=== PATIENT | female | born 1930 | race Caucasian/White ===

== ENCOUNTER 2017-10-20 14:05 | Inpatient (IN) | payer OTHER ==
[2017-10-20] MEDS ORDERED: morphine CARPU-JECT 2 MG/1 ML DISP.SYRIN IVPUSH ONE (14:57)
[2017-10-20] MEDS ORDERED: MORPHINE SULFATE 2 MG/ML VIAL ONE (15:15)
--- NOTE | 2017-10-20 15:21 | PDOC ---
History of Present Illness - General Chief Complaint: Injury Stated Complaint: FALL Time Seen by Provider: 10/20/17 14:17 History Source: Patient Exam Limitations: No Limitations - History of Present Illness Initial Comments: 10/20/17 14:59 87F with no pmh presents to the ED after accidental fall on parking lot as she was closing the door of her car on herself. She fell down on her left side and has been complaining of left hip pain since then. left leg grossly shorter than right. 10/20/17 15:26 Patient vehemently denies hitting her head or losing consciousness. Past History - Past Medical History Allergies/Adverse Reactions: Allergies Allergy/AdvReac Type Severity Reaction Status Date / Time No Known Allergies Allergy Verified 10/20/17 14:26 CVA: No COPD: No Other medical history: unknown - Suicide/Smoking/Psychosocial Hx Smoking History: Never smoked Review of Systems - Review of Systems Able to Perform ROS?: Yes Is the patient limited Yemeni proficient: No Constitutional: No: Symptoms Reported HEENTM: No: Symptoms Reported Respiratory: No: Symptoms reported Cardiac (ROS): No: Symptoms Reported ABD/GI: No: Symptoms Reported : No: Symptoms Reported Musculoskeletal: Yes: See HPI Integumentary: No: Symptoms Reported Neurological: No: Symptoms reported All Other Systems: Reviewed and Negative *Physical Exam - Vital Signs Last Vital Signs Temp Pulse Resp BP Pulse Ox 98.2 F 59 L 18 117/63 97 10/20/17 14:26 10/20/17 14:26 10/20/17 14:26 10/20/17 14:26 10/20/17 14:26 - Physical Exam General Appearance: Yes: Nourished, Appropriately Dressed. No: Apparent Distress HEENT: positive: EOMI, KANDY, Normal ENT Inspection, Other (minor superficial laceration to the left eyebrow, self inflicted per patient as she tried to grab on car door. ) Respiratory/Chest: positive: Lungs Clear, Normal Breath Sounds. negative: Chest Tender, Respiratory Distress Cardiovascular: positive: Regular Rhythm, Regular Rate, S1, S2 Gastrointestinal/Abdominal: positive: Normal Bowel Sounds, Flat, Soft. negative : Tender Musculoskeletal: positive: Other (left hip tender to palpation. Unable to range left hip. Externally rotated LLE. ) Integumentary: positive: Normal Color, Warm ED Treatment Course - LABORATORY CBC & Chemistry Diagram: 10/20/17 15:10 10/20/17 15:10 - RADIOLOGY Radiology Studies Ordered: Category Date Time Status HIP & PELVIS-LEFT [RAD] Stat Radiology 10/20/17 14:28 Ordered HIP & PELVIS-RIGHT [RAD] Stat Radiology 10/20/17 14:28 Ordered Medical Decision Making - Medical Decision Making 10/20/17 15:29 Hip and pelvis xray pending Will order basic pre-admission orders. 10/20/17 17:08 AP and frog lateral projections of the pelvis and both hips reveals a comminuted intertrochanteric fracture of the left femur with moderate displacement of fracture fragments. Pain meds and admission *DC/Admit/Observation/Transfer Diagnosis at time of Disposition: Closed comminuted intertrochanteric fracture of left femur - Discharge Dispostion Decision to Admit order: Yes - Referrals Referrals: Roshan Sanchez MD [Primary Care Provider] - - Patient Instructions - Post Discharge Activity
--- NOTE | 2017-10-20 15:44 | PDOC ---
Attending Attestation - Resident Resident Name: Darrell Grimm - ED Attending Attestation I have performed the following: I have examined & evaluated the patient, The case was reviewed & discussed with the resident, I agree w/resident's findings & plan - HPI HPI: 10/20/17 15:29 High functioning 87-year-old female with no severe past medical history other than recently diagnosed glaucoma presents with mechanical fall and left hip injury. Denies any head injury or loss of consciousness, has no complaints except for her left hip, which she has been unable to range since the fall. No sensory deficit. - Physicial Exam PE: 10/20/17 15:29 General: Patient is alert and in no acute distress. Speech is clear and appropriate. Head: Atraumatic and nontender. Tiny 5 mm abrasion to her left hoahaoism, head is otherwise atraumatic HEENT: Pupils are equal round and reactive to light, extraocular movements are intact. No facial deformity/tenderness, no septal hematoma. The oropharynx is clear. Neck: The trachea is midline, there is no stridor. There is no midline cervical spine tenderness, full range of motion of neck. Chest: Nontender, no ecchymosis or abrasions. Heart: S1-S2, regular rate to auscultation. No murmurs. Lungs: Clear to auscultation bilaterally. Symmetric chest rise. Abdomen: Soft/nontender/nondistended. Bowel sounds are normal. There is no abdominal or flank ecchymosis. Back/Pelvis: There is no midline spine tenderness or step-off. Pelvis is stable and nontender. Extremities: Soft tissue swelling over the left hip, which is tender to palpation. Unable to range left hip, left lower extremity is shortened and externally rotated no abnormalities on the right, full range of motion. 2+ distal pulses throughout. Neuro: Alert and oriented x3. Cranial nerves II through XII are intact. 5 out of 5 motor strength x4 extremities. Idotlf-[id number] is intact. No pronator drift. Gait deferred. Skin: No other abrasions/hematomas/lacerations. Psych: Affect is appropriate. - Medical Decision Making 10/20/17 15:31 87-year-old female status post mechanical fall and left hip injury, neurovascularly intact but concerning for fracture. Pain control Left hip and pelvis x-ray Likely admission 10/20/17 16:[address] Warren of ortho consulted. Will admit to Dr. Laguerre, covering Dr. Sanchez. Heart Score/ECG Review #1 ECG reviewed & interpreted by me at: 15:26 General ECG Interpretation: Sinus Rhythm, Normal Rate (62), Normal Intervals ( qtc 499, LBBB), No acute ischemic changes
[2017-10-20 15:50] LABS: BASO % 0.2 % (0-2.0); EOS % 0.1 % (0-4.5); HEMATOCRIT 22.8 % (32.4-45.2); HEMOGLOBIN 7.2 GM/dL (10.7-15.3); LYMPH % 7.4 % (8-40); MCH 25.8 pg (25.7-33.7); MCHC 31.6 g/dl (32.0-36.0); MEAN CELL VOLUME 81.6 fl (80-96); MEAN PLT VOLUME 8.2 fl (7.5-11.1); NEUT % 88.3 % (42.8-82.8); PLATELET COUNT 232 K/MM3 (134-434); RDW 16.5 % (11.6-15.6); WHITE BLOOD COUNT 8.3 K/mm3 (4.0-10.0)
--- NOTE | 2017-10-20 15:51 | EKG ---
Test Reason : Blood Pressure : / mmHG Vent. Rate : 062 BPM Atrial Rate : 062 BPM P-R Int : 150 ms QRS Dur : 122 ms QT Int : 492 ms P-R-T Axes : 085 -69 103 degrees QTc Int : 499 ms Atrial-paced rhythm WITH PREMATURE SUPRAVENTRICULAR COMPLEXES LEFT AXIS DEVIATION LEFT BUNDLE BRANCH BLOCK ABNORMAL ECG Confirmed by Chiki Kaye MD ([id number]) on 10/20/2017 3:51:15 PM Referred By: Confirmed By:Chiki Kaye MD
[2017-10-20 17:19] LABS: ALBUMIN 2.8 g/dl (3.4-5.0); ANION GAP 7 (8-16); BILIRUBIN,TOTAL 0.3 mg/dL (0.2-1.0); BLOOD UREA NITROGEN 46 mg/dL (7-18); CALCIUM 8.4 mg/dL (8.5-10.1); CHLORIDE 107 mmol/L (98-107); CO2 30 mmol/L (21-32); CREATININE 0.8 mg/dL (0.55-1.02); GLUCOSE,RANDOM 131 mg/dL (74-106); POTASSIUM 4.5 mmol/L (3.5-5.1); SGOT/AST 20 U/L (15-37); SGPT/ALT 19 U/L (12-78); SODIUM 144 mmol/L (136-145); TOT PROT 6.1 g/dl (6.4-8.2)
[2017-10-20 17:22] LABS: ALK PHOS 54 U/L (45-117)
[2017-10-20] MEDS ORDERED: SODIUM CHLORIDE 1,000 ML IV STA (18:48)
[2017-10-20 19:28] LABS: URINE APPEARANCE CLEAR; URINE BILIRUBIN NEGATIVE (<2.0 mg/dL); URINE COLOR YELLOW; URINE GLUCOSE (UA) NEGATIVE (NEGATIVE); URINE KETONE NEGATIVE (NEGATIVE); URINE LEUK ESTERASE NEGATIVE (NEGATIVE); URINE NITRITE POSITIVE (NEGATIVE); URINE PROTEIN NEGATIVE (NEGATIVE); URINE UROBILINOGEN NEGATIVE mg/dL (0.2-1.0)
[2017-10-20 19:32] LABS: EPI CELLS RARE /HPF (FEW); URINE BACTERIA MANY /hpf (NONE SEEN); URINE MUCUS RARE
--- NOTE | 2017-10-20 19:43 | HP ---
Admitting History and Physical - Smoking History Smoking history: Never smoked Home Medications - Allergies Allergies/Adverse Reactions: Allergies Allergy/AdvReac Type Severity Reaction Status Date / Time No Known Allergies Allergy Verified 10/20/17 14:26 - Home Medications Home Medications: Ambulatory Orders Unobtainable 10/20/17 Physical Examination Vital Signs: Vital Signs Temperature 98.1 F 10/20/17 18:32 Pulse Rate 67 10/20/17 18:32 Respiratory Rate 18 10/20/17 18:32 Blood Pressure 125/68 10/20/17 18:32 O2 Sat by Pulse Oximetry (%) 100 10/20/17 18:32 Labs: CBC, BMP 10/20/17 15:10 10/20/17 16:46
--- NOTE | 2017-10-21 09:00 | CON.CARD ---
Cardiology Consult (text) - Consultation Consultation Note: Cardiology Consult Dictated Acute left hip fx s/p fall [employer] PPM, h/o AF not on chronic AC due to previous peptic ulcer and GI bledd Anemia REC: 1. Anesthesia to be aware patient has [employer] PPM 2. No absolute cardiac contraindications to surgery- no , euvolemic, no symptoms of unstable angina. 3. Agree with transfusion to keep Hb >8 4. Follow H/H post op 5. DVT prophylaxis 6. Anemia work up as per primary medical team. Thank you.
--- NOTE | 2017-10-21 09:38 | CONS ---
DATE OF CONSULTATION: 10/21/2017 REQUESTING PHYSICIAN: Dillon Warren MD REASON FOR CONSULTATION: Preoperative cardiac evaluation prior to surgery for left hip fracture. The patient is an 87-year-old female with a past medical history of peptic ulcer disease, GI bleed, treated at [facility] several years ago. Atrial fibrillation, not on Coumadin due to history of severe GI bleeding. Prior pacemaker placement, [employer]. She now presents with an acute left hip fracture after a fall sustained at the [facility]. She denies antecedent chest pain, shortness of breath, palpitations, or loss of consciousness. She is currently comfortable and in no acute distress. PAST MEDICAL HISTORY: As above. HOME MEDICATIONS: Include Alphagan eye drops and baby aspirin, which she does not take regularly. FAMILY HISTORY: Noncontributory. SOCIAL HISTORY: She is a nonsmoker, lives alone. PHYSICAL EXAMINATION: Vital Signs: Temperature 99.6 F, blood pressure 101/54, O2 saturation 100 on room air. Neck: No bruits. Heart: S1, S2 regular, atrially paced. Chest: Clear. Abdomen: Soft, nontender. Extremities: The left leg was foreshortened and externally rotated. Her hip x-ray shows a comminuted intertrochanteric fracture of the left femur. Her chest x-ray shows no acute disease. Labs remarkable for a hemoglobin of 7.2 and hematocrit of 23. Platelets are normal. Chemistry profile was unremarkable except for a mildly elevated BUN of 46. Normal LFTs. Troponin is negative. Urinalysis was unremarkable. IMPRESSION: 1. Acute left hip fracture status post fall. 2. Atrial fibrillation, not on anticoagulation due to previous peptic ulcer disease and gastrointestinal bleed, [employer] pacemaker. 3. Anemia, possible chronic gastrointestinal blood loss. RECOMMENDATIONS: 1. Anesthesia to be aware patient has a [employer] pacemaker and appears atrially paced on her EKG. 2. Currently, there are no absolute cardiac contraindications to surgery. No aortic stenosis. Patient is euvolemic with no symptoms of unstable angina. 3. Agree with transfusion to keep hemoglobin greater than 8. 4. Follow hemoglobin and hematocrit postop. 5. DVT prophylaxis. 6. Anemia workup as per primary medical team. Patient does not appear to have an active GI bleed at this time but should be worked up appropriately postoperatively. Thank you for the consultation. JLI THOMAS M.D. [id number]
[2017-10-21] MEDS ORDERED: oxyCODONE HCL 5 MG TABLET PO PRN (10:00)
[2017-10-21] MEDS ORDERED: MORPHINE SULFATE 2 MG/ML VIAL IVPUSH PRN (10:01)
[2017-10-21] MEDS ORDERED: ACETAMINOPHEN 325 MG TABLET (FP) PO PRN ×2 (10:01→13:50)
--- NOTE | 2017-10-21 10:31 | CONSULT ---
Consult - text type - Consultation Consultation Note: FULL CONSULT DICTATED IMP: RIGHT IT HIP FX PLAN: R GAMMA NAIL TODAY
--- NOTE | 2017-10-21 10:31 | CONS ---
DATE OF CONSULTATION: 10/21/2017 HISTORY OF PRESENT ILLNESS: Patient is an 87-year-old female complaining of pain in the left hip status post fall today. Negative LOC. Negative dizziness before the fall. PAST MEDICAL HISTORY: Significant for a GI bleed and peptic ulcer disease. PHYSICAL EXAMINATION:Extremities: She has a left short lower extremity, external rotation. Marked increased pain with range of motion of the hip. Full range of motion of the ankle and toes. Neurovascularly intact. IMAGING: X-ray showed a left intertrochanteric hip fracture. IMPRESSION: Left intertrochanteric hip fracture. PLAN: Risks, benefits and alternatives discussed with the patient. Patient will be booked for a left gamma nail later today. Her hematocrit was found to be in the low 20s. We will give her 2 units of packed cells. Her global program director will see the patient to clear her prior to the surgery. EMILY LOPEZ M.D. [id number]
[2017-10-21] MEDS ORDERED: MIDAZOLAM HCL 2 MG/2 ML SINGLE DOSE VIAL ONE (11:24)
[2017-10-21] MEDS ORDERED: PROPOFOL 20 ML ONE (11:24)
[2017-10-21] MEDS ORDERED: LIDOCAINE HCL/PF 2% SDV 5ML VIAL ONE (11:24)
[2017-10-21] MEDS ORDERED: ceFAZolin SODIUM 1 GM VIAL IVPB ONE (12:17)
[2017-10-21] MEDS ORDERED: ONDANSETRON 4 MG/2 ML VIAL IVPUSH PRN (12:23)
[2017-10-21] MEDS ORDERED: DESFLURANE GAS 240 ML BOTTLE IH ONE (12:33)
--- NOTE | 2017-10-21 13:24 | OP ---
Operative Note - Note: Operative Date: 10/21/17 Pre-Operative Diagnosis: left hip inter trochanteric fracture Operation: left femur IM Nail/Gamma Nail Implants: [employer] G3 Titanium standard trochanteric nail, 85mm lag screw, 37.5 distal locking screw, prox locking screw Surgeon: Robert Miles Anesthesiologist/MIND READER: Simona Adames Anesthesia: General Estimated Blood Loss (mls): 60 Blood Volume Replaced (mls): 350 Fluid Volume Replaced (mls): 500 Operative Report Dictated: Yes
--- NOTE | 2017-10-21 13:55 | SPEC ---
DATE OF OPERATION: 10/21/2017 PREOPERATIVE DIAGNOSIS: Left femur intertrochanteric hip fracture. POSTOPERATIVE DIAGNOSIS: Left femur intertrochanteric hip fracture. PROCEDURE: Left standard Gamma nail. SURGEON: Art Coleman MD ASSISTANTS: None. COMMERCIAL REPORTER: Simona Simpson CRNA ANESTHESIA: General anesthesia. DRAINS: None. COMPLICATIONS: None. BLOOD LOSS: 60 mL. BLOOD GIVEN: Packed red blood cells 1 unit/350 mL. Second unit being given in the recovery room. FLUID REPLACEMENT: 500 mL. IMPLANT: Left Gamma G3 titanium trochanteric nail standard, 37.5 mm distal locking screw, proximal set screw, and 85-mm lag screw. INDICATIONS: This patient is an 87-year-old female with a preoperative diagnosis of a displaced left intertrochanteric hip fracture. After understanding the potential risks, complications, alternatives, and benefits of surgery versus nonsurgical treatment, the patient elected to undergo this procedure. DESCRIPTION OF PROCEDURE: Patient was brought to the operating room. Peripheral IV placed, IV sedation given. One gram of IV Ancef was given. General anesthesia was induced. The patient had ample Webril placed around the peroneal post in both ankles. The patient was placed onto the fracture table with a slight longitudinal traction and internal rotation. X-rays were taken documenting excellent reduction of the fracture in the AP and lateral planes. Next, an incision was made over the proximal aspect of the greater trochanter. Subcutaneous hemostasis was achieved with a Bovie cautery, dissection done through the lateral fascia to the top of the greater trochanter. A Tong elevator was used to take off the soft tissue from the starting point. Under direct visualization a partially threaded guide-wire was placed through the standard starting position, into the proximal femur, passed the fracture fragment into the medullary canal. It was documented to be in excellent position in AP, lateral and multiple oblique planes. Next, we used the proximal 17 mm cannulated reamer and put in a standard titanium Casey Gamma 3 125 degree, 180 mm trochanteric nail. This was put in cannulated fashion to appropriate depth and using the external guide in a standard fashion, first using external jig, using a threaded guide-wire, replaced the lag screw, guide pin to the lateral aspect of the femur. The prosthesis and up to the femoral neck and head, looked to be in excellent position in a center central position, perhaps slightly posterior and slightly inferior in both AP and lateral planes. We measured it at an 85 mm screw. The cannulated drill was used to drill it to this leg and then we put in an 85 mm titanium lag screw. We achieved excellent compression and overall the position of the hardware in the fracture fragments looked excellent. We locked it in place with a proximal set screw, we altered the external jig to the static position and using the standard technique put in a distal interlocking screw under direct visualization of 37.5 mm in length. This locked the nail distally. We removed the external jig. We repeated x-rays in AP, lateral and multiple oblique planes and overall I was quite happy with the position of the fracture reduction, the length of the screw, the position of the hardware. Final x-rays were taken. The area was copiously irrigated and washed out. The deep fascial layer was closed with 0 Vicryl sutures. The deep dermal layer was closed with 2-0 Vicryl. Final skin approximation was done with ezekiel. The area was then washed and dried, covered with Xeroform gauze, 4 x 4 gauze, ABD and tape. Patient was taken down off the fracture table in stable condition. There were no complications during the case. Total operative time was about 40 minutes. ART COLEMAN M.D. [id number]
--- NOTE | 2017-10-21 15:37 | PN ---
Addendum entered and electronically signed by Nancy Alejandre, RESIDENT 18:53: Anemia - pt already received prbc's at time of examination, will need to monitor for signs of bleeding - discussed with lab, unable to ordered anemia w.u on labs from admission since they are too old. - will recommend outpatient w.u Original Note: Physical Exam: SUBJECTIVE: Patient seen and examined. c/o left pain at surgical site. was concerned about pain when walking tomorrow with physical therapy and toileting while in bed, does not want to be moved due to pain in left hip. alert, oriented, aware of situation. denies sob, abdominal pain. OBJECTIVE: Vital Signs Period Temp Pulse Resp BP Sys/Oseguera Pulse Ox Last 24 Hr 98.1 F-99.6 F 61-77 12-27 101-160/54-80 94-996 GENERAL: The patient is awake, alert, and fully oriented, in no acute distress. EYES: extraocular movements intact, sclera anicteric, conjunctiva clear. No ptosis. ENT: dry mucous membranes. LUNGS: anterior ausculation without wheezes or crackles HEART: Regular rate and rhythm, S1, S2 without murmur, rub or gallop. ABDOMEN: Soft, nontender, nondistended, normoactive bowel sounds EXTREMITIES: 2+ radial and DP pulses, warm, well-perfused, no edema. le in TEDs and scd's. surgical bandage intact on left hip without surrounding erythema NEUROLOGICAL: facial symmetry waldrop in place Laboratory Results - last 24 hr 10/20/17 10/20/17 10/20/17 15:10 15:10 16:46 WBC 8.3 RBC 2.80 L Hgb 7.2 L Hct 22.8 L D MCV 81.6 MCH 25.8 D MCHC 31.6 L RDW 16.5 H Plt Count 232 D MPV 8.2 Absolute Neuts (auto) 7.3 Neutrophils % 88.3 H Lymphocytes % 7.4 L Monocytes % 4.0 Eosinophils % 0.1 Basophils % 0.2 Nucleated RBC % 0 Sodium Cancelled 144 Potassium Cancelled 4.5 Chloride Cancelled 107 Carbon Dioxide Cancelled 30 Anion Gap Cancelled 7 L BUN Cancelled 46 H Creatinine Cancelled 0.8 Creat Clearance w eGFR Cancelled > 60 Random Glucose Cancelled 131 H Calcium Cancelled 8.4 L Total Bilirubin Cancelled 0.3 AST Cancelled 20 ALT Cancelled 19 Alkaline Phosphatase Cancelled 54 Creatine Kinase Cancelled 84 Troponin I Cancelled < 0.02 Total Protein Cancelled 6.1 L Albumin Cancelled 2.8 L Urine Color Urine Appearance Urine pH Ur Specific [place] Urine Protein Urine Glucose (UA) Urine Ketones Urine Blood Urine Nitrite Urine Bilirubin Urine Urobilinogen Ur Leukocyte Esterase Urine WBC (Auto) Urine RBC (Auto) Ur Epithelial Cells Urine Bacteria Urine Mucus Blood Type Antibody Screen Crossmatch 10/20/17 10/20/17 10/20/17 18:50 19:13 19:35 WBC RBC Hgb Hct MCV MCH MCHC RDW Plt Count MPV Absolute Neuts (auto) Neutrophils % Lymphocytes % Monocytes % Eosinophils % Basophils % Nucleated RBC % Sodium Potassium Chloride Carbon Dioxide Anion Gap BUN Creatinine Creat Clearance w eGFR Random Glucose Calcium Total Bilirubin AST ALT Alkaline Phosphatase Creatine Kinase Troponin I Total Protein Albumin Urine Color Yellow Urine Appearance Clear Urine pH 5.0 Ur Specific [place] 1.020 Urine Protein Negative Urine Glucose (UA) Negative Urine Ketones Negative Urine Blood Negative Urine Nitrite Positive Urine Bilirubin Negative Urine Urobilinogen Negative Ur Leukocyte Esterase Negative Urine WBC (Auto) 2 Urine RBC (Auto) 1 Ur Epithelial Cells Rare Urine Bacteria Many Urine Mucus Rare Blood Type Cancelled O POSITIVE Antibody Screen Cancelled Negative Crossmatch See Detail Active Medications Generic Name Dose Route Start Last Admin Trade Name Freq PRN Reason Stop Dose Admin Acetaminophen 650 mg 10/21/17 13:50 Tylenol - PO Q4H PRN PAIN LEVEL 1 - 3 Enoxaparin Sodium 30 mg 10/22/17 10:00 Lovenox - SQ DAILY [facility] Fentanyl 25 mcg 10/21/17 12:23 10/21/17 14:35 Sublimaze Injection - IVPUSH 25 mcg [id number] PRN Administration PAIN-PACU ORDER X 4 DOSES ONLY Lactated Ringer's 1,000 mls @ 75 mls/hr 10/21/17 12:30 Lactated Ringers Solution IV ASDIR [facility] Cefazolin Sodium 1 gm/ 50 mls @ 100 mls/hr 10/21/17 20:00 Dextrose IVPB 10/22/17 04:29 Q8H ALEKSANDAR Morphine Sulfate 1 mg 10/21/17 13:50 Morphine Sulfate IVPUSH Q6H PRN PAIN LEVEL 7 - 10 Ondansetron HCl 4 mg 10/21/17 12:23 Zofran Injection IVPUSH Q6H PRN NAUSEA AND/OR VOMITING Oxycodone HCl 5 mg 10/21/17 13:50 Roxicodone - PO Q6H PRN PAIN LEVEL 4 - 6 ASSESSMENT/PLAN: 87 yr old woman with glaucoma, [employer] PPM with h/o AF(not on AC due to peptic ulcer and gi bleed) admitted for coomunited IT fracture s/p mechanical fall. #Communited fracture repaird with gamma nail by ortho- POD#0 - pain control with tylenol, morphine and oxycodeno on pain sliding pain scale, titrate to control - stool softner while on opaite pain medications - physical therapy in the AM - continue DVT prophylaxis with lovenox 40mg sq daily tomorrow - zofran prn for nausea - ancef periop as per ortho - lr IVF overnight until taking adequate PO - will dc waldrop in the am once pain is better controlled - encourage incentive spirometry - will need SNF once stable for rehab, to discuss when pt is ready for dc planning #diet- pureed Visit type - Emergency Visit Emergency Visit: No - New Patient This patient is new to me today: Yes Date on this admission: 10/21/17 - Critical Care Critical Care patient: No - Discharge Referral Referred to [facility] No
[2017-10-21] MEDS: MORPHINE SULFATE 2 MG/ML VIAL IVPUSH PRN ×2 (16:07→22:06)
--- NOTE | 2017-10-21 18:06 | PN ---
Teaching Attending Note Name of Resident: Nancy Alejandre ATTENDING PHYSICIAN STATEMENT I saw and evaluated the patient. I reviewed the resident's note and discussed the case with the resident. I agree with the resident's findings and plan as documented. SUBJECTIVE: Patient complains of pain in her left hip. OBJECTIVE: Vital Signs Period Temp Pulse Resp BP Sys/Oseguera Pulse Ox Last 24 Hr 97.9 F-99.6 F 61-77 11-27 101-160/54-80 96-996 HEART: S1S2, RRR LUNGS: Clear ABDOMEN: Soft, non-tender, non-distended, normal BS EXTREMITIES: No edema Laboratory Results - last 24 hr 10/20/17 10/20/17 10/20/17 18:50 19:13 19:35 Urine Color Yellow Urine Appearance Clear Urine pH 5.0 Ur Specific [place] 1.020 Urine Protein Negative Urine Glucose (UA) Negative Urine Ketones Negative Urine Blood Negative Urine Nitrite Positive Urine Bilirubin Negative Urine Urobilinogen Negative Ur Leukocyte Esterase Negative Urine WBC (Auto) 2 Urine RBC (Auto) 1 Ur Epithelial Cells Rare Urine Bacteria Many Urine Mucus Rare Blood Type Cancelled O POSITIVE Antibody Screen Cancelled Negative Crossmatch See Detail Current Medications Generic Name Dose Route Start Last Admin Trade Name Freq PRN Reason Stop Dose Admin Acetaminophen 650 mg 10/21/17 13:50 Tylenol - PO Q4H PRN PAIN LEVEL 1 - 3 Enoxaparin Sodium 40 mg 10/22/17 10:00 Lovenox - SQ DAILY ALE[facility] Fentanyl 25 mcg 10/21/17 12:23 10/21/17 14:35 Sublimaze Injection - IVPUSH 25 mcg [id number] PRN Administration PAIN-PACU ORDER X 4 DOSES ONLY Lactated Ringer's 1,000 mls @ 75 mls/hr 10/21/17 12:30 Lactated Ringers Solution IV ASDIR [facility] Cefazolin Sodium 1 gm/ 50 mls @ 100 mls/hr 10/21/17 20:00 Dextrose IVPB 10/22/17 04:29 Q8H ALEKSANDAR Morphine Sulfate 1 mg 10/21/17 13:50 10/21/17 16:07 Morphine Sulfate IVPUSH 1 mg Q6H PRN Administration PAIN LEVEL 7 - 10 Ondansetron HCl 4 mg 10/21/17 12:23 Zofran Injection IVPUSH Q6H PRN NAUSEA AND/OR VOMITING Oxycodone HCl 5 mg 10/21/17 13:50 Roxicodone - PO Q6H PRN PAIN LEVEL 4 - 6 ASSESSMENT AND PLAN: 1. Intertrochanteric left femur fracture - s/p IM nail today - Pain control - Physical therapy 2. Anemia - Acute blood loss vs chronic - Being transfused 2 units PRBCs - Keep Hgb > 8 3. History of atrial fib - Not on anticoagulation secondary to GI bleed 4. History of pacemaker
[2017-10-21] MEDS: LACTATED RINGERS SOLUTION 1,000 ML IV SCH (18:28)
[2017-10-21] MEDS ORDERED: ceFAZolin SODIUM 1 GM VIAL ONE (19:52)
[2017-10-21] MEDS ORDERED: DEXTROSE 5%-WATER - 50 ML IVPB ONE (19:52)
[2017-10-21] MEDS ORDERED: CEFAZOLIN 1 GM/D5W 1 GM/50 ML BAG IVPB SCH (20:00)
[2017-10-21] MEDS: CEFAZOLIN 1 GM in DEXTROSE 5%-WATER - 50 ML IVPB SCH (20:17)
[2017-10-21] MEDS: oxyCODONE HCL 5 MG TABLET PO PRN (20:28)
[2017-10-22] MEDS ORDERED: DEXTROSE 5%-WATER - 50 ML IVPB ONE (03:35)
[2017-10-22] MEDS ORDERED: ceFAZolin SODIUM 1 GM VIAL ONE (03:35)
[2017-10-22] MEDS: CEFAZOLIN 1 GM in DEXTROSE 5%-WATER - 50 ML IVPB SCH (03:42)
[2017-10-22] MEDS: MORPHINE SULFATE 2 MG/ML VIAL IVPUSH PRN ×3 (05:34→21:38)
[2017-10-22] MEDS: LACTATED RINGERS SOLUTION 1,000 ML IV SCH ×2 (06:11→19:30)
[2017-10-22 08:15] LABS: HEMATOCRIT 24.5 % (32.4-45.2); HEMOGLOBIN 8.3 GM/dL (10.7-15.3); MCH 28.8 pg (25.7-33.7); MEAN CELL VOLUME 84.7 fl (80-96); MEAN PLT VOLUME 7.9 fl (7.5-11.1); PLATELET COUNT 172 K/MM3 (134-434); RBC 2.89 M/mm3 (3.60-5.2); RDW 16.2 % (11.6-15.6); WHITE BLOOD COUNT 7.7 K/mm3 (4.0-10.0)
[2017-10-22 08:30] LABS: ANION GAP 7 (8-16); BLOOD UREA NITROGEN 46 mg/dL (7-18); CALCIUM 7.7 mg/dL (8.5-10.1); CHLORIDE 107 mmol/L (98-107); CO2 30 mmol/L (21-32); CREATININE 0.8 mg/dL (0.55-1.02); GLUCOSE,RANDOM 123 mg/dL (74-106); POTASSIUM 3.8 mmol/L (3.5-5.1); SODIUM 144 mmol/L (136-145)
--- NOTE | 2017-10-22 09:07 | PN ---
Progress Note, Physician Chief Complaint: s/p left femur IM Nail/Gamma Nail History of Present Illness: POD #1, alert, no distress - Current Medication List Current Medications: Active Medications Acetaminophen (Tylenol -) 650 mg PO Q4H PRN PRN Reason: PAIN LEVEL 1 - 3 Docusate Sodium (Colace -) 100 mg PO DAILY ON LICENSE OF [facility] Enoxaparin Sodium (Lovenox -) 40 mg SQ DAILY ON LICENSE OF [facility] Fentanyl (Sublimaze Injection -) 25 mcg IVPUSH [id number] PRN PRN Reason: PAIN-PACU ORDER X 4 DOSES ONLY Last Admin: 10/21/17 14:35 Dose: 25 mcg Lactated Ringer's (Lactated Ringers Solution) 1,000 mls @ 75 mls/hr IV ASDIR ALEKSANDAR Last Admin: 10/22/17 06:11 Dose: 75 mls/hr Morphine Sulfate (Morphine Sulfate) 1 mg IVPUSH Q6H PRN PRN Reason: PAIN LEVEL 7 - 10 Last Admin: 10/22/17 05:34 Dose: 1 mg Ondansetron HCl (Zofran Injection) 4 mg IVPUSH Q6H PRN PRN Reason: NAUSEA AND/OR VOMITING Oxycodone HCl (Roxicodone -) 5 mg PO Q6H PRN PRN Reason: PAIN LEVEL 4 - 6 Last Admin: 10/21/17 20:28 Dose: 5 mg - Objective Vital Signs: Vital Signs Temperature 99.4 F 10/22/17 06:00 Pulse Rate 63 10/22/17 06:00 Respiratory Rate 18 10/22/17 06:00 Blood Pressure 118/60 10/22/17 06:00 O2 Sat by Pulse Oximetry (%) 96 10/22/17 08:49 Constitutional: Yes: No Distress Eyes: Yes: EOM Intact Cardiovascular: Yes: Regular Rate and Rhythm (paced) Respiratory: Yes: CTA Bilaterally Gastrointestinal: Yes: Soft Edema: No Neurological: Yes: Alert, Oriented Labs: CBC, BMP 10/22/17 06:15 10/22/17 06:15 Laboratory Tests 10/22/17 10/22/17 06:15 06:15 WBC 7.7 Hgb 8.3 L Plt Count 172 D Sodium 144 Potassium 3.8 BUN 46 H Creatinine 0.8 Assessment/Plan Cardiology Consult Dictated Acute left hip fx s/p fall [facility] PPM, h/o AF not on chronic AC due to previous peptic ulcer and GI bledd Anemia REC: 1. DVT prophylaxis 2. Anemia w/u as per PMD 3. Rx UTI as per PMD 4. HD stable post op
[2017-10-22] MEDS: DOCUSATE SODIUM 100 MG CAPSULE (FP) PO SCH (09:15)
[2017-10-22] MEDS: ENOXAPARIN NA (PORCINE) 40 MG/0.4 ML DISP.SYRIN SQ SCH (09:15)
[2017-10-22] MEDS: oxyCODONE HCL 5 MG TABLET PO PRN (09:16)
--- NOTE | 2017-10-22 09:26 | PN ---
Progress Note (short form) - Note Progress Note: Ortho Pt seen and examined s/p left IM gamma nail pod #1 Selected Entries 10/22/17 09:12 Temperature 98.2 F Pulse Rate 67 Respiratory 16 Rate Blood Pressure 108/66 Laboratory Tests 10/22/17 06:15 WBC 7.7 Hgb 8.3 L Hct 24.5 L Plt Count 172 D dressing with slight saturation, calf soft ,nt nvi a/p PT PWB dvt ppx pain control b/l heel pads d/c planning
[2017-10-22] MEDS ORDERED: ENOXAPARIN NA (PORCINE) 40 MG/0.4 ML DISP.SYRIN SQ SCH ×2 (10:00)
--- NOTE | 2017-10-22 11:23 | CONSULT ---
Consult - text type - Consultation Consultation Note: Podiatry Consultation: Pleasant 87 year old F presented to hospital with L femur IT fracture, s/p gamma nailing with Orthopedics. Podiatry consultation requested for elongated toe nails x 10. ANGEL: Pedal pulses 1/4, TG wnl, CFT brisk to all toes. Nails are elongated, discolored, thickened, overgrown and ingrowing, tender to palpation x 10. No nail bed ulcers, no digital ulcers, no signs of active infection. Imp: 87 year old F with onychomycosis x 10 1. With verbal consent obtained, manual debridement of mycotic nails x 10 using nail nipper. Patient tolerated the procedure well without complications. 2. Appropriate foot hygiene discussed at length. 3. Patient can f/u outpatient in about 3 months. Thank you for the courtesy of this consultation. Artie Phoenix DPM
--- NOTE | 2017-10-22 15:49 | PN ---
Teaching Attending Note Name of Resident: Nancy Alejandre ATTENDING PHYSICIAN STATEMENT I saw and evaluated the patient. I reviewed the resident's note and discussed the case with the resident. I agree with the resident's findings and plan as documented. SUBJECTIVE: Patient complains of left hip pain with movement. OBJECTIVE: Vital Signs Period Temp Pulse Resp BP Sys/Oseguera Pulse Ox Last 24 Hr 97.9 F-99.4 F 61-67 16-20 102-143/45-72 95-96 HEART: S1S2, RRR LUNGS: Clear ABDOMEN: Soft, non-tender, non-distended, normal BS EXTREMITIES: No edema Laboratory Results - last 24 hr 10/22/17 10/22/17 06:15 06:15 WBC 7.7 RBC 2.89 L Hgb 8.3 L Hct 24.5 L MCV 84.7 MCH 28.8 D MCHC 34.0 RDW 16.2 H Plt Count 172 D MPV 7.9 Sodium 144 Potassium 3.8 Chloride 107 Carbon Dioxide 30 Anion Gap 7 L BUN 46 H Creatinine 0.8 Creat Clearance w eGFR > 60 Random Glucose 123 H Calcium 7.7 L Current Medications Generic Name Dose Route Start Last Admin Trade Name Freq PRN Reason Stop Dose Admin Acetaminophen 650 mg 10/21/17 13:50 Tylenol - PO Q4H PRN PAIN LEVEL 1 - 3 Docusate Sodium 100 mg 10/22/17 10:00 10/22/17 09:15 Colace - PO 100 mg DAILY ALEKSANDAR Administration Enoxaparin Sodium 40 mg 10/22/17 10:00 10/22/17 09:15 Lovenox - SQ 40 mg DAILY ALEKSANDAR Administration Fentanyl 25 mcg 10/21/17 12:23 10/21/17 14:35 Sublimaze Injection - IVPUSH 25 mcg [id number] PRN Administration PAIN-PACU ORDER X 4 DOSES ONLY Lactated Ringer's 1,000 mls @ 75 mls/hr 10/21/17 12:30 10/22/17 06:11 Lactated Ringers Solution IV 75 mls/hr ASDIR ALEKSANDAR Administration Morphine Sulfate 1 mg 10/21/17 13:50 10/22/17 11:01 Morphine Sulfate IVPUSH 1 mg Q6H PRN Administration PAIN LEVEL 7 - 10 Ondansetron HCl 4 mg 10/21/17 12:23 Zofran Injection IVPUSH Q6H PRN NAUSEA AND/OR VOMITING Oxycodone HCl 5 mg 10/21/17 13:50 10/22/17 09:16 Roxicodone - PO 5 mg Q6H PRN Administration PAIN LEVEL 4 - 6 ASSESSMENT AND PLAN: 1. Intertrochanteric left femur fracture - s/p IM nail 10/21 - Pain control - Continue physical therapy - Will need subacute rehab - plan for tomorrow if bed available 2. Anemia - Acute blood loss vs chronic - Transfused 2 units PRBCs - Continue to monitor hemoglobin - Keep Hgb > 8 3. History of atrial fib - Not on anticoagulation secondary to GI bleed 4. History of pacemaker
[2017-10-23] MEDS: MORPHINE SULFATE 2 MG/ML VIAL IVPUSH PRN (04:32)
[2017-10-23] MEDS ORDERED: MORPHINE SULFATE 2 MG/ML VIAL IVPUSH PRN (07:18)
[2017-10-23 07:33] LABS: HEMATOCRIT 22.4 % (32.4-45.2); HEMOGLOBIN 7.6 GM/dL (10.7-15.3); MCH 28.9 pg (25.7-33.7); MCHC 33.7 g/dl (32.0-36.0); MEAN CELL VOLUME 85.6 fl (80-96); MEAN PLT VOLUME 8.1 fl (7.5-11.1); PLATELET COUNT 157 K/MM3 (134-434); RBC 2.62 M/mm3 (3.60-5.2); RDW 16.5 % (11.6-15.6); WHITE BLOOD COUNT 8.7 K/mm3 (4.0-10.0)
--- NOTE | 2017-10-23 08:52 | PN ---
Physical Exam: SUBJECTIVE: Patient seen and examined. sleeping comfortably. has not had a bowel in hospital. denied fevers, abdominal pain. has pain with movement of left hip. morphine helps to reduce the pain but does not last long enough OBJECTIVE: Vital Signs Period Temp Pulse Resp BP Sys/Oseguera Pulse Ox Last 24 Hr 98.1 F-98.4 F 65-87 14-18 102-134/45-72 97 GENERAL: The patient is awake, alert, and fully oriented, in no acute distress. EYES: extraocular movements intact, sclera anicteric, conjunctiva clear. No ptosis. ENT: dry mucous membranes(pt keeps mouth open when sleeping, likely not due to dehydration) LUNGS: anterior ausculation without wheezes or crackles HEART: Regular rate and rhythm, S1, S2 without murmur, rub or gallop. ABDOMEN: Soft, nontender, nondistended, normoactive bowel sounds EXTREMITIES: 2+ radial and DP pulses, warm, well-perfused, no edema. le in TEDs and scd's. surgical bandage intact on left hip without surrounding erythema. left upper arm with swelling L arm larger than right. NEUROLOGICAL: facial symmetry, clear speech Laboratory Results - last 24 hr 10/23/17 06:10 WBC 8.7 RBC 2.62 L Hgb 7.6 L Hct 22.4 L MCV 85.6 MCH 28.9 MCHC 33.7 RDW 16.5 H Plt Count 157 MPV 8.1 Active Medications Generic Name Dose Route Start Last Admin Trade Name Freq PRN Reason Stop Dose Admin Acetaminophen 650 mg 10/21/17 13:50 Tylenol - PO Q4H PRN PAIN LEVEL 1 - 3 Docusate Sodium 100 mg 10/22/17 10:00 10/22/17 09:15 Colace - PO 100 mg DAILY ALEKSANDAR Administration Enoxaparin Sodium 40 mg 10/22/17 10:00 10/22/17 09:15 Lovenox - SQ 40 mg DAILY ALEKSANDAR Administration Fentanyl 25 mcg 10/21/17 12:23 10/21/17 14:35 Sublimaze Injection - IVPUSH 25 mcg [id number] PRN Administration PAIN-PACU ORDER X 4 DOSES ONLY Morphine Sulfate 1 mg 10/23/17 07:18 Morphine Sulfate IVPUSH Q4H PRN PAIN LEVEL 7 - 10 Ondansetron HCl 4 mg 10/21/17 12:23 Zofran Injection IVPUSH Q6H PRN NAUSEA AND/OR VOMITING Oxycodone HCl 5 mg 10/21/17 13:50 10/22/17 09:16 Roxicodone - PO 5 mg Q6H PRN Administration PAIN LEVEL 4 - 6 Polyethylene Glycol 17 gm 10/23/17 10:00 Miralax (For Daily Use) - PO DAILY ALEKSANDAR ASSESSMENT/PLAN: 7 yr old woman with glaucoma, [employer] Sci PPM with h/o AF(not on AC due to peptic ulcer and gi bleed) admitted for communited IT fracture s/p mechanical fall. #left arm swelling - duplex ordered to r.o VTE. found to have superficial VTE in left ar. consulted vascular surg for evaluation. will treat as recommended with aspirin(with PPI due to pt's hx of GI bleed) for pain, warm compresses, and elevation. #Communited fracture repaired with gamma nail by ortho- POD#1 - pain control with tylenol, morphine and oxycodeno on pain sliding pain scale, titrate to control - stool softner while on opiate pain medications, added miralax today for added GI regimen - pt accepted to [facility] - zofran prn for nausea - IVF dc'd today, pt encouraged to take adequate po - encourage incentive spirometry #Anemia, normocytic - ordered iron and vitamin b12 panel - repeat at noon was improved - monitor for signs of bleeding - Called her PCP's office to get most recent lab work h/h from July 2017: 11.5/ 36.7. - PCP's office does not have a historical record of colonoscopy, low suspicion for acute GI bleed currently, surgical site intact without signs of hematoma development, will monitor for now #Asymptomatic bacteruria - Urinalysis was positive for nitrate on admission, however pt has no s/s of UTI , will monitor off abx for now. PCP's office did not have a historical UA for comparison. # seen by podiatry for toe nails, provided cutting of nails and pt to f.u in 3 months #Diet pureed, skim milk only #dvt prophylaxis with lovenox 40sq daily #Dispo: pt to be transferred to [facility] tomorrow morning, discussed with case management Visit type - Emergency Visit Emergency Visit: No - New Patient This patient is new to me today: No - Critical Care Critical Care patient: No
[2017-10-23] MEDS: DOCUSATE SODIUM 100 MG CAPSULE (FP) PO SCH (10:05)
[2017-10-23] MEDS: ENOXAPARIN NA (PORCINE) 40 MG/0.4 ML DISP.SYRIN SQ SCH (10:06)
[2017-10-23 12:08] LABS: BASO % 0.1 % (0-2.0); EOS % 0.1 % (0-4.5); HEMATOCRIT 24.7 % (32.4-45.2); HEMOGLOBIN 8.2 GM/dL (10.7-15.3); LYMPH % 9.8 % (8-40); MCH 28.3 pg (25.7-33.7); MCHC 33.1 g/dl (32.0-36.0); MEAN CELL VOLUME 85.6 fl (80-96); MEAN PLT VOLUME 8.1 fl (7.5-11.1); MONO % 11.1 % (3.8-10.2); NEUT % 78.9 % (42.8-82.8); PLATELET COUNT 179 K/MM3 (134-434); RBC 2.89 M/mm3 (3.60-5.2); RDW 16.5 % (11.6-15.6); WHITE BLOOD COUNT 7.8 K/mm3 (4.0-10.0)
[2017-10-23] MEDS: POLYETHYLENE GLYCOL 3350 119 GM BTL PO SCH (13:53)
--- NOTE | 2017-10-23 14:57 | PN ---
Progress Note, Physician Chief Complaint: no acute distress - Current Medication List Current Medications: Active Medications Acetaminophen (Tylenol -) 650 mg PO Q4H PRN PRN Reason: PAIN LEVEL 1 - 3 Docusate Sodium (Colace -) 100 mg PO DAILY REPLACED BY [facility] Last Admin: 10/23/17 10:05 Dose: 100 mg Enoxaparin Sodium (Lovenox -) 40 mg SQ DAILY REPLACED BY [facility] Last Admin: 10/23/17 10:06 Dose: 40 mg Fentanyl (Sublimaze Injection -) 25 mcg IVPUSH [id number] PRN PRN Reason: PAIN-PACU ORDER X 4 DOSES ONLY Last Admin: 10/21/17 14:35 Dose: 25 mcg Morphine Sulfate (Morphine Sulfate) 1 mg IVPUSH Q4H PRN PRN Reason: PAIN LEVEL 7 - 10 Last Admin: 10/23/17 14:04 Dose: 1 mg Ondansetron HCl (Zofran Injection) 4 mg IVPUSH Q6H PRN PRN Reason: NAUSEA AND/OR VOMITING Oxycodone HCl (Roxicodone -) 5 mg PO Q6H PRN PRN Reason: PAIN LEVEL 4 - 6 Last Admin: 10/22/17 09:16 Dose: 5 mg Polyethylene Glycol (Miralax (For Daily Use) -) 17 gm PO DAILY REPLACED BY [facility] Last Admin: 10/23/17 13:53 Dose: 17 grams - Objective Vital Signs: Vital Signs Temperature 98.6 F 10/23/17 09:31 Pulse Rate 90 10/23/17 09:31 Respiratory Rate 18 10/23/17 09:31 Blood Pressure 114/60 10/23/17 09:31 O2 Sat by Pulse Oximetry (%) 97 10/23/17 09:27 Constitutional: Yes: No Distress Cardiovascular: Yes: Regular Rate and Rhythm Respiratory: Yes: CTA Bilaterally Gastrointestinal: Yes: Soft Edema: Yes Edema: LLE: 1+ Neurological: Yes: Alert, Oriented ...Motor Strength: WNL Labs: CBC, BMP 10/23/17 11:44 10/22/17 06:15 Laboratory Tests 10/22/17 10/23/17 06:15 11:44 WBC 7.8 Hgb 8.2 L Plt Count 179 Potassium 3.8 Creatinine 0.8 Assessment/Plan Acute left hip fx s/p fall [place] [facility] PPM, h/o AF not on chronic AC due to previous peptic ulcer and GI bledd Anemia REC: 1. DVT prophylaxis 2. Anemia w/u as per PMD 3. Rx UTI as per PMD 4. HD stable post op 5. Prelim UE US with superficial thrombus. D/W resident. F/u official report. Vascular consult Usual therapy is ASA and warm compresses.
--- NOTE | 2017-10-23 15:18 | PN ---
Teaching Attending Note Name of Resident: Nancy Alejandre ATTENDING PHYSICIAN STATEMENT I saw and evaluated the patient. I reviewed the resident's note and discussed the case with the resident. I agree with the resident's findings and plan as documented. SUBJECTIVE: Patient says left hip pain is less severe. OBJECTIVE: Vital Signs Period Temp Pulse Resp BP Sys/Oseguera Pulse Ox Last 24 Hr 98.1 F-98.6 F 67-90 14-18 112-134/60-72 97-97 HEART: S1S2, RRR LUNGS: Clear ABDOMEN: Soft, non-tender, non-distended, normal BS EXTREMITIES: (+) LUE edema Laboratory Results - last 24 hr 10/23/17 10/23/17 10/23/17 06:10 06:10 06:10 WBC 8.7 RBC 2.62 L Hgb 7.6 L Hct 22.4 L MCV 85.6 MCH 28.9 MCHC 33.7 RDW 16.5 H Plt Count 157 MPV 8.1 Absolute Neuts (auto) Neutrophils % Lymphocytes % Monocytes % Eosinophils % Basophils % Nucleated RBC % Ferritin 42.1 Vitamin B12 Cancelled 329 10/23/17 11:44 WBC 7.8 RBC 2.89 L Hgb 8.2 L Hct 24.7 L MCV 85.6 MCH 28.3 MCHC 33.1 RDW 16.5 H Plt Count 179 MPV 8.1 Absolute Neuts (auto) 6.2 Neutrophils % 78.9 Lymphocytes % 9.8 D Monocytes % 11.1 H D Eosinophils % 0.1 Basophils % 0.1 Nucleated RBC % 0 Ferritin Vitamin B12 Current Medications Generic Name Dose Route Start Last Admin Trade Name Zhenq PRN Reason Stop Dose Admin Acetaminophen 650 mg 10/21/17 13:50 Tylenol - PO Q4H PRN PAIN LEVEL 1 - 3 Docusate Sodium 100 mg 10/22/17 10:00 10/23/17 10:05 Colace - PO 100 mg DAILY ALEKSANDAR Administration Enoxaparin Sodium 40 mg 10/22/17 10:00 10/23/17 10:06 Lovenox - SQ 40 mg DAILY ALEKSANDAR Administration Fentanyl 25 mcg 10/21/17 12:23 10/21/17 14:35 Sublimaze Injection - IVPUSH 25 mcg [id number] PRN Administration PAIN-PACU ORDER X 4 DOSES ONLY Morphine Sulfate 1 mg 10/23/17 07:18 10/23/17 14:04 Morphine Sulfate IVPUSH 1 mg Q4H PRN Administration PAIN LEVEL 7 - 10 Ondansetron HCl 4 mg 10/21/17 12:23 Zofran Injection IVPUSH Q6H PRN NAUSEA AND/OR VOMITING Oxycodone HCl 5 mg 10/21/17 13:50 10/22/17 09:16 Roxicodone - PO 5 mg Q6H PRN Administration PAIN LEVEL 4 - 6 Polyethylene Glycol 17 gm 10/23/17 10:00 10/23/17 13:53 Miralax (For Daily Use) - PO 17 grams DAILY ALEKSANDAR Administration ASSESSMENT AND PLAN: 1. Intertrochanteric left femur fracture - s/p IM nail 10/21 - Pain control - Continue physical therapy - Plan for discharge to [facility] for subacute rehab 2. Anemia - Acute blood loss vs chronic - Ferritin is 42.1. Iron, TIBC, iron sat pending - Transfused 2 units PRBCs - Hemoglobin stable 3. History of atrial fib - Not on anticoagulation secondary to history of PUD and GI bleed 4. History of pacemaker 5. Superficial thrombophlebitis of LUE - Doppler shows thrombus in left superficial basilic vein - Warm compresses - Elevate arm 6. Asymptomatic bacteriuria - Urine culture growing >100,000 E. coli - No indication for antibiotics at this time
--- NOTE | 2017-10-23 16:08 | PN ---
Progress Note (short form) - Note Progress Note: Ortho Pt seen and examined s/p left IM gamma nail pod #2 Selected Entries 10/23/17 15:08 Temperature 99.7 F H Pulse Rate 92 H Respiratory 18 Rate Blood Pressure 124/84 Laboratory Tests 10/23/17 11:44 WBC 7.8 Hgb 8.2 L Hct 24.7 L Plt Count 179 dressing with slight saturation, calf soft ,nt nvi a/p PT PWB dvt ppx pain control b/l heel pads d/c planning
--- NOTE | 2017-10-23 16:23 | PN ---
Progress Note (short form) - Note Progress Note: VASCULAR SURGERY - Georges Roland Asked to eval 87 yo female with LUE superficial thrombophlebitis...specifically , a thrombus is seen in superficial basilic vein. Per notes, patient has h/o afib not on AC secondary to peptic ulcer/GI bleed. Anemia acute vs. chronic. Denies n/v/f/c, PC, SOB or palpitations. VSS. Afebrile H/H TREND 3 10/23/17 10/23/17 06:10 11:44 Hgb 7.6 L 8.2 L Hct 22.4 L 24.7 L LUE: +1 swelling. Palpable radial. Hand is warm. Negative parasthesias. Problem List - Problems (1) Acute thrombosis of left basilic vein Assessment/Plan: Thrombus identified in superficial basilic vein (Lt). Negative DVT in LUE Manage with warm compress, elevation and NSAIDs for pain. No surgical intervention. Above discussed with Dr. Roland and agrees, On behalf of Dr. Roland, thank you for the opportunity to participate in your patient's care. Code(s): I82.612 - ACUTE EMBOLISM AND THOMBOS OF SUPERFIC VEINS OF L UP EXTREM
[2017-10-23 23:44] VITALS: BMI 17.6
[2017-10-24 08:06] LABS: SERUM IRON SATURATION 6 % (15-55); TOTAL IRON BINDING CAPACITY 237 ug/dL (250-450); UIBC 223 ug/dL (118-369)
--- NOTE | 2017-10-24 09:03 | DS ---
Physical Exam: SUBJECTIVE: Patient seen and examined at the bedside. No complaints. Pain is controlled. OBJECTIVE: Patient is s/p left femur IM nail for left hip inter trochanteric fracture for discharge to subacute rehab at [facility] Vital Signs Period Temp Pulse Resp BP Sys/Oseguera Pulse Ox Last 24 Hr 98.0 F-99.7 F 62-92 16-19 103-124/56-84 97-97 PHYSICAL EXAM GENERAL: The patient is awake, alert, and fully oriented, in no acute distress. EYES: conjunctiva clear. No ptosis. ENT: dry mucous membranes LUNGS: anterior auscultation without wheezes, tolerating room air. HEART: Regular rate and rhythm ABDOMEN: Soft, nontender, nondistended, normoactive bowel sounds EXTREMITIES: no edema. TEDs. surgical bandage intact on left hip. left upper arm with swelling elevated on pillows. LABS Laboratory Results - last 24 hr 10/23/17 10/23/17 10/23/17 06:10 06:10 06:10 WBC RBC Hgb Hct MCV MCH MCHC RDW Plt Count MPV Absolute Neuts (auto) Neutrophils % Lymphocytes % Monocytes % Eosinophils % Basophils % Nucleated RBC % Iron 14 L TIBC 237 L Iron Saturation 6 L Ferritin 42.1 Vitamin B12 Cancelled 329 10/23/17 11:44 WBC 7.8 RBC 2.89 L Hgb 8.2 L Hct 24.7 L MCV 85.6 MCH 28.3 MCHC 33.1 RDW 16.5 H Plt Count 179 MPV 8.1 Absolute Neuts (auto) 6.2 Neutrophils % 78.9 Lymphocytes % 9.8 D Monocytes % 11.1 H D Eosinophils % 0.1 Basophils % 0.1 Nucleated RBC % 0 Iron TIBC Iron Saturation Ferritin Vitamin B12 HOSPITAL COURSE: Date of Admission:10/20/17 Date of Discharge: 10/24/17 Patient is an 87 year old female with past medical history of glaucoma, PPM with history of atrial fib. ( not on AC due to history of gi bleed), She presents to the ED on 10/20/2017 s/p mechanical fall with left hip injury. Patient is s/p left femur IM nail for left hip inter trochanteric fracture on for discharge to subacute rehab at [facility] pending. Ortho: Mechanical fall with left hip injury s/p left femur IM nail for left hip inter trochanteric fracture on 10/21/2017. Pain control with oxycodone. On bowel regimen, will add dulcolax PO for constipation. Patient for discharge to [facility] today pending clearance from facility. TEDS, refusing SCDS. Heme Normocytic anemia: Started on iron supplements. s/p 2 units of prbc. hmg/hct stable. No signs of bleeding. No signs of hematoma on surgical site. : UTI/UC with bacteremia shows 100K of ecoli bacteria, remains asymptomatic. Monitor labs, vitals. Card: Atrial fib, history: No a/c secondary to hx of GI bleed and peptic ulcer disease. PPM: cardiology follow up outpatient Vascular: Superficial thrombophlebitis of LUE, as per vascular study: Elevate left arm as tolerated, warm compresses. Discharge to [facility] pending facility acceptance/clearance. full code. Minutes to complete discharge: 60 Discharge Summary Reason For Visit: CLOSED COMINUTED INTERTROCHANTERIC FRACTURE Current Active Problems Acute thrombosis of left basilic vein (Acute) Anemia (Acute) Closed comminuted intertrochanteric fracture of left femur (Acute) Condition: Stable - Instructions Diet, Activity, Other Instructions: You are being transferred to [facility] for rehabilitation to recover from your femur fracture. Please follow their recommended plan for physical therapy. Follow-up with Roshan Navarro after discharge from [facility] for post-hospital evaluation. Please follow-up with Dr. Warren, the orthopedic doctor who did your surgery, in one for post-surgical follow-up. Please follow-up with Dr. Phoenix, the varnisher, in 3 months for your foot care. You were also found to have a clot in one the veins in your left arm. Please keep it elevated, use warm compresses and take aspirin for pain. If you develop fevers, blood in your stool, constipation lasting several days, discharge from the surgical site, chest pain, leg swelling or any new symptoms please return to the hospital. Referrals: Benito Phoenix MD [Staff Physician] - 01/22/18 Dillon Warren MD [Staff Physician] - Roshan Sanchez MD [Primary Care Provider] - Disposition: LONG TERM FACILITY - Home Medications Comprehensive Discharge Medication List: Ambulatory Orders Brimonidine Tartrate [Alphagan 0.15% -] 1 drop OU BID 10/21/17 Docusate Sodium [Colace -] 100 mg PO DAILY capsule 10/24/17 Enoxaparin [Lovenox -] 40 mg SQ DAILY disp.syrin 10/24/17 Ferrous Sulfate [Feosol] 325 mg PO DAILY ud 10/24/17 Polyethylene Glycol 3350 [Miralax 119 gm Btl -] 17 gm PO DAILY bottle 10/24/17 oxyCODONE HCL [Roxicodone -] 5 mg PO Q6H PRN tablet MDD 4 10/24/17 This patient is new to me today: Yes Date on this admission: 10/25/17 Emergency Visit: Yes ED Registration Date: 10/20/17 Care time: The patient presented to the Emergency Department on the above date and was hospitalized for further evaluation of their emergent condition. Critical Care patient: No - Discharge Referral Referred to [facility] Med [facility].C.: No
[2017-10-24] MEDS ORDERED: PT OWN MED DRAWER 7, Y5N ONE (09:42)
[2017-10-24] MEDS: ENOXAPARIN NA (PORCINE) 40 MG/0.4 ML DISP.SYRIN SQ SCH (09:43)
[2017-10-24] MEDS: DOCUSATE SODIUM 100 MG CAPSULE (FP) PO SCH (09:43)
[2017-10-24] MEDS: POLYETHYLENE GLYCOL 3350 119 GM BTL PO SCH (09:44)
[2017-10-24] MEDS ORDERED: FERROUS SO4 325 MG TABLET (FP) PO SCH (10:00)
[2017-10-24] MEDS ORDERED: BISACODYL 5 MG TABLET.DR (FP) PO ONE (16:45)
--- NOTE | 2017-10-24 17:54 | PN ---
Progress Note (short form) - Note Progress Note: Pt seen. POD #3 s/p Left Gamma Nail. Doing well. Less pain. AVSS H/H higher but still low at 8.2/24.7 B/L LE are NVI Equal leg lengths Overall doing very well. Rec : P.T., light PWB LLE DC planning
[2017-10-25] MEDS: POLYETHYLENE GLYCOL 3350 119 GM BTL PO SCH (10:17)
[2017-10-25] MEDS: ENOXAPARIN NA (PORCINE) 40 MG/0.4 ML DISP.SYRIN SQ SCH (10:17)
[2017-10-25] MEDS: DOCUSATE SODIUM 100 MG CAPSULE (FP) PO SCH (10:17)
[2017-10-25 11:18] VITALS: BP 99/55; PULSE 79; TEMP 98.8
[2017-10-25] MEDS ORDERED: DOCUSATE SODIUM 100 MG CAPSULE (FP) PO SCH (14:00)
--- NOTE | 2017-10-25 15:09 | PN ---
Physical Exam: SUBJECTIVE: Patient seen and examined at the bedside. Reports no discomfort or pain. OBJECTIVE: Vital Signs Period Temp Pulse Resp BP Sys/Oseguera Pulse Ox Last 24 Hr 98.8 F-99.2 F 66-79 18-20 92-104/54-55 92-96 GENERAL: The patient is awake, alert, and fully oriented, in no acute distress. EYES: conjunctiva clear. No ptosis. ENT: dry mucous membranes LUNGS: anterior auscultation without wheezes, tolerating room air. HEART: Regular rate and rhythm ABDOMEN: Soft, nontender, nondistended, normoactive bowel sounds EXTREMITIES: no edema. TEDs. surgical bandage intact on left hip. left upper arm with swelling elevated on pillows. ASSESSMENT/PLAN: Patient is an 87 year old female with past medical history of glaucoma, PPM with history of atrial fib. ( not on AC due to history of gi bleed), She presents to the ED on 10/20/2017 s/p mechanical fall with left hip injury. Patient is s/p left femur IM nail for left hip inter trochanteric fracture on for discharge to subacute rehab at [facility] pending. Ortho: Mechanical fall with left hip injury s/p left femur IM nail for left hip inter trochanteric fracture on 10/21/2017. Pain control with oxycodone. On bowel regimen, will add dulcolax PO for constipation. Patient for discharge to [facility] today. TEDS, refusing SCDS. Heme Normocytic anemia: Started on iron supplements. s/p 2 units of prbc. hmg/hct stable. No signs of bleeding. No signs of hematoma on surgical site. : UTI/UC with bacteremia shows 100K of ecoli bacteria, remains asymptomatic. Monitor labs, vitals. Card: Atrial fib, history: No a/c secondary to hx of GI bleed and peptic ulcer disease. PPM: cardiology follow up outpatient Vascular: Superficial thrombophlebitis of LUE, as per vascular study: Elevate left arm as tolerated, warm compresses. Discharge to [facility]. full code. Visit type - Emergency Visit Emergency Visit: Yes ED Registration Date: 10/20/17 Care time: The patient presented to the Emergency Department on the above date and was hospitalized for further evaluation of their emergent condition. - New Patient This patient is new to me today: No - Critical Care Critical Care patient: No - Discharge Referral Referred to [facility] Med [facility] No
== END 2017-10-25 14:19 | DRG 481 ==
LOC: JER 14:05 → JERBED 17:11 → J6S 19:50
PROVIDERS: ADMIT Internal Medicine; ATTEND Nurse Practitioner Family
PROC: 0QS706Z Reposition Left Upper Femur with Intramedullary Internal Fixation Device, Open Approach (ICD-10-PCS; principal; 2017-10-21 10:30)
PROC: 0HBRXZZ Excision of Toe Nail, External Approach (ICD-10-PCS; 2017-10-22)
PROC: 0HBRXZZ Excision of Toe Nail, External Approach (ICD-10-PCS; 2017-10-22)
PROC: 0HBRXZZ Excision of Toe Nail, External Approach (ICD-10-PCS; 2017-10-22)
PROC: 0HBRXZZ Excision of Toe Nail, External Approach (ICD-10-PCS; 2017-10-22)
PROC: 0HBRXZZ Excision of Toe Nail, External Approach (ICD-10-PCS; 2017-10-22)
PROC: 0HBRXZZ Excision of Toe Nail, External Approach (ICD-10-PCS; 2017-10-22)
PROC: 0HBRXZZ Excision of Toe Nail, External Approach (ICD-10-PCS; 2017-10-22)
PROC: 0HBRXZZ Excision of Toe Nail, External Approach (ICD-10-PCS; 2017-10-22)
PROC: 0HBRXZZ Excision of Toe Nail, External Approach (ICD-10-PCS; 2017-10-22)
PROC: 0HBRXZZ Excision of Toe Nail, External Approach (ICD-10-PCS; 2017-10-22)
DX: S72.142A Displaced intertrochanteric fracture of left femur, initial encounter for closed fracture (principal); I82.612 Acute embolism and thrombosis of superficial veins of left upper extremity; N39.0 Urinary tract infection, site not specified; W18.39XA Other fall on same level, initial encounter; Y93.89 Activity, other specified; Y92.481 Parking lot as the place of occurrence of the external cause; Y99.8 Other external cause status; K27.9 Peptic ulcer, site unspecified, unspecified as acute or chronic, without hemorrhage or perforation; I48.91 Unspecified atrial fibrillation; Z95.0 Presence of cardiac pacemaker; D64.9 Anemia, unspecified; H40.9 Unspecified glaucoma; B35.1 Tinea unguium; B96.20 Unspecified Escherichia coli [E. coli] as the cause of diseases classified elsewhere
CPT/HCPCS: 36415; 36430; 71045-TC-FY; 73502-TC-LT-FY; 73523-TC-FY; 76000-TC-FY; 80048; 80053; 81003; 81015; 82550; 82607; 82728; 83540; 83550; 84484; 85025; 85027; 86850; 86900; 86901; 86922; 87086; 87186; 93005; 93010; 93971; 94010; 94760; 97116-GP; 97162-GP; 99284-25; J7030; P9038; P9058

== ENCOUNTER 2018-01-15 12:14 | Inpatient (IN) | payer OTHER ==
--- NOTE | 2018-01-15 12:35 | PDOC ---
History of Present Illness - General Stated Complaint: LEFT HIP PAIN Time Seen by Provider: 01/15/18 12:35 - History of Present Illness Initial Comments: 87 year old female with PMH of glaucoma, atrial fib (not on AC), and GI bleed presenting with left hip pain for the past two days with inability to move it this AM when she woke up. Also, her home health aid noticed some general warmth. Patient states that she can move her hip now and has some soreness and "clicking" since returning from rehab last week for a a left hip fracture repair rehab. Upon rudimentary exam, however, the home health aid admits that there is new erythema on her legs bilaterally as well. She otherwise has not had any SOB cough, nausea, vomiting, diarrhea, chest pain, headaches, or other symptoms. 01/15/18 12:41 Past History - Past Medical History Allergies/Adverse Reactions: Allergies Allergy/AdvReac Type Severity Reaction Status Date / Time No Known Allergies Allergy Verified 10/28/17 17:36 Home Medications: Ambulatory Orders Brimonidine Tartrate [Alphagan 0.15% -] 1 drop OU BID 10/21/17 Enoxaparin [Lovenox -] 40 mg SQ DAILY disp.syrin 10/24/17 Ferrous Sulfate [Feosol] 325 mg PO DAILY ud 10/24/17 Polyethylene Glycol 3350 [Miralax 119 gm Btl -] 17 gm PO DAILY bottle 10/24/17 oxyCODONE HCL [Roxicodone -] 5 mg PO Q6H PRN tablet MDD 4 10/24/17 Amox-Tr/K Cl [Augmentin 875-125mg Tablet -] 1 tab PO BID@0800,1730 tablet 11/13 Brimonidine Tartrate [Alphagan 0.15% -] 1 drop OU BID@0730,1930 drops 11/13/17 Cyanocobalamin [Vitamin B12 -] 1,000 mcg PO DAILY tablet 11/13/17 Mesalamine Enema [Rowasa Enema -] 4 gm DC HS enema 11/13/17 Polyethylene Glycol 3350 [Miralax 119 gm Btl -] 17 gm PO BID PRN bottle Warfarin Na [Coumadin -] 5 mg PO DAILY@1800 tablet 11/13/17 Anemia: Yes Cardiac Disorders: Yes (Pacemaker, Afib) CVA: No COPD: No GI Disorders: Yes (GI Bleed) - Surgical History Cardiac Surgery: Yes (pacemaker) Orthopedic Surgery: Yes (IM nailing of L femur, L hip replacement) - Immunization History Immunization Up to Date: Yes - Suicide/Smoking/Psychosocial Hx Smoking History: Never smoked Hx Alcohol Use: No Drug/Substance Use Hx: No Substance Use Type: None Hx Substance Use Treatment: No Review of Systems - Review of Systems Constitutional: Yes: Chills, Fever. No: Diaphoresis, Loss of Appetite, Malaise HEENTM: No: Eye Pain, Blurred Vision, Tearing Respiratory: No: Cough, Orthopnea, Shortness of Breath Cardiac (ROS): No: Chest Pain, Edema, Irregular Heart Rate, Lightheadedness, Palpitations ABD/GI: No: Diarrhea, Nausea, Vomiting : No: Burning, Dysuria, Discharge Musculoskeletal: Yes: Joint Stiffness. No: Back Pain, Joint Pain, Muscle Weakness Integumentary: Yes: Erythema, Lesions, Rash. No: Bruising Neurological: No: Numbness, Paresthesia, Tremors, Weakness Psychiatric: No: Anxiety, Depression, Stressors, Sleep Pattern Change Hematologic/Lymphatic: Yes: Anemia, Blood Clots, Easy Bleeding, Easy Bruising *Physical Exam - Physical Exam General Appearance: Yes: Nourished, Appropriately Dressed. No: Apparent Distress HEENT: positive: EOMI, KANDY, Normal ENT Inspection, Normal Voice Neck: positive: Trachea midline, Normal Thyroid, Supple. negative: Tender, Rigid Respiratory/Chest: positive: Lungs Clear, Normal Breath Sounds. negative: Chest Tender, Respiratory Distress, Accessory Muscle Use Cardiovascular: positive: Regular Rhythm, Regular Rate Gastrointestinal/Abdominal: positive: Normal Bowel Sounds, Flat, Soft. negative : Tender Lymphatic: negative: Adenopathy, Tenderness Musculoskeletal: negative: Normal Inspection (Slightly weaker left lower exremity than right but able to full range hip passively), Decreased Range of Motion Extremity: positive: Normal Capillary Refill, Normal Range of Motion. negative : Normal Inspection (Bilateral lower extremtiy blanchable erythema nad warmth to upper third of huber. No fluctuance, skin breakage, or drainage.), Tender ED Treatment Course - LABORATORY CBC & Chemistry Diagram: 01/15/18 13:48 01/15/18 15:35 Medical Decision Making - Medical Decision Making 87 year old with fever, bilateral lower extremity redness for the past day. Patient had a temperature of 99.7 orally and was very warm. We gave her Tylenol but were unable to obtain a rectal temperature prior. Per our clinical exam, we believe she was truly febrile and will her for admit her for sepsis secondary to cellulitis given elevated lactate, fever, and slightly elevated WBC. Patient also has elevated INR >4 and note of Coumadin in her meds, we were under the impression that she was not supposed to be on AC because of her GI bleeds. Discussed patient with Dr. Laguerre and will admit under her with 1 Gram of cefazolin. Patient given only 500 ml IV NS for her small lactate elevation because of her CHF history. 01/15/18 17:30 *DC/Admit/Observation/Transfer Diagnosis at time of Disposition: Sepsis affecting skin Cellulitis Qualifiers: Site of cellulitis: extremity Site of cellulitis of extremity: lower extremity Laterality: unspecified laterality Qualified Code(s): L03.119 - Cellulitis of unspecified part of limb - Discharge Dispostion Condition at time of disposition: Stable Decision to Admit order: Yes - Referrals Referrals: Roshan Sanchez MD [Primary Care Provider] - - Patient Instructions - Post Discharge Activity
--- NOTE | 2018-01-15 14:16 | PDOC ---
Attending Attestation - HPI HPI: 01/15/18 16:12 The patient is a 87 year old female with a significant PMH of afib( pacemaker ) , glaucoma, anemia, who presents to the emergency department with left hip pain since earlier today. The patient reports that she was recently discharged from rehab for a hip fracture. She state she lives at home and has a health aide. The patient reports that she woke up this morning unable to move her left hip. She states that it had been making a popping sound. The patient does endorse some increased mobilization after being released from rehab. The patients aide reports some noted leg redness this morning. The patient denies any other symptoms. She denies any fever, chills, nausea, vomiting, diarrhea, constipation, or urinary symptoms. The patient denies any chest pain, shortness of breath, headache, or dizziness. She denies any numbness weakness or tingling sensation. The patient denies any other complaints. PCP: Dr. Sanchez Documentation prepared by Mike Lassiter, acting as medical management specialist for Brian Higginbotham MD. <Mike Lassiter - Last Filed: 01/15/18 16:12> - Resident Resident Name: Steffen Goldberg - ED Attending Attestation I have performed the following: I have examined & evaluated the patient, The case was reviewed & discussed with the resident, I agree w/resident's findings & plan, Exceptions are as noted - Physicial Exam PE: 01/15/18 16:57 GENERAL: The patient is awake, alert, and fully oriented, Nontoxic - in no acute distress. HEAD: Normocephalic, atraumatic. LUNGS: Breath sounds equal, clear to auscultation bilaterally. No wheezes, no rhonchi, no rales. HEART: Regular rate and rhythm, ABDOMEN: Soft, nontender, EXTREMITIES: Normal range of motion of b/l hips, knees, + erythemea/warmth of b/ l LE, mildly indurated and tender to palpation NEUROLOGICAL: No facial assymetry, Normal speech, PSYCH: Normal mood, normal affect. SKIN: Warm, Dry, normal turgor, sacral ulcer stage 2, mil surroundting erythema , no dicscuarge or fluctuance - Medical Decision Making 01/15/18 14:17 87y F hx of afib s/p pm, presents with L hip pain, pt has been ambulatory frequently and is more sore than usually and feels clicking and popping pt also noticed b/l LE warmth, without increased edema, denies cp, sob, n/v, diarrhea, coughing 01/15/18 14:18 ddx - celluitis, dvt, normal movement of hip, low suspicion of hip pahotlogy doubt infected prostetics as pt ranging her hip well 01/15/18 17:05 labs noted for mild leukocytosis with lactic acid of 2.4 pts temp on presentation was 99.7, an was given tylenol - on exam though, she felt very warm and suspect she does have a fever will admit for further management of cellulitis in light of systemic symptmos and pts age A portion of this note was documented by scribe services under my direction. I have reviewed the details of the note, within reason, and agree with the documentation with the following case summary and management plan written by me <Brian Higginbotham - Last Filed: 01/19/18 07:52>
[2018-01-15] MEDS ORDERED: ACETAMINOPHEN 325 MG TABLET (FP) PO ONE (14:20)
[2018-01-15] MEDS ORDERED: ACETAMINOPHEN 325 MG TABLET (FP) ONE (14:26)
[2018-01-15 14:29] LABS: HEMATOCRIT 41.6 % (32.4-45.2); HEMOGLOBIN 12.9 GM/dL (10.7-15.3); MEAN PLT VOLUME 8.4 fl (7.5-11.1); PLATELET COUNT 221 K/MM3 (134-434); RBC 4.78 M/mm3 (3.60-5.2); RDW 19.8 % (11.6-15.6); WHITE BLOOD COUNT 10.7 K/mm3 (4.0-10.0)
[2018-01-15 15:04] LABS: PROTHROMBIN TIME (PATIENT) 52.3 SEC (9.7-13.0)
[2018-01-15 15:13] LABS: INR 4.37 (0.83-1.09)
[2018-01-15 16:13] LABS: ALBUMIN 2.9 g/dl (3.4-5.0); ALK PHOS 72 U/L (45-117); ANION GAP 9 MMOL/L (8-16); BILIRUBIN,TOTAL 0.4 mg/dL (0.2-1); BLOOD UREA NITROGEN 33 mg/dL (7-18); CALCIUM 8.6 mg/dL (8.5-10.1); CHLORIDE 107 mmol/L (98-107); CO2 29 mmol/L (21-32); CREATININE 0.8 mg/dL (0.55-1.3); GLUCOSE,RANDOM 213 mg/dL (74-106); N-TERMINAL BNP 4425.2 pg/ml (5-450); POTASSIUM 3.7 mmol/L (3.5-5.1); SGOT/AST 16 U/L (15-37); SGPT/ALT 19 U/L (13-61); SODIUM 145 mmol/L (136-145); TOT PROT 6.3 g/dl (6.4-8.2)
[2018-01-15 16:15] LABS: ERYTHROCYTE SEDIMENTATION RATE 12 mm/hr (0-30)
[2018-01-15] MEDS ORDERED: SODIUM CHLORIDE 0.9% 500 ML INFUS.BAG IV ONE (16:39)
[2018-01-15] MEDS ORDERED: CEFAZOLIN 1 GM in DEXTROSE 5%-WATER - 50 ML IVPB ONE (17:26)
[2018-01-15] MEDS ORDERED: ceFAZolin SODIUM 1 GM VIAL ONE (18:55)
[2018-01-15] MEDS ORDERED: ACETAMINOPHEN 325 MG TABLET (FP) PO PRN (22:31)
--- NOTE | 2018-01-15 22:32 | HP ---
Admitting History and Physical - Past Medical History Cardiovascular: Yes: AFIB Gastrointestinal: Yes: GI Bleed - Smoking History Smoking history: Never smoked Have you smoked in the past 12 months: No - Alcohol/Substance Use Hx Alcohol Use: No Home Medications - Allergies Allergies/Adverse Reactions: Allergies Allergy/AdvReac Type Severity Reaction Status Date / Time No Known Allergies Allergy Verified 10/28/17 17:36 - Home Medications Home Medications: Ambulatory Orders Brimonidine Tartrate [Alphagan 0.15% -] 1 drop OU BID 10/21/17 Enoxaparin [Lovenox -] 40 mg SQ DAILY disp.syrin 10/24/17 Ferrous Sulfate [Feosol] 325 mg PO DAILY ud 10/24/17 Polyethylene Glycol 3350 [Miralax 119 gm Btl -] 17 gm PO DAILY bottle 10/24/17 oxyCODONE HCL [Roxicodone -] 5 mg PO Q6H PRN tablet MDD 4 10/24/17 Amox-Tr/K Cl [Augmentin 875-125mg Tablet -] 1 tab PO BID@0800,1730 tablet 11/13 Brimonidine Tartrate [Alphagan 0.15% -] 1 drop OU BID@0730,1930 drops 11/13/17 Cyanocobalamin [Vitamin B12 -] 1,000 mcg PO DAILY tablet 11/13/17 Mesalamine Enema [Rowasa Enema -] 4 gm MD HS enema 11/13/17 Polyethylene Glycol 3350 [Miralax 119 gm Btl -] 17 gm PO BID PRN bottle Warfarin Na [Coumadin -] 5 mg PO DAILY@1800 tablet 11/13/17 Physical Examination Vital Signs: Vital Signs Temperature 99.3 F 01/15/18 16:38 Pulse Rate 61 01/15/18 16:38 Respiratory Rate 16 01/15/18 16:38 Blood Pressure 122/63 01/15/18 16:38 O2 Sat by Pulse Oximetry (%) 95 01/15/18 16:38 Labs: CBC, BMP 01/15/18 13:48 01/15/18 15:35
[2018-01-16] MEDS ORDERED: DEXTROSE 5%-WATER - 50 ML IVPB ONE ×3 (02:00→17:21)
[2018-01-16] MEDS ORDERED: CEFAZOLIN 1 GM in DEXTROSE 5%-WATER - 50 ML IVPB SCH (02:00)
[2018-01-16] MEDS ORDERED: ceFAZolin SODIUM 1 GM VIAL ONE ×3 (02:00→17:21)
[2018-01-16] MEDS: CEFAZOLIN 1 GM in DEXTROSE 5%-WATER - 50 ML IVPB SCH ×3 (02:30→17:26)
[2018-01-16 08:10] LABS: INR 3.96 (0.83-1.09); PROTHROMBIN TIME (PATIENT) 47.4 SEC (9.7-13.0)
[2018-01-16 08:30] LABS: BASO % 0.2 % (0-2.0); HEMATOCRIT 34.7 % (32.4-45.2); LYMPH % 4.9 % (8-40); MCH 27.5 pg (25.7-33.7); MCHC 31.7 g/dl (32.0-36.0); MEAN CELL VOLUME 86.8 fl (80-96); MEAN PLT VOLUME 8.5 fl (7.5-11.1); MONO % 8.3 % (3.8-10.2); NEUT % 86.6 % (42.8-82.8); PLATELET COUNT 201 K/MM3 (134-434); RDW 19.1 % (11.6-15.6); WHITE BLOOD COUNT 13.2 K/mm3 (4.0-10.0)
[2018-01-16] MEDS ORDERED: PT OWN MED DRAWER 7, Y5N ONE ×2 (09:38→18:23)
--- NOTE | 2018-01-16 09:53 | CON.CARD ---
Cardiology Consult (text) - Consultation Consultation Note: Consult: Cardiology Reason for Consult: Atrial Fibrillation, elevated BNP HPI: 87 year old female with past medical history including atrial fibrillation status post permanent pacemaker recent generator change not on anticoagulation due to history of multiple GI bleed admitted to [facility] for fever, bilateral lower extremity edema and concern for cellulitis. Cardiology consulted for further management. Patient states she was in rehab after hip procedure and was doing well with exercise regimen. No shortness of breath. No orthopnea or PND. No history of shortness of breath with exertion. Denies any lh, dizziness, chest pain, palpitations, orthopnea, PND or TOM. Past Medical History [place] cancer s/p Upper Lobectomy H/O GI Bleeding Diverticulosis Tachy-alton syndrome s/p pacemaker implantation Past Surgical History: s/p RU lobectomy Family Hx: NC Social: denies tobacco, drugs, alcohol. Physical Exam T: 98.7 HR 70 BP 108/61 Gen: elderly female sitting upright in NAD HEENT: NC/AT. OP Clear, MMM Cardiac: S1/S2 no murmurs appreciated. JVP 7cm Pulm: clear breath sounds bilaterally. No rales. Ext: WWP. mild erythema bilaterally, 1+ edema below knees. Labs: reviewed. Leukocyosis 13.2, Hgb 11 Lactate 2.4 BNP 4000s Abnormal Lab Results 01/15/18 01/15/18 01/15/18 07:25 13:08 13:48 WBC 10.7 H MCHC 31.0 L RDW 19.8 H Absolute Neuts (auto) Neutrophils % Lymphocytes % PT with INR INR Sodium Potassium Chloride Carbon Dioxide Anion Gap BUN Random Glucose Lactic Acid 2.5 H* 2.4 H* Calcium B-Natriuretic Peptide Total Protein Albumin 01/15/18 01/15/18 01/16/18 13:48 15:35 06:30 WBC 13.2 H MCHC 31.7 L RDW 19.1 H Absolute Neuts (auto) 11.4 H Neutrophils % 86.6 H D Lymphocytes % 4.9 L D PT with INR 52.30 H INR 4.37 H* Sodium Potassium Chloride Carbon Dioxide Anion Gap BUN 33 H Random Glucose 213 H Lactic Acid Calcium B-Natriuretic Peptide 4425.2 H Total Protein 6.3 L Albumin 2.9 L 01/16/18 01/16/18 06:30 07:20 WBC MCHC RDW Absolute Neuts (auto) Neutrophils % Lymphocytes % PT with INR 47.40 H INR 3.96 H Sodium 147 H Potassium 3.3 L Chloride 108 H Carbon Dioxide 33 H Anion Gap 6 L BUN 37 H Random Glucose 136 H Lactic Acid Calcium 8.3 L B-Natriuretic Peptide Total Protein 5.9 L Albumin 2.7 L Telemetry: paced rhythm, underlying atrial fibrillation A/P: 87 year old female with past medical history including atrial fibrillation status post permanent pacemaker recent generator change not on anticoagulation due to history of multiple GI bleed admitted to [facility] for left hip pain found to have elevated lactate and leukocytosis with infectious workup pending. Cardiology consulted for further management. Lower extremity doppler negative for DVT. #Atrial fibrillation complicated by tachy-alton syndrome s/p [employer] Pacemaker Implantation Rate: none Rhythm: none AC: not on anticoagulation as an outpatient due to multiple GI bleeds #Elevated BNP --obtain echocardiogram --hold off on lasix therapy at this time given euvolemic and symptomatic #Leukocytosis/Elevated lactate: management per Dr. Shade Abarca MD
[2018-01-16] MEDS: BRIMONIDINE TARTRATE 0.15% OPHTHALMIC 5 ML BOTTLE OU SCH ×2 (10:14→21:50)
[2018-01-16] MEDS: FERROUS SO4 325 MG TABLET (FP) PO SCH (10:15)
[2018-01-16] MEDS: HEPARIN NA (PORCINE) 5,000 UNITS/ML 1ML VIAL SQ SCH ×2 (10:15→21:50)
[2018-01-16 10:18] LABS: ALBUMIN 2.7 g/dl (3.4-5.0); ALK PHOS 67 U/L (45-117); ANION GAP 6 MMOL/L (8-16); BILIRUBIN,TOTAL 0.4 mg/dL (0.2-1); BLOOD UREA NITROGEN 37 mg/dL (7-18); CALCIUM 8.3 mg/dL (8.5-10.1); CHLORIDE 108 mmol/L (98-107); CO2 33 mmol/L (21-32); CREATININE 0.8 mg/dL (0.55-1.3); GLUCOSE,RANDOM 136 mg/dL (74-106); POTASSIUM 3.3 mmol/L (3.5-5.1); SGOT/AST 15 U/L (15-37); SGPT/ALT 17 U/L (13-61); SODIUM 147 mmol/L (136-145); TOT PROT 5.9 g/dl (6.4-8.2)
--- NOTE | 2018-01-16 11:49 | CON.ID ---
Consult Consult Specialty:: infectious diseases Referred by:: Reason for Consultation:: cellulitis of the leg - History of Present Illness Chief Complaint: weakness passing out hip pain and redness of both legs History of Present Illness: 87 year old female with past medical history including atrial fibrillation status post permanent pacemaker history of multiple GI bleed admitted to the hospital for fever, bilateral lower extremity edema cellulitis. Patient states she was in rehab after hip procedure and was doing well with exercise regimen. No shortness of breath. No orthopnea or PND. No history of shortness of breath with exertion. patient mentions that she passed out in the bed currently she feels better patient has been started on cefazolin patient also c/o of left hip pain - History Source History Provided By: Patient Limitations to Obtaining History: Poor Historian - Past Medical History Cardio/Vascular: Yes: AFIB Gastrointestinal: Yes: GI Bleed - Alcohol/Substance Use Hx Alcohol Use: No - Smoking History Smoking history: Never smoked Have you smoked in the past 12 months: No Home Medications - Allergies Allergies/Adverse Reactions: Allergies Allergy/AdvReac Type Severity Reaction Status Date / Time No Known Allergies Allergy Verified 10/28/17 17:36 - Home Medications Home Medications: Ambulatory Orders Brimonidine Tartrate [Alphagan 0.15% -] 1 drop OU BID 10/21/17 Enoxaparin [Lovenox -] 40 mg SQ DAILY disp.syrin 10/24/17 Ferrous Sulfate [Feosol] 325 mg PO DAILY ud 10/24/17 Polyethylene Glycol 3350 [Miralax 119 gm Btl -] 17 gm PO DAILY bottle 10/24/17 oxyCODONE HCL [Roxicodone -] 5 mg PO Q6H PRN tablet MDD 4 10/24/17 Amox-Tr/K Cl [Augmentin 875-125mg Tablet -] 1 tab PO BID@0800,1730 tablet 11/13 Brimonidine Tartrate [Alphagan 0.15% -] 1 drop OU BID@0730,1930 drops 11/13/17 Cyanocobalamin [Vitamin B12 -] 1,000 mcg PO DAILY tablet 11/13/17 Mesalamine Enema [Rowasa Enema -] 4 gm [place] HS enema 11/13/17 Polyethylene Glycol 3350 [Miralax 119 gm Btl -] 17 gm PO BID PRN bottle Warfarin Na [Coumadin -] 5 mg PO DAILY@1800 tablet 11/13/17 Review of Systems - Review of Systems Constitutional: reports: Fever Eyes: reports: No Symptoms HENT: reports: No Symptoms Neck: reports: No Symptoms Cardiovascular: reports: No Symptoms Respiratory: reports: No Symptoms Gastrointestinal: reports: No Symptoms Genitourinary: reports: No Symptoms Musculoskeletal: reports: Muscle Pain Integumentary: reports: Erythema Neurological: reports: Other (passed out) Endocrine: reports: No Symptoms Hematology/Lymphatic: reports: No Symptoms Psychiatric: reports: No Symptoms Physical Exam Vital Signs: Vital Signs Temperature 98.7 F 01/16/18 05:21 Pulse Rate 70 01/16/18 05:21 Respiratory Rate 18 01/16/18 05:21 Blood Pressure 108/61 01/16/18 05:21 O2 Sat by Pulse Oximetry (%) 95 01/15/18 21:00 Constitutional: Yes: No Distress, Calm Eyes: Yes: Conjunctiva Clear HENT: Yes: Atraumatic, Normocephalic Cardiovascular: Yes: Pulse Irregular Respiratory: Yes: Regular, CTA Bilaterally Gastrointestinal: Yes: Normal Bowel Sounds, Soft Musculoskeletal: Yes: Muscle Pain (left hip pain), Other Extremities: Yes: Erythema (b/l lower ext) Integumentary: Yes: Erythema (b/l lower ext) Neurological: Yes: Alert, Oriented Psychiatric: Yes: Alert, Oriented Labs: CBC, BMP 01/16/18 06:30 01/16/18 06:30 Imaging - Results Chest X-ray: Report Reviewed, Image Reviewed Assessment/Plan patient with left hip pain and admitted with fever syncope and cellulitis of b/ l legs patient started on cefazolin cellulitis of the legs left hip pain afib weakness fever onchomycosis plan continue cefazolin will add nystatin cream rest ct current mgmt elevation of the legs
[2018-01-16] MEDS: NYSTATIN 100,000 UNIT/GM TOPICAL CREAM 15 GM TUBE TP SCH ×2 (13:24→21:50)
--- NOTE | 2018-01-16 13:46 | PN ---
Progress Note, Physician History of Present Illness: Pt complains of hip pain - Current Medication List Current Medications: Active Medications Acetaminophen (Tylenol -) 650 mg PO Q4H PRN PRN Reason: FEVER Brimonidine Tartrate (Alphagan 0.15% -) 1 drop OU BID [facility] Last Admin: 01/16/18 10:14 Dose: 1 drop Ferrous Sulfate (Feosol -) 325 mg PO DAILY [facility] Last Admin: 01/16/18 10:15 Dose: 325 mg Heparin Sodium (Porcine) (Heparin -) 5,000 unit SQ BID [facility] Last Admin: 01/16/18 10:15 Dose: 5,000 unit Cefazolin Sodium 1 gm/ (Dextrose) 50 mls @ 100 mls/hr IVPB Q8H-IV [facility] Last Admin: 01/16/18 10:13 Dose: 100 mls/hr Mesalamine (Rowasa Enema -) 4 gm NR HS [facility] Nystatin (Mycostatin Cream -) 1 applic TP BID [facility] Last Admin: 01/16/18 13:24 Dose: 1 applic Polyethylene Glycol (Miralax (For Daily Use) -) 17 gm PO BID PRN PRN Reason: constipation, rectal ulcer - Objective Vital Signs: Vital Signs Temperature 98.7 F 01/16/18 05:21 Pulse Rate 70 01/16/18 05:21 Respiratory Rate 18 01/16/18 05:21 Blood Pressure 108/61 01/16/18 05:21 O2 Sat by Pulse Oximetry (%) 95 01/15/18 21:00 Neck: Yes: WNL, Supple Cardiovascular: Yes: WNL, Regular Rate and Rhythm Respiratory: Yes: WNL, Regular, CTA Bilaterally Gastrointestinal: Yes: WNL, Normal Bowel Sounds, Soft Extremities: Yes: Other (erythema B/L lower extremities) Labs: CBC, BMP 01/16/18 06:30 01/16/18 06:30 INR, PTT INR 3.96 (0.83-1.09) H 01/16/18 07:20 Problem List - Problems (1) Cellulitis Assessment/Plan: Cont IV Cefazolin Cultures remain negative Code(s): L03.90 - CELLULITIS, UNSPECIFIED Qualifiers: Site of cellulitis: extremity Site of cellulitis of extremity: lower extremity Laterality: unspecified laterality Qualified Code(s): L03.119 - Cellulitis of unspecified part of limb (2) DVT of upper extremity (deep vein thrombosis) Assessment/Plan: Coumadin on hold due to supratherapeutic INR Code(s): I82.629 - ACUTE EMBOLISM AND THROMBOSIS OF DEEP VN UNSP UP EXTREM Qualifiers: Affected thrombotic vein of extremity: brachial Chronicity: chronic Laterality: left Qualified Code(s): I82.722 - 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
[2018-01-16] MEDS: MESALAMINE 4 GM/60 ML ENEMA NR SCH (21:50)
[2018-01-17] MEDS ORDERED: ceFAZolin SODIUM 1 GM VIAL ONE ×3 (01:06→17:11)
[2018-01-17] MEDS ORDERED: DEXTROSE 5%-WATER - 50 ML IVPB ONE ×3 (01:06→17:12)
[2018-01-17] MEDS: CEFAZOLIN 1 GM in DEXTROSE 5%-WATER - 50 ML IVPB SCH ×3 (02:18→17:38)
[2018-01-17] MEDS: NYSTATIN 100,000 UNIT/GM TOPICAL CREAM 15 GM TUBE TP SCH ×2 (10:04→22:22)
[2018-01-17] MEDS: HEPARIN NA (PORCINE) 5,000 UNITS/ML 1ML VIAL SQ SCH ×2 (10:04→22:22)
[2018-01-17] MEDS: FERROUS SO4 325 MG TABLET (FP) PO SCH (10:04)
[2018-01-17] MEDS: BRIMONIDINE TARTRATE 0.15% OPHTHALMIC 5 ML BOTTLE OU SCH ×2 (10:04→22:22)
[2018-01-17 10:09] VITALS: BMI 19.3
--- NOTE | 2018-01-17 10:45 | PN ---
Progress Note (short form) - Note Progress Note: Subjective: --No acute overnight events --Seen by ID with recommendation to continue abx for cellulitis Objective: Vital Signs - 24 hr 01/16/18 01/16/18 01/16/18 14:03 18:39 20:52 Temperature 97.6 F 97.9 F 97.2 F L Pulse Rate 66 75 67 Respiratory 18 18 18 Rate Blood Pressure 119/52 L 119/78 104/55 L O2 Sat by Pulse Oximetry (%) 01/16/18 21:00 Temperature Pulse Rate Respiratory Rate Blood Pressure O2 Sat by Pulse 93 L Oximetry (%) Gen: well appearing elderly female sitting upright in NAD HEENT: NC/AT. OP Clear, MMM Cardiac: S1/S2, 2/6 systolic murmur loudest at LSB Pulm: clear breath sounds bilaterally. No rales. Ext: WWP. No edema Labs: reviewed, 10 AM labs pending A/P: 87 year old female with past medical history including atrial fibrillation status post permanent pacemaker recent generator change not on anticoagulation due to history of multiple GI bleed admitted to [facility] for left hip pain found to have cellulitis bilaterally on antibiotics with ID following, cardiology consulted given elevated BNP 4000s. #Atrial fibrillation complicated by tachy-alton syndrome s/p [employer] Pacemaker Implantation Rate: none Rhythm: none AC: not on anticoagulation as an outpatient due to multiple GI bleeds --continue to monitor #Elevated BNP --follow-up echocardiogram --will continue hold off on lasix therapy at this time given euvolemic and asymptomatic #Leukocytosis/Elevated lactate: lactate now normal, management per Dr. Shade Abarca MD
--- NOTE | 2018-01-17 13:22 | PN ---
Progress Note, Physician History of Present Illness: patient stable no new issues improving - Current Medication List Current Medications: Active Medications Acetaminophen (Tylenol -) 650 mg PO Q4H PRN PRN Reason: FEVER Brimonidine Tartrate (Alphagan 0.15% -) 1 drop OU BID [facility] Last Admin: 01/17/18 10:04 Dose: 1 drop Ferrous Sulfate (Feosol -) 325 mg PO DAILY [facility] Last Admin: 01/17/18 10:04 Dose: 325 mg Heparin Sodium (Porcine) (Heparin -) 5,000 unit SQ BID [facility] Last Admin: 01/17/18 10:04 Dose: 5,000 unit Cefazolin Sodium 1 gm/ (Dextrose) 50 mls @ 100 mls/hr IVPB Q8H-IV [facility] Last Admin: 01/17/18 10:03 Dose: 100 mls/hr Mesalamine (Rowasa Enema -) 4 gm NR HS [facility] Last Admin: 01/16/18 21:50 Dose: 4 gm Nystatin (Mycostatin Cream -) 1 applic TP BID [facility] Last Admin: 01/17/18 10:04 Dose: 1 applic Polyethylene Glycol (Miralax (For Daily Use) -) 17 gm PO BID PRN PRN Reason: constipation, rectal ulcer - Objective Vital Signs: Vital Signs Temperature 97.2 F L 01/16/18 20:52 Pulse Rate 67 01/16/18 20:52 Respiratory Rate 18 01/16/18 20:52 Blood Pressure 104/55 L 01/16/18 20:52 O2 Sat by Pulse Oximetry (%) 93 L 01/16/18 21:00 Constitutional: Yes: No Distress, Calm Cardiovascular: Yes: Regular Rate and Rhythm Respiratory: Yes: Regular, CTA Bilaterally Gastrointestinal: Yes: Normal Bowel Sounds, Soft Musculoskeletal: Yes: Other Extremities: Yes: Erythema (improving) Neurological: Yes: Alert, Oriented Psychiatric: Yes: Alert, Oriented Labs: CBC, BMP 01/16/18 06:30 01/16/18 06:30 INR, PTT INR 3.96 (0.83-1.09) H 01/16/18 07:20 Assessment/Plan patient with left hip pain and admitted with fever syncope and cellulitis of b/ l legs patient started on cefazolin cellulitis of the legs left hip pain afib weakness fever onchomycosis plan continue current mgmt elevation of the legs rest as per the team
[2018-01-17] MEDS: POLYETHYLENE GLYCOL 3350 119 GM BTL PO PRN (17:43)
--- NOTE | 2018-01-17 20:40 | PN ---
Progress Note, Physician Chief Complaint: No new complaints - Current Medication List Current Medications: Active Medications Acetaminophen (Tylenol -) 650 mg PO Q4H PRN PRN Reason: FEVER Brimonidine Tartrate (Alphagan 0.15% -) 1 drop OU BID [facility] Last Admin: 01/17/18 10:04 Dose: 1 drop Ferrous Sulfate (Feosol -) 325 mg PO DAILY [facility] Last Admin: 01/17/18 10:04 Dose: Not Given Heparin Sodium (Porcine) (Heparin -) 5,000 unit SQ BID [facility] Last Admin: 01/17/18 10:04 Dose: 5,000 unit Cefazolin Sodium 1 gm/ (Dextrose) 50 mls @ 100 mls/hr IVPB Q8H-IV [facility] Last Admin: 01/17/18 17:38 Dose: 100 mls/hr Mesalamine (Rowasa Enema -) 4 gm NR HS [facility] Last Admin: 01/16/18 21:50 Dose: 4 gm Nystatin (Mycostatin Cream -) 1 applic TP BID [facility] Last Admin: 01/17/18 10:04 Dose: 1 applic Polyethylene Glycol (Miralax (For Daily Use) -) 17 gm PO BID PRN PRN Reason: constipation, rectal ulcer Last Admin: 01/17/18 17:43 Dose: 17 grams - Objective Vital Signs: Vital Signs Temperature 98.6 F 01/17/18 18:36 Pulse Rate 63 01/17/18 18:36 Respiratory Rate 18 01/17/18 18:36 Blood Pressure 136/72 01/17/18 18:36 O2 Sat by Pulse Oximetry (%) 93 L 01/17/18 09:00 Neck: Yes: WNL, Supple Cardiovascular: Yes: WNL, Regular Rate and Rhythm Respiratory: Yes: WNL, Regular, CTA Bilaterally Gastrointestinal: Yes: WNL, Normal Bowel Sounds, Soft Extremities: Yes: Other ((+) erythema B/L lopwer extremities) Edema: Yes Edema: LLE: Trace, RLE: Trace Labs: CBC, BMP 01/16/18 06:30 01/16/18 06:30 INR, PTT INR 3.96 (0.83-1.09) H 01/16/18 07:20 Problem List - Problems (1) Cellulitis Assessment/Plan: Cont IV antibxs Follow blood cultures Code(s): L03.90 - CELLULITIS, UNSPECIFIED Qualifiers: Site of cellulitis: extremity Site of cellulitis of extremity: lower extremity Laterality: unspecified laterality Qualified Code(s): L03.119 - Cellulitis of unspecified part of limb (2) Anemia Assessment/Plan: Monitor H/H Pt w/ h/o rectal ulcer DC row[place]a Code(s): D64.9 - ANEMIA, UNSPECIFIED (3) DVT (deep venous thrombosis) Assessment/Plan: H/O Brachial vein thrombosis Follow PT/INR COumadin on hold due to supratherapeutic INR Code(s): I82.409 - ACUTE EMBOLISM AND THOMBOS UNSP DEEP VN UNSP LOWER EXTREMITY (4) Normochromic normocytic anemia Code(s): D64.9 - ANEMIA, UNSPECIFIED (5) Closed comminuted intertrochanteric fracture of left femur Code(s): S72.142A - DISPLACED INTERTROCHANTERIC FRACTURE OF LEFT FEMUR, INIT
[2018-01-17] MEDS: MESALAMINE 4 GM/60 ML ENEMA NR SCH (22:22)
[2018-01-18] MEDS ORDERED: ceFAZolin SODIUM 1 GM VIAL ONE ×3 (01:02→17:08)
[2018-01-18] MEDS ORDERED: DEXTROSE 5%-WATER - 50 ML IVPB ONE ×3 (01:02→17:09)
[2018-01-18] MEDS: CEFAZOLIN 1 GM in DEXTROSE 5%-WATER - 50 ML IVPB SCH ×3 (01:40→17:22)
[2018-01-18 07:17] LABS: BASO % 0.3 % (0-2.0); EOS % 2.3 % (0-4.5); HEMATOCRIT 39.1 % (32.4-45.2); HEMOGLOBIN 12.1 GM/dL (10.7-15.3); LYMPH % 15.3 % (8-40); MCH 26.9 pg (25.7-33.7); MCHC 30.9 g/dl (32.0-36.0); MEAN CELL VOLUME 87.1 fl (80-96); MEAN PLT VOLUME 8.1 fl (7.5-11.1); NEUT % 74.1 % (42.8-82.8); PLATELET COUNT 198 K/MM3 (134-434); RBC 4.49 M/mm3 (3.60-5.2); RDW 18.8 % (11.6-15.6); WHITE BLOOD COUNT 5.6 K/mm3 (4.0-10.0)
[2018-01-18 07:44] LABS: INR 1.29 (0.83-1.09); PROTHROMBIN TIME (PATIENT) 15.3 SEC (9.7-13.0)
[2018-01-18 07:45] LABS: ALBUMIN 2.4 g/dl (3.4-5.0); ALK PHOS 65 U/L (45-117); ANION GAP 4 MMOL/L (8-16); BILIRUBIN,TOTAL 0.4 mg/dL (0.2-1); BLOOD UREA NITROGEN 33 mg/dL (7-18); CALCIUM 8.5 mg/dL (8.5-10.1); CHLORIDE 102 mmol/L (98-107); CO2 35 mmol/L (21-32); CREATININE 0.8 mg/dL (0.55-1.3); GLUCOSE,RANDOM 93 mg/dL (74-106); POTASSIUM 3.8 mmol/L (3.5-5.1); SGOT/AST 16 U/L (15-37); SGPT/ALT 7 U/L (13-61); SODIUM 141 mmol/L (136-145)
--- NOTE | 2018-01-18 08:45 | PN ---
Progress Note, Physician Chief Complaint: no acute distress No CP or SOB - Current Medication List Current Medications: Active Medications Acetaminophen (Tylenol -) 650 mg PO Q4H PRN PRN Reason: FEVER Brimonidine Tartrate (Alphagan 0.15% -) 1 drop OU BID [facility] Last Admin: 01/17/18 22:22 Dose: 1 drop Heparin Sodium (Porcine) (Heparin -) 5,000 unit SQ BID [facility] Last Admin: 01/17/18 22:22 Dose: 5,000 unit Cefazolin Sodium 1 gm/ (Dextrose) 50 mls @ 100 mls/hr IVPB Q8H-IV [facility] Last Admin: 01/18/18 01:40 Dose: 100 mls/hr Nystatin (Mycostatin Cream -) 1 applic TP BID [facility] Last Admin: 01/17/18 22:22 Dose: 1 applic Polyethylene Glycol (Miralax (For Daily Use) -) 17 gm PO BID PRN PRN Reason: constipation, rectal ulcer Last Admin: 01/17/18 17:43 Dose: 17 grams - Objective Vital Signs: Vital Signs Temperature 97.6 F 01/18/18 03:01 Pulse Rate 62 01/18/18 03:01 Respiratory Rate 18 01/18/18 03:01 Blood Pressure 140/73 01/18/18 03:01 O2 Sat by Pulse Oximetry (%) 94 L 01/17/18 21:00 Constitutional: Yes: Calm Cardiovascular: Yes: Regular Rate and Rhythm Respiratory: Yes: CTA Bilaterally Gastrointestinal: Yes: Soft Edema: Yes Edema: LLE: 1+ (erythema), RLE: 1+ (erythema) Neurological: Yes: Alert Labs: CBC, BMP 01/18/18 06:40 01/18/18 06:40 INR, PTT INR 1.29 (0.83-1.09) H 01/18/18 06:40 Assessment/Plan A/P: 87 year old female with past medical history including atrial fibrillation status post permanent pacemaker recent generator change not on anticoagulation due to history of multiple GI bleed admitted to [facility] for left hip pain found to have cellulitis bilaterally on antibiotics with ID following, cardiology consulted given elevated BNP 4000s. 1. 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 Elevated BNP --follow-up echocardiogram --will continue hold off on lasix therapy at this time given euvolemic and asymptomatic 3. Leukocytosis/Elevated lactate: lactate now normal, management per PMD
[2018-01-18] MEDS: NYSTATIN 100,000 UNIT/GM TOPICAL CREAM 15 GM TUBE TP SCH ×2 (10:45→21:23)
[2018-01-18] MEDS: BRIMONIDINE TARTRATE 0.15% OPHTHALMIC 5 ML BOTTLE OU SCH ×2 (10:45→21:24)
[2018-01-18] MEDS: HEPARIN NA (PORCINE) 5,000 UNITS/ML 1ML VIAL SQ SCH ×2 (10:46→21:23)
--- NOTE | 2018-01-18 11:48 | PN ---
Progress Note, Physician - Current Medication List Current Medications: Active Medications Acetaminophen (Tylenol -) 650 mg PO Q4H PRN PRN Reason: FEVER Brimonidine Tartrate (Alphagan 0.15% -) 1 drop OU BID [facility] Last Admin: 01/18/18 10:45 Dose: 1 drop Heparin Sodium (Porcine) (Heparin -) 5,000 unit SQ BID [facility] Last Admin: 01/18/18 10:46 Dose: 5,000 unit Cefazolin Sodium 1 gm/ (Dextrose) 50 mls @ 100 mls/hr IVPB Q8H-IV [facility] Last Admin: 01/18/18 10:44 Dose: 100 mls/hr Nystatin (Mycostatin Cream -) 1 applic TP BID [facility] Last Admin: 01/18/18 10:45 Dose: 1 applic Polyethylene Glycol (Miralax (For Daily Use) -) 17 gm PO BID PRN PRN Reason: constipation, rectal ulcer Last Admin: 01/17/18 17:43 Dose: 17 grams - Objective Vital Signs: Vital Signs Temperature 97.6 F 01/18/18 03:01 Pulse Rate 62 01/18/18 03:01 Respiratory Rate 18 01/18/18 03:01 Blood Pressure 140/73 01/18/18 03:01 O2 Sat by Pulse Oximetry (%) 94 L 01/17/18 21:00 Labs: CBC, BMP 01/18/18 06:40 01/18/18 06:40 INR, PTT INR 1.29 (0.83-1.09) H 01/18/18 06:40
--- NOTE | 2018-01-18 23:05 | PN ---
Progress Note, Physician Chief Complaint: No new complaints History of Present Illness: No new complaints - Current Medication List Current Medications: Active Medications Acetaminophen (Tylenol -) 650 mg PO Q4H PRN PRN Reason: FEVER Brimonidine Tartrate (Alphagan 0.15% -) 1 drop OU BID [facility] Last Admin: 01/18/18 21:24 Dose: 1 drop Heparin Sodium (Porcine) (Heparin -) 5,000 unit SQ BID [facility] Last Admin: 01/18/18 21:23 Dose: Not Given Cefazolin Sodium 1 gm/ (Dextrose) 50 mls @ 100 mls/hr IVPB Q8H-IV [facility] Last Admin: 01/18/18 17:22 Dose: 100 mls/hr Nystatin (Mycostatin Cream -) 1 applic TP BID [facility] Last Admin: 01/18/18 21:23 Dose: 1 applic Polyethylene Glycol (Miralax (For Daily Use) -) 17 gm PO BID PRN PRN Reason: constipation, rectal ulcer Last Admin: 01/17/18 17:43 Dose: 17 grams - Objective Vital Signs: Vital Signs Temperature 98.0 F 01/18/18 18:00 Pulse Rate 61 01/18/18 18:00 Respiratory Rate 20 01/18/18 18:00 Blood Pressure 145/79 01/18/18 18:00 O2 Sat by Pulse Oximetry (%) 94 L 01/18/18 09:00 Neck: Yes: WNL, Supple Cardiovascular: Yes: WNL, Regular Rate and Rhythm Respiratory: Yes: WNL, Regular, CTA Bilaterally Gastrointestinal: Yes: WNL, Normal Bowel Sounds, Soft Labs: CBC, BMP 01/18/18 06:40 01/18/18 06:40 INR, PTT INR 1.29 (0.83-1.09) H 01/18/18 06:40 Problem List - Problems (1) Cellulitis Assessment/Plan: Cont IV Cefazolin Cultures remain negative Code(s): L03.90 - CELLULITIS, UNSPECIFIED Qualifiers: Site of cellulitis: extremity Site of cellulitis of extremity: lower extremity Laterality: unspecified laterality Qualified Code(s): L03.119 - Cellulitis of unspecified part of limb (2) Anemia Assessment/Plan: Monitor H/H Pt w/ h/o rectal ulcer Code(s): D64.9 - ANEMIA, UNSPECIFIED (3) DVT (deep venous thrombosis) Assessment/Plan: H/O Brachial vein thrombosis Follow PT/INR Restart coumadin Code(s): I82.409 - ACUTE EMBOLISM AND THOMBOS UNSP DEEP VN UNSP LOWER EXTREMITY (4) Normochromic normocytic anemia Code(s): D64.9 - ANEMIA, UNSPECIFIED (5) Closed comminuted intertrochanteric fracture of left femur Code(s): S72.142A - DISPLACED INTERTROCHANTERIC FRACTURE OF LEFT FEMUR, INIT
[2018-01-19] MEDS ORDERED: DEXTROSE 5%-WATER - 50 ML IVPB ONE ×4 (02:46→23:56)
[2018-01-19] MEDS ORDERED: ceFAZolin SODIUM 1 GM VIAL ONE ×4 (02:46→23:56)
[2018-01-19] MEDS: CEFAZOLIN 1 GM in DEXTROSE 5%-WATER - 50 ML IVPB SCH ×3 (02:52→17:10)
[2018-01-19 07:22] LABS: BASO % 0.3 % (0-2.0); EOS % 2.6 % (0-4.5); HEMATOCRIT 38.8 % (32.4-45.2); HEMOGLOBIN 12.1 GM/dL (10.7-15.3); LYMPH % 14.9 % (8-40); MCH 26.9 pg (25.7-33.7); MCHC 31.2 g/dl (32.0-36.0); MEAN CELL VOLUME 86.4 fl (80-96); MONO % 9.6 % (3.8-10.2); NEUT % 72.6 % (42.8-82.8); PLATELET COUNT 214 K/MM3 (134-434); RDW 18.8 % (11.6-15.6); WHITE BLOOD COUNT 4.6 K/mm3 (4.0-10.0)
--- NOTE | 2018-01-19 09:08 | PN ---
Progress Note, Physician Chief Complaint: no acute distress - Current Medication List Current Medications: Active Medications Acetaminophen (Tylenol -) 650 mg PO Q4H PRN PRN Reason: FEVER Brimonidine Tartrate (Alphagan 0.15% -) 1 drop OU BID [facility] Last Admin: 01/18/18 21:24 Dose: 1 drop Cefazolin Sodium 1 gm/ (Dextrose) 50 mls @ 100 mls/hr IVPB Q8H-IV [facility] Last Admin: 01/19/18 02:52 Dose: 100 mls/hr Nystatin (Mycostatin Cream -) 1 applic TP BID [facility] Last Admin: 01/18/18 21:23 Dose: 1 applic Polyethylene Glycol (Miralax (For Daily Use) -) 17 gm PO BID PRN PRN Reason: constipation, rectal ulcer Last Admin: 01/17/18 17:43 Dose: 17 grams Warfarin Sodium (Coumadin -) 5 mg PO DAILY@1800 [facility] - Objective Vital Signs: Vital Signs Temperature 98.1 F 01/19/18 06:00 Pulse Rate 62 01/19/18 06:00 Respiratory Rate 20 01/19/18 06:00 Blood Pressure 142/70 01/19/18 06:00 O2 Sat by Pulse Oximetry (%) 95 01/18/18 21:00 Constitutional: Yes: No Distress, Calm Eyes: Yes: Conjunctiva Clear Cardiovascular: Yes: Regular Rate and Rhythm Respiratory: Yes: CTA Bilaterally Gastrointestinal: Yes: Soft Edema: No Neurological: Yes: Alert, Oriented ...Motor Strength: WNL Labs: CBC, BMP 01/19/18 06:20 INR, PTT INR 1.29 (0.83-1.09) H 01/18/18 06:40 Microbiology 01/15/18 13:48 Blood - Peripheral Venous Blood Culture - Preliminary NO GROWTH OBTAINED AFTER 72 HOURS, INCUBATION TO CONTINUE FOR 2 DAYS. 01/15/18 13:48 Blood - Peripheral Venous Blood Culture - Preliminary NO GROWTH OBTAINED AFTER 72 HOURS, INCUBATION TO CONTINUE FOR 2 DAYS. Laboratory Tests 01/18/18 01/18/18 01/18/18 06:40 06:40 06:40 WBC 5.6 Hgb 12.1 Hct Plt Count 198 INR 1.29 H Sodium 141 Potassium 3.8 BUN 33 H Creatinine 0.8 Creat Clearance w eGFR > 60 Calcium 8.5 Total Bilirubin 0.4 AST 16 ALT 7 L Alkaline Phosphatase 65 Total Protein 6.0 L Albumin 2.4 L 01/19/18 01/19/18 06:20 06:20 WBC 4.6 Hgb 12.1 Hct 38.8 Plt Count 214 INR Sodium Pending Potassium Pending BUN Pending Creatinine Pending Creat Clearance w eGFR Pending Calcium Pending Total Bilirubin Pending AST Pending ALT Pending Alkaline Phosphatase Pending Total Protein Pending Albumin Pending Assessment/Plan A/P: 87 year old female with past medical history including atrial fibrillation status post permanent pacemaker recent generator change not on anticoagulation due to history of multiple GI bleed admitted to [facility] for left hip pain found to have cellulitis bilaterally on antibiotics with ID following, cardiology consulted given elevated BNP 4000s. 1. 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 Elevated BNP --follow-up echocardiogram --will continue hold off on lasix therapy at this time given euvolemic and asymptomatic 3. Leukocytosis/Elevated lactate: lactate now normal, management per PMD 4. 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 need for full AC as patient has had hx of severe GI bleeding due to peptic ulcer dz requiring transfusions
[2018-01-19] MEDS ORDERED: PT OWN MED DRAWER 7, Y5N ONE ×2 (09:44→21:10)
[2018-01-19] MEDS: NYSTATIN 100,000 UNIT/GM TOPICAL CREAM 15 GM TUBE TP SCH ×2 (10:27→22:25)
[2018-01-19] MEDS: BRIMONIDINE TARTRATE 0.15% OPHTHALMIC 5 ML BOTTLE OU SCH ×2 (10:27→22:25)
--- NOTE | 2018-01-19 14:06 | PN ---
Progress Note, Physician History of Present Illness: patient starting to look better leg looks better patient feeling better - Current Medication List Current Medications: Active Medications Acetaminophen (Tylenol -) 650 mg PO Q4H PRN PRN Reason: FEVER Brimonidine Tartrate (Alphagan 0.15% -) 1 drop OU BID [facility] Last Admin: 01/19/18 10:27 Dose: 1 drop Cefazolin Sodium 1 gm/ (Dextrose) 50 mls @ 100 mls/hr IVPB Q8H-IV [facility] Last Admin: 01/19/18 10:27 Dose: 100 mls/hr Nystatin (Mycostatin Cream -) 1 applic TP BID [facility] Last Admin: 01/19/18 10:27 Dose: 1 applic Polyethylene Glycol (Miralax (For Daily Use) -) 17 gm PO BID PRN PRN Reason: constipation, rectal ulcer Last Admin: 01/17/18 17:43 Dose: 17 grams - Objective Vital Signs: Vital Signs Temperature 97.1 F L 01/19/18 10:00 Pulse Rate 58 L 01/19/18 10:00 Respiratory Rate 18 01/19/18 10:00 Blood Pressure 112/58 L 01/19/18 10:00 O2 Sat by Pulse Oximetry (%) 95 01/18/18 21:00 Constitutional: Yes: No Distress, Calm Cardiovascular: Yes: Regular Rate and Rhythm Respiratory: Yes: Regular, CTA Bilaterally Gastrointestinal: Yes: Normal Bowel Sounds, Soft Musculoskeletal: Yes: Other Extremities: Yes: Erythema (improving) Neurological: Yes: Alert, Oriented Psychiatric: Yes: Alert, Oriented Labs: CBC, BMP 01/19/18 06:20 INR, PTT INR 1.29 (0.83-1.09) H 01/18/18 06:40 Assessment/Plan cellulitis of the legs left hip pain afib weakness fever onchomycosis plan continue current mgmt elevation of the legs rest as per the team will see how the legs look tomorrow patient wants to see some one for hip pain
[2018-01-19 14:10] LABS: ALBUMIN 2.4 g/dl (3.4-5.0); ALK PHOS 65 U/L (45-117); ANION GAP 8 MMOL/L (8-16); BILIRUBIN,TOTAL 0.3 mg/dL (0.2-1); BLOOD UREA NITROGEN 31 mg/dL (7-18); CALCIUM 8.5 mg/dL (8.5-10.1); CHLORIDE 102 mmol/L (98-107); CO2 32 mmol/L (21-32); CREATININE 0.8 mg/dL (0.55-1.3); GLUCOSE,RANDOM 105 mg/dL (74-106); POTASSIUM 4.1 mmol/L (3.5-5.1); SGOT/AST 14 U/L (15-37); SGPT/ALT 9 U/L (13-61); SODIUM 142 mmol/L (136-145); TOT PROT 5.9 g/dl (6.4-8.2)
[2018-01-19] MEDS ORDERED: WARFARIN NA 5 MG TABLET (UD) PO SCH (18:00)
--- NOTE | 2018-01-19 19:02 | PN ---
Progress Note, Physician - Current Medication List Current Medications: Active Medications Acetaminophen (Tylenol -) 650 mg PO Q4H PRN PRN Reason: FEVER Brimonidine Tartrate (Alphagan 0.15% -) 1 drop OU BID [facility] Last Admin: 01/19/18 10:27 Dose: 1 drop Cefazolin Sodium 1 gm/ (Dextrose) 50 mls @ 100 mls/hr IVPB Q8H-IV [facility] Last Admin: 01/19/18 17:10 Dose: 100 mls/hr Nystatin (Mycostatin Cream -) 1 applic TP BID [facility] Last Admin: 01/19/18 10:27 Dose: 1 applic Polyethylene Glycol (Miralax (For Daily Use) -) 17 gm PO BID PRN PRN Reason: constipation, rectal ulcer Last Admin: 01/17/18 17:43 Dose: 17 grams - Objective Vital Signs: Vital Signs Temperature 98.4 F 01/19/18 18:00 Pulse Rate 60 01/19/18 18:00 Respiratory Rate 20 01/19/18 18:00 Blood Pressure 121/60 01/19/18 18:00 O2 Sat by Pulse Oximetry (%) 95 01/19/18 09:00 Labs: CBC, BMP 01/19/18 06:20 01/19/18 06:20 INR, PTT INR 1.29 (0.83-1.09) H 01/18/18 06:40 Problem List - Problems (1) Cellulitis Code(s): L03.90 - CELLULITIS, UNSPECIFIED Qualifiers: Site of cellulitis: extremity Site of cellulitis of extremity: lower extremity Laterality: unspecified laterality Qualified Code(s): L03.119 - Cellulitis of unspecified part of limb (2) Anemia Code(s): D64.9 - ANEMIA, UNSPECIFIED (3) DVT (deep venous thrombosis) Code(s): I82.409 - ACUTE EMBOLISM AND THOMBOS UNSP DEEP VN UNSP LOWER EXTREMITY (4) Normochromic normocytic anemia Code(s): D64.9 - ANEMIA, UNSPECIFIED (5) Closed comminuted intertrochanteric fracture of left femur Code(s): S72.142A - DISPLACED INTERTROCHANTERIC FRACTURE OF LEFT FEMUR, INIT
[2018-01-20] MEDS: CEFAZOLIN 1 GM in DEXTROSE 5%-WATER - 50 ML IVPB SCH ×3 (02:24→17:12)
[2018-01-20 08:13] LABS: INR 1.13 (0.83-1.09); PROTHROMBIN TIME (PATIENT) 13.3 SEC (9.7-13.0)
[2018-01-20] MEDS ORDERED: DEXTROSE 5%-WATER - 50 ML IVPB ONE ×2 (09:50→17:08)
[2018-01-20] MEDS ORDERED: PT OWN MED DRAWER 7, Y5N ONE ×2 (09:50→21:01)
[2018-01-20] MEDS ORDERED: ceFAZolin SODIUM 1 GM VIAL ONE ×2 (09:50→17:08)
[2018-01-20] MEDS: NYSTATIN 100,000 UNIT/GM TOPICAL CREAM 15 GM TUBE TP SCH ×2 (10:06→21:11)
[2018-01-20] MEDS: BRIMONIDINE TARTRATE 0.15% OPHTHALMIC 5 ML BOTTLE OU SCH ×2 (10:07→21:11)
--- NOTE | 2018-01-20 12:10 | CONSULT ---
Consult - History of Present Illness History of Present Illness: 87 year old woman admitted with GI bleed and INR 4. In September she was found to have clot in the left basilic vein and on repeat ultrasound 2 weeks later there was clot in the left brachial vein. No central vein DVT was documented. She has had no arm swelling. She has been on Coumadin for atrial fibrillation. - Past Medical History Cardio/Vascular: Yes: AFIB Gastrointestinal: Yes: GI Bleed - Alcohol/Substance Use Hx Alcohol Use: No - Smoking History Smoking history: Never smoked Have you smoked in the past 12 months: No Home Medications - Allergies Allergies/Adverse Reactions: Allergies Allergy/AdvReac Type Severity Reaction Status Date / Time No Known Allergies Allergy Verified 10/28/17 17:36 - Home Medications Home Medications: Ambulatory Orders Brimonidine Tartrate [Alphagan 0.15% -] 1 drop OU BID 10/21/17 Enoxaparin [Lovenox -] 40 mg SQ DAILY disp.syrin 10/24/17 Ferrous Sulfate [Feosol] 325 mg PO DAILY ud 10/24/17 Polyethylene Glycol 3350 [Miralax 119 gm Btl -] 17 gm PO DAILY bottle 10/24/17 oxyCODONE HCL [Roxicodone -] 5 mg PO Q6H PRN tablet MDD 4 10/24/17 Amox-Tr/K Cl [Augmentin 875-125mg Tablet -] 1 tab PO BID@0800,1730 tablet 11/13 Brimonidine Tartrate [Alphagan 0.15% -] 1 drop OU BID@0730,1930 drops 11/13/17 Cyanocobalamin [Vitamin B12 -] 1,000 mcg PO DAILY tablet 11/13/17 Mesalamine Enema [Rowasa Enema -] 4 gm [place] HS enema 11/13/17 Polyethylene Glycol 3350 [Miralax 119 gm Btl -] 17 gm PO BID PRN bottle Warfarin Na [Coumadin -] 5 mg PO DAILY@1800 tablet 11/13/17 Physical Exam Vital Signs: Vital Signs Temperature 97.6 F 01/20/18 10:00 Pulse Rate 65 01/20/18 10:00 Respiratory Rate 20 01/20/18 10:00 Blood Pressure 140/82 01/20/18 10:00 O2 Sat by Pulse Oximetry (%) 95 01/19/18 21:00 Constitutional: Yes: No Distress Extremities: Yes: Other (No edema in arms. Left forearm ecchymosis from IV infiltration. No palpable cords.) Edema: Yes Edema: LLE: 2+, RLE: 2+ Labs: CBC, BMP 01/19/18 06:20 01/19/18 06:20 Problem List - Problems (1) DVT of upper extremity (deep vein thrombosis) Assessment/Plan: DVT of left brachial vein over 2.5 months ago. There is no evidence for venous hypertension in the arm and low likelihood of ongoing thrombosis. I do not recommend anticoagulation for this problem un less there is new DVT identified. 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
--- NOTE | 2018-01-20 13:36 | PN ---
Progress Note, Physician History of Present Illness: stable no new issues cellulittis nearly resolved - Current Medication List Current Medications: Active Medications Acetaminophen (Tylenol -) 650 mg PO Q4H PRN PRN Reason: FEVER Brimonidine Tartrate (Alphagan 0.15% -) 1 drop OU BID [facility] Last Admin: 01/20/18 10:07 Dose: 1 drop Cefazolin Sodium 1 gm/ (Dextrose) 50 mls @ 100 mls/hr IVPB Q8H-IV [facility] Last Admin: 01/20/18 10:06 Dose: 100 mls/hr Nystatin (Mycostatin Cream -) 1 applic TP BID [facility] Last Admin: 01/20/18 10:06 Dose: 1 applic Polyethylene Glycol (Miralax (For Daily Use) -) 17 gm PO BID PRN PRN Reason: constipation, rectal ulcer Last Admin: 01/17/18 17:43 Dose: 17 grams - Objective Vital Signs: Vital Signs Temperature 97.6 F 01/20/18 10:00 Pulse Rate 65 01/20/18 10:00 Respiratory Rate 20 01/20/18 10:00 Blood Pressure 140/82 01/20/18 10:00 O2 Sat by Pulse Oximetry (%) 95 01/19/18 21:00 Constitutional: Yes: No Distress, Calm Cardiovascular: Yes: Regular Rate and Rhythm Respiratory: Yes: Regular, CTA Bilaterally Gastrointestinal: Yes: Normal Bowel Sounds, Soft Musculoskeletal: Yes: WNL Extremities: Yes: Other Neurological: Yes: Alert, Oriented Psychiatric: Yes: Alert, Oriented Labs: CBC, BMP 01/19/18 06:20 01/19/18 06:20 INR, PTT INR 1.13 (0.83-1.09) H 01/20/18 07:30 Assessment/Plan cellulitis of the legs left hip pain afib weakness fever onchomycosis plan continue current mgmt elevation of the legs rest as per the team can change to oral abx from tomorrow patient wants to see ortho
--- NOTE | 2018-01-20 21:53 | PN ---
Progress Note, Physician History of Present Illness: Pt complains of hip pain - Current Medication List Current Medications: Active Medications Acetaminophen (Tylenol -) 650 mg PO Q4H PRN PRN Reason: FEVER Brimonidine Tartrate (Alphagan 0.15% -) 1 drop OU BID [facility] Last Admin: 01/20/18 21:11 Dose: 1 drop Cefazolin Sodium 1 gm/ (Dextrose) 50 mls @ 100 mls/hr IVPB Q8H-IV [facility] Last Admin: 01/20/18 17:12 Dose: 100 mls/hr Nystatin (Mycostatin Cream -) 1 applic TP BID [facility] Last Admin: 01/20/18 21:11 Dose: 1 applic Polyethylene Glycol (Miralax (For Daily Use) -) 17 gm PO BID PRN PRN Reason: constipation, rectal ulcer Last Admin: 01/17/18 17:43 Dose: 17 grams - Objective Vital Signs: Vital Signs Temperature 97.9 F 01/20/18 21:00 Pulse Rate 61 01/20/18 21:00 Respiratory Rate 18 01/20/18 21:00 Blood Pressure 124/62 01/20/18 21:00 O2 Sat by Pulse Oximetry (%) 95 01/20/18 09:00 Neck: Yes: WNL, Supple Cardiovascular: Yes: WNL, Regular Rate and Rhythm Respiratory: Yes: WNL, Regular, CTA Bilaterally Gastrointestinal: Yes: WNL, Normal Bowel Sounds, Soft Extremities: Yes: Other ((+) chronic venous stasis B/L lower extremities) Wound/Incision: Yes: Other (Sacral Ulcer) Labs: CBC, BMP 01/19/18 06:20 01/19/18 06:20 INR, PTT INR 1.13 (0.83-1.09) H 01/20/18 07:30 Problem List - Problems (1) Cellulitis Assessment/Plan: Cont IV Cefazolin Cultures remain negative Probable change to po antibxs in am Probable dc planning in am Code(s): L03.90 - CELLULITIS, UNSPECIFIED Qualifiers: Site of cellulitis: extremity Site of cellulitis of extremity: lower extremity Laterality: unspecified laterality Qualified Code(s): L03.119 - Cellulitis of unspecified part of limb (2) DVT (deep venous thrombosis) Assessment/Plan: H/O Lt Brachial vein thrombosis Vascular consult noted No need for any further AC therapy Code(s): I82.409 - ACUTE EMBOLISM AND THOMBOS UNSP DEEP VN UNSP LOWER EXTREMITY (3) Closed comminuted intertrochanteric fracture of left femur Assessment/Plan: Will get ortho consult due to recurrent hip pain Code(s): S72.142A - DISPLACED INTERTROCHANTERIC FRACTURE OF LEFT FEMUR, INIT (4) Anemia Assessment/Plan: Monitor H/H Code(s): D64.9 - ANEMIA, UNSPECIFIED
[2018-01-21] MEDS ORDERED: DEXTROSE 5%-WATER - 50 ML IVPB ONE ×2 (00:10→08:46)
[2018-01-21] MEDS ORDERED: ceFAZolin SODIUM 1 GM VIAL ONE ×2 (00:10→08:45)
[2018-01-21] MEDS: CEFAZOLIN 1 GM in DEXTROSE 5%-WATER - 50 ML IVPB SCH ×2 (01:39→09:03)
[2018-01-21] MEDS ORDERED: PT OWN MED DRAWER 7, Y5N ONE (08:45)
[2018-01-21] MEDS: BRIMONIDINE TARTRATE 0.15% OPHTHALMIC 5 ML BOTTLE OU SCH ×2 (09:04→21:31)
--- NOTE | 2018-01-21 09:46 | PN ---
Progress Note (short form) - Note Progress Note: Pt seen and examined. She is an 84 year old female with no recent history of trauma. She is 3 months s/p fall, L hip IT fx and Gamma nail fixation. She c/o mild pain, and her left lateral thigh feeling "loose" when she walks. PE LLE looks good, no signs of acute trauma, no swelling, no erythema, no bruising. LLE is NVI Good ROM at the left hip in all planes with minimal pain, good ROM at the left knee, ankle, foot with no pain. Not tender over the left hip, including the left hip bursa. Xrays Look good, no acute pathology, the previous left hip IT fx is healed in a very good position. Imp C/o left hip "looseness" and discomfort. Nothing concerning. Rec The patient would like to go to [facility], I support that. She can be DC'd from an orthopedic pov once there is a bed. In the meantime she should do P.T. every day while here. The pt is requesting P.T. 2x/day if possible.
[2018-01-21] MEDS: NYSTATIN 100,000 UNIT/GM TOPICAL CREAM 15 GM TUBE TP SCH ×2 (10:00→21:31)
--- NOTE | 2018-01-21 11:02 | PN ---
Physical Exam: SUBJECTIVE: Patient seen and examined at the bedside. Sitting in chair, feels well, denies pain. OBJECTIVE: Vital Signs Period Temp Pulse Resp BP Sys/Oseguera Pulse Ox Last 24 Hr 97.6 F-98.3 F 60-70 18-22 102-124/50-65 94 GENERAL: The patient is awake, alert, and fully oriented, in no acute distress. HEAD: Normal with no signs of trauma. EYES: PERRL, extraocular movements intact, sclera anicteric, conjunctiva clear. No ptosis. ENT: Ears normal, nares patent, oropharynx clear without exudates, moist mucous membranes. NECK: Trachea midline, full range of motion, supple. LUNGS: Breath sounds equal, clear to auscultation bilaterally HEART: Regular rate and rhythm ABDOMEN: Soft, nontender, nondistended, normoactive bowel sounds, no guarding, EXTREMITIES: bilateral extremities mild redness, bilateral lower ext. non pitting edema. fungal nails. NEUROLOGICAL: Normal speech, gait not observed. PSYCH: Normal mood, normal affect. Active Medications Generic Name Dose Route Start Last Admin Trade Name Freq PRN Reason Stop Dose Admin Acetaminophen 650 mg 01/15/18 22:31 Tylenol - PO Q4H PRN FEVER Brimonidine Tartrate 1 drop 01/16/18 10:00 01/21/18 09:04 Alphagan 0.15% - OU 1 drop BID ALEKSANDAR Administration Cefazolin Sodium 1 gm/ 50 mls @ 100 mls/hr 01/16/18 02:00 01/21/18 09:03 Dextrose IVPB 100 mls/hr Q8H-IV ALEKSANDAR Administration Nystatin 1 applic 01/16/18 12:00 01/20/18 21:11 Mycostatin Cream - TP 1 applic BID ALEKSANDAR Administration Polyethylene Glycol 17 gm 01/15/18 22:28 01/17/18 17:43 Miralax (For Daily Use) - PO 17 grams BID PRN Administration constipation, rectal ulcer ASSESSMENT/PLAN: Patient is an 87 year old female with a significant past medical history of afib ( pacemaker ), glaucoma and anemia. She presents to the ED with left hip pain and discomfort. She was recently d/c from rehab for left hip fx. On admission she was noted to have noted bilateral leg redness and is admitted for cellulits. Imaging: left hip xray: s/p left hip pinning, no acute process seen Card: Atiral fibrillation (pacemaker): No acute issue. cardiology following. Not anticoag 2/2 GI bleed history. Vascular/ID: RLE Cellulitis: lower ext edema improved, mild redness, no pain. IV Cefazolin to be transitioned to PO as per ID note. DVT of left brachial vein. seen on previous imaging. Seen by vascular, no a/c needed at this time Ortho: Left hip aponte: left xray report reviewed. patient ambulated with PT 180 feet. Will likely need a RW on d/c. Neuro: glaucoma: continue home drops heme: anemia: stable. Leukocytosis: stable, lactate wnl. no signs of infection. fen tolerating PO monitor electrolytes low salt diet prophy Visit type - Emergency Visit Emergency Visit: Yes ED Registration Date: 01/15/18 Care time: The patient presented to the Emergency Department on the above date and was hospitalized for further evaluation of their emergent condition. - New Patient This patient is new to me today: Yes Date on this admission: 01/21/18 - Critical Care Critical Care patient: No - Discharge Referral Referred to [facility] Med P.C.: No
--- NOTE | 2018-01-21 16:11 | PN ---
Progress Note, Physician - Current Medication List Current Medications: Active Medications Acetaminophen (Tylenol -) 650 mg PO Q4H PRN PRN Reason: FEVER Amoxicillin/Clavulanate Potassium (Augmentin - 500mg Tablet) 1 tab PO BID@0800, 1730 [facility] Brimonidine Tartrate (Alphagan 0.15% -) 1 drop OU BID [facility] Last Admin: 01/21/18 09:04 Dose: 1 drop Nystatin (Mycostatin Cream -) 1 applic TP BID [facility] Last Admin: 01/20/18 21:11 Dose: 1 applic Polyethylene Glycol (Miralax (For Daily Use) -) 17 gm PO BID PRN PRN Reason: constipation, rectal ulcer Last Admin: 01/17/18 17:43 Dose: 17 grams - Objective Vital Signs: Vital Signs Temperature 97.6 F 01/21/18 14:02 Pulse Rate 60 01/21/18 14:02 Respiratory Rate 22 H 01/21/18 14:02 Blood Pressure 112/57 L 01/21/18 14:02 O2 Sat by Pulse Oximetry (%) 94 L 01/20/18 21:00 Labs: CBC, BMP 01/19/18 06:20 01/19/18 06:20 INR, PTT INR 1.13 (0.83-1.09) H 01/20/18 07:30
[2018-01-21] MEDS: AMOX TR/POT CLAV 500MG/125MG TABLETS (FP) PO SCH (17:40)
[2018-01-22] MEDS ORDERED: PT OWN MED DRAWER 7, Y5N ONE ×2 (08:32→21:07)
[2018-01-22] MEDS: POLYETHYLENE GLYCOL 3350 119 GM BTL PO PRN (09:07)
[2018-01-22] MEDS: AMOX TR/POT CLAV 500MG/125MG TABLETS (FP) PO SCH ×2 (09:07→17:16)
[2018-01-22] MEDS: BRIMONIDINE TARTRATE 0.15% OPHTHALMIC 5 ML BOTTLE OU SCH ×2 (09:07→21:53)
[2018-01-22 09:37] LABS: BASO % 0.8 % (0-2.0); EOS % 2.6 % (0-4.5); HEMATOCRIT 38.3 % (32.4-45.2); HEMOGLOBIN 12.3 GM/dL (10.7-15.3); MCH 27.7 pg (25.7-33.7); MCHC 32.1 g/dl (32.0-36.0); MEAN CELL VOLUME 86.4 fl (80-96); MEAN PLT VOLUME 7.4 fl (7.5-11.1); MONO % 9.5 % (3.8-10.2); NEUT % 69.1 % (42.8-82.8); PLATELET COUNT 279 K/MM3 (134-434); RBC 4.43 M/mm3 (3.60-5.2); RDW 18.2 % (11.6-15.6); WHITE BLOOD COUNT 4.5 K/mm3 (4.0-10.0)
--- NOTE | 2018-01-22 09:58 | PN ---
Physical Exam: SUBJECTIVE: Patient seen and examined at the bedside. Still having left hip pain, otherwise feels well. refused lidoderm patch. reports constipation x 6 days but refusing miralax yesterday. agreed to take it today. OBJECTIVE: abd mildly distended, soft. no nausea or vomiting. ambulated with RW x 180 feet, has RW at home. Vital Signs Period Temp Pulse Resp BP Sys/Oseguera Pulse Ox Last 24 Hr 97.6 F-98.4 F 60-61 18-22 112-130/57-71 94 GENERAL: The patient is awake, alert, and fully oriented, in no acute distress. HEAD: Normal with no signs of trauma. EYES: PERRL, extraocular movements intact, sclera anicteric, conjunctiva clear. No ptosis. ENT: Ears normal, nares patent, oropharynx clear without exudates, moist mucous membranes. NECK: Trachea midline, full range of motion, supple. LUNGS: Breath sounds equal, clear to auscultation bilaterally HEART: Regular rate and rhythm ABDOMEN: Soft, nontender, mildly distended, normoactive bowel sounds, no guarding, EXTREMITIES: bilateral extremities mild redness, bilateral lower ext. non pitting edema. fungal nails. NEUROLOGICAL: Normal speech, gait not observed. PSYCH: Normal mood, normal affect. Laboratory Results - last 24 hr 01/22/18 09:20 WBC 4.5 RBC 4.43 Hgb 12.3 Hct 38.3 MCV 86.4 MCH 27.7 MCHC 32.1 RDW 18.2 H Plt Count 279 D MPV 7.4 L Absolute Neuts (auto) 3.1 Neutrophils % 69.1 Lymphocytes % 18.0 D Monocytes % 9.5 Eosinophils % 2.6 Basophils % 0.8 Nucleated RBC % 0 Active Medications Generic Name Dose Route Start Last Admin Trade Name Freq PRN Reason Stop Dose Admin Acetaminophen 650 mg 01/15/18 22:31 Tylenol - PO Q4H PRN FEVER Amoxicillin/Clavulanate Potassium 1 tab 01/21/18 17:30 01/22/18 09:07 Augmentin - 500mg Tablet PO 1 tab BID@0800,1730 ALEKSANDAR Administration Brimonidine Tartrate 1 drop 01/16/18 10:00 01/22/18 09:07 Alphagan 0.15% - OU 1 drop BID ALEKSANDAR Administration Nystatin 1 applic 01/16/18 12:00 01/21/18 21:31 Mycostatin Cream - TP Not Given BID ALEKSANDAR Polyethylene Glycol 17 gm 01/15/18 22:28 01/22/18 09:07 Miralax (For Daily Use) - PO 17 grams BID PRN Administration constipation, rectal ulcer ASSESSMENT/PLAN: Patient is an 87 year old female with a significant past medical history of afib ( pacemaker ), glaucoma and anemia. She presents to the ED with left hip pain and discomfort. She was recently d/c from rehab for left hip fx. On admission she was noted to have noted bilateral leg redness and is admitted for cellulits. Imaging: left hip xray: s/p left hip pinning, no acute process seen Card: Atiral fibrillation (pacemaker): No acute issue. cardiology following. Not anticoag 2/2 GI bleed history. Vascular/ID: RLE Cellulitis: lower ext edema improved, mild redness, no pain. Treated with IV Cefazolin, now on Augmentin 500mg bid. DVT of left brachial vein. seen on previous imaging. Seen by vascular, no a/c needed at this time Ortho: Left hip aponte: left xray report reviewed. patient ambulated with PT 180 feet. Will likely need a RW on d/c. Neuro: glaucoma: continue home drops heme: anemia: stable. Leukocytosis: stable, lactate wnl. no signs of infection. fen tolerating PO monitor electrolytes low salt diet prophy discharge home. patient states no one a home today to let her in. will discuss with SW. Visit type - Emergency Visit Emergency Visit: Yes ED Registration Date: 01/15/18 Care time: The patient presented to the Emergency Department on the above date and was hospitalized for further evaluation of their emergent condition. - New Patient This patient is new to me today: No - Critical Care Critical Care patient: No - Discharge Referral Referred to [facility] Med P.C.: No
[2018-01-22 10:04] LABS: ALBUMIN 2.6 g/dl (3.4-5.0); ALK PHOS 76 U/L (45-117); ANION GAP 8 MMOL/L (8-16); BILIRUBIN,TOTAL 0.3 mg/dL (0.2-1); BLOOD UREA NITROGEN 34 mg/dL (7-18); CALCIUM 8.3 mg/dL (8.5-10.1); CHLORIDE 102 mmol/L (98-107); CO2 33 mmol/L (21-32); CREATININE 0.8 mg/dL (0.55-1.3); GLUCOSE,RANDOM 142 mg/dL (74-106); SGOT/AST 16 U/L (15-37); SGPT/ALT 9 U/L (13-61); SODIUM 142 mmol/L (136-145); TOT PROT 6.2 g/dl (6.4-8.2)
--- NOTE | 2018-01-22 10:11 | PN ---
Progress Note (short form) - Note Progress Note: Ortho Pt seen and examined- 3 months s/p left IM gamma nail Selected Entries 01/22/18 09:00 Temperature 98.0 F Pulse Rate 62 Respiratory 20 Rate Blood Pressure 129/65 Laboratory Tests 01/22/18 09:20 WBC 4.5 Hgb 12.3 Hct 38.3 Plt Count 279 D incisions well healed, minimal ttp, good rom nvi a/p PT wbat pain control dvt ppx d/c planning to [facility]
[2018-01-22] MEDS: NYSTATIN 100,000 UNIT/GM TOPICAL CREAM 15 GM TUBE TP SCH ×3 (11:24→22:00)
--- NOTE | 2018-01-22 12:11 | PN ---
Progress Note, Physician History of Present Illness: stable siting in chair legs looking good - Current Medication List Current Medications: Active Medications Acetaminophen (Tylenol -) 650 mg PO Q4H PRN PRN Reason: FEVER Amoxicillin/Clavulanate Potassium (Augmentin - 500mg Tablet) 1 tab PO BID@0800, 1730 [facility] Last Admin: 01/22/18 09:07 Dose: 1 tab Brimonidine Tartrate (Alphagan 0.15% -) 1 drop OU BID [facility] Last Admin: 01/22/18 09:07 Dose: 1 drop Nystatin (Mycostatin Cream -) 1 applic TP BID [facility] Last Admin: 01/22/18 11:24 Dose: Not Given Polyethylene Glycol (Miralax (For Daily Use) -) 17 gm PO BID PRN PRN Reason: constipation, rectal ulcer Last Admin: 01/22/18 09:07 Dose: 17 grams - Objective Vital Signs: Vital Signs Temperature 98.0 F 01/22/18 09:00 Pulse Rate 62 01/22/18 09:00 Respiratory Rate 20 01/22/18 09:00 Blood Pressure 129/65 01/22/18 09:00 O2 Sat by Pulse Oximetry (%) 94 L 01/21/18 21:00 Constitutional: Yes: No Distress, Calm Cardiovascular: Yes: Regular Rate and Rhythm Respiratory: Yes: Regular, CTA Bilaterally Gastrointestinal: Yes: Normal Bowel Sounds, Soft Musculoskeletal: Yes: WNL Extremities: Yes: WNL Integumentary: Yes: Erythema (resolving) Neurological: Yes: Alert, Oriented Psychiatric: Yes: Alert, Oriented Labs: CBC, BMP 01/22/18 09:20 01/22/18 09:20 INR, PTT INR 1.13 (0.83-1.09) H 01/20/18 07:30 Assessment/Plan cellulitis of the legs left hip pain afib weakness fever onchomycosis plan continue current mgmt elevation of the legs rest as per the team continue oral abx
[2018-01-23] MEDS: AMOX TR/POT CLAV 500MG/125MG TABLETS (FP) PO SCH ×2 (08:45→17:30)
[2018-01-23] MEDS ORDERED: PT OWN MED DRAWER 7, Y5N ONE ×3 (10:40→21:53)
[2018-01-23] MEDS: NYSTATIN 100,000 UNIT/GM TOPICAL CREAM 15 GM TUBE TP SCH ×2 (10:49→21:27)
[2018-01-23] MEDS: BRIMONIDINE TARTRATE 0.15% OPHTHALMIC 5 ML BOTTLE OU SCH ×2 (10:49→21:24)
--- NOTE | 2018-01-23 15:01 | PN ---
Progress Note, Physician History of Present Illness: Pt is alert, doing well. Remains afebrile. Denies tenderness in LEs. - Current Medication List Current Medications: Active Medications Acetaminophen (Tylenol -) 650 mg PO Q4H PRN PRN Reason: FEVER Amoxicillin/Clavulanate Potassium (Augmentin - 500mg Tablet) 1 tab PO BID@0800, 1730 [facility] Last Admin: 01/23/18 08:45 Dose: 1 tab Brimonidine Tartrate (Alphagan 0.15% -) 1 drop OU BID [facility] Last Admin: 01/23/18 10:49 Dose: 1 drop Nystatin (Mycostatin Cream -) 1 applic TP BID [facility] Last Admin: 01/23/18 10:49 Dose: Not Given Polyethylene Glycol (Miralax (For Daily Use) -) 17 gm PO BID PRN PRN Reason: constipation, rectal ulcer Last Admin: 01/22/18 09:07 Dose: 17 grams - Objective Vital Signs: Vital Signs Temperature 98.4 F 01/23/18 14:34 Pulse Rate 60 01/23/18 14:34 Respiratory Rate 16 01/23/18 14:34 Blood Pressure 114/56 L 01/23/18 14:34 O2 Sat by Pulse Oximetry (%) 95 01/23/18 09:00 Constitutional: Yes: No Distress, Calm Cardiovascular: Yes: Regular Rate and Rhythm Respiratory: Yes: Regular Gastrointestinal: Yes: Normal Bowel Sounds, Soft Genitourinary: Yes: WNL Extremities: Yes: Erythema (b/l LE with decreased erythema, no warmth/tenderness ) Neurological: Yes: Alert Labs: CBC, BMP 01/22/18 09:20 01/22/18 09:20 INR, PTT INR 1.13 (0.83-1.09) H 01/20/18 07:30 Assessment/Plan B/L LE cellulitis - improving -- cont. po antibiotics x 2 more days -- elevate legs pt appears to be doing well
[2018-01-23 21:01] VITALS: PULSE 60
--- NOTE | 2018-01-24 00:21 | PN ---
Progress Note, Physician Chief Complaint: Pt seen and examined on 01/23/18 however note is being entered now - Current Medication List Current Medications: Active Medications Acetaminophen (Tylenol -) 650 mg PO Q4H PRN PRN Reason: FEVER Amoxicillin/Clavulanate Potassium (Augmentin - 500mg Tablet) 1 tab PO BID@0800, 1730 [facility] Last Admin: 01/23/18 17:30 Dose: 1 tab Brimonidine Tartrate (Alphagan 0.15% -) 1 drop OU BID [facility] Last Admin: 01/23/18 21:24 Dose: 1 drop Nystatin (Mycostatin Cream -) 1 applic TP BID [facility] Last Admin: 01/23/18 21:27 Dose: Not Given Polyethylene Glycol (Miralax (For Daily Use) -) 17 gm PO BID PRN PRN Reason: constipation, rectal ulcer Last Admin: 01/22/18 09:07 Dose: 17 grams - Objective Vital Signs: Vital Signs Temperature 97.4 F L 01/23/18 20:59 Pulse Rate 60 01/23/18 20:59 Respiratory Rate 18 01/23/18 21:00 Blood Pressure 114/63 01/23/18 20:59 O2 Sat by Pulse Oximetry (%) 95 01/23/18 21:00 Labs: CBC, BMP 01/22/18 09:20 01/22/18 09:20 INR, PTT INR 1.13 (0.83-1.09) H 01/20/18 07:30 Problem List - Problems (1) Cellulitis Code(s): L03.90 - CELLULITIS, UNSPECIFIED Qualifiers: Site of cellulitis: extremity Site of cellulitis of extremity: lower extremity Laterality: unspecified laterality Qualified Code(s): L03.119 - Cellulitis of unspecified part of limb (2) DVT of upper extremity (deep vein thrombosis) Code(s): I82.629 - ACUTE EMBOLISM AND THROMBOSIS OF DEEP VN UNSP UP EXTREM Qualifiers: Affected thrombotic vein of extremity: brachial Chronicity: chronic Laterality: left Qualified Code(s): I82.722 - 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
[2018-01-24] MEDS ORDERED: PT OWN MED DRAWER 7, Y5N ONE ×2 (07:46→09:16)
[2018-01-24 08:19] VITALS: BP 150/78; TEMP 97.7
[2018-01-24] MEDS: AMOX TR/POT CLAV 500MG/125MG TABLETS (FP) PO SCH (08:21)
[2018-01-24] MEDS: BRIMONIDINE TARTRATE 0.15% OPHTHALMIC 5 ML BOTTLE OU SCH (09:18)
[2018-01-24] MEDS: NYSTATIN 100,000 UNIT/GM TOPICAL CREAM 15 GM TUBE TP SCH (09:19)
== END 2018-01-24 14:29 | disposition home health service (06) | DRG 602 ==
LOC: JER 12:14 → JERBED 17:16 → J5S 19:46
PROVIDERS: ADMIT Internal Medicine; ATTEND Internal Medicine
DX: L03.115 Cellulitis of right lower limb (principal); L89.153 Pressure ulcer of sacral region, stage 3; L03.116 Cellulitis of left lower limb; I48.91 Unspecified atrial fibrillation; I49.5 Sick sinus syndrome; R53.1 Weakness; H40.9 Unspecified glaucoma; R55 Syncope and collapse; D72.829 Elevated white blood cell count, unspecified; R50.9 Fever, unspecified
CPT/HCPCS: 36415; 73523-TC-FY; 80053; 83605; 83735; 83880; 85025; 85027; 85610; 85651; 87040; 93970-TC; 97116-GP; 97161-GP; 99283-25; J1644

== ENCOUNTER 2018-05-15 17:15 | Emergency (ER) | payer OTHER ==
[2018-05-15] MEDS ORDERED: TETRACAINE 0.5% OPHTH SOLN 2 ML BOTTLE ONE (17:59)
[2018-05-15] MEDS ORDERED: FLUORESCEIN NA 1 EA STRIP ONE (18:00)
--- NOTE | 2018-05-15 18:23 | PDOC ---
History of Present Illness - General Chief Complaint: Eye Problem Stated Complaint: left eye fb Time Seen by Provider: 05/15/18 17:29 History Source: Patient Exam Limitations: No Limitations - History of Present Illness Initial Comments: 05/15/18 18:32 87 yo female PMH of bilateral glaucoma presents to the ED for sudden onset left eye pain that began 1 out ago. Pt states she was relaxing at home when the pain started in the left lateral eye and moved to the medial eye. Denies using contact lenses, denies FB in the eye or itching the eye, denies changes in vision, denies FUENTES Past History - Past Medical History Allergies/Adverse Reactions: Allergies Allergy/AdvReac Type Severity Reaction Status Date / Time No Known Allergies Allergy Verified 05/15/18 17:21 Home Medications: Ambulatory Orders Brimonidine Tartrate [Alphagan 0.15% -] 1 drop OU BID 10/21/17 Brimonidine Tartrate [Alphagan 0.15% -] 1 drop OU BID@0730,1930 drops 11/13/17 Polymyxin B Sulfate/Tmp [Polytrim Opthalmic Solution -] 1 drop OP Q3H #1 drops 05/15/18 Anemia: Yes Cardiac Disorders: Yes (Pacemaker, Afib) CVA: No COPD: No GI Disorders: Yes (GI Bleed) - Surgical History Cardiac Surgery: Yes (pacemaker) Orthopedic Surgery: Yes (IM nailing of L femur, L hip replacement) - Immunization History Immunization Up to Date: Yes - Suicide/Smoking/Psychosocial Hx Smoking History: Never smoked Have you smoked in the past 12 months: No Hx Alcohol Use: No Drug/Substance Use Hx: No Substance Use Type: None Hx Substance Use Treatment: No Review of Systems - Review of Systems Constitutional: No: Chills, Fever HEENTM: Yes: Eye Pain (left). No: Blurred Vision, Double Vision Respiratory: No: Shortness of Breath Cardiac (ROS): No: Chest Pain ABD/GI: No: Constipated, Diarrhea, Nausea, Vomiting : No: Burning, Dysuria Integumentary: No: Erythema Neurological: No: Headache, Numbness, Paresthesia *Physical Exam - Physical Exam General Appearance: Yes: Nourished, Appropriately Dressed. No: Apparent Distress HEENT: positive: EOMI, KANDY, Normal ENT Inspection, Other (Tetracaine and dye applied, no abrasion or laceration seen.) *DC/Admit/Observation/Transfer Diagnosis at time of Disposition: Eye abrasion Qualifiers: Encounter type: initial encounter Laterality: left Qualified Code(s): S05.8X2A - Other injuries of left eye and orbit, initial encounter - Discharge Dispostion Disposition: HOME Condition at time of disposition: Improved - Prescriptions Prescriptions: Polymyxin B Sulfate/Tmp [Polytrim Opthalmic Solution -] 1 drop OP Q3H #1 drops - Referrals Referrals: Darrick Bass [Non Staff, Medical] - - Patient Instructions Printed Discharge Instructions: DI for Corneal Foreign Body-Eye Additional Instructions: Please see you Family Doctor within the next 48 hours. See your Neuroscientist within the next 48 hours. Take the medication sent to your pharmacy as prescribed. Return to the ER for new or concerning symptoms including but not limited to: loss of vision, bleeding from the eye, excessive pain. Thank you - Post Discharge Activity
--- NOTE | 2018-05-15 18:31 | PDOC ---
Attending Attestation - Resident Resident Name: Everett Coker - ED Attending Attestation I have performed the following: I have examined & evaluated the patient, The case was reviewed & discussed with the resident, I agree w/resident's findings & plan, Exceptions are as noted - HPI HPI: 05/15/18 18:32 87yo F hx AF, pacemaker, glaucoma, anemia presents to the ED with 3 hours of FB sensation. Does not think anything got into her eye. Was at home when symptoms began. States her eye is red as well. Feels like FB at the lower aspect of the eye. Denies blurry vision or DC. Denies other sxs of fevers, chills, headache, cp, sob, abd pain, n/v/d. - Physicial Exam PE: 05/15/18 18:26 GENERAL: Awake, alert, and fully oriented, in no acute distress. Very pleasant HEAD: No signs of trauma EYES: b/l cataracts. VFF b/l. FROM b/l. L conjunctiva injected. 20/30 vision b/ l. Negative fluoroscein testing with pruitt lamp. No slit lamp available. ENT: slight hearing impairment, nares patent, oropharynx clear without exudates. Moist mucosa LUNGS: Breath sounds equal, clear to auscultation bilaterally. No wheezes, and no crackles HEART: Regular rate and rhythm, normal S1 and S2, no murmurs, rubs or gallops ABDOMEN: Soft, nontender, normoactive bowel sounds. No guarding, no rebound. No masses EXTREMITIES: Normal range of motion, no edema. No cords, erythema, or tenderness NEUROLOGICAL: Normal speech, cranial nerves intact, equal strength and sensation b/l SKIN: Warm, Dry, normal turgor, no rashes or lesions noted. - Medical Decision Making 05/15/18 18:30 87yo F presents to the ED with FB sensation to L eye for 3 hours. Symptoms resolved with tetracaine which indicates corneal abrasion. Fluorescein testing negative but only pruitt lamp on hand to evaluation. Plan to treat as corneal abrasion. Pt follows closely with Dr. Miles for her glaucoma, states she will f/u on Thursday. Pt well appearing otherwise, requests DC home I discussed the physical exam findings, ancillary test results and final diagnoses with the patient. I answered all of the patient's questions. The patient was satisfied with the care received and felt comfortable with the discharge plan and treatment plan. The patient will call their primary care physician within 24 hours to arrange follow-up and will return to the Emergency Department with any new, persistent or worsening symptoms.
[2018-05-15 18:36] VITALS: BP 168/92; PULSE 66; TEMP 97.8; BMI 20.7
== END 2018-05-15 18:42 | disposition home or self-care (01) ==
LOC: FER 17:15
DX: S05.8X2A Other injuries of left eye and orbit, initial encounter (principal); Z95.0 Presence of cardiac pacemaker; I48.91 Unspecified atrial fibrillation; K92.9 Disease of digestive system, unspecified; Z96.642 Presence of left artificial hip joint; X58.XXXA Exposure to other specified factors, initial encounter; Y93.89 Activity, other specified; Y92.9 Unspecified place or not applicable
CPT/HCPCS: 99281-25

== ENCOUNTER 2019-04-07 16:48 | Inpatient (IN) | payer OTHER ==
--- NOTE | 2019-04-07 17:10 | PDOC ---
History of Present Illness - General Chief Complaint: Shortness of Breath Stated Complaint: DIFF. BREATHING Time Seen by Provider: 04/07/19 17:09 - History of Present Illness Initial Comments: 04/07/19 17:09 88 yo F PMH afib, pacemaker, glaucoma, anemia, presenting with SOB. Reports that she has had a cough for several weeks with worsening SOB. Also reports multiple episodes of syncope over the past week without any preceding lightheadedness or dizziness, but denies head trauma. Here today with her friend (also video game engineer and power of reimbursement spec) who convinced her to come in. Denies CP, abd pain, FUENTES, N/V, fevers/chills, diaphoresis. Endorses generalized fatigue and worsening dyspnea on exertion. Past History - Past Medical History Allergies/Adverse Reactions: Allergies Allergy/AdvReac Type Severity Reaction Status Date / Time No Known Allergies Allergy Verified 04/07/19 17:09 Home Medications: Ambulatory Orders NK [No Known Home Medication] 04/07/19 Anemia: Yes Cardiac Disorders: Yes (Pacemaker, Afib) CVA: No COPD: No GI Disorders: Yes (GI Bleed) - Surgical History Cardiac Surgery: Yes (pacemaker) Orthopedic Surgery: Yes (IM nailing of L femur, L hip replacement) - Immunization History Immunization Up to Date: Yes - Psycho Social/Smoking Cessation Hx Smoking History: Unknown if ever smoked Have you smoked in the past 12 months: No Hx Alcohol Use: No Drug/Substance Use Hx: No Substance Use Type: None Hx Substance Use Treatment: No Review of Systems - Review of Systems Comments:: 04/07/19 18:52 GENERAL/CONSTITUTIONAL: No fever or chills. No weakness. Endorses generalized fatigue. HEAD, EYES, EARS, NOSE AND THROAT: No change in vision. No ear pain or discharge. No sore throat. CARDIOVASCULAR: No chest pain. Significant shortness of breath with worsening dyspnea on exertion. RESPIRATORY: Significant cough. No wheezing, or hemoptysis. GASTROINTESTINAL: No nausea, vomiting, diarrhea or constipation. GENITOURINARY: No dysuria, frequency, or change in urination. MUSCULOSKELETAL: No joint or muscle swelling or pain. No neck or back pain. SKIN: No rash NEUROLOGIC: No headache, vertigo, loss of consciousness, or change in strength/ sensation. ENDOCRINE: No increased thirst. No abnormal weight change. HEMATOLOGIC/LYMPHATIC: No anemia, easy bleeding, or history of blood clots. ALLERGIC/IMMUNOLOGIC: No hives or skin allergy *Physical Exam - Vital Signs Last Vital Signs Temp Pulse Resp BP Pulse Ox 98 F 75 16 161/99 98 04/07/19 16:48 04/07/19 16:48 04/07/19 16:48 04/07/19 16:48 04/07/19 16:48 - Physical Exam 04/07/19 19:28 Gen: well-developed, thin, NAD Neuro: AAOX4, CN II-XII intact, FTN intact, EOMI, PERRLA, 5/5 strength, SILT HEENT: atraumatic, normocephalic, dry mucous membranes Neck: trachea midline, supple CV: regular rate, regular rhythm, no murmurs, rubs, or gallops Pulm: diffuse expiratory rhonchi Abd: soft, non-distended, non-tender MSK: full ROM, intact pulses Extr: 2+ pitting edema, no deformities Skin: warm, dry ED Treatment Course - LABORATORY CBC & Chemistry Diagram: 04/07/19 18:15 04/07/19 18:15 Medical Decision Making - Medical Decision Making 04/07/19 17:45 Concern for PNA v CHF exacerbation vs ACS. - CBC, CMP - EKG, trop - BNP - CXR - reassess 04/07/19 18:15 EKG sinus at 75 bpm, appears to be atrial-paced, intraventricular block, large QRS in V3-V4. Unchanged from prior EKG in 2018. 04/07/19 19:24 BNP >4000. 04/07/19 19:43 CXR with worsened congestive changes. Will admit for CHF exacerbation. Call sent out to Dr. Laguerre. 04/07/19 20:38 No response yet from Dr. Laguerre, second call sent out. 04/07/19 21:22 Third call out to Dr. Laguerre without response. Will admit to hospitalist. Discharge - Discharge Information Problems reviewed: Yes Clinical Impression/Diagnosis: CHF (congestive heart failure) - Follow up/Referral Referrals: Roshan Sanchez MD [Primary Care Provider] - - Patient Discharge Instructions - Post Discharge Activity
--- NOTE | 2019-04-07 17:42 | PDOC ---
Attending Attestation - Resident Resident Name: Riky Velásquez - ED Attending Attestation I have performed the following: I have examined & evaluated the patient, The case was reviewed & discussed with the resident, I agree w/resident's findings & plan, Exceptions are as noted - HPI HPI: 04/07/19 17:43 88-year-old female history of AF, pacemaker, glaucoma, anemia presents with a complaint of persistent cough for the last several weeks as well as intermittent episodes of syncope. Patient states that she has been having a nonproductive cough without associated fever, chills, chest pain, nausea, vomiting for the last several weeks. The patient's guardian also mentions the patient has several episodes of syncope, however the patient only states that she recalls one episode where she was sitting on a sofa and then slid off the couch. The patient denies any head ache, neck pain, chest pain, abdominal pain , dysuria, diarrhea. PMD: Dr. Sanchez Cards: Dr. Medeiros - Physicial Exam PE: 04/07/19 18:59 GENERAL: The patient is awake, alert, cachectic, Nontoxic - in no acute distress. HEAD: Normocephalic, atraumatic. EYES: extraocular movements intact, sclera anicteric, conjunctiva clear. ENT: Normal voice, Moist mucous membranes. NECK: Normal range of motion, supple LUNGS: Bilateral rhonchi, slight expiratory wheeze, no acute respiratory distress HEART: Regular rate and rhythm, normal S1 and S2 without murmur, rub or gallop. ABDOMEN: Soft, nontender, No guarding, no rebound. No CVA tenderness EXTREMITIES: Normal range of motion, bilateral able to edema NEUROLOGICAL: No facial assymetry, Normal speech, moving all 4 extremities spontneously and symmetrically PSYCH: Normal mood, normal affect. SKIN: Warm, Dry, normal turgor, - Medical Decision Making ddx includes chf, pna will obtain blood wrk, cxr will erassess, nticiptae admission 04/07/19 19:43 bnp elevated cxr with congestive chnges suspect chf exacerbatin will admit for furher management
[2019-04-07 18:42] LABS: BASO % 0.3 % (0-2.0); HEMATOCRIT 45.2 % (32.4-45.2); HEMOGLOBIN 14.3 GM/dL (10.7-15.3); LYMPH % 4.9 % (8-40); MCH 28.1 pg (25.7-33.7); MCHC 31.6 g/dl (32.0-36.0); MEAN CELL VOLUME 88.9 fl (80-96); MEAN PLT VOLUME 8.8 fl (7.5-11.1); MONO % 14.3 % (3.8-10.2); NEUT % 80.5 % (42.8-82.8); PLATELET COUNT 223 K/MM3 (134-434); RBC 5.08 M/mm3 (3.60-5.2); RDW 15.4 % (11.6-15.6); WHITE BLOOD COUNT 8.6 K/mm3 (4.0-10.0)
[2019-04-07 18:59] LABS: EPI CELLS 2.1 /HPF (0-5/HPF); HYALINE CASTS 26 /lpf (0-8); URINE APPEARANCE CLEAR; URINE BACTERIA 1.2 /hpf (NEGATIVE); URINE BILIRUBIN NEGATIVE (NEGATIVE); URINE COLOR YELLOW; URINE GLUCOSE (UA) NEGATIVE (NEGATIVE); URINE KETONE NEGATIVE (NEGATIVE); URINE LEUK ESTERASE NEGATIVE (NEGATIVE); URINE NITRITE NEGATIVE (NEGATIVE); URINE PROTEIN 2+ (NEGATIVE); URINE UROBILINOGEN 0.2 mg/dL (0.2-1.0); URINE WBC 2 /hpf (0-5)
[2019-04-07 19:22] LABS: N-TERMINAL BNP 4284.6 pg/ml (5-450)
[2019-04-07 19:40] LABS: ALBUMIN 2.7 g/dl (3.4-5.0); BILIRUBIN,TOTAL 0.6 mg/dL (0.2-1); BLOOD UREA NITROGEN 34.1 mg/dL (7-18); CALCIUM 8.7 mg/dL (8.5-10.1); CREATININE 0.8 mg/dL (0.55-1.3); POTASSIUM 4.1 mmol/L (3.5-5.1); TOT PROT 6.9 g/dl (6.4-8.2)
[2019-04-07] MEDS ORDERED: FUROSEMIDE 40 MG/4 ML INJECTABLE VIAL IVPUSH ONE (19:51)
[2019-04-07] MEDS ORDERED: FUROSEMIDE 40 MG/4 ML INJECTABLE VIAL ONE (19:55)
--- NOTE | 2019-04-08 01:06 | HP ---
Admitting History and Physical - Admission History of Present Illness: Pt is a 88 y/o female w/ PMH significant for AF, pacemaker, glaucoma, and anemia who presents with a complaint of persistent cough for the last several weeks as well as intermittent episodes of syncope. Patient states that she has been having a nonproductive cough without associated fever, chills, chest pain, nausea, vomiting for the last several weeks. The patient's guardian also mentions the patient has several episodes of syncope, however the patient only states that she recalls one episode where she was sitting on a sofa and then slid off the couch. - Past Medical History Cardiovascular: Yes: AFIB Gastrointestinal: Yes: GI Bleed - Past Surgical History Additional Past Surgical History: Submandibular mass - Smoking History Smoking history: Unknown if ever smoked Have you smoked in the past 12 months: No - Alcohol/Substance Use Hx Alcohol Use: No Home Medications - Allergies Allergies/Adverse Reactions: Allergies Allergy/AdvReac Type Severity Reaction Status Date / Time No Known Allergies Allergy Verified 04/07/19 17:09 - Home Medications Home Medications: Ambulatory Orders NK [No Known Home Medication] 04/07/19 Family Medical History Family History: Unremarkable Review of Systems - Review of Systems Constitutional: reports: Other (Syncope) Cardiovascular: reports: Other (Afib) Respiratory: reports: No Symptoms Gastrointestinal: reports: No Symptoms Genitourinary: reports: No Symptoms Physical Examination Vital Signs: Vital Signs Temperature 98.4 F 04/07/19 17:31 Pulse Rate 65 04/07/19 23:57 Respiratory Rate 18 04/07/19 23:57 Blood Pressure 135/101 H 04/07/19 23:57 O2 Sat by Pulse Oximetry (%) 96 04/07/19 23:57 Constitutional: Yes: No Distress Eyes: Yes: WNL HENT: Yes: WNL Neck: Yes: WNL, Supple Cardiovascular: Yes: WNL, Regular Rate and Rhythm Respiratory: Yes: WNL, Regular, CTA Bilaterally Gastrointestinal: Yes: WNL, Normal Bowel Sounds, Soft Extremities: Yes: WNL Edema: No Neurological: Yes: WNL, Alert, Oriented ...Motor Strength: WNL Labs: CBC, BMP 04/07/19 18:15 04/07/19 18:15 Problem List - Problems (1) Acute on chronic systolic heart failure Assessment/Plan: Cont IV lasix Replace K+ Code(s): I50.23 - ACUTE ON CHRONIC SYSTOLIC (CONGESTIVE) HEART FAILURE (2) Syncope Assessment/Plan: Probable vasovagal Cardio/neuro consults Code(s): R55 - SYNCOPE AND COLLAPSE (3) Anemia Assessment/Plan: H/H stable Code(s): D64.9 - ANEMIA, UNSPECIFIED (4) DVT of upper extremity (deep vein thrombosis) Assessment/Plan: Pt not on AC due to h/o GI bleed Code(s): I82.629 - ACUTE EMBOLISM AND THROMBOSIS OF DEEP VN UNSP UP EXTREM Qualifiers: Affected thrombotic vein of extremity: brachial Chronicity: chronic Laterality: left Qualified Code(s): I82.722 - 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
[2019-04-08 04:17] VITALS: BMI 15.1
[2019-04-08 07:21] LABS: HEMATOCRIT 41.6 % (32.4-45.2); HEMOGLOBIN 13.2 GM/dL (10.7-15.3); LYMPH % 7.8 % (8-40); MCH 27.9 pg (25.7-33.7); MCHC 31.8 g/dl (32.0-36.0); MEAN CELL VOLUME 87.5 fl (80-96); MEAN PLT VOLUME 8.5 fl (7.5-11.1); MONO % 8.9 % (3.8-10.2); NEUT % 83.3 % (42.8-82.8); PLATELET COUNT 214 K/MM3 (134-434); RBC 4.75 M/mm3 (3.60-5.2); RDW 14.7 % (11.6-15.6); WHITE BLOOD COUNT 6.3 K/mm3 (4.0-10.0)
[2019-04-08 07:51] LABS: ALBUMIN 2.6 g/dl (3.4-5.0); BILIRUBIN,TOTAL 0.7 mg/dL (0.2-1); BLOOD UREA NITROGEN 33.8 mg/dL (7-18); CALCIUM 8.6 mg/dL (8.5-10.1); CREATININE 0.8 mg/dL (0.55-1.3); TOT PROT 6.3 g/dl (6.4-8.2)
--- NOTE | 2019-04-08 10:57 | ECHO ---
Name: ALEXIA MOHR Exam:Adult Echocardiogram Study Date: 04/08/2019 09:46 AM Age: 88 yrs Height: 66 in Weight: 115 lb BSA: 1.6 m2 MMode/2D Measurements & Calculations IVSd: 1.5 cm Ao root diam: 2.4 cm LVIDd: 2.4 cm LA dimension: 2.5 cm LVIDs: 2.0 cm LVPWd: 1.3 cm LVPWs: 1.4 cm EDV(Teich): 19.8 ml ESV(Teich): 12.3 ml LVOT diam: 2.0 cm RV S Otto: 12.3 cm/sec Doppler Measurements & Calculations MV V2 max: 110.8 cm/sec MV E max otto: 45.9 cm/sec MV max P.9 mmHg MV A max otto: 95.8 cm/sec MV V2 mean: 53.9 cm/sec MV E/A: 0.48 MV mean P.4 mmHg MV dec time: 0.18 sec MV V2 VTI: 27.1 cm Ao V2 max: 108.7 cm/sec LV V1 max P.9 mmHg Ao max P.0 mmHg LV V1 max: 85.4 cm/sec XAVIER(V,D): 2.4 cm2 TR max otto: 238.7 cm/sec Lat Peak E' Otto: 3.3 cm/sec TR max P.3 mmHg Lat E/e': 13.9 Left Ventricle There is moderate concentric left ventricular hypertrophy. Ejection Fraction = 40-45%. The transmitra l spectral Doppler flow pattern is suggestive of impaired LV relaxation. There is mild to moderate glob al hypokinesis of the left ventricle. Right Ventricle There is a pacemaker lead in the right ventricle. The right ventricle is normal in size and function. Atria The left atrium is borderline dilated. Right atrial size is normal. Mitral Valve There is moderate mitral annular calcification. There is no mitral valve stenosis. There is mild mitr al regurgitation. Tricuspid Valve The tricuspid valve is normal in structure and function. There is mild tricuspid regurgitation. Right ventricular systolic pressure is elevated at 30-40mmHg. Aortic Valve There is mild aortic sclerosis.;. No hemodynamically significant valvular aortic stenosis. No aortic regurgitation is present. Pulmonic Valve The pulmonic valve is not well seen, but is grossly normal. There is no pulmonic valvular stenosis. Great Vessels Borderline aortic root dilatation. Pericardium/Pleura There is no pericardial effusion. Interpretation Summary There is moderate concentric left ventricular hypertrophy. There is mild to moderate global hypokinesis of the left ventricle. Ejection Fraction = 40-45%. The transmitral spectral Doppler flow pattern is suggestive of impaired LV relaxation. There is a pacemaker lead in the right ventricle. The right ventricle is normal in size and function. There is moderate mitral annular calcification. There is mild mitral regurgitation. There is mild tricuspid regurgitation. Right ventricular systolic pressure is elevated at 30-40mmHg. There is mild aortic sclerosis.; There is no pericardial effusion. MD Coley *Peggy 04/08/2019 10:56 AM
[2019-04-08] MEDS: FUROSEMIDE 40 MG/4 ML INJECTABLE VIAL IVPUSH SCH (11:42)
[2019-04-08] MEDS: HEPARIN NA (PORCINE) 5,000 UNITS/ML 1ML VIAL SQ SCH ×2 (11:42→21:24)
--- NOTE | 2019-04-08 13:49 | EKG ---
Test Reason : Blood Pressure : / mmHG Vent. Rate : 075 BPM Atrial Rate : 075 BPM P-R Int : 150 ms QRS Dur : 126 ms QT Int : 438 ms P-R-T Axes : 039 033 259 degrees QTc Int : 489 ms SINUS RHYTHM WITH FUSION COMPLEXES AND PREMATURE ATRIAL COMPLEXES WITH ABERRANT CONDUCTION DEMAND ATRIAL PACING POSSIBLE ANTEROLATERAL INFARCT , AGE UNDETERMINED NONSPECIFIC T WAVE ABNORMALITY ABNORMAL ECG POOR DATA QUALITY, INTERPRETATION MAY BE ADVERSELY AFFECTED Confirmed by JIL THOMAS MD ([id number]) on 04/08/2019 1:49:23 PM Referred By: Confirmed By:JIL THOMAS MD
--- NOTE | 2019-04-08 14:09 | CON.CARD ---
Consult Consult Specialty:: Cardiology - History of Present Illness History of Present Illness: 88-year-old female history of AF, pacemaker, glaucoma, anemia presents with a complaint of persistent cough for the last several weeks as well as intermittent episodes of syncope. Patient states that she has been having a nonproductive cough without associated fever, chills, chest pain, nausea, vomiting for the last several weeks. The patient's guardian also mentions the patient has several episodes of syncope, however the patient only states that she recalls one episode where she was sitting on a sofa and then slid off the couch. The patient denies any head ache, neck pain, chest pain, abdominal pain , dysuria, diarrhea. - History Source History Provided By: Patient, Medical Record - Past Medical History Cardio/Vascular: Yes: AFIB, CHF, HTN, Hyperlipdemia Gastrointestinal: Yes: GI Bleed - Alcohol/Substance Use Hx Alcohol Use: No - Smoking History Smoking history: Unknown if ever smoked Have you smoked in the past 12 months: No Home Medications - Allergies Allergies/Adverse Reactions: Allergies Allergy/AdvReac Type Severity Reaction Status Date / Time No Known Allergies Allergy Verified 04/07/19 17:09 - Home Medications Home Medications: Ambulatory Orders NK [No Known Home Medication] 04/07/19 Review of Systems - Review of Systems Constitutional: reports: No Symptoms Eyes: reports: No Symptoms HENT: reports: No Symptoms Neck: reports: No Symptoms Cardiovascular: reports: Shortness of Breath Respiratory: reports: Cough Gastrointestinal: reports: No Symptoms Genitourinary: reports: No Symptoms Breasts: reports: No Symptoms Reported Musculoskeletal: reports: No Symptoms Integumentary: reports: No Symptoms Neurological: reports: Syncope Endocrine: reports: No Symptoms Hematology/Lymphatic: reports: No Symptoms Psychiatric: reports: No Symptoms Vital Signs: Vital Signs Temperature 97.5 F L 04/08/19 12:49 Pulse Rate 64 04/08/19 12:49 Respiratory Rate 20 04/08/19 08:10 Blood Pressure 119/66 04/08/19 12:49 O2 Sat by Pulse Oximetry (%) 98 04/08/19 08:10 Constitutional: Yes: Well Nourished, No Distress, Calm Eyes: Yes: WNL, Conjunctiva Clear, EOM Intact HENT: Yes: WNL, Atraumatic, Normocephalic Neck: Yes: WNL, Supple, Trachea Midline Respiratory: Yes: WNL, Regular, CTA Bilaterally Gastrointestinal: Yes: WNL, Normal Bowel Sounds Renal/: Yes: WNL Cardiovascular: Yes: WNL, Regular Rate and Rhythm Musculoskeletal: Yes: WNL Extremities: Yes: WNL Integumentary: Yes: WNL Neurological: Yes: WNL, Alert, Oriented ...Motor Strength: WNL Psychiatric: Yes: WNL, Alert, Oriented - Other Data Labs, Other Data: CBC, BMP 04/08/19 06:03 04/08/19 06:03 Troponin, BNP 04/07/19 04/08/19 18:15 01:50 Troponin I < 0.02 < 0.02 B-Natriuretic Peptide 4284.6 H Troponin, BNP 04/07/19 04/08/19 18:15 01:50 Troponin I < 0.02 < 0.02 B-Natriuretic Peptide 4284.6 H Laboratory Tests 04/07/19 04/07/19 04/07/19 18:15 18:15 18:15 WBC 8.6 RBC 5.08 Hgb 14.3 Hct 45.2 D MCV 88.9 MCH 28.1 MCHC 31.6 L RDW 15.4 D Plt Count 223 D MPV 8.8 D Absolute Neuts (auto) 6.9 Neutrophils % 80.5 Lymphocytes % 4.9 L D Monocytes % 14.3 H Eosinophils % 0.0 D Basophils % 0.3 Nucleated RBC % 0 Sodium 146 H Potassium 4.1 Chloride 105 Carbon Dioxide 38 H Anion Gap 3 L BUN 34.1 H Creatinine 0.8 Est GFR (CKD-EPI)AfAm 76.83 Est GFR (CKD-EPI)NonAf 66.29 Random Glucose 113 H Calcium 8.7 Total Bilirubin 0.6 AST 57 H ALT 48 Alkaline Phosphatase 66 Creatine Kinase 185 Creatine Kinase Index 4.9 CK-MB (CK-2) 9.1 H Troponin I < 0.02 B-Natriuretic Peptide 4284.6 H Total Protein 6.9 Albumin 2.7 L Urine Color Urine Appearance Urine pH Ur Specific Shelby Urine Protein Urine Glucose (UA) Urine Ketones Urine Blood Urine Nitrite Urine Bilirubin Urine Urobilinogen Ur Leukocyte Esterase Urine WBC (Auto) Urine RBC (Auto) Urine Casts (Auto) U Pathogenic Cast Auto U Epithel Cells (Auto) Urine Bacteria (Auto) 04/07/19 04/08/19 04/08/19 18:15 01:50 06:03 WBC 6.3 RBC 4.75 Hgb 13.2 Hct 41.6 MCV 87.5 MCH 27.9 MCHC 31.8 L RDW 14.7 Plt Count 214 MPV 8.5 Absolute Neuts (auto) 5.2 Neutrophils % 83.3 H Lymphocytes % 7.8 L D Monocytes % 8.9 Eosinophils % 0.0 Basophils % 0.0 Nucleated RBC % 0 Sodium Potassium Chloride Carbon Dioxide Anion Gap BUN Creatinine Est GFR (CKD-EPI)AfAm Est GFR (CKD-EPI)NonAf Random Glucose Calcium Total Bilirubin AST ALT Alkaline Phosphatase Creatine Kinase 124 Creatine Kinase Index CK-MB (CK-2) Troponin I < 0.02 B-Natriuretic Peptide Total Protein Albumin Urine Color Yellow Urine Appearance Clear Urine pH 5.0 Ur Specific Shelby 1.022 Urine Protein 2+ H Urine Glucose (UA) Negative Urine Ketones Negative Urine Blood Trace Urine Nitrite Negative Urine Bilirubin Negative Urine Urobilinogen 0.2 Ur Leukocyte Esterase Negative Urine WBC (Auto) 2 Urine RBC (Auto) 4.0 Urine Casts (Auto) 26 U Pathogenic Cast Auto None seen U Epithel Cells (Auto) 2.1 Urine Bacteria (Auto) 1.2 04/08/19 06:03 WBC RBC Hgb Hct MCV MCH MCHC RDW Plt Count MPV Absolute Neuts (auto) Neutrophils % Lymphocytes % Monocytes % Eosinophils % Basophils % Nucleated RBC % Sodium 147 H Potassium 3.0 L Chloride 101 Carbon Dioxide 42 H Anion Gap 4 L BUN 33.8 H Creatinine 0.8 Est GFR (CKD-EPI)AfAm 76.83 Est GFR (CKD-EPI)NonAf 66.29 Random Glucose 105 Calcium 8.6 Total Bilirubin 0.7 AST 34 ALT 39 Alkaline Phosphatase 60 Creatine Kinase Creatine Kinase Index CK-MB (CK-2) Troponin I B-Natriuretic Peptide Total Protein 6.3 L Albumin 2.6 L Urine Color Urine Appearance Urine pH Ur Specific Shelby Urine Protein Urine Glucose (UA) Urine Ketones Urine Blood Urine Nitrite Urine Bilirubin Urine Urobilinogen Ur Leukocyte Esterase Urine WBC (Auto) Urine RBC (Auto) Urine Casts (Auto) U Pathogenic Cast Auto U Epithel Cells (Auto) Urine Bacteria (Auto) Imaging - Results Chest X-ray: Image Reviewed (chf) EKG: Image Reviewed (af v pacing) Problem List - Problems (1) CHF (congestive heart failure) Code(s): I50.9 - HEART FAILURE, UNSPECIFIED (2) Acute thrombosis of left basilic vein Code(s): I82.612 - ACUTE EMBOLISM AND THOMBOS OF SUPERFIC VEINS OF L UP EXTREM (3) Anemia Code(s): D64.9 - ANEMIA, UNSPECIFIED (4) Cellulitis Code(s): L03.90 - CELLULITIS, UNSPECIFIED Qualifiers: Site of cellulitis: extremity Site of cellulitis of extremity: lower extremity Laterality: unspecified laterality Qualified Code(s): L03.119 - Cellulitis of unspecified part of limb (5) Closed comminuted intertrochanteric fracture of left femur Code(s): S72.142A - DISPLACED INTERTROCHANTERIC FRACTURE OF LEFT FEMUR, INIT (6) DVT (deep venous thrombosis) Code(s): I82.409 - ACUTE EMBOLISM AND THOMBOS UNSP DEEP VN UNSP LOWER EXTREMITY (7) DVT of upper extremity (deep vein thrombosis) Code(s): I82.629 - ACUTE EMBOLISM AND THROMBOSIS OF DEEP VN UNSP UP EXTREM Qualifiers: Affected thrombotic vein of extremity: brachial Chronicity: chronic Laterality: left Qualified Code(s): I82.722 - 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 (8) Eye abrasion Code(s): S05.8X9A - OTHER INJURIES OF UNSPECIFIED EYE AND ORBIT, INIT ENCNTR Qualifiers: Encounter type: initial encounter Laterality: left Qualified Code(s): S05.8X2A - Other injuries of left eye and orbit, initial encounter (9) GI bleed Code(s): K92.2 - GASTROINTESTINAL HEMORRHAGE, UNSPECIFIED Qualifiers: GI bleed type/associated pathology: melena Qualified Code(s): K92.1 - Melena (10) Normochromic normocytic anemia Code(s): D64.9 - ANEMIA, UNSPECIFIED (11) Sacral ulcer Code(s): L98.429 - NON-PRESSURE CHRONIC ULCER OF BACK WITH UNSPECIFIED SEVERITY (12) Sepsis affecting skin Code(s): A41.9 - SEPSIS, UNSPECIFIED ORGANISM (13) UTI (urinary tract infection) Code(s): N39.0 - URINARY TRACT INFECTION, SITE NOT SPECIFIED Assessment/Plan AF not on anticoagulation due to history of multiple GI bleed CHF decompensated EF 40-45% HTN syncope tachy - alton sx s/p PPM placement. Plan; Agree with IV lasix , telemetry and DVT prophylaxis. Will add low dose of TYSON and BB -I if BP allows after diuresis
[2019-04-08] MEDS ORDERED: POTASSIUM CHLORIDE TABS 20 MEQ TABLET.ER (FP) PO ONE (15:46)
[2019-04-08] MEDS: KCL 10 MEQ IVPB 10 MEQ/100 ML INFUS.BAG IVPB SCH ×2 (16:12→17:30)
--- NOTE | 2019-04-08 21:08 | CONSULT ---
Consult - text type - Consultation Consultation Note: NEUROLOGY CONSULTATION is greatly appreciated: Events reviewed, Pt examined. This 88 yo LH woman lives alone "with her tenants." Walks with a cane but has "fallen a few times." S/P PPM for bradycardia. S/P Lobectomy. On no meds. 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 I opined that chronic microvascular changes on CT of head may have been contributing. Since then patient denies difficulty swallowing but notes that she coughs " every time she eats." Now admitted for lightheadedness after a more severe coughing spell. CT of head (reviewed): essentially normal Carotid duplex: intimal thickening and calcification CARLOS: No bruits. Cor reg. S/P PPM. Cor Reg. No evidence of external head trauma. BP's 110-120/70 range Constant deep cough Cellulitis both legs NEURO: Hypophonic but fluent Normal MS CN II-XII normal without nystagmus. Gag reduced Motor: No drift. Normal strength. Areflexic in legs. Toes downgoing. Some cogwheel rigidity. Decreased vibration in legs Gait: Unsteady. Rigid and retropulsive. IMP: Non-focal exam. Post-tussive (vasovagal) presyncope/syncope. Chronic dysphagia with aspiration pneumonia Chronic gait dysfunction with contributions from [employer] microvascular, early Parkinson's, Neuropathy +/- LS spinal stenosis. Suggest: ID and antibiotics Pulmonary consult and PFT's (including inspiratory and expiratory forces) Speech and swallowing and ENT evaluations. Elevate HOB vs aspiration and dysphagia diet. Mobilize OOBed to chair. Check orthostatic BP's. Feed Pt only OO bed to chair when seated and observed. 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 Thank you very much, Dillon Nunn MD
[2019-04-09] MEDS: FUROSEMIDE 40 MG/4 ML INJECTABLE VIAL IVPUSH SCH (09:33)
[2019-04-09] MEDS: HEPARIN NA (PORCINE) 5,000 UNITS/ML 1ML VIAL SQ SCH ×2 (09:33→21:07)
--- NOTE | 2019-04-09 09:37 | PN ---
Progress Note, Physician History of Present Illness: 88-year-old female history of AF, pacemaker, glaucoma, anemia presents with a complaint of persistent cough for the last several weeks as well as intermittent episodes of syncope. Patient states that she has been having a nonproductive cough without associated fever, chills, chest pain, nausea, vomiting for the last several weeks. The patient's guardian also mentions the patient has several episodes of syncope, however the patient only states that she recalls one episode where she was sitting on a sofa and then slid off the couch. The patient denies any head ache, neck pain, chest pain, abdominal pain , dysuria, diarrhea. - Current Medication List Current Medications: Active Medications Furosemide (Lasix Injection -) 40 mg IVPUSH DAILY [facility] Last Admin: 04/09/19 09:33 Dose: 40 mg Heparin Sodium (Porcine) (Heparin -) 5,000 unit SQ BID [facility] Last Admin: 04/09/19 09:33 Dose: 5,000 unit - Objective Vital Signs: Vital Signs Temperature 99 F 04/09/19 05:36 Pulse Rate 66 04/09/19 05:36 Respiratory Rate 04/09/19 05:36 Blood Pressure 131/82 04/09/19 05:36 O2 Sat by Pulse Oximetry (%) 98 04/08/19 21:00 Eyes: Yes: WNL, Conjunctiva Clear, EOM Intact HENT: Yes: WNL, Atraumatic, Normocephalic Neck: Yes: WNL, Supple, Trachea Midline Cardiovascular: Yes: WNL, Regular Rate and Rhythm Respiratory: Yes: WNL, Regular, CTA Bilaterally Gastrointestinal: Yes: WNL, Normal Bowel Sounds Genitourinary: Yes: WNL Musculoskeletal: Yes: WNL Extremities: Yes: WNL Edema: No Integumentary: Yes: WNL Neurological: Yes: WNL, Alert, Oriented ...Motor Strength: WNL Psychiatric: Yes: WNL Labs: CBC, BMP 04/08/19 06:03 04/08/19 06:03 Problem List - Problems (1) CHF (congestive heart failure) Code(s): I50.9 - HEART FAILURE, UNSPECIFIED (2) Acute thrombosis of left basilic vein Code(s): I82.612 - ACUTE EMBOLISM AND THOMBOS OF SUPERFIC VEINS OF L UP EXTREM (3) Anemia Code(s): D64.9 - ANEMIA, UNSPECIFIED (4) Cellulitis Code(s): L03.90 - CELLULITIS, UNSPECIFIED Qualifiers: Site of cellulitis: extremity Site of cellulitis of extremity: lower extremity Laterality: unspecified laterality Qualified Code(s): L03.119 - Cellulitis of unspecified part of limb (5) Closed comminuted intertrochanteric fracture of left femur Code(s): S72.142A - DISPLACED INTERTROCHANTERIC FRACTURE OF LEFT FEMUR, INIT (6) DVT (deep venous thrombosis) Code(s): I82.409 - ACUTE EMBOLISM AND THOMBOS UNSP DEEP VN UNSP LOWER EXTREMITY (7) DVT of upper extremity (deep vein thrombosis) Code(s): I82.629 - ACUTE EMBOLISM AND THROMBOSIS OF DEEP VN UNSP UP EXTREM Qualifiers: Affected thrombotic vein of extremity: brachial Chronicity: chronic Laterality: left Qualified Code(s): I82.722 - 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 (8) Eye abrasion Code(s): S05.8X9A - OTHER INJURIES OF UNSPECIFIED EYE AND ORBIT, INIT ENCNTR Qualifiers: Encounter type: initial encounter Laterality: left Qualified Code(s): S05.8X2A - Other injuries of left eye and orbit, initial encounter (9) GI bleed Code(s): K92.2 - GASTROINTESTINAL HEMORRHAGE, UNSPECIFIED Qualifiers: GI bleed type/associated pathology: melena Qualified Code(s): K92.1 - Melena (10) Normochromic normocytic anemia Code(s): D64.9 - ANEMIA, UNSPECIFIED (11) Sacral ulcer Code(s): L98.429 - NON-PRESSURE CHRONIC ULCER OF BACK WITH UNSPECIFIED SEVERITY (12) Sepsis affecting skin Code(s): A41.9 - SEPSIS, UNSPECIFIED ORGANISM (13) UTI (urinary tract infection) Code(s): N39.0 - URINARY TRACT INFECTION, SITE NOT SPECIFIED Assessment/Plan AF not on anticoagulation due to history of multiple GI bleed CHF decompensated EF 40-45% HTN syncope tachy - alton sx s/p PPM placement. Plan; Agree with IV lasix , telemetry and DVT prophylaxis. Will add low dose of TYSON and BB -I if BP allows after diuresis
--- NOTE | 2019-04-09 22:46 | PN ---
Progress Note, Physician History of Present Illness: No new complaints - Current Medication List Current Medications: Active Medications Furosemide (Lasix Injection -) 40 mg IVPUSH DAILY [facility] Last Admin: 04/09/19 09:33 Dose: 40 mg Heparin Sodium (Porcine) (Heparin -) 5,000 unit SQ BID [facility] [place] Last Admin: 04/09/19 21:07 Dose: 5,000 unit - Objective Vital Signs: Vital Signs Temperature 98.4 F 04/09/19 18:00 Pulse Rate 67 04/09/19 18:00 Respiratory Rate 04/09/19 18:00 Blood Pressure 117/63 04/09/19 18:00 O2 Sat by Pulse Oximetry (%) 94 L 04/09/19 09:00 Neck: Yes: WNL, Supple Cardiovascular: Yes: WNL, Regular Rate and Rhythm Respiratory: Yes: WNL, Regular, CTA Bilaterally Gastrointestinal: Yes: WNL, Normal Bowel Sounds, Soft Labs: CBC, BMP 04/08/19 06:03 04/08/19 06:03 Problem List - Problems (1) Acute on chronic systolic heart failure Assessment/Plan: Cont IV lasix Replace K+ Code(s): I50.23 - ACUTE ON CHRONIC SYSTOLIC (CONGESTIVE) HEART FAILURE (2) Syncope Assessment/Plan: Probable vasovagal Cardio/neuro consults Code(s): R55 - SYNCOPE AND COLLAPSE (3) Anemia Assessment/Plan: H/H stable Code(s): D64.9 - ANEMIA, UNSPECIFIED
--- NOTE | 2019-04-10 07:40 | PN ---
Progress Note, Physician History of Present Illness: 88-year-old female history of AF, pacemaker, glaucoma, anemia presents with a complaint of persistent cough for the last several weeks as well as intermittent episodes of syncope. Patient states that she has been having a nonproductive cough without associated fever, chills, chest pain, nausea, vomiting for the last several weeks. The patient's guardian also mentions the patient has several episodes of syncope, however the patient only states that she recalls one episode where she was sitting on a sofa and then slid off the couch. The patient denies any head ache, neck pain, chest pain, abdominal pain , dysuria, diarrhea. - Current Medication List Current Medications: Active Medications Furosemide (Lasix Injection -) 40 mg IVPUSH DAILY [facility] Last Admin: 04/09/19 09:33 Dose: 40 mg Heparin Sodium (Porcine) (Heparin -) 5,000 unit SQ BID [facility] Last Admin: 04/09/19 21:07 Dose: 5,000 unit - Objective Vital Signs: Vital Signs Temperature 98.1 F 04/10/19 02:00 Pulse Rate 72 04/10/19 02:00 Respiratory Rate 18 04/10/19 02:00 Blood Pressure 127/66 04/10/19 02:00 O2 Sat by Pulse Oximetry (%) 94 L 04/09/19 21:00 Eyes: Yes: WNL, Conjunctiva Clear, EOM Intact HENT: Yes: WNL, Atraumatic, Normocephalic Neck: Yes: WNL, Supple, Trachea Midline Cardiovascular: Yes: Pulse Irregular Respiratory: Yes: WNL, Regular, CTA Bilaterally Gastrointestinal: Yes: WNL, Normal Bowel Sounds Genitourinary: Yes: WNL Musculoskeletal: Yes: WNL Extremities: Yes: WNL Edema: No Integumentary: Yes: WNL Neurological: Yes: WNL, Alert, Oriented ...Motor Strength: WNL Psychiatric: Yes: WNL Problem List - Problems (1) CHF (congestive heart failure) Code(s): I50.9 - HEART FAILURE, UNSPECIFIED (2) Acute thrombosis of left basilic vein Code(s): I82.612 - ACUTE EMBOLISM AND THOMBOS OF SUPERFIC VEINS OF L UP EXTREM (3) Anemia Code(s): D64.9 - ANEMIA, UNSPECIFIED (4) Cellulitis Code(s): L03.90 - CELLULITIS, UNSPECIFIED Qualifiers: Site of cellulitis: extremity Site of cellulitis of extremity: lower extremity Laterality: unspecified laterality Qualified Code(s): L03.119 - Cellulitis of unspecified part of limb (5) Closed comminuted intertrochanteric fracture of left femur Code(s): S72.142A - DISPLACED INTERTROCHANTERIC FRACTURE OF LEFT FEMUR, INIT (6) DVT (deep venous thrombosis) Code(s): I82.409 - ACUTE EMBOLISM AND THOMBOS UNSP DEEP VN UNSP LOWER EXTREMITY (7) DVT of upper extremity (deep vein thrombosis) Code(s): I82.629 - ACUTE EMBOLISM AND THROMBOSIS OF DEEP VN UNSP UP EXTREM Qualifiers: Affected thrombotic vein of extremity: brachial Chronicity: chronic Laterality: left Qualified Code(s): I82.722 - 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 (8) Eye abrasion Code(s): S05.8X9A - OTHER INJURIES OF UNSPECIFIED EYE AND ORBIT, INIT ENCNTR Qualifiers: Encounter type: initial encounter Laterality: left Qualified Code(s): S05.8X2A - Other injuries of left eye and orbit, initial encounter (9) GI bleed Code(s): K92.2 - GASTROINTESTINAL HEMORRHAGE, UNSPECIFIED Qualifiers: GI bleed type/associated pathology: melena Qualified Code(s): K92.1 - Melena (10) Normochromic normocytic anemia Code(s): D64.9 - ANEMIA, UNSPECIFIED (11) Sacral ulcer Code(s): L98.429 - NON-PRESSURE CHRONIC ULCER OF BACK WITH UNSPECIFIED SEVERITY (12) Sepsis affecting skin Code(s): A41.9 - SEPSIS, UNSPECIFIED ORGANISM (13) UTI (urinary tract infection) Code(s): N39.0 - URINARY TRACT INFECTION, SITE NOT SPECIFIED Assessment/Plan AF not on anticoagulation due to history of multiple GI bleed CHF decompensated EF 40-45% HTN syncope tachy - alton sx s/p PPM placement. Plan; Agree with IV lasix , telemetry and DVT prophylaxis. Will add low dose of TYSON and BB -I if BP allows after diuresis
[2019-04-10 07:48] LABS: BASO % 0.1 % (0-2.0); EOS % 0.3 % (0-4.5); HEMOGLOBIN 14.2 GM/dL (10.7-15.3); LYMPH % 11.5 % (8-40); MCH 27.9 pg (25.7-33.7); MCHC 31.5 g/dl (32.0-36.0); MEAN CELL VOLUME 88.7 fl (80-96); MEAN PLT VOLUME 8.3 fl (7.5-11.1); MONO % 9.3 % (3.8-10.2); NEUT % 78.8 % (42.8-82.8); PLATELET COUNT 244 K/MM3 (134-434); RBC 5.07 M/mm3 (3.60-5.2); RDW 15.3 % (11.6-15.6); WHITE BLOOD COUNT 5.4 K/mm3 (4.0-10.0)
[2019-04-10 07:50] LABS: ALBUMIN 2.6 g/dl (3.4-5.0); ALK PHOS 59 U/L (45-117); ANION GAP 3 MMOL/L (8-16); BILIRUBIN,TOTAL 0.6 mg/dL (0.2-1); BLOOD UREA NITROGEN 37.1 mg/dL (7-18); CALCIUM 8.5 mg/dL (8.5-10.1); CHLORIDE 98 mmol/L (98-107); CO2 > 45 mmol/L (21-32); GLUCOSE,RANDOM 108 mg/dL (74-106); SGOT/AST 28 U/L (15-37); SGPT/ALT 30 U/L (13-61); SODIUM 146 mmol/L (136-145); TOT PROT 6.6 g/dl (6.4-8.2)
[2019-04-10 07:52] LABS: POTASSIUM 2.9 mmol/L (3.5-5.1)
[2019-04-10] MEDS: HEPARIN NA (PORCINE) 5,000 UNITS/ML 1ML VIAL SQ SCH ×2 (09:50→21:32)
[2019-04-10] MEDS: FUROSEMIDE 40 MG/4 ML INJECTABLE VIAL IVPUSH SCH (09:51)
--- NOTE | 2019-04-10 20:50 | PN ---
Progress Note, Physician History of Present Illness: No new complaints - Current Medication List Current Medications: Active Medications Furosemide (Lasix Injection -) 40 mg IVPUSH DAILY [facility] Last Admin: 04/10/19 09:51 Dose: 40 mg Heparin Sodium (Porcine) (Heparin -) 5,000 unit SQ BID [facility] Last Admin: 04/10/19 09:50 Dose: 5,000 unit - Objective Vital Signs: Vital Signs Temperature 98.8 F 04/10/19 20:08 Pulse Rate 81 04/10/19 20:08 Respiratory Rate 04/10/19 20:08 Blood Pressure 98/56 L 04/10/19 20:08 O2 Sat by Pulse Oximetry (%) 92 L 04/10/19 20:08 Neck: Yes: WNL, Supple Cardiovascular: Yes: WNL, Regular Rate and Rhythm Respiratory: Yes: WNL, Regular, CTA Bilaterally Gastrointestinal: Yes: WNL, Normal Bowel Sounds, Soft Edema: No Labs: CBC, BMP 04/10/19 06:10 04/10/19 06:10 Problem List - Problems (1) Syncope Assessment/Plan: Probable vasovagal Code(s): R55 - SYNCOPE AND COLLAPSE (2) Acute on chronic systolic heart failure Assessment/Plan: Cont IV lasix Replace K+ Code(s): I50.23 - ACUTE ON CHRONIC SYSTOLIC (CONGESTIVE) HEART FAILURE (3) Anemia Assessment/Plan: H/H stable Code(s): D64.9 - ANEMIA, UNSPECIFIED (4) DVT of upper extremity (deep vein thrombosis) Assessment/Plan: Pt not on AC due to h/o GI bleed Code(s): I82.629 - ACUTE EMBOLISM AND THROMBOSIS OF DEEP VN UNSP UP EXTREM Qualifiers: Affected thrombotic vein of extremity: brachial Chronicity: chronic Laterality: left Qualified Code(s): I82.722 - 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
[2019-04-10] MEDS ORDERED: POTASSIUM CHLORIDE TABS 20 MEQ TABLET.ER (FP) PO ONE (21:45)
[2019-04-10] MEDS: KCL 10 MEQ IVPB 10 MEQ/100 ML INFUS.BAG IVPB SCH ×2 (22:00→23:14)
[2019-04-11] MEDS: KCL 10 MEQ IVPB 10 MEQ/100 ML INFUS.BAG IVPB SCH (00:25)
[2019-04-11 07:07] LABS: BASO % 0.2 % (0-2.0); EOS % 0.1 % (0-4.5); HEMATOCRIT 40.5 % (32.4-45.2); HEMOGLOBIN 13.2 GM/dL (10.7-15.3); LYMPH % 5.2 % (8-40); MCH 28.4 pg (25.7-33.7); MCHC 32.6 g/dl (32.0-36.0); MEAN CELL VOLUME 87.2 fl (80-96); MEAN PLT VOLUME 8.1 fl (7.5-11.1); MONO % 8.2 % (3.8-10.2); NEUT % 86.3 % (42.8-82.8); PLATELET COUNT 220 K/MM3 (134-434); RBC 4.65 M/mm3 (3.60-5.2); RDW 14.9 % (11.6-15.6); WHITE BLOOD COUNT 8.2 K/mm3 (4.0-10.0)
[2019-04-11 08:52] LABS: ALBUMIN 2.3 g/dl (3.4-5.0); BILIRUBIN,TOTAL 0.7 mg/dL (0.2-1); BLOOD UREA NITROGEN 37.3 mg/dL (7-18); CALCIUM 7.9 mg/dL (8.5-10.1); CREATININE 0.9 mg/dL (0.55-1.3); POTASSIUM 3.3 mmol/L (3.5-5.1); TOT PROT 6.4 g/dl (6.4-8.2)
[2019-04-11] MEDS: FUROSEMIDE 40 MG/4 ML INJECTABLE VIAL IVPUSH SCH (09:41)
[2019-04-11] MEDS: HEPARIN NA (PORCINE) 5,000 UNITS/ML 1ML VIAL SQ SCH ×2 (09:41→21:57)
--- NOTE | 2019-04-11 09:44 | CONSULT ---
Admitting History and Physical - Primary Care Physician PCP: Hetal Laguerre - Admission History of Present Illness: 88 y/o female w/ PMH significant for AF, pacemaker, glaucoma, and anemia who presents with a complaint of persistent cough for the last several weeks as well as intermittent episodes of syncope. Nursing provides assistance with meals, suctioning PRN. Pt has difficulty clearing secretions, HOB elevated for meals. 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 chronic microvascular changes on CT of head may have been contributing. Since then patient denies difficulty swallowing but notes that she coughs " every time she eats." Now admitted for lightheadedness after a more severe coughing spell. CT of head (reviewed): essentially normal Carotid duplex: intimal thickening and calcification Selected Entries 04/09/19 04/09/19 04/09/19 02:00 05:36 09:36 Breakfast Lunch Supper Temperature 98 F 99 F 98.8 F 04/09/19 04/09/19 04/09/19 13:18 14:00 18:00 Breakfast 75% Lunch 75% Supper 50% Temperature 98.2 F 98.4 F 04/09/19 04/10/19 04/10/19 21:00 02:00 06:00 Breakfast Lunch Supper Temperature 98.4 F 98.1 F 98.4 F 04/10/19 04/10/19 04/10/19 10:00 14:00 18:00 Breakfast Lunch Supper 50% Temperature 98.9 F 99.6 F 100.0 F H 04/10/19 04/11/19 04/11/19 22:00 02:00 06:00 Breakfast Lunch Supper Temperature 98.8 F 98.1 F 98.0 F 04/11/19 04/11/19 09:24 09:25 Breakfast 50% Lunch Supper Temperature 98 F Laboratory Tests 04/07/19 04/11/19 18:15 06:10 WBC 8.6 8.2 On puree/nectar since admission. I performed 2 MBS on pt in 2011, last in November,-Pt was referred at that time by Dr. Humphrey, GI. Contrast entered vallecula, was pushed back into niecy-pharynx, and at times into nasopharynx. Tolerated liquids better than solids, although on instance of penetration/aspiration. ENT consult rec at that time to assess laryngeal function. Multiple swallows to clear pharynx, supplements I have not seen pt since 2012. No noted evidence in EMR for recurrent PNA. Pt reports difficulty swallowing since submandibular mass removed. History Source: Medical Record Limitations to Obtaining History: Clinical Condition - Past Medical History Cardiovascular: Yes: AFIB Gastrointestinal: Yes: GI Bleed - Past Surgical History Additional Past Surgical History: Submandibular mass - Smoking History Smoking history: Unknown if ever smoked Have you smoked in the past 12 months: No - Alcohol/Substance Use Hx Alcohol Use: No History - Admission Reason For Visit: ACUTE ON CHRONIC CONGESTIVEHEART FAILURE - Diagnostics X-ray: Report Reviewed (cxr) CT Scan: Report Reviewed (ct chest 2018) - General Mental Status: Alert and Oriented, Awake and Alert, Able to Follow Commands, Forgetful Attention: Intact Ability to Follow Directions: Good Head/Neck Control: WFL - Hearing Hearing: Normal Speech Evaluation - Communication Primary Language: TONGAN Communication: Yes: Within Normal Limits Oral Expression Ability: Yes: No Impairment - Speech Production Able to Make Needs Known: Yes: WNL Intelligibility: Yes: WNL - Speech Characteristics Voice Loudness: Normal Voice Pitch: Yes: Normal Voice Phonatory-based Quality: Yes: Normal, Dysphonia (mild) Speech Pattern: Normal Speech Clarity: < 100% Nasal Resonance: Normal Articulation: Yes: Precise Rate of Speech: Intact - Language/Auditory Comprehension Follows: Yes: 1 Stage Simple Commands Observation: Able to respond to yes/no queries: Yes, Yes/No Confusion: No, Comprehends Conversational Speech: Yes - Language/Verbal Expression Able to Respond to Simple Queries: Yes: WNL Able to Communicate Wants and Needs: Yes: WNL Functional Communication Status: Yes: WNL - Swallow Evaluation/Bedside Assessment Current Nutritional Intake: Dysphagia Pureed, [place] Textured Liquids Oral Secretions: Yes: WFL (cough with and without po trials.) Dentition: Yes: Edentulous Facial Symmetry at Rest: Symmetrical Facial Symmetry on Retraction: Symmetrical Facial Movement: Controlled Sensation: Normal Against Resistance Opening: Normal Against Resistance Closing: Normal Pucker Lips: Normal Smile: Normal Lips, Comment: inflammation/sore on left side of lower lip. Lingual Movement: Normal, Symmetric Lingual Speed of Movement: Normal Lingual Movement Strgth Against Opposition: Normal Lingual Movement Characteristics: Normal Velopharyngeal Movement: Normal Laryngeal Movement: Able to Palpate, Labored,delay initiation Rate of Intake: WFL Labial Seal: WFL Chewing: Impaired Oral Prep Time: WFL A-P Transit: WFL Pocketing: None Coughing/Throat Clear: Yes (with and without po trials. Seemed responsive to sips of nectar thick liqui) Recommendations - Speech Evaluation, Impression/Plan Impression: Cough with and without po trials. Seemed responsive to sips of nectar thick liquid. Last MBS 2011. h/o submandibular mass sx. Inflammation/ sore on left side of lower lip. - Dysphagia Impressions/Plan Swallowing Skills: Impaired Dysphagia Impressions: Ongoing Evaluation, Suspect Aspiration *Silent aspiration: cannot be R/O at bedside Recommendations: Modified Barium Swallow
[2019-04-11] MEDS ORDERED: POTASSIUM CHLORIDE TABS 20 MEQ TABLET.ER (FP) PO ONE (11:45)
--- NOTE | 2019-04-11 16:20 | PN ---
Progress Note, Physician Chief Complaint: Pt A&Ox3; weak; no chest pain or palpitations. History of Present Illness: 88-year-old white woman with PM history of AF, pacemaker, glaucoma, anemia, cachexia, presents with a complaint of persistent cough for the last several weeks as well as intermittent episodes of syncope. Patient states that she has been having a nonproductive cough without associated fever, chills, chest pain, nausea, vomiting for the last several weeks. The patient's guardian also mentions the patient has several episodes of syncope, however the patient only states that she recalls one episode where she was sitting on a sofa and then slid off the couch. The patient denies any head ache, neck pain, chest pain, abdominal pain, dysuria, diarrhea. PMD: Dr. Roshan Sanchez Cards: Dr. Medeiros - Current Medication List Current Medications: Active Medications Furosemide (Lasix Injection -) 40 mg IVPUSH DAILY [facility] Last Admin: 04/11/19 09:41 Dose: 40 mg Heparin Sodium (Porcine) (Heparin -) 5,000 unit SQ BID [facility] Last Admin: 04/11/19 09:41 Dose: 5,000 unit - Objective Vital Signs: Vital Signs Temperature 98.1 F 04/11/19 14:00 Pulse Rate 71 04/11/19 14:00 Respiratory Rate 20 04/11/19 09:24 Blood Pressure 110/68 04/11/19 14:00 O2 Sat by Pulse Oximetry (%) 92 L 04/10/19 21:00 Constitutional: Yes: Anxious, Cachectic Eyes: Yes: WNL HENT: Yes: WNL Neck: Yes: WNL Cardiovascular: Yes: Murmur (2/6 systolic murmur, LSB-->axilla), S1, S2 (split) Respiratory: Yes: Regular, Diminished, Rhonchi, SOB on Exertion Gastrointestinal: Yes: Soft ...Rectal Exam: Yes: Deferred Genitourinary: Yes: Anuria Breast(s): Yes: WNL Extremities: Yes: Cool Edema: No Peripheral Pulses WNL: Yes Integumentary: Yes: WNL Neurological: Yes: Alert, Oriented, Weakness Psychiatric: Yes: WNL Labs: CBC, BMP 04/11/19 06:10 04/11/19 06:10 Abnormal Lab Results 04/11/19 06:10 Potassium 3.3 L Carbon Dioxide 45 H Anion Gap 3 L BUN 37.3 H Random Glucose 123 H Calcium 7.9 L Albumin 2.3 L - ....Imaging Chest X-ray: Report Reviewed (congestive changes) EKG: Image Reviewed (NSR: periods of demand atrial pacing) Problem List - Problems (1) Acute on chronic systolic heart failure Assessment/Plan: Elevated BNP CXR: congestive changes ECHO: mild-moderately reduced LVEF (40-45%) Plan: On furosemide (guard against excessive dehydrartion). Start lisinopril 2.5 mg daily. Plan to start metoprolol ER 25 mg daily. F/u BUN/Cr, electrolytes, daily weight, Is and Os. Code(s): I50.23 - ACUTE ON CHRONIC SYSTOLIC (CONGESTIVE) HEART FAILURE (2) Syncope Assessment/Plan: avoid excessive dehyration (plan to reduce furosemide). Orthostatic vital signs. Carotid artery doppler. Code(s): R55 - SYNCOPE AND COLLAPSE (3) Cachexia Assessment/Plan: f/u with nutrition consult, swallowing study. Code(s): R64 - CACHEXIA (4) Hypokalemia Assessment/Plan: replete, and keep K 4.0-4.5 Keep Mg 2.0-2.4 Keep PO4 2.5-4.9 Code(s): E87.6 - HYPOKALEMIA
--- NOTE | 2019-04-11 18:25 | PN ---
Progress Note, Physician - Current Medication List Current Medications: Active Medications Furosemide (Lasix Injection -) 40 mg IVPUSH DAILY [facility] Last Admin: 04/11/19 09:41 Dose: 40 mg Heparin Sodium (Porcine) (Heparin -) 5,000 unit SQ BID [facility] Last Admin: 04/11/19 09:41 Dose: 5,000 unit - Objective Vital Signs: Vital Signs Temperature 98.1 F 04/11/19 14:00 Pulse Rate 71 04/11/19 14:00 Respiratory Rate 04/11/19 09:24 Blood Pressure 110/68 04/11/19 14:00 O2 Sat by Pulse Oximetry (%) 95 04/11/19 09:00 Constitutional: Yes: No Distress HENT: Yes: Atraumatic Neck: Yes: Supple Cardiovascular: Yes: Regular Rate and Rhythm Respiratory: Yes: CTA Bilaterally Gastrointestinal: Yes: Normal Bowel Sounds Musculoskeletal: Yes: WNL Labs: CBC, BMP 04/11/19 06:10 04/11/19 06:10 Problem List - Problems (1) Acute on chronic systolic heart failure Code(s): I50.23 - ACUTE ON CHRONIC SYSTOLIC (CONGESTIVE) HEART FAILURE (2) CHF (congestive heart failure) Assessment/Plan: iv lasix Code(s): I50.9 - HEART FAILURE, UNSPECIFIED (3) Syncope Code(s): R55 - SYNCOPE AND COLLAPSE (4) DVT of upper extremity (deep vein thrombosis) Assessment/Plan: not on AC ...h/o gi bleed Code(s): I82.629 - ACUTE EMBOLISM AND THROMBOSIS OF DEEP VN UNSP UP EXTREM Qualifiers: Affected thrombotic vein of extremity: brachial Chronicity: chronic Laterality: left Qualified Code(s): I82.722 - 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
[2019-04-12 08:35] LABS: MAGNESIUM 1.9 mg/dL (1.8-2.4)
[2019-04-12] MEDS: HEPARIN NA (PORCINE) 5,000 UNITS/ML 1ML VIAL SQ SCH ×2 (10:14→21:21)
[2019-04-12] MEDS: FUROSEMIDE 40 MG/4 ML INJECTABLE VIAL IVPUSH SCH (10:15)
--- NOTE | 2019-04-12 10:24 | PN ---
Progress Note, [employer]ICAL [employer] - Note Progress Note: Selected Entries 04/11/19 04/11/19 04/11/19 02:00 06:00 09:24 Breakfast Supper Temperature 98.1 F 98.0 F 98 F 04/11/19 04/11/19 04/11/19 09:25 14:00 18:00 Breakfast 50% Supper 75% Temperature 98.1 F 04/11/19 04/12/19 04/12/19 21:38 02:00 06:00 Breakfast Supper Temperature 97.8 F 97.9 F 97.8 F 04/12/19 08:52 Breakfast Supper Temperature 97.9 F Laboratory Tests 04/08/19 04/10/19 04/11/19 06:03 06:10 06:10 WBC 6.3 5.4 8.2 mbs completed/reviewed with staff/pt. Trial of puree/honey thick. Monitor for clinical improvement of chronic cough.
--- NOTE | 2019-04-12 22:44 | PN ---
Progress Note, Physician History of Present Illness: No new complaints - Current Medication List Current Medications: Active Medications Furosemide (Lasix Injection -) 40 mg IVPUSH DAILY [facility] Last Admin: 04/12/19 10:15 Dose: 40 mg Heparin Sodium (Porcine) (Heparin -) 5,000 unit SQ BID [facility] Last Admin: 04/12/19 21:21 Dose: 5,000 unit - Objective Vital Signs: Vital Signs Temperature 98.0 F 04/12/19 14:00 Pulse Rate 90 04/12/19 14:00 Respiratory Rate 04/12/19 09:00 Blood Pressure 80/57 L 04/12/19 14:00 O2 Sat by Pulse Oximetry (%) 91 L 04/12/19 09:00 Neck: Yes: WNL, Supple Cardiovascular: Yes: WNL, Regular Rate and Rhythm Respiratory: Yes: WNL, Regular, CTA Bilaterally Gastrointestinal: Yes: WNL, Normal Bowel Sounds, Soft Labs: CBC, BMP 04/11/19 06:10 04/11/19 06:10 Problem List - Problems (1) Acute on chronic systolic heart failure Assessment/Plan: Cont IV lasix Monitor K+ and replace prn Code(s): I50.23 - ACUTE ON CHRONIC SYSTOLIC (CONGESTIVE) HEART FAILURE (2) Syncope Assessment/Plan: Probable vasovagal Cardio/neuro consults Code(s): R55 - SYNCOPE AND COLLAPSE (3) Anemia Assessment/Plan: H/H stable Code(s): D64.9 - ANEMIA, UNSPECIFIED
--- NOTE | 2019-04-13 02:04 | PN ---
Progress Note, Physician Chief Complaint: Pt A&Ox3; remains weak; able to hold conversation with becoming dyspneic, but has intermittent cough. History of Present Illness: 88-year-old white woman with PM history of AF, pacemaker, glaucoma, anemia, cachexia, presents with a complaint of persistent cough for the last several weeks as well as intermittent episodes of syncope. Patient states that she has been having a nonproductive cough without associated fever, chills, chest pain, nausea, vomiting for the last several weeks. The patient's guardian also mentions the patient has several episodes of syncope, however the patient only states that she recalls one episode where she was sitting on a sofa and then slid off the couch. The patient denies any head ache, neck pain, chest pain, abdominal pain, dysuria, diarrhea. PMD: Dr. Roshan Sanchez Cards: Dr. Medeiros - Current Medication List Current Medications: Active Medications Furosemide (Lasix Injection -) 40 mg IVPUSH DAILY [facility] Last Admin: 04/12/19 10:15 Dose: 40 mg Heparin Sodium (Porcine) (Heparin -) 5,000 unit SQ BID [facility] Last Admin: 04/12/19 21:21 Dose: 5,000 unit - Objective Vital Signs: Vital Signs Temperature 98.2 F 04/12/19 22:00 Pulse Rate 76 04/12/19 22:00 Respiratory Rate 20 04/12/19 22:00 Blood Pressure 129/75 04/12/19 22:00 O2 Sat by Pulse Oximetry (%) 95 04/12/19 21:00 Constitutional: Yes: Calm, Cachectic Eyes: Yes: WNL HENT: Yes: WNL Neck: Yes: WNL Cardiovascular: Yes: S1, S2 (split) Respiratory: Yes: Cough, Diminished Gastrointestinal: Yes: Soft ...Rectal Exam: Yes: Deferred Genitourinary: No: Anuria Breast(s): Yes: WNL Musculoskeletal: Yes: Muscle Weakness Extremities: Yes: Cool Edema: No Peripheral Pulses WNL: Yes Integumentary: Yes: WNL, Pressure Ulcer Neurological: Yes: Alert, Oriented, Weakness Psychiatric: Yes: WNL Labs: CBC, BMP 04/11/19 06:10 04/11/19 06:10 Abnormal Lab Results 04/11/19 06:10 Potassium 3.3 L Carbon Dioxide 45 H Anion Gap 3 L BUN 37.3 H Random Glucose 123 H Calcium 7.9 L Albumin 2.3 L - ....Imaging Chest X-ray: Report Reviewed Ultrasound: Report Reviewed (ECHO) EKG: Image Reviewed Problem List - Problems (1) Acute on chronic systolic heart failure Assessment/Plan: Elevated BNP CXR: congestive changes ECHO: mild-moderately reduced LVEF (40-45%); abnormal diastolic compliance; mild MR and TR. Plan: On furosemide (guard against excessive dehydration); reduce dose. Start lisinopril 2.5 mg daily. Plan to start metoprolol ER 25 mg daily. F/u repeat CXR. F/u BUN/Cr, electrolytes, daily weight, Is and Os. F/u TSH (normal in 2011). Code(s): I50.23 - ACUTE ON CHRONIC SYSTOLIC (CONGESTIVE) HEART FAILURE (2) Syncope Assessment/Plan: avoid excessive dehydration (plan to reduce furosemide); replete electrolytes. ECHO: mild-moderately reduced LVEF: abnormal diastolic compliance; mild TR and MR. Orthostatic vital signs. Carotid artery doppler. Code(s): R55 - SYNCOPE AND COLLAPSE (3) Cachexia Assessment/Plan: f/u with nutrition consult; swallowing study pending. Code(s): R64 - CACHEXIA (4) Hypokalemia Assessment/Plan: replete, and keep K 4.0-4.5 Keep Mg 2.0-2.4 Keep PO4 2.5-4.9 Code(s): E87.6 - HYPOKALEMIA
[2019-04-13 07:28] LABS: BASO % 0.3 % (0-2.0); EOS % 0.8 % (0-4.5); HEMATOCRIT 41.1 % (32.4-45.2); HEMOGLOBIN 13.2 GM/dL (10.7-15.3); LYMPH % 14.9 % (8-40); MCH 28.1 pg (25.7-33.7); MEAN CELL VOLUME 87.7 fl (80-96); MEAN PLT VOLUME 8.6 fl (7.5-11.1); MONO % 10.6 % (3.8-10.2); NEUT % 73.4 % (42.8-82.8); PLATELET COUNT 234 K/MM3 (134-434); RBC 4.69 M/mm3 (3.60-5.2); RDW 15.2 % (11.6-15.6); WHITE BLOOD COUNT 4.4 K/mm3 (4.0-10.0)
[2019-04-13 08:24] LABS: ALBUMIN 2.3 g/dl (3.4-5.0); ALK PHOS 60 U/L (45-117); ANION GAP 3 MMOL/L (8-16); BILIRUBIN,TOTAL 0.6 mg/dL (0.2-1); BLOOD UREA NITROGEN 39.2 mg/dL (7-18); CALCIUM 8.2 mg/dL (8.5-10.1); CHLORIDE 96 mmol/L (98-107); CO2 > 45 mmol/L (21-32); CREATININE 0.8 mg/dL (0.55-1.3); GLUCOSE,RANDOM 117 mg/dL (74-106); POTASSIUM 3.4 mmol/L (3.5-5.1); SGOT/AST 20 U/L (15-37); SGPT/ALT 20 U/L (13-61); SODIUM 144 mmol/L (136-145); TOT PROT 6.4 g/dl (6.4-8.2)
[2019-04-13] MEDS: FUROSEMIDE 40 MG/4 ML INJECTABLE VIAL IVPUSH SCH (10:29)
[2019-04-13] MEDS: HEPARIN NA (PORCINE) 5,000 UNITS/ML 1ML VIAL SQ SCH (10:29)
--- NOTE | 2019-04-13 11:01 | PN ---
Progress Note, Physician History of Present Illness: 88-year-old female history of AF, pacemaker, glaucoma, anemia presents with a complaint of persistent cough for the last several weeks as well as intermittent episodes of syncope. Patient states that she has been having a nonproductive cough without associated fever, chills, chest pain, nausea, vomiting for the last several weeks. The patient's guardian also mentions the patient has several episodes of syncope, however the patient only states that she recalls one episode where she was sitting on a sofa and then slid off the couch. The patient denies any head ache, neck pain, chest pain, abdominal pain , dysuria, diarrhea. - Current Medication List Current Medications: Active Medications Heparin Sodium (Porcine) (Heparin -) 5,000 unit SQ BID [facility] Last Admin: 04/13/19 10:29 Dose: 5,000 unit Hydrochlorothiazide (Hctz -) 25 mg PO DAILY [facility] - Objective Vital Signs: Vital Signs Temperature 97.7 F 04/13/19 06:00 Pulse Rate 60 04/13/19 06:00 Respiratory Rate 18 04/13/19 06:00 Blood Pressure 118/64 04/13/19 06:00 O2 Sat by Pulse Oximetry (%) 95 04/12/19 21:00 Eyes: Yes: WNL, Conjunctiva Clear, EOM Intact HENT: Yes: WNL, Atraumatic, Normocephalic Neck: Yes: WNL, Supple, Trachea Midline Cardiovascular: Yes: WNL, Regular Rate and Rhythm Respiratory: Yes: WNL, Regular, CTA Bilaterally Gastrointestinal: Yes: WNL, Normal Bowel Sounds Genitourinary: Yes: WNL Musculoskeletal: Yes: WNL Extremities: Yes: WNL Edema: No Integumentary: Yes: WNL Neurological: Yes: WNL, Alert, Oriented ...Motor Strength: WNL Psychiatric: Yes: WNL Labs: CBC, BMP 04/13/19 06:40 04/13/19 06:40 Problem List - Problems (1) CHF (congestive heart failure) Code(s): I50.9 - HEART FAILURE, UNSPECIFIED (2) Acute thrombosis of left basilic vein Code(s): I82.612 - ACUTE EMBOLISM AND THOMBOS OF SUPERFIC VEINS OF L UP EXTREM (3) Anemia Code(s): D64.9 - ANEMIA, UNSPECIFIED (4) Cellulitis Code(s): L03.90 - CELLULITIS, UNSPECIFIED Qualifiers: Site of cellulitis: extremity Site of cellulitis of extremity: lower extremity Laterality: unspecified laterality Qualified Code(s): L03.119 - Cellulitis of unspecified part of limb (5) Closed comminuted intertrochanteric fracture of left femur Code(s): S72.142A - DISPLACED INTERTROCHANTERIC FRACTURE OF LEFT FEMUR, INIT (6) DVT (deep venous thrombosis) Code(s): I82.409 - ACUTE EMBOLISM AND THOMBOS UNSP DEEP VN UNSP LOWER EXTREMITY (7) DVT of upper extremity (deep vein thrombosis) Code(s): I82.629 - ACUTE EMBOLISM AND THROMBOSIS OF DEEP VN UNSP UP EXTREM Qualifiers: Affected thrombotic vein of extremity: brachial Chronicity: chronic Laterality: left Qualified Code(s): I82.722 - 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 (8) Eye abrasion Code(s): S05.8X9A - OTHER INJURIES OF UNSPECIFIED EYE AND ORBIT, INIT ENCNTR Qualifiers: Encounter type: initial encounter Laterality: left Qualified Code(s): S05.8X2A - Other injuries of left eye and orbit, initial encounter (9) GI bleed Code(s): K92.2 - GASTROINTESTINAL HEMORRHAGE, UNSPECIFIED Qualifiers: GI bleed type/associated pathology: melena Qualified Code(s): K92.1 - Melena (10) Normochromic normocytic anemia Code(s): D64.9 - ANEMIA, UNSPECIFIED (11) Sacral ulcer Code(s): L98.429 - NON-PRESSURE CHRONIC ULCER OF BACK WITH UNSPECIFIED SEVERITY (12) Sepsis affecting skin Code(s): A41.9 - SEPSIS, UNSPECIFIED ORGANISM (13) UTI (urinary tract infection) Code(s): N39.0 - URINARY TRACT INFECTION, SITE NOT SPECIFIED Assessment/Plan - Problems (1) Acute on chronic systolic heart failure Assessment/Plan: Elevated BNP CXR: congestive changes ECHO: mild-moderately reduced LVEF (40-45%); abnormal diastolic compliance; mild MR and TR. Plan: Change furosemide to HCTZ . July d/c to [facility] Start lisinopril 2.5 mg daily. Plan to start metoprolol ER 25 mg daily. F/u repeat CXR. F/u BUN/Cr, electrolytes, daily weight, Is and Os. F/u TSH (normal in 2011). Code(s): I50.23 - ACUTE ON CHRONIC SYSTOLIC (CONGESTIVE) HEART FAILURE (2) Syncope Assessment/Plan: avoid excessive dehydration (plan to reduce furosemide); replete electrolytes. ECHO: mild-moderately reduced LVEF: abnormal diastolic compliance; mild TR and MR. Orthostatic vital signs. Carotid artery doppler. Code(s): R55 - SYNCOPE AND COLLAPSE (3) Cachexia Assessment/Plan: f/u with nutrition consult; swallowing study pending. Code(s): R64 - CACHEXIA (4) Hypokalemia Assessment/Plan: replete, and keep K 4.0-4.5 Keep Mg 2.0-2.4 Keep PO4 2.5-4.9 Code(s): E87.6 - HYPOKALEMIA
[2019-04-13 11:08] VITALS: BP 101/62; PULSE 81; TEMP 98
--- NOTE | 2019-04-13 11:38 | PN ---
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 - Note Progress Note: Selected Entries 04/11/19 04/11/19 04/11/19 02:00 06:00 09:24 Breakfast Supper Temperature 98.1 F 98.0 F 98 F 04/11/19 04/11/19 04/11/19 09:25 14:00 18:00 Breakfast 50% Supper 75% Temperature 98.1 F 04/11/19 04/12/19 04/12/19 21:38 02:00 06:00 Breakfast Supper Temperature 97.8 F 97.9 F 97.8 F 04/12/19 08:52 Breakfast Supper Temperature 97.9 F Laboratory Tests 04/08/19 04/10/19 04/11/19 06:03 06:10 06:10 WBC 6.3 5.4 8.2 Selected Entries 04/12/19 04/12/19 04/12/19 02:00 06:00 08:52 Breakfast Lunch Supper Temperature 97.9 F 97.8 F 97.9 F 04/12/19 04/12/19 04/12/19 10:00 11:06 14:00 Breakfast 50% 75% Lunch 50% Supper Temperature 98.0 F 04/12/19 04/12/19 04/13/19 19:00 22:00 02:00 Breakfast Lunch Supper 75% Temperature 98.2 F 97.7 F 04/13/19 04/13/19 04/13/19 06:00 10:00 10:33 Breakfast 75% Lunch Supper Temperature 97.7 F 98.0 F Laboratory Tests 04/13/19 06:40 WBC 4.4 mbs completed/reviewed with staff/pt. Trial of puree/honey thick. Nursing reports cough persists, suctioned at times, unable to expectorate secretions. Seen bedside. Cough noted. CXR (-) NAD. Monitor for clinical improvement of chronic cough.
--- NOTE | 2019-04-13 12:06 | DS ---
Physical Examination Vital Signs: Vital Signs Temperature 98.0 F 04/13/19 10:00 Pulse Rate 81 04/13/19 10:00 Respiratory Rate 18 04/13/19 10:00 Blood Pressure 101/62 04/13/19 10:00 O2 Sat by Pulse Oximetry (%) 96 04/13/19 09:00 Cardiovascular: Yes: WNL, Regular Rate and Rhythm Respiratory: Yes: WNL, Regular, CTA Bilaterally Gastrointestinal: Yes: WNL, Normal Bowel Sounds, Soft Labs: CBC, BMP 04/13/19 06:40 04/13/19 06:40 Discharge Summary Problems reviewed: Yes Reason For Visit: ACUTE ON CHRONIC CONGESTIVEHEART FAILURE Current Active Problems Acute on chronic systolic heart failure (Acute) CHF (congestive heart failure) (Acute) Cachexia (Acute) Hypokalemia (Acute) Syncope (Acute) Hospital Course: Pt is a 88 y/o female w/ PMH significant for AF, pacemaker, glaucoma, and anemia who presented to ER w/ syncope. Pt admitted to tele and seen by cardio/ neuro. Pt had ct scan head wc ws unremarkable and also carotid doppler/echo ws also unremarkable Pt was initially on IV lasix due to acute on chronic heart failure and changed to po hctz. Pt is not on AC due to h/o GI bleed. Condition: Good - Instructions Diet, Activity, Other Instructions: 2 gram sodium diet Referrals: Roshan Sanchez MD [Primary Care Provider] - Disposition: LONG TERM FACILITY - Home Medications Comprehensive Discharge Medication List: Ambulatory Orders Hydrochlorothiazide [Hctz -] 25 mg PO DAILY #30 tablet 04/13/19
[2019-04-14] MEDS ORDERED: HYDROCHLOROTHIAZIDE 25 MG TABLET (FP) PO SCH (10:00)
== END 2019-04-13 13:51 | DRG 291 ==
LOC: JER 16:48 → SUPCPDRO 16:48 → JERBED 19:43 → J4W 04-08 00:47
PROVIDERS: ADMIT Internal Medicine; ATTEND Internal Medicine
DX: I11.0 Hypertensive heart disease with heart failure (principal); E43 Unspecified severe protein-calorie malnutrition; R64 Cachexia; Z68.1 Body mass index [BMI] 19.9 or less, adult; R55 Syncope and collapse; I50.23 Acute on chronic systolic (congestive) heart failure; H40.9 Unspecified glaucoma; D64.9 Anemia, unspecified; Z95.0 Presence of cardiac pacemaker; E87.6 Hypokalemia
CPT/HCPCS: 36415; 70450-TC; 71045-TC-FY; 74230-TC-FY; 80053; 80061; 81003; 82550; 82553; 83721; 83735; 83880; 84484; 85025; 87086; 92611-GN; 93005; 93010; 93306-TC; 93880-TC; 97116-GP; 97161-GP; 99285-25; J1644

== ENCOUNTER 2019-05-28 11:48 | Inpatient (IN) | payer OTHER ==
--- NOTE | 2019-05-28 12:29 | PDOC ---
History of Present Illness - General Chief Complaint: Syncope/Near Syncope Stated Complaint: SYNCOPE/NEAR SYNCOPE Time Seen by Provider: 05/28/19 12:28 History Source: Patient - History of Present Illness Initial Comments: 05/28/19 13:40 Ms. Villanueva is an 88 y/o woman w/hx anemia, afib, alzheimers, AICD, HTN, prior DVTs p/w syncope at [facility] today. She does not recall the incident, but reports being told that she passed out today. Per long-term at approx 1045 she was found in bed unable to be roused. Shortly after she awoke and was cold and clammy, at which point she was transferred for ED evaluation. She has had similar episodes in the past, and she was initially admitted to [facility] after a syncopal episode. She was recently diagnosed with bronchitis, treated with ceftriaxone (completed course on 05/17/19), and received tamiflu prophylaxis at that time as well. No recent fevers or episodes of confusion. She is alert and conversant at baseline. She denies any chest pain, sob, nausea, vomiting, weakness at this time. Past History - Past Medical History Allergies/Adverse Reactions: Allergies Allergy/AdvReac Type Severity Reaction Status Date / Time No Known Allergies Allergy Verified 05/28/19 12:43 Home Medications: Ambulatory Orders Hydrochlorothiazide [Hctz -] 25 mg PO DAILY #30 tablet 04/13/19 Anemia: Yes Cardiac Disorders: Yes (Pacemaker, Afib) CVA: No COPD: No GI Disorders: Yes (GI Bleed) - Surgical History Cardiac Surgery: Yes (pacemaker) Orthopedic Surgery: Yes (IM nailing of L femur) - Immunization History Immunization Up to Date: Yes - Psycho Social/Smoking Cessation Hx Smoking History: Unknown if ever smoked Have you smoked in the past 12 months: No Hx Alcohol Use: No Drug/Substance Use Hx: No Substance Use Type: None Hx Substance Use Treatment: No Review of Systems - Review of Systems Able to Perform ROS?: Yes Comments:: 05/28/19 13:52 ROS: GENERAL/CONSTITUTIONAL: No fever or chills. No weakness. HEAD, EYES, EARS, NOSE AND THROAT: No change in vision. No ear pain or discharge. No sore throat. CARDIOVASCULAR: No chest pain or shortness of breath RESPIRATORY: No cough, wheezing, or hemoptysis. GASTROINTESTINAL: No nausea, vomiting, diarrhea or constipation. GENITOURINARY: No dysuria, frequency, or change in urination. MUSCULOSKELETAL: No joint or muscle swelling or pain. No neck or back pain. SKIN: No rash NEUROLOGIC: Syncope. No headache, vertigo, or change in strength/sensation. ENDOCRINE: No increased thirst. No abnormal weight change HEMATOLOGIC/LYMPHATIC: History DVT. No anemia, easy bleeding ALLERGIC/IMMUNOLOGIC: No hives or skin allergy. *Physical Exam - Physical Exam 05/28/19 13:53 PE: GENERAL: Awake, alert, and fully oriented, in no acute distress HEAD: No signs of trauma, normocephalic, atraumatic EYES: PERRLA, EOMI, sclera anicteric, conjunctiva clear ENT: Auricles normal inspection, hearing grossly normal, nares patent, oropharynx clear without exudates. Moist mucosa NECK: Normal ROM, supple, no lymphadenopathy, JVD, or masses LUNGS: Cough. Crackles heart at bilateral lung bases, R?L. No distress, speaks full sentences HEART: Regular rate and rhythm, normal S1 and S2, no murmurs, rubs or gallops, peripheral pulses normal and equal bilaterally. ABDOMEN: Soft, nontender, normoactive bowel sounds. No guarding, no rebound. No masses EXTREMITIES : Normal inspection, Normal range of motion, no edema. No clubbing or cyanosis NEUROLOGICAL: Cranial nerves II through XII grossly intact. Normal speech, no focal sensorimotor deficits SKIN: Warm, Dry, normal turgor, no rashes or lesions noted Heart Score/ECG Review - History History: Moderately suspicious - Electrocardiogram EKG: Non specific repolarization disturbance - Age Age: >/= 65 - Risk Factors Risk Factors Heart Score: Yes Hx Hypercholesterolemia, Yes Hx Hypertension Based on the list above the patient has:: 1-2 risk factors - Troponin Troponin: </= normal limit - Score Heart Score - Total: 5 - QRS Widened: LBBB Comment:: 05/28/19 13:58 Paced. Normal axis. RRR. Medical Decision Making - Medical Decision Making 05/28/19 13:59 88F w/hx HTN, HLD, afib, DVT, anemia, recent treatment for bronchitis s/p ceftriaxone p/w syncopal episode at [facility]. Plan: CBC CMP EKG CXR Cardiac profile UA Urine culture CT head without contrast PT/INR, APTT Type and screen BNP Dispo: Admit Discharge - Discharge Information Problems reviewed: Yes Clinical Impression/Diagnosis: Syncope Qualifiers: Syncope type: unspecified Qualified Code(s): R55 - Syncope and collapse Condition: Stable - Admission Yes - Follow up/Referral Referrals: Roshan Sanchez MD [Primary Care Provider] - - Patient Discharge Instructions - Post Discharge Activity
[2019-05-28 12:41] VITALS: BMI 16.1
--- NOTE | 2019-05-28 13:18 | EKG ---
Test Reason : Blood Pressure : / mmHG Vent. Rate : 060 BPM Atrial Rate : 060 BPM P-R Int : 172 ms QRS Dur : 144 ms QT Int : 550 ms P-R-T Axes : 086 -67 147 degrees QTc Int : 550 ms Atrial-paced rhythm LEFT AXIS DEVIATION LEFT BUNDLE BRANCH BLOCK ABNORMAL ECG Confirmed by JIL THOMAS MD ([id number]) on 05/28/2019 1:17:50 PM Referred By: Confirmed By:JIL THOMAS MD
[2019-05-28 14:09] LABS: BASO % 0.4 % (0-2.0); EOS % 0.6 % (0-4.5); HEMATOCRIT 40.6 % (32.4-45.2); LYMPH % 10.9 % (8-40); MCH 28.7 pg (25.7-33.7); MCHC 32.1 g/dl (32.0-36.0); MEAN CELL VOLUME 89.6 fl (80-96); MONO % 7.8 % (3.8-10.2); NEUT % 80.3 % (42.8-82.8); PLATELET COUNT 270 K/MM3 (134-434); RBC 4.53 M/mm3 (3.60-5.2); RDW 19.2 % (11.6-15.6); WHITE BLOOD COUNT 5.6 K/mm3 (4.0-10.0)
[2019-05-28 14:18] LABS: VENOUS PH 7.36 (7.31-7.41)
[2019-05-28 14:22] LABS: INR 1.1 (0.83-1.09)
[2019-05-28 14:24] LABS: ACTIVATED PTT 31.5 SECONDS (25.2-36.5)
[2019-05-28 14:31] LABS: VENOUS PO2 < 49 mmHg (28-48)
[2019-05-28 14:38] LABS: ALBUMIN 2.8 g/dl (3.4-5.0); ALK PHOS 69 U/L (45-117); ANION GAP 6 MMOL/L (8-16); BILIRUBIN,TOTAL 0.4 mg/dL (0.2-1); BLOOD UREA NITROGEN 15.3 mg/dL (7-18); CALCIUM 8.7 mg/dL (8.5-10.1); CHLORIDE 96 mmol/L (98-107); CO2 36 mmol/L (21-32); CREATININE 0.8 mg/dL (0.55-1.3); GLUCOSE,RANDOM 107 mg/dL (74-106); N-TERMINAL BNP 1617.3 pg/ml (5-450); POTASSIUM 3.5 mmol/L (3.5-5.1); SGOT/AST 23 U/L (15-37); SGPT/ALT 15 U/L (13-61); SODIUM 139 mmol/L (136-145); TOT PROT 7.2 g/dl (6.4-8.2)
--- NOTE | 2019-05-28 15:55 | PDOC ---
Documentation entered by Glen Browning SCRIBE, acting as scribe for David Hubbard MD. David Hubbard MD: This documentation has been prepared by the Nam philip Daniel, SCRIBE, under my direction and personally reviewed by me in its entirety. I confirm that the documentation accurately reflects all work, treatment, procedures, and medical decision making performed by me. Attending Attestation - Resident Resident Name: Karl Scott - ED Attending Attestation I have performed the following: I have examined & evaluated the patient, The case was reviewed & discussed with the resident, I agree w/resident's findings & plan, Exceptions are as noted - HPI HPI: 05/28/19 13:10 The patient is an 88 year old female with a past medical history of afib, stroke, dysphagia, submandibular mass, CHF, and hip replacement here today for evaluation of syncope. The patient reports that she was found slouched over in bed by the nursing staff. She currently denies any complaints. Patient denies headache, lightheadedness. Denies fever, chills. Denies chest pain, shortness of breath. Denies nausea, vomiting, diarrhea, abdominal pain. Allergies: NKA PCP: Roshan Sanchez - Physicial Exam PE: 05/28/19 14:07 Vitals: Triage vital signs reviewed General Appearance: No acute distress, well nourished, well developed Head: Atraumatic Neck: Supple; No nuchal rigidity Chest Wall: Nontender Cardiac: Regular rate and rhythm, no murmurs, no rubs, no gallops Lungs: +bibasilar crackles. Good air movement bilaterally Abdomen: Soft, nondistended, normal bowel sounds, nontender to palpation Extremities: Full range of motion to all extremities, no cyanosis, clubbing, or edema Skin: Warm and dry, no rashes or lesions, no rash, no petechiae Neuro: AOX3 Psych: Normal mood, normal affect - Medical Decision Making 06/06/19 13:46 88F w/hx HTN, HLD, afib, DVT, anemia, recent treatment for bronchitis s/p ceftriaxone p/w syncopal episode at [facility] We will check labs head CT EKG cardiac profile admit to medicine for further evaluation of syncope Heart Score/ECG Review - ECG Impressions Comment:: 06/06/19 13:47 Atrial paced rhythm left sepsis deviation left bundle branch block Interpreted by me
--- NOTE | 2019-05-28 19:15 | HP ---
Admitting History and Physical - Primary Care Physician PCP: Hetal Laguerre - Admission Chief Complaint: syncope History of Present Illness: Ms. Villanueva is an 88 y/o woman w/hx anemia, afib, alzheimers, AICD, HTN, prior DVTs p/w syncope at [facility] today. She does not recall the incident, but reports being told that she passed out today. Per care home at approx 1045 she was found in bed unable to be roused. Shortly after she awoke and was cold and clammy, at which point she was transferred for ED evaluation. She has had similar episodes in the past, and she was initially admitted to [facility] after a syncopal episode. She was recently diagnosed with bronchitis, treated with ceftriaxone (completed course on 05/17/19), and received tamiflu prophylaxis at that time as well. No recent fevers or episodes of confusion. She is alert and conversant at baseline. She denies any chest pain, sob, nausea , vomiting, weakness at this time. 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 MANAGER: Yes: Alzheimer's Cardiovascular: Yes: AFIB, HTN Gastrointestinal: Yes: GI Bleed Heme/Onc: Yes: Anemia - Smoking History Smoking history: Unknown if ever smoked Have you smoked in the past 12 months: No - Alcohol/Substance Use Hx Alcohol Use: No Home Medications - Allergies Allergies/Adverse Reactions: Allergies Allergy/AdvReac Type Severity Reaction Status Date / Time No Known Allergies Allergy Verified 05/28/19 12:43 - Home Medications Home Medications: Ambulatory Orders Hydrochlorothiazide [Hctz -] 25 mg PO DAILY #30 tablet 04/13/19 Acetaminophen 650 mg PO TID 05/28/19 Ammonium Lactate Lotion [Lac-Hydrin 12% Lotion -] 1 applic TP ASDIR 05/28/19 Brimonidine Tartrate [Alphagan 0.2% -] 1 drop TID 05/28/19 Ciclopirox [Penlac] 3.3 ml TP BID 05/28/19 Docusate Sodium [Colace -] 100 mg PO DAILY 05/28/19 Ipratropium/Albuterol Sulfate [Iprat-Albut 0.5-3(2.5) mg/3 ml] 3 ml IH Q6H PRN 05/28/19 Omeprazole 20 mg PO DAILY 05/28/19 Polyethylene Glycol 3350 17 gm PO DAILY 05/28/19 Physical Examination Vital Signs: Vital Signs Temperature 97.6 F 05/28/19 18:13 Pulse Rate 59 L 05/28/19 16:45 Respiratory Rate 16 05/28/19 16:45 Blood Pressure 118/64 05/28/19 16:45 O2 Sat by Pulse Oximetry (%) 95 05/28/19 16:45 Constitutional: Yes: No Distress HENT: Yes: Atraumatic Neck: Yes: Supple Cardiovascular: Yes: Regular Rate and Rhythm Respiratory: Yes: CTA Bilaterally Gastrointestinal: Yes: Normal Bowel Sounds Extremities: Yes: WNL Edema: No Peripheral Pulses WNL: Yes Neurological: Yes: Alert Labs: CBC, BMP 05/28/19 13:40 05/28/19 13:01 Imaging - Results X-ray: Report Reviewed Cat Scan: Report Reviewed Problem List - Problems (1) HTN (hypertension) Assessment/Plan: monitor Code(s): I10 - ESSENTIAL (PRIMARY) HYPERTENSION (2) HLD (hyperlipidemia) Code(s): E78.5 - HYPERLIPIDEMIA, UNSPECIFIED (3) Afib Code(s): I48.91 - UNSPECIFIED ATRIAL FIBRILLATION (4) Syncope Assessment/Plan: tele monitoring fu cardiac enzymes cardiology consult Code(s): R55 - SYNCOPE AND COLLAPSE Qualifiers: Syncope type: unspecified Qualified Code(s): R55 - Syncope and collapse (5) CHF (congestive heart failure) Code(s): I50.9 - HEART FAILURE, UNSPECIFIED Assessment/Plan Laboratory Tests 05/28/19 05/28/19 05/28/19 13:01 13:38 13:40 WBC 5.6 RBC 4.53 Hgb 13.0 Hct 40.6 MCV 89.6 MCH 28.7 MCHC 32.1 RDW 19.2 H Plt Count 270 MPV 8.0 Absolute Neuts (auto) 4.5 Neutrophils % 80.3 Lymphocytes % 10.9 D Monocytes % 7.8 Eosinophils % 0.6 Basophils % 0.4 Nucleated RBC % 0 PT with INR INR PTT (Actin FS) VBG pH POC VBG pCO2 POC VBG pO2 VBG HCO3 VBG O2 Sat (Ailyn) VBG Base Excess Sodium 139 Potassium 3.5 Chloride 96 L Carbon Dioxide 36 H Anion Gap 6 L BUN 15.3 Creatinine 0.8 Est GFR (CKD-EPI)AfAm 76.83 Est GFR (CKD-EPI)NonAf 66.29 POC Glucometer 123 Random Glucose 107 H Calcium 8.7 Total Bilirubin 0.4 AST 23 ALT 15 Alkaline Phosphatase 69 Creatine Kinase 43 Troponin I < 0.02 B-Natriuretic Peptide 1617.3 H Total Protein 7.2 Albumin 2.8 L Blood Type Antibody Screen 05/28/19 05/28/19 05/28/19 13:40 13:40 13:40 WBC RBC Hgb Hct MCV MCH MCHC RDW Plt Count MPV Absolute Neuts (auto) Neutrophils % Lymphocytes % Monocytes % Eosinophils % Basophils % Nucleated RBC % PT with INR 13.00 INR 1.10 H PTT (Actin FS) 31.5 VBG pH 7.36 POC VBG pCO2 70.0 H POC VBG pO2 < 49 H VBG HCO3 38.8 H VBG O2 Sat (Ailyn) 26.1 L VBG Base Excess 10.6 H Sodium Potassium Chloride Carbon Dioxide Anion Gap BUN Creatinine Est GFR (CKD-EPI)AfAm Est GFR (CKD-EPI)NonAf POC Glucometer Random Glucose Calcium Total Bilirubin AST ALT Alkaline Phosphatase Creatine Kinase Troponin I B-Natriuretic Peptide Total Protein Albumin Blood Type O POSITIVE Antibody Screen Negative 05/28/19 18:23 WBC RBC Hgb Hct MCV MCH MCHC RDW Plt Count MPV Absolute Neuts (auto) Neutrophils % Lymphocytes % Monocytes % Eosinophils % Basophils % Nucleated RBC % PT with INR INR PTT (Actin FS) VBG pH POC VBG pCO2 POC VBG pO2 VBG HCO3 VBG O2 Sat (Ailyn) VBG Base Excess Sodium Potassium Chloride Carbon Dioxide Anion Gap BUN Creatinine Est GFR (CKD-EPI)AfAm Est GFR (CKD-EPI)NonAf POC Glucometer 112 Random Glucose Calcium Total Bilirubin AST ALT Alkaline Phosphatase Creatine Kinase Troponin I B-Natriuretic Peptide Total Protein Albumin Blood Type Antibody Screen Active Medications Generic Name Dose Route Start Last Admin Trade Name Freq PRN Reason Stop Dose Admin Brimonidine Tartrate 1 drop 05/28/19 22:00 Alphagan 0.2% - OU TID ALEKSANDAR Docusate Sodium 100 mg 05/29/19 10:00 Colace - PO DAILY ALEKSANDAR Hydrochlorothiazide 25 mg 05/29/19 10:00 Hctz - PO DAILY ALEKSANDAR Non-Formulary Medication 3.3 ml 05/28/19 22:00 Ciclopirox [Penlac] TP BID ALEKSANDAR
[2019-05-28] MEDS ORDERED: ACETAMINOPHEN 325 MG TABLET (FP) PO PRN (19:58)
[2019-05-28] MEDS ORDERED: CICLOPIROX TP SCH (22:00)
[2019-05-29] MEDS: BRIMONIDINE TARTRATE 0.2% OPHTHALMIC 5 ML BOTTLE OU SCH ×4 (00:16→21:22)
[2019-05-29 05:10] LABS: EPI CELLS 5.7 /HPF (0-5/HPF); HYALINE CASTS 24 /lpf (0-8); URINE APPEARANCE CLOUDY; URINE BACTERIA 38.9 /hpf (NEGATIVE); URINE BILIRUBIN NEGATIVE (NEGATIVE); URINE COLOR YELLOW; URINE GLUCOSE (UA) NEGATIVE (NEGATIVE); URINE KETONE NEGATIVE (NEGATIVE); URINE LEUK ESTERASE TRACE (NEGATIVE); URINE NITRITE NEGATIVE (NEGATIVE); URINE PROTEIN NEGATIVE (NEGATIVE); URINE RBC 7 /hpf (0-4); URINE UROBILINOGEN 0.2 mg/dL (0.2-1.0); URINE WBC 13 /hpf (0-5)
[2019-05-29 06:43] LABS: URINE CRYSTALS NONE SEEN /hpf
[2019-05-29] MEDS ORDERED: SODIUM CHLORIDE 0.9% 500 ML INFUS.BAG IV ONE (09:30)
[2019-05-29] MEDS: DOCUSATE SODIUM 100 MG CAPSULE (FP) PO SCH (09:36)
[2019-05-29] MEDS ORDERED: HYDROCHLOROTHIAZIDE 25 MG TABLET (FP) PO SCH (10:00)
--- NOTE | 2019-05-29 13:09 | CON.CARD ---
Consult Consult Specialty:: Cardiology for Dr. Tomlinson Referred by:: Hetal Laguerre MD Reason for Consultation:: Syncope - History of Present Illness Chief Complaint: Syncope History of Present Illness: 89-year-old female history of AF sss s/p Bao Sci pacemaker, glaucoma, alzheimer' s, anemia, HTN, prior DVT p/w syncope at [facility] today. She does not recall the incident, but reports being told that she passed out today, cannot describe prodromal sxs. [facility] jail at approx 1045 she was found in bed unable to be roused. Shortly after she awoke and was cold and clammy, at which point she was transferred for ED evaluation. She has had similar episodes in the past, and she was initially admitted to [facility] after a syncopal episode. She was recently diagnosed with bronchitis, treated with ceftriaxone (completed course on 05/17/19), and received tamiflu prophylaxis at that time as well. No recent fevers or episodes of confusion. She is alert and conversant at baseline. She denies any chest pain, sob, nausea, vomiting, weakness at this time. BP 76/50 earlier this AM amenable to IVF resuscitation. 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 Cardio/Vascular: Yes: AFIB, HTN Gastrointestinal: Yes: GI Bleed - Alcohol/Substance Use Hx Alcohol Use: No - Smoking History Smoking history: Never smoked Have you smoked in the past 12 months: No Home Medications - Allergies Allergies/Adverse Reactions: Allergies Allergy/AdvReac Type Severity Reaction Status Date / Time No Known Allergies Allergy Verified 05/28/19 12:43 - Home Medications Home Medications: Ambulatory Orders Hydrochlorothiazide [Hctz -] 25 mg PO DAILY #30 tablet 04/13/19 Acetaminophen 650 mg PO TID 05/28/19 Ammonium Lactate Lotion [Lac-Hydrin 12% Lotion -] 1 applic TP ASDIR 05/28/19 Brimonidine Tartrate [Alphagan 0.2% -] 1 drop TID 05/28/19 Ciclopirox [Penlac] 3.3 ml TP BID 05/28/19 Docusate Sodium [Colace -] 100 mg PO DAILY 05/28/19 Ipratropium/Albuterol Sulfate [Iprat-Albut 0.5-3(2.5) mg/3 ml] 3 ml IH Q6H PRN 05/28/19 Omeprazole 20 mg PO DAILY 05/28/19 Polyethylene Glycol 3350 17 gm PO DAILY 05/28/19 Review of Systems - Review of Systems Constitutional: reports: Diaphoresis Neurological: reports: Syncope Vital Signs: Vital Signs Temperature 97.8 F 05/29/19 09:00 Pulse Rate 64 05/29/19 12:37 Respiratory Rate 18 05/29/19 12:37 Blood Pressure 125/72 05/29/19 12:37 O2 Sat by Pulse Oximetry (%) 94 L 05/29/19 09:00 Constitutional: Yes: No Distress, Calm, Thin Neck: Yes: Supple Respiratory: Yes: Regular, CTA Bilaterally Gastrointestinal: Yes: Normal Bowel Sounds, Soft Cardiovascular: Yes: Regular Rate and Rhythm JVD: No Carotid Bruit: No Heart Sounds: Yes: S1, S2 Murmur: Yes: Systolic Murmur, Grade 1 Edema: No - Other Data Labs, Other Data: CBC, BMP 05/28/19 13:40 05/28/19 13:01 INR, PTT INR 1.10 (0.83-1.09) H 05/28/19 13:40 Troponin, BNP 05/28/19 05/28/19 13:01 22:55 Troponin I < 0.02 < 0.02 B-Natriuretic Peptide 1617.3 H Troponin, BNP 05/28/19 05/28/19 13:01 22:55 Troponin I < 0.02 < 0.02 B-Natriuretic Peptide 1617.3 H A-V paced @ 60 Tele: No sig tachycardia Ejection Fraction %: LVEF > or = 40 % Imaging - Results Chest X-ray: Report Reviewed (Left base ATX) Ultrasound: Report Reviewed (04/08/2019 Carotid US: Moderate atherosclerosis w/ o sig stenosis) Problem List - Problems (1) Systolic dysfunction without heart failure Code(s): I51.89 - OTHER ILL-DEFINED HEART DISEASES (2) Afib Code(s): I48.91 - UNSPECIFIED ATRIAL FIBRILLATION Qualifiers: Atrial fibrillation type: longstanding persistent Qualified Code(s): I48.11 - Longstanding persistent atrial fibrillation (3) HLD (hyperlipidemia) Code(s): E78.5 - HYPERLIPIDEMIA, UNSPECIFIED Qualifiers: Hyperlipidemia type: pure hypercholesterolemia Qualified Code(s): E78.00 - Pure hypercholesterolemia, unspecified; E78.0 - Pure hypercholesterolemia (4) Syncope Code(s): R55 - SYNCOPE AND COLLAPSE Qualifiers: Syncope type: vasovagal syncope Qualified Code(s): R55 - Syncope and collapse (5) Labile hypertension Code(s): R09.89 - OTH SYMPTOMS AND SIGNS INVOLVING THE CIRC AND RESP SYSTEMS (6) Status post placement of cardiac pacemaker Code(s): Z95.0 - PRESENCE OF CARDIAC PACEMAKER Assessment/Plan 04/08/2019 Echo: Mod cLVH with mild-mod decreased LVEF 40-45%, RV pacer, normal RV size and fxn, mild MR, TR, RVSP 30-40 mmHg 04/08/2019 Carotid US: Moderate atherosclerosis w/o sig stenosis 1. Syncope suspect vasodepressor etiology 2. LV systolic dysfunction w/ h/o failure 3. Atrial fibrillation, sick sinus syndrome status post Bao Sci permanent pacemaker not on a/c due to 4. History of multiple GI bleed 5. H/o DVT 6. Alzheimer's dementia 7. HTN P:1. Check orthostatic VS 2. Resume Toprol XL 25 qd and lisinopril 2.5 qd with caution once hemodynamics stabilize, d/c HCTZ 25 qd 3. Interrogate PPM 4. She f/u Ericka Medeiros as outpatient 5. Thank you for consultative opportunity
--- NOTE | 2019-05-29 22:15 | PN ---
Progress Note, Physician History of Present Illness: No new complaints - Current Medication List Current Medications: Active Medications Acetaminophen (Tylenol -) 650 mg PO Q6H PRN PRN Reason: FEVER Brimonidine Tartrate (Alphagan 0.2% -) 1 drop OU TID [facility] Last Admin: 05/29/19 21:22 Dose: 1 drop Docusate Sodium (Colace -) 100 mg PO DAILY [facility] Last Admin: 05/29/19 09:36 Dose: Not Given Metoprolol Succinate (Toprol Xl -) 25 mg PO DAILY [facility] Non-Formulary Medication (Ciclopirox [Penlac]) 3.3 ml TP BID [facility] - Objective Vital Signs: Vital Signs Temperature 97.7 F 05/29/19 18:00 Pulse Rate 61 05/29/19 18:00 Respiratory Rate 20 05/29/19 18:00 Blood Pressure 97/56 L 05/29/19 18:00 O2 Sat by Pulse Oximetry (%) 94 L 05/29/19 09:00 Cardiovascular: Yes: Pulse Irregular Respiratory: Yes: WNL, Regular, CTA Bilaterally Gastrointestinal: Yes: WNL, Normal Bowel Sounds, Soft Labs: CBC, BMP 05/28/19 13:40 05/28/19 13:01 INR, PTT INR 1.10 (0.83-1.09) H 05/28/19 13:40 Problem List - Problems (1) Syncope Assessment/Plan: ?Vasovagal Cont to m onitor As per cardio Code(s): R55 - SYNCOPE AND COLLAPSE Qualifiers: Syncope type: vasovagal syncope Qualified Code(s): R55 - Syncope and collapse (2) Afib Assessment/Plan: Not on AC due to GI bleed Code(s): I48.91 - UNSPECIFIED ATRIAL FIBRILLATION Qualifiers: Atrial fibrillation type: longstanding persistent Qualified Code(s): I48.11 - Longstanding persistent atrial fibrillation (3) HTN (hypertension) Assessment/Plan: Cont metoprolol BP stable Code(s): I10 - ESSENTIAL (PRIMARY) HYPERTENSION Qualifiers: Hypertension type: essential hypertension Qualified Code(s): I10 - Essential (primary) hypertension (4) HLD (hyperlipidemia) Code(s): E78.5 - HYPERLIPIDEMIA, UNSPECIFIED Qualifiers: Hyperlipidemia type: pure hypercholesterolemia Qualified Code(s): E78.00 - Pure hypercholesterolemia, unspecified; E78.0 - Pure hypercholesterolemia (5) Systolic dysfunction without heart failure Code(s): I51.89 - OTHER ILL-DEFINED HEART DISEASES (6) Status post placement of cardiac pacemaker Code(s): Z95.0 - PRESENCE OF CARDIAC PACEMAKER (7) Dementia Code(s): F03.90 - UNSPECIFIED DEMENTIA WITHOUT BEHAVIORAL DISTURBANCE
[2019-05-30] MEDS: BRIMONIDINE TARTRATE 0.2% OPHTHALMIC 5 ML BOTTLE OU SCH ×3 (05:55→22:16)
--- NOTE | 2019-05-30 08:40 | PN ---
Progress Note, Physician History of Present Illness: 89-year-old female history of AF sss s/p Bao Sci pacemaker, glaucoma, alzheimer' s, anemia, HTN, prior DVT p/w syncope at [facility] today. She does not recall the incident, but reports being told that she passed out today, cannot describe prodromal sxs. Per longterm at approx 1045 she was found in bed unable to be roused. Shortly after she awoke and was cold and clammy, at which point she was transferred for ED evaluation. She has had similar episodes in the past, and she was initially admitted to [facility] after a syncopal episode. She was recently diagnosed with bronchitis, treated with ceftriaxone (completed course on 05/17/19), and received tamiflu prophylaxis at that time as well. No recent fevers or episodes of confusion. She is alert and conversant at baseline. She denies any chest pain, sob, nausea, vomiting, weakness at this time. BP 76/50 earlier this AM amenable to IVF resuscitation. - Current Medication List Current Medications: Active Medications Acetaminophen (Tylenol -) 650 mg PO Q6H PRN PRN Reason: FEVER Brimonidine Tartrate (Alphagan 0.2% -) 1 drop OU TID [facility] Last Admin: 05/30/19 05:55 Dose: 1 drop Docusate Sodium (Colace -) 100 mg PO DAILY [facility] Last Admin: 05/29/19 09:36 Dose: Not Given Metoprolol Succinate (Toprol Xl -) 25 mg PO DAILY [facility] Non-Formulary Medication (Ciclopirox [Penlac]) 3.3 ml TP BID [facility] - Objective Vital Signs: Vital Signs Temperature 98.2 F 05/30/19 06:00 Pulse Rate 64 05/30/19 06:00 Respiratory Rate 18 05/30/19 06:00 Blood Pressure 149/82 05/30/19 06:00 O2 Sat by Pulse Oximetry (%) 94 L 05/29/19 21:00 Eyes: Yes: WNL, Conjunctiva Clear, EOM Intact HENT: Yes: WNL, Atraumatic, Normocephalic Neck: Yes: WNL, Supple, Trachea Midline Cardiovascular: Yes: WNL, Regular Rate and Rhythm Respiratory: Yes: WNL, Regular, CTA Bilaterally Gastrointestinal: Yes: WNL, Normal Bowel Sounds Genitourinary: Yes: WNL Musculoskeletal: Yes: WNL Extremities: Yes: WNL Edema: No Integumentary: Yes: WNL ...Motor Strength: WNL Psychiatric: Yes: WNL Labs: CBC, BMP 05/28/19 13:40 05/28/19 13:01 INR, PTT INR 1.10 (0.83-1.09) H 05/28/19 13:40 Assessment/Plan 04/08/2019 Echo: Mod cLVH with mild-mod decreased LVEF 40-45%, RV pacer, normal RV size and fxn, mild MR, TR, RVSP 30-40 mmHg 04/08/2019 Carotid US: Moderate atherosclerosis w/o sig stenosis 1. Syncope suspect vasodepressor etiology 2. LV systolic dysfunction w/ h/o failure 3. Atrial fibrillation, sick sinus syndrome status post Bao Sci permanent pacemaker not on a/c due to 4. History of multiple GI bleed 5. H/o DVT 6. Alzheimer's dementia 7. HTN P:1. Check orthostatic VS 2. Hold BP meds 3. Interrogate PPM 4. She f/u Ericka Medeiros as outpatient 5. Thank you for consultative opportunity
[2019-05-30] MEDS: DOCUSATE SODIUM 100 MG CAPSULE (FP) PO SCH (09:04)
[2019-05-30] MEDS ORDERED: metoPROLOL SUCCINATE 25 MG TAB.SR.24H (FP) PO SCH (10:00)
--- NOTE | 2019-05-30 19:19 | PN ---
Progress Note, Physician History of Present Illness: stable - Current Medication List Current Medications: Active Medications Acetaminophen (Tylenol -) 650 mg PO Q6H PRN PRN Reason: FEVER Brimonidine Tartrate (Alphagan 0.2% -) 1 drop OU TID [facility] Last Admin: 05/30/19 15:18 Dose: 1 drop Docusate Sodium (Colace -) 100 mg PO DAILY [facility] Last Admin: 05/30/19 09:04 Dose: Not Given Non-Formulary Medication (Ciclopirox [Penlac]) 3.3 ml TP BID [facility] - Objective Vital Signs: Vital Signs Temperature 97.7 F 05/30/19 18:00 Pulse Rate 60 05/30/19 18:00 Respiratory Rate 17 05/30/19 18:00 Blood Pressure 122/69 05/30/19 18:00 O2 Sat by Pulse Oximetry (%) 96 05/30/19 10:00 Constitutional: Yes: No Distress HENT: Yes: Atraumatic Neck: Yes: Supple Cardiovascular: Yes: Regular Rate and Rhythm Respiratory: Yes: CTA Bilaterally Gastrointestinal: Yes: Normal Bowel Sounds Extremities: Yes: WNL Neurological: Yes: Alert, Oriented Labs: CBC, BMP 05/28/19 13:40 05/28/19 13:01 INR, PTT INR 1.10 (0.83-1.09) H 05/28/19 13:40 Problem List - Problems (1) HTN (hypertension) Code(s): I10 - ESSENTIAL (PRIMARY) HYPERTENSION Qualifiers: Hypertension type: essential hypertension Qualified Code(s): I10 - Essential (primary) hypertension (2) HLD (hyperlipidemia) Code(s): E78.5 - HYPERLIPIDEMIA, UNSPECIFIED Qualifiers: Hyperlipidemia type: pure hypercholesterolemia Qualified Code(s): E78.00 - Pure hypercholesterolemia, unspecified; E78.0 - Pure hypercholesterolemia (3) Afib Code(s): I48.91 - UNSPECIFIED ATRIAL FIBRILLATION Qualifiers: Atrial fibrillation type: longstanding persistent Qualified Code(s): I48.11 - Longstanding persistent atrial fibrillation (4) Syncope Code(s): R55 - SYNCOPE AND COLLAPSE Qualifiers: Syncope type: vasovagal syncope Qualified Code(s): R55 - Syncope and collapse (5) CHF (congestive heart failure) Code(s): I50.9 - HEART FAILURE, UNSPECIFIED Assessment/Plan 1. Syncope suspect vasodepressor etiology 2. LV systolic dysfunction w/ h/o failure 3. Atrial fibrillation, sick sinus syndrome status post Bao Sci permanent pacemaker not on a/c due to 4. History of multiple GI bleed 5. H/o DVT 6. Alzheimer's dementia 7. HTN DC IN AM IF STABLE TO SNF
[2019-05-31] MEDS: BRIMONIDINE TARTRATE 0.2% OPHTHALMIC 5 ML BOTTLE OU SCH ×2 (06:04→14:11)
[2019-05-31] MEDS: DOCUSATE SODIUM 100 MG CAPSULE (FP) PO SCH (11:43)
--- NOTE | 2019-05-31 11:43 | PN ---
Progress Note, Physician Chief Complaint: pt denies chest pain or dyspnea; sitting OOB in chair. Anxious; prefers to stay in hospital [facility]ter than go to [facility]. History of Present Illness: Ms. Villanueva is an 88 y/o woman (b. [place]; came to this country [place] 19), w/ hx anemia, afib (no AC due to severe GI bleeds), "alzheimers", systolic CHF,, AICD, HTN, prior DVTs p/w syncope at [facility] today. She does not recall the incident, but reports being told that she passed out today. [facility] prison at approx 1045 she was found in bed unable to be roused. Shortly after she awoke and was cold and clammy, at which point she was transferred for ED evaluation. She has had similar episodes in the past, and she was initially admitted to [facility] after a syncopal episode. She was recently diagnosed with bronchitis, treated with ceftriaxone (completed course on 05/17/19), and received tamiflu prophylaxis at that time as well. No recent fevers or episodes of confusion. She is alert and conversant at baseline. She denies any chest pain , sob, nausea, vomiting, weakness at this time. - Current Medication List Current Medications: Active Medications Acetaminophen (Tylenol -) 650 mg PO Q6H PRN PRN Reason: FEVER Brimonidine Tartrate (Alphagan 0.2% -) 1 drop OU TID [facility] Last Admin: 05/31/19 06:04 Dose: 1 drop Docusate Sodium (Colace -) 100 mg PO DAILY [facility] Last Admin: 05/30/19 09:04 Dose: Not Given Non-Formulary Medication (Ciclopirox [Penlac]) 3.3 ml TP BID [facility] - Objective Vital Signs: Vital Signs Temperature 97.5 F L 05/31/19 06:00 Pulse Rate 60 05/31/19 06:00 Respiratory Rate 18 05/31/19 06:00 Blood Pressure 133/76 05/31/19 06:00 O2 Sat by Pulse Oximetry (%) 96 05/30/19 21:00 Constitutional: Yes: Anxious, Thin Eyes: Yes: WNL HENT: Yes: WNL Cardiovascular: Yes: S1, S2 (split) Respiratory: Yes: Regular Gastrointestinal: Yes: Soft ...Rectal Exam: Yes: Deferred Genitourinary: No: Anuria Breast(s): Yes: WNL Musculoskeletal: Yes: Muscle Weakness Extremities: Yes: WNL Edema: No Peripheral Pulses WNL: Yes Integumentary: Yes: WNL Neurological: Yes: Alert, Oriented, Weakness Psychiatric: Yes: Alert, Oriented, Other (anxety) Labs: CBC, BMP 05/28/19 13:40 05/28/19 13:01 INR, PTT INR 1.10 (0.83-1.09) H 05/28/19 13:40 - ....Imaging EKG: Image Reviewed (atrial pacing; LBBB) Problem List - Problems (1) Systolic CHF Assessment/Plan: mild-moderawte decreaseed LVEF (40-45%). TNI < 0.02 x 2. EKG: Atrial pacing. Problematic starting beta blockers (periods of bradycardia). COnsider careful introducition of ACEI; f/u BP. Is and Os; daily weight; electrolytes; BUN/Cr. Code(s): I50.20 - UNSPECIFIED SYSTOLIC (CONGESTIVE) HEART FAILURE (2) Pacemaker Assessment/Plan: dual chamberf Code(s): Z95.0 - PRESENCE OF CARDIAC PACEMAKER (3) Afib Code(s): I48.91 - UNSPECIFIED ATRIAL FIBRILLATION Qualifiers: Atrial fibrillation type: longstanding persistent Qualified Code(s): I48.11 - Longstanding persistent atrial fibrillation (4) HLD (hyperlipidemia) Code(s): E78.5 - HYPERLIPIDEMIA, UNSPECIFIED Qualifiers: Hyperlipidemia type: pure hypercholesterolemia Qualified Code(s): E78.00 - Pure hypercholesterolemia, unspecified; E78.0 - Pure hypercholesterolemia (5) HTN (hypertension) Assessment/Plan: on no medications for HTN Code(s): I10 - ESSENTIAL (PRIMARY) HYPERTENSION Qualifiers: Hypertension type: essential hypertension Qualified Code(s): I10 - Essential (primary) hypertension (6) Syncope Assessment/Plan: Carotid artery US: no significant disease/stenoses Mainatin hydration. Orthostatic VS Code(s): R55 - SYNCOPE AND COLLAPSE Qualifiers: Syncope type: vasovagal syncope Qualified Code(s): R55 - Syncope and collapse
[2019-05-31 14:21] VITALS: BP 130/80; PULSE 73; TEMP 98.1
--- NOTE | 2019-05-31 18:37 | DS ---
Physical Examination Vital Signs: Vital Signs Temperature 98.1 F 05/31/19 14:00 Pulse Rate 73 05/31/19 14:00 Respiratory Rate 18 05/31/19 14:00 Blood Pressure 130/80 05/31/19 14:00 O2 Sat by Pulse Oximetry (%) 96 05/30/19 21:00 Constitutional: Yes: No Distress HENT: Yes: Atraumatic Neck: Yes: Supple Cardiovascular: Yes: Regular Rate and Rhythm Respiratory: Yes: CTA Bilaterally Gastrointestinal: Yes: Normal Bowel Sounds Extremities: Yes: WNL Edema: No Neurological: Yes: Alert, Oriented Labs: CBC, BMP 05/28/19 13:40 05/28/19 13:01 Discharge Summary Problems reviewed: Yes Reason For Visit: SYNCOPE & COLLAPSE Condition: Stable - Instructions Referrals: Roshan Sanchez MD [Primary Care Provider] - Disposition: [facility] - Home Medications Comprehensive Discharge Medication List: Ambulatory Orders Hydrochlorothiazide [Hctz -] 25 mg PO DAILY #30 tablet 04/13/19 Acetaminophen 650 mg PO TID 05/28/19 Ammonium Lactate Lotion [Lac-Hydrin 12] 1 applic TP ASDIR 05/28/19 Brimonidine Tartrate [Alphagan 0.2% -] 1 drop TID 05/28/19 Ciclopirox [Penlac] 3.3 ml TP BID 05/28/19 Docusate Sodium [Colace -] 100 mg PO DAILY 05/28/19 Ipratropium/Albuterol Sulfate [Iprat-Albut 0.5-3(2.5) mg/3 ml] 3 ml IH Q6H PRN 05/28/19 Omeprazole 20 mg PO DAILY 05/28/19 Polyethylene Glycol 3350 17 gm PO DAILY 05/28/19 dc snf
== END 2019-05-31 16:12 | DRG 312 ==
LOC: JER 11:48 → JERBED 13:11 → J4S 22:03
PROVIDERS: ADMIT Internal Medicine; ATTEND Internal Medicine
DX: R55 Syncope and collapse (principal); I48.11 Longstanding persistent atrial fibrillation; I50.22 Chronic systolic (congestive) heart failure; D64.9 Anemia, unspecified; Z86.718 Personal history of other venous thrombosis and embolism; G30.9 Alzheimer's disease, unspecified; F02.80 Dementia in other diseases classified elsewhere, unspecified severity, without behavioral disturbance, psychotic disturbance, mood disturbance, and anxiety; I11.0 Hypertensive heart disease with heart failure; H40.9 Unspecified glaucoma; I49.5 Sick sinus syndrome; Z95.0 Presence of cardiac pacemaker; I44.7 Left bundle-branch block, unspecified
CPT/HCPCS: 36415; 70450-TC; 71045-TC-FY; 72125-TC; 80053; 81003; 82550; 82803; 82962; 83880; 84484; 85025; 85610; 85730; 86850; 86900; 86901; 87086; 93005; 93010; 93880-TC; 99285-25

== ENCOUNTER 2019-09-20 13:14 | Inpatient (IN) | payer OTHER ==
--- NOTE | 2019-09-20 13:40 | PDOC ---
History of Present Illness - General Stated Complaint: DIFFICULTY BREATHING Time Seen by Provider: 09/20/19 13:37 Past History - Medical History Allergies/Adverse Reactions: Allergies Allergy/AdvReac Type Severity Reaction Status Date / Time No Known Allergies Allergy Verified 09/20/19 14:46 Home Medications: Ambulatory Orders Hydrochlorothiazide [Hctz -] 25 mg PO DAILY #30 tablet 04/13/19 Brimonidine Tartrate [Alphagan 0.2% -] 1 drop TID 05/28/19 Docusate Sodium [Colace -] 100 mg PO DAILY 05/28/19 Omeprazole 20 mg PO DAILY 05/28/19 Acetaminophen [Tylenol .Regular Strength -] 650 mg PO Q4H PRN #100 tablet 08/18/19 Polyethylene Glycol 3350 17 gm PO AM 09/20/19 Anemia: Yes Cardiac Disorders: Yes (Pacemaker, Afib) CVA: No COPD: No GI Disorders: Yes (GI Bleed) HTN: Yes Hypercholesterolemia: Yes - Surgical History Cardiac Surgery: Yes (pacemaker) Orthopedic Surgery: Yes (IM nailing of L femur) - Immunization History Immunization Up to Date: Yes - Psycho-Social/Smoking History Smoking History: Unknown if ever smoked Have you smoked in the past 12 months: No ED Treatment Course - LABORATORY CBC & Chemistry Diagram: 09/20/19 14:00 09/20/19 14:00 Medical Decision Making - Medical Decision Making 09/20/19 13:37 HPI: 89yo F hx CHF, Parkinson's/Alzheimer's, HTN, pacemaker, R humerus fx (in sling), R hip and sacral wound BIBA from [facility] for hypoxia. Per EMS, called for unresponsiveness and hypoxia, last seen prior 15-20minutes before call. EMS arrived to find pt responsive, diaphoretic, at baseline mental status A&Ox2, hypoxic 60s on NRB 15, 180/80, diffuse rales b/l, nitro 0.4 SL given but spit up but still dropped BP to 120s/80s, placed on CPAP 80s%. Pt only c/o "too much wind". Full code PCP Annabi ROS: Constitutional: Positive for diaphoresis. Negative for chills, fever, fatigue. HENT: Negative for sore throat, rhinorrhea, congestion. Eyes: Negative for visual disturbance. Respiratory: Positive for hypoxia, tachypnea. Negative for shortness of breath, cough, and wheezing. Cardiovascular: Negative for chest pain, palpitations, and leg swelling. Gastrointestinal: Negative for abdominal pain, blood in stool, constipation, diarrhea, nausea, and vomiting. Genitourinary: Negative for dysuria, flank pain, and hematuria. Musculoskeletal: Positive for RUE sling due to fx. Negative for myalgias, back pain, and neck pain. Skin: Negative for rash. Neurological: Negative for light-headedness, dizziness, vertigo, syncope, weakness, numbness and headaches. Psychiatric/Behavioral: Negative for behavioral problems and confusion. PE: Gen: Alert, NAD, comfortable-appearing, frail HEENT: PERRL, EOMI, MMM, NCAT. No conjunctival pallor. Sclera are non-icteric. Oropharynx is clear. CV: Regular rate and rhythm. No murmurs, rubs, or gallops. PULM: No resp distress. CTAB, no wheezes, rales, or rhonchi. ABD: soft, NT/ND, no rebound tenderness or guarding, no CVA tenderness. BACK: No TTP of c/t/l-spine. No step-offs or deformities. MSK: Ecchymoses to RUE (old fx) with sling in place. Sutures to R hip. 2+ pulses in all extremities. NEURO: AAOx2 (name and place). PERRL. CN 2-12 intact. 5/5 strength in all extremities. Sensation to light touch intact in all extremities. No abnormal nystagmus. EXTREMITIES: No cyanosis. No clubbing. No edema. No calf tenderness. PSYCH: Normal mood and thought pattern. SKIN: Warm and dry. Normal capillary refill. No rashes. No jaundice. MDM: 89yo F hx CHF, Parkinson's/Alzheimer's, HTN, pacemaker, R humerus fx (in sling), R hip and sacral wound BIBA from [facility] for hypoxia. In ED on cpap O2 sat 80%, put on bipap up to 94-100%, tachypneic 20s, otherwise hemodynamically stable, afebrile, alert, NAD. Ddx: CHF exacerbation/acute pulmonary edema, ACS/NE, arrhythmia, covid, PNA, infection, metabolic derangement, anemia -EKG -CXR -CBC,CMP,Mg,Phos,Cardiac profile, LDH, VBG, Ferritin, CRP, BNP -POCUS -Lasix 20 -Dispo: pending workup and reassessment, admit EKG reviewed: paced, sinus rhythm with marked sinus arrhythmia with short WY with occasional PVCs, WY interval 102ms, LAD, QTc 525ms, LBBB, no e/o acute ischemia 09/20/19 14:34 POCUS lungs and echo showed B lines and globally reduced function and poor EF 09/20/19 15:21 ICU consulted. Recommend tele admission. BIPAP reduced to 10/40 and pt still satting at 100%. Labs reviewed. Notable for BNP 1500, K 3.1, Na 129, VBg pCO2 65 and bicarb 32 CXR reviewed: no acute pathology. L-sided dual-chamber pacemaker present. Surgical suture line within R lung apex. Admit to [facility]. 09/20/19 15:55 Spoke with [employer]ING [employer]CTOR covering for Annabi - will admit under hospitalist until negative covid. Admitted and signed out to Dr Hewitt. Pt O2 sat 100% on NC 6L, no complaints, denies pain or SOB. Discharge - Discharge Information Problems reviewed: Yes Clinical Impression/Diagnosis: Acute pulmonary edema Condition: Stable - Admission Yes - Follow up/Referral Referrals: Mey Caldwell MD [Primary Care Provider] - - Patient Discharge Instructions - Post Discharge Activity
--- NOTE | 2019-09-20 14:11 | PDOC ---
Documentation entered by Tarah Casanova SCRIBE, acting as scribe for Evy Graff MD. Evy Graff MD: This documentation has been prepared by the wendiibEdilberto shah Lincy, SCRIBE, under my direction and personally reviewed by me in its entirety. I confirm that the documentation accurately reflects all work, treatment, procedures, and medical decision making performed by me. Attending Attestation - Resident Resident Name: Hetal Garcia - ED Attending Attestation I have performed the following: I have examined & evaluated the patient, The case was reviewed & discussed with the resident, I agree w/resident's findings & plan, Exceptions are as noted - HPI HPI: 09/20/19 13:48 The patient is an 89-year-old female with a past medical history significant for Afib, AICD, HTN, hx of DVTs, anemia, right shoulder fracture (wearing a sling), right hip and sacral wound and Alzheimer's who presents to the emergency department via EMS from [facility] for respiratory distress. Per EMS, the patient was found unresponsive by ID staff and regained consciousness after suctioning and oxygenation. EMS reports the patient was saturating at 60% on nonrebreather, with a blood pressure of 180/80. The patient was given .4 of nitroglycerin with blood pressure improvement to 150/70. The patient was placed on a c-pap by EMS, with arrival oxygen saturation at 60-70%. - Physicial Exam PE: 09/20/19 14:00 General: mild respiratory distress HEENT: NCAT Chest: diffuse crackles bilaterally, tachypnic, speaking in short sentences CVS: + s1 s2 Extremities: no LE edema - Critical Care Time Total Critical Care Time: 30 Critical Care Statement: The care of this patient involved high complexity decision making to prevent further life threatening deterioration of the patient's condition and/or to evaluate & treat vital organ system(s) failure or risk of failure. - Medical Decision Making 09/20/19 14:04 89 yo F with respiratory distress, crackles on exam, concerning for CHF exacerbation. O2 sat improved on bipap to 94%. EKG paced and unchanged from prior, lower suspicion for ACS. Will also r/o PNA. Plan: -labs -cxr -bipap -lasix -critical care consult -admit This clinical encounter is taking place during a federal and state health care emergency attributable to the novel [place] Virus pandemic. The Physician Assistant Psychiatry of the Department of Health and Human Services has declared, pursuant to the Public Health Service Act 319F-3 (42 U.S.C. 247d-6d), that a covered persons activities related to medical countermeasures against COVID-19 will be immune from liability under Federal and State law. Pt. signed out to incoming night team. Discharge - Discharge Information Problems reviewed: Yes Clinical Impression/Diagnosis: Acute pulmonary edema Condition: Stable - Follow up/Referral - Patient Discharge Instructions - Post Discharge Activity
[2019-09-20 14:20] LABS: BASO % 0.4 % (0-2.0); EOS % 0.7 % (0-4.5); HEMATOCRIT 45.8 % (32.4-45.2); HEMOGLOBIN 14.9 GM/dL (10.7-15.3); LYMPH % 15.1 % (8-40); MCHC 32.4 g/dl (32.0-36.0); MEAN CELL VOLUME 92.5 fl (80-96); MEAN PLT VOLUME 6.8 fl (7.5-11.1); NEUT % 77.8 % (42.8-82.8); PLATELET COUNT 263 K/MM3 (134-434); RBC 4.95 M/mm3 (3.60-5.2); RDW 15.9 % (11.6-15.6); WHITE BLOOD COUNT 7.1 K/mm3 (4.0-10.0)
[2019-09-20 14:24] LABS: VENOUS BASE EXCESS 3.9 mmol/L (-2-2); VENOUS PCO2 65.2 mmHg (38-52); VENOUS PH 7.314 (7.310-7.410)
[2019-09-20 14:27] LABS: INR 0.97 (0.83-1.09); PROTHROMBIN TIME (PATIENT) 11.5 SEC (9.7-13.0)
[2019-09-20 14:29] LABS: ACTIVATED PTT 27.6 SECONDS (25.2-36.5)
[2019-09-20 14:51] LABS: ALBUMIN 3.1 g/dl (3.4-5.0); ALK PHOS 182 U/L (45-117); ANION GAP 9 MMOL/L (8-16); BILIRUBIN,TOTAL 0.5 mg/dL (0.2-1); BLOOD UREA NITROGEN 15.4 mg/dL (7-18); CALCIUM 8.8 mg/dL (8.5-10.1); CHLORIDE 88 mmol/L (98-107); CO2 32 mmol/L (21-32); CREATININE 0.7 mg/dL (0.55-1.3); GLUCOSE,RANDOM 112 mg/dL (74-106); LDH 292 U/L (84-246); MAGNESIUM 1.9 mg/dL (1.8-2.4); N-TERMINAL BNP 1532.5 pg/ml (5-450); PHOSPHOROUS 3.6 mg/dL (2.5-4.9); POTASSIUM 3.1 mmol/L (3.5-5.1); SGOT/AST 21 U/L (15-37); SGPT/ALT 12 U/L (13-61); SODIUM 129 mmol/L (136-145); TOT PROT 7.2 g/dl (6.4-8.2)
--- NOTE | 2019-09-20 15:37 | CONSULT ---
Consultation: REQUESTING PROVIDER: Dr. Thompson CONSULT REQUEST: We have been asked to medically evaluate this patient for hypoxia, airway observation. HISTORY OF PRESENT ILLNESS: The patient is an 89yo F w/ PMH CHF, Parkinson's/Alzheimer's, HTN, pacemaker, R humerus fx (in sling) [facility]IB[facility]. Per EMS, called for unresponsiveness and hypoxia, last seen prior 15-20minutes before call. On arrival, patient was responsive and at baseline mental status (A&Ox2). She was noted to be hypoxic to the 60's on cpap in the field. On arrival to the ED, the patient was noted to have rales b/l. She was given nitro .4 subligual and was placed on NIPPV 12/, 100%FiO2. Saturations improved after the above treatment. ICU was consulted as respiratory status was very unstable on arrival. REVIEW OF SYSTEMS: Negative except for HPI PHYSICAL EXAMINATION Vital Signs - 24 hr 09/20/19 09/20/19 09/20/19 13:15 13:38 13:41 Temperature 97.6 F Pulse Rate 62 Pulse Rate [ Right] Respiratory 22 H Rate Blood Pressure 127/80 Blood Pressure 127/80 [Left] O2 Sat by Pulse 99 89 L 100 Oximetry (%) 09/20/19 14:42 Temperature Pulse Rate Pulse Rate [ 68 Right] Respiratory 22 H Rate Blood Pressure Blood Pressure 129/94 [Left] O2 Sat by Pulse 100 Oximetry (%) GENERAL: Awake, alert, and fully oriented, in no acute distress. Patient is thin and frail looking. HEAD: Normal with no signs of trauma. EYES: Pupils equal, round and reactive to light, extraocular movements intact, sclera anicteric, conjunctiva clear. No lid lag. NECK: Normal range of motion, supple without lymphadenopathy, JVD, or masses. LUNGS: Breath sounds equal, Wheezes heard b/l in all lung mane HEART: Regular rate and rhythm, normal S1 and S2 without murmur, rub or gallop. ABDOMEN: Soft, nontender, not distended, normoactive bowel sounds, no guarding, no rebound, no masses. No hepatomegaly or splenomegaly. LOWER EXTREMITIES: 2+ pulses, warm, well-perfused. No calf tenderness. No peripheral edema. NEUROLOGICAL: Cranial nerves II-X intact. Normal speech. Laboratory Results - last 24 hr 09/20/19 09/20/19 09/20/19 14:00 14:00 14:00 WBC 7.1 RBC 4.95 Hgb 14.9 Hct 45.8 H D MCV 92.5 MCH 30.0 MCHC 32.4 RDW 15.9 H Plt Count 263 D MPV 6.8 L Absolute Neuts (auto) 5.5 Neutrophils % 77.8 Lymphocytes % 15.1 D Monocytes % 6.0 Eosinophils % 0.7 Basophils % 0.4 Nucleated RBC % 0 PT with INR INR PTT (Actin FS) VBG pH POC VBG pCO2 POC VBG pO2 VBG HCO3 VBG O2 Sat (Ailyn) VBG Base Excess Sodium 129 L Potassium 3.1 L Chloride 88 L Carbon Dioxide 32 Anion Gap 9 BUN 15.4 Creatinine 0.7 Est GFR (CKD-EPI)AfAm 89.66 Est GFR (CKD-EPI)NonAf 77.36 Random Glucose 112 H Calcium 8.8 Phosphorus 3.6 Magnesium 1.9 Ferritin 210.3 Total Bilirubin 0.5 AST 21 ALT 12 L Alkaline Phosphatase 182 H LD Total 292 H Creatine Kinase 74 Troponin I < 0.02 C-Reactive Protein < 0.3 B-Natriuretic Peptide 1532.5 H Total Protein 7.2 Albumin 3.1 L 09/20/19 09/20/19 14:00 14:00 WBC RBC Hgb Hct MCV MCH MCHC RDW Plt Count MPV Absolute Neuts (auto) Neutrophils % Lymphocytes % Monocytes % Eosinophils % Basophils % Nucleated RBC % PT with INR 11.50 INR 0.97 PTT (Actin FS) 27.6 VBG pH 7.314 POC VBG pCO2 65.2 H POC VBG pO2 < 46.9 VBG HCO3 32.4 H VBG O2 Sat (Ailyn) No Result Required. VBG Base Excess 3.9 H Sodium Potassium Chloride Carbon Dioxide Anion Gap BUN Creatinine Est GFR (CKD-EPI)AfAm Est GFR (CKD-EPI)NonAf Random Glucose Calcium Phosphorus Magnesium Ferritin Total Bilirubin AST ALT Alkaline Phosphatase LD Total Creatine Kinase Troponin I C-Reactive Protein B-Natriuretic Peptide Total Protein Albumin ASSESSMENT/PLAN: The patient is an 89yo F w/ PMH CHF, Parkinson's/Alzheimer's, HTN, pacemaker, R humerus fx (in sling) BIBA from [facility] for hypoxia. ICU was consulted to evaluate the patient as her respiratory status was tenuous on arrival. #Neuro -alert and orientedx2 (baseline) -no focal ssx #Cardio -no active issues -BP stable #Pulmonary -acute hypoxic respiratory failure -patient cyanotic on arival to ed, was nearly intubated -patient improved greatly after nitro paste, Bilevel administration. -patient alert, oriented, very conversive. -bilevel titrated down to 10/5, FIO2 40% without change in respiratory status or saturation. -Wheezes b/l likely 2/2 acute COPD/asthma exacerbation vs flash pulmonary edema -recommend nebs standing and PRN, wean patient off bilevel #Dispo -patient does not require ICU level of care at this time -recommend observation in ICU while patient titrated off bilevel -if patient's clinical status deteriorates, feel free to reconsult PRN. Dispo: We will continue to follow the patient. Thank you for this consultative opportunity. Visit type - Emergency Visit Emergency Visit: Yes Care time: The patient presented to the Emergency Department on the above date and was hospitalized for further evaluation of their emergent condition. - New Patient This patient is new to me today: Yes Date on this admission: 09/20/19 - Critical Care Critical Care patient: No ATTENDING PHYSICIAN STATEMENT I saw and evaluated the patient. I reviewed the resident's note and discussed the case with the resident. I agree with the resident's findings and plan as documented. SUBJECTIVE: OBJECTIVE: ASSESSMENT AND PLAN:
[2019-09-20] MEDS ORDERED: FUROSEMIDE 40 MG/4 ML INJECTABLE VIAL IVPUSH ONE (15:46)
[2019-09-20] MEDS ORDERED: FUROSEMIDE 40 MG/4 ML INJECTABLE VIAL ONE (15:52)
--- NOTE | 2019-09-20 16:00 | EKG ---
Test Reason : Blood Pressure : / mmHG Vent. Rate : 069 BPM Atrial Rate : 069 BPM P-R Int : 102 ms QRS Dur : 138 ms QT Int : 490 ms P-R-T Axes : 086 -64 150 degrees QTc Int : 525 ms SINUS RHYTHM WITH MARKED SINUS ARRHYTHMIA WITH SHORT AL WITH OCCASIONAL PREMATURE VENTRICULAR COMPLEXES LEFT AXIS DEVIATION LEFT BUNDLE BRANCH BLOCK ABNORMAL ECG WHEN COMPARED WITH ECG OF 10-AUG-2019 00:26, SINUS RHYTHM HAS REPLACED ELECTRONIC ATRIAL PACEMAKER NONSPECIFIC T WAVE ABNORMALITY NO LONGER EVIDENT IN ANTERIOR LEADS Confirmed by MD Kash, Glen ([id number]) on 09/20/2019 4:00:15 PM Referred By: Confirmed By:Glen Hewitt MD
--- NOTE | 2019-09-20 16:14 | HP ---
CHIEF COMPLAINT: PCP: Paulette HISTORY OF PRESENT ILLNESS: 89 year old female with known history of GIB, Afib sp pacemaker placement, hypercholesterolemia, CHF, hypertension, DVT, right femur fracture sp repair, right arm fracture currently on a sling, dementia, nonambulatory for at least two months (since recent right leg surgery) who was sent to the ED by halfway staff after she was found to be in acute respiratory distress. At the ED she was found to be hypoxic needing bipap support. Recent Travel: none PAST MEDICAL HISTORY: as above PAST SURGICAL HISTORY: as above Family history; unable to recall Social History: Smoking: does not smoke Alcohol: does not drink alcoholic beverage Drugs: does not use recreational drugs Allergies No Known Allergies Allergy (Verified 09/20/19 14:46) HOME MEDICATIONS: Home Medications Medication Instructions Recorded Hydrochlorothiazide [Hctz -] 25 mg PO DAILY #30 tablet 04/13/19 Brimonidine Tartrate [Alphagan 1 drop TID 05/28/19 0.2% -] Docusate Sodium [Colace -] 100 mg PO HS 05/28/19 Omeprazole 20 mg PO AM 05/28/19 Acetaminophen [Tylenol .Regular 650 mg PO Q4H PRN #100 tablet 08/18/19 Strength -] Polyethylene Glycol 3350 17 gm PO AM 09/20/19 REVIEW OF SYSTEMS CONSTITUTIONAL: Absent: fever, chills, diaphoresis Present: generalized weakness, malaise, loss of appetite, weight change HEENT: Absent: rhinorrhea, nasal congestion, throat pain, throat swelling, difficulty swallowing, mouth swelling, ear pain, eye pain, visual changes CARDIOVASCULAR: Absent: chest pain, syncope, palpitations, irregular heart rate, lightheadedness, peripheral edema RESPIRATORY: Present: shortness of breath, dyspnea with exertion, orthopnea, Absent; wheezing, stridor, hemoptysis GASTROINTESTINAL: Absent: abdominal pain, abdominal distension, nausea, vomiting, diarrhea, constipation, melena, hematochezia GENITOURINARY: Absent: dysuria, frequency, urgency, hesitancy, hematuria, flank pain, genital pain MUSCULOSKELETAL: Absent: myalgia, arthralgia, joint swelling, back pain, neck pain SKIN: Absent: rash, itching, pallor HEMATOLOGIC/IMMUNOLOGIC: Absent: easy bleeding, easy bruising, lymphadenopathy, frequent infections ENDOCRINE: Absent: unexplained weight gain, unexplained weight loss, heat intolerance, Present: cold intolerance NEUROLOGIC: Absent: headache, focal weakness or paresthesias, dizziness, Present; nonambulatory, seizure, mental status changes, bladder or bowel incontinence PSYCHIATRIC: Absent: anxiety, depression, suicidal or homicidal ideation, hallucinations. PHYSICAL EXAMINATION Vital Signs - 24 hr 09/20/19 09/20/19 09/20/19 13:15 13:38 13:41 Temperature 97.6 F Pulse Rate 62 Pulse Rate [ Right] Respiratory 22 H Rate Blood Pressure 127/80 Blood Pressure 127/80 [Left] O2 Sat by Pulse 99 89 L 100 Oximetry (%) 09/20/19 09/20/19 09/20/19 14:42 15:40 15:56 Temperature Pulse Rate Pulse Rate [ 68 74 76 Right] Respiratory 22 H 22 H 22 H Rate Blood Pressure Blood Pressure 129/94 144/96 144/96 [Left] O2 Sat by Pulse 100 96 96 Oximetry (%) 09/20/19 16:07 Temperature Pulse Rate Pulse Rate [ 78 Right] Respiratory 24 H Rate Blood Pressure Blood Pressure 114/73 [Left] O2 Sat by Pulse 92 L Oximetry (%) GENERAL: 89 year old lady who appears very thin, frail, Awake, alert, and oriented to self, not in acute resp distress and wearing a nasal cannula. HEAD: Normal with no signs of trauma. EYES: Pupils are about 2 mm in greatest diameter, equal, extraocular movements intact, sclera anicteric, conjunctiva clear. No lid lag. EARS, NOSE, THROAT: oropharynx clear without exudates. Moist mucous membranes; edentulous. NECK: Normal range of motion, supple without lymphadenopathy, JVD, or masses. LUNGS/chest: Fine crackles on the right mid lung field and coarse crackles on the left mid lung mane. Pacemaker device notedly proturding at the left upper quadrant of the anterior chest. HEART: Regular rate and rhythm, normal S1 and S2 without murmur, rub or gallop. ABDOMEN: Soft, nontender, not distended, normoactive bowel sounds, no guarding, no rebound, no masses. No hepatomegaly or splenomegaly. MUSCULOSKELETAL: . No bony deformities or tenderness. No CVA tenderness. UPPER EXTREMITIES: 2+ pulses, warm, well-perfused. No cyanosis. No clubbing. No peripheral edema. LOWER EXTREMITIES: distal pulses not immediately palpated. Her feet and distal lower extremities are cool to the touch. Dora at the lateral proximal right leg. Strength bilateral lower extremity 3/5. Right upper extremity in a sling and preferentially bent at the elbow and close to the body. Patient has difficulty moving secondary to pain (old fracture) No calf tenderness. No peripheral edema. NEUROLOGICAL: Cranial nerves III-XII intact. Normal speech. Able to answer simple questions. Slightly hard of hearing. Strength upper extremities 5/5. Strength bilateral lower extremities 3/5 PSYCHIATRIC: Cooperative. Good eye contact. Appropriate mood and affect. SKIN: Warm, dry, decreased turgor, no rashes or lesions noted Laboratory Results - last 24 hr 09/20/19 09/20/19 09/20/19 14:00 14:00 14:00 WBC 7.1 RBC 4.95 Hgb 14.9 Hct 45.8 H D MCV 92.5 MCH 30.0 MCHC 32.4 RDW 15.9 H Plt Count 263 D MPV 6.8 L Absolute Neuts (auto) 5.5 Neutrophils % 77.8 Lymphocytes % 15.1 D Monocytes % 6.0 Eosinophils % 0.7 Basophils % 0.4 Nucleated RBC % 0 PT with INR INR PTT (Actin FS) VBG pH POC VBG pCO2 POC VBG pO2 VBG HCO3 VBG O2 Sat (Ailyn) VBG Base Excess Sodium 129 L Potassium 3.1 L Chloride 88 L Carbon Dioxide 32 Anion Gap 9 BUN 15.4 Creatinine 0.7 Est GFR (CKD-EPI)AfAm 89.66 Est GFR (CKD-EPI)NonAf 77.36 Random Glucose 112 H Calcium 8.8 Phosphorus 3.6 Magnesium 1.9 Ferritin 210.3 Total Bilirubin 0.5 AST 21 ALT 12 L Alkaline Phosphatase 182 H LD Total 292 H Creatine Kinase 74 Troponin I < 0.02 C-Reactive Protein < 0.3 B-Natriuretic Peptide 1532.5 H Total Protein 7.2 Albumin 3.1 L 09/20/19 09/20/19 14:00 14:00 WBC RBC Hgb Hct MCV MCH MCHC RDW Plt Count MPV Absolute Neuts (auto) Neutrophils % Lymphocytes % Monocytes % Eosinophils % Basophils % Nucleated RBC % PT with INR 11.50 INR 0.97 PTT (Actin FS) 27.6 VBG pH 7.314 POC VBG pCO2 65.2 H POC VBG pO2 < 46.9 VBG HCO3 32.4 H VBG O2 Sat (Ailyn) No Result Required. VBG Base Excess 3.9 H Sodium Potassium Chloride Carbon Dioxide Anion Gap BUN Creatinine Est GFR (CKD-EPI)AfAm Est GFR (CKD-EPI)NonAf Random Glucose Calcium Phosphorus Magnesium Ferritin Total Bilirubin AST ALT Alkaline Phosphatase LD Total Creatine Kinase Troponin I C-Reactive Protein B-Natriuretic Peptide Total Protein Albumin CXR- no acute pathology. There are no acute infiltrates or pleural effusions. No radiographic evidence of CHF. There is a surgical suture line within the right lung apex. ASSESSMENT/PLAN: 1. Acute respiratory distress and failure - patient was placed on bipap for a few hours and is now weaned and on NC - rule out ACS : serial troponins, telemetry monitoring, - Ddx: pulmonary congestion/CHF, pneumonia; Need rule out Covid 19 given significant hypoxia - diuretics - daily weights - isolation, empiric ceftriaxone and azithromycin - Ct of the chest without contrast to better elucidate lung parenchyma - telemetry monitoring - inflammatory markers sent 2. Hypokalemia - replace and recheck 3. DVT prophylaxis - Lovenox Visit type - Emergency Visit Emergency Visit: Yes ED Registration Date: 09/20/19 Care time: The patient presented to the Emergency Department on the above date and was hospitalized for further evaluation of their emergent condition. - New Patient This patient is new to me today: Yes Date on this admission: 10/04/19 - Critical Care Critical Care patient: No
[2019-09-20] MEDS ORDERED: ACETAMINOPHEN 325 MG TABLET (FP) PO PRN (16:46)
[2019-09-20] MEDS ORDERED: SODIUM CHLORIDE 0.9% 500 ML INFUS.BAG IV ONE (18:51)
[2019-09-20] MEDS ORDERED: ENOXAPARIN NA (PORCINE) 40 MG/0.4 ML DISP.SYRIN SQ ONE (18:55)
[2019-09-20] MEDS ORDERED: methylPREDNISolone NA SUCC 125 MG/2 ML VIAL IVPUSH ONE (19:15)
[2019-09-20] MEDS ORDERED: ALBUTEROL SO4 2.5/IPRATROPIUM 0.5 INH SOL 3 ML VIAL.NEB. NEB ONE ×2 (19:19→19:26)
[2019-09-20] MEDS ORDERED: ENOXAPARIN NA (PORCINE) 60 MG/0.6 ML DISP.SYRIN SQ ONE (19:26)
[2019-09-20] MEDS ORDERED: methylPREDNISolone NA SUCC 125 MG/2 ML VIAL ONE (19:26)
[2019-09-20 20:30] LABS: ARTERIAL BLD GAS O2 SATURATION 99.7 mmHg (95-98); ARTERIAL BLOOD GAS BASE EXCESS 4.3 mmol/L (-2-2); ARTERIAL BLOOD GAS PO2 276.4 mmHg (80-100); ARTERIAL BLOOD GAS pH 7.427 (7.350-7.450)
[2019-09-20 20:31] LABS: ALLENS TEST POSITIVE
[2019-09-20 20:32] LABS: VENT MODE S/T
[2019-09-20 20:33] LABS: VENT RATE 12
[2019-09-21] MEDS ORDERED: methylPREDNISolone NA SUCC 40 MG/1 ML VIAL IVPUSH SCH ×2 (02:00→10:00)
[2019-09-21] MEDS ORDERED: methylPREDNISolone NA SUCC 40 MG/1 ML VIAL ONE ×2 (02:05→08:41)
[2019-09-21] MEDS: methylPREDNISolone NA SUCC 40 MG/1 ML VIAL IVPUSH SCH ×2 (02:23→09:06)
[2019-09-21 08:16] LABS: BASO % 0.1 % (0-2.0); HEMATOCRIT 42.7 % (32.4-45.2); HEMOGLOBIN 13.7 GM/dL (10.7-15.3); LYMPH % 1.4 % (8-40); MEAN PLT VOLUME 7.5 fl (7.5-11.1); MONO % 5.8 % (3.8-10.2); NEUT % 92.7 % (42.8-82.8); PLATELET COUNT 232 K/MM3 (134-434); RBC 4.54 M/mm3 (3.60-5.2); RDW 16.1 % (11.6-15.6); WHITE BLOOD COUNT 20.5 K/mm3 (4.0-10.0)
[2019-09-21] MEDS ORDERED: PANTOPRAZOLE 40 MG TABLET ONE (08:40)
[2019-09-21] MEDS: PANTOPRAZOLE 40 MG TABLET PO SCH (09:06)
[2019-09-21] MEDS ORDERED: ENOXAPARIN NA (PORCINE) 60 MG/0.6 ML DISP.SYRIN SQ ONE (10:00)
[2019-09-21] MEDS ORDERED: ENOXAPARIN NA (PORCINE) 40 MG/0.4 ML DISP.SYRIN SQ ONE (10:08)
[2019-09-21] MEDS ORDERED: SODIUM CHLORIDE 1,000 ML IV SCH (10:30)
[2019-09-21 10:34] LABS: ANISOCYTOSIS 1+; MACROCYTOSIS 1+; OVALOCYTE 1+; PLATELET ESTIMATE NORMAL
[2019-09-21] MEDS ORDERED: POTASSIUM CHLORIDE TABS 20 MEQ TABLET.ER (FP) PO ONE (12:24)
--- NOTE | 2019-09-21 12:32 | PN ---
Progress Note, Physician Chief Complaint: Shortness of breath Hypoxia Pleural effusion Hyponatremia Hypokalemia Leukocytosis Abnormal liver enzymes History of Present Illness: NAD SOB improved On Nasal O2 - Current Medication List Current Medications: Active Medications Acetaminophen (Tylenol -) 650 mg PO Q4H PRN PRN Reason: PAIN LEVEL 1-5 Brimonidine Tartrate (Alphagan 0.2% -) 1 drop OU TID ALEKSANDAR Docusate Sodium (Colace -) 100 mg PO HS ALEKSANDAR Sodium Chloride (Normal Saline -) 1,000 mls @ 50 mls/hr IV ASDIR ALEKSANDAR Potassium Chloride (Potassium Chloride 10 Meq Premix Ivpb -) 10 meq in 100 mls @ 100 mls/hr IVPB Q60M ALEKSANDAR Stop: 09/21/19 15:29 Non-Formulary Medication (Polyethylene Glycol 3350 [Polyethylene Glycol 3350]) 17 gm PO AM ALEKSANDAR Pantoprazole Sodium (Protonix -) 40 mg PO DAILY ALEKSANDAR Last Admin: 09/21/19 09:06 Dose: 40 mg Documented by: Potassium Chloride (K-Dur -) 40 meq PO ONCE ONE Stop: 09/21/19 12:25 - Objective Vital Signs: Vital Signs Temperature 99.0 F 09/21/19 10:50 Pulse Rate 64 09/21/19 10:50 Respiratory Rate 22 H 09/21/19 10:50 Blood Pressure 122/68 09/21/19 10:50 O2 Sat by Pulse Oximetry (%) 98 09/21/19 10:50 Constitutional: Yes: No Distress, Calm, Thin Cardiovascular: Yes: Regular Rate and Rhythm Respiratory: Yes: Regular, Rales (LLL) Gastrointestinal: Yes: Normal Bowel Sounds, Soft Genitourinary: Yes: Incontinence Musculoskeletal: Yes: Muscle Weakness Edema: No Peripheral Pulses WNL: Yes Neurological: Yes: Alert, Oriented Psychiatric: Yes: Alert, Oriented Labs: CBC, BMP 09/21/19 05:38 09/20/19 14:00 INR, PTT INR 0.97 (0.83-1.09) 09/20/19 14:00 Problem List - Problems (1) Hyponatremia Assessment/Plan: -repeat labs pending -monitor daily labs -Nephrology consult Problems reviewed: Yes Code(s): E87.1 - HYPO-OSMOLALITY AND HYPONATREMIA (2) Hypoxia Assessment/Plan: -Left LL infiltration -ID consulted -IV Zosyn -CTA results pending -O2 to keep SpO2>90% -Pulmonary consult -COVID 19 Negative -Bronchodilators Problems reviewed: Yes Code(s): R09.02 - HYPOXEMIA (3) Acute on chronic systolic heart failure Assessment/Plan: -Cardiology consult -Received IV furosemide in ER -D/C IVF -Last Echo 03/2019-moderate concentric LVH, LVEF-40-45%, mod mitral annular calcification,mild mitral + tricuspid regurgitation, Right ventricular systolic pressure elevated, mild aortic sclerosis -Repeat Echo upon cardiology discretion -IV furosemide as per cardiology -BB if BP allows Problems reviewed: Yes Code(s): I50.23 - ACUTE ON CHRONIC SYSTOLIC (CONGESTIVE) HEART FAILURE (4) Hypokalemia Assessment/Plan: -Replenish -KCL 10 meq IVPB x 3+ KCL 40 meq PO once -repeat daily labs. Problems reviewed: Yes Code(s): E87.6 - HYPOKALEMIA (5) Severe malnutrition Problems reviewed: Yes Code(s): E43 - UNSPECIFIED SEVERE PROTEIN-CALORIE MALNUTRITION Assessment/Plan See problem list
--- NOTE | 2019-09-21 12:39 | PN ---
Teaching Attending Note Name of Resident: Raymond Nicholas ATTENDING PHYSICIAN STATEMENT I saw and evaluated the patient. I reviewed the resident's note and discussed the case with the resident. I agree with the resident's findings and plan as documented. SUBJECTIVE: Pt seen and examined. Currently denies shortness of breath, saturating well on nasal cannula. CTA chest reviewed, no evidence of PE but with LLL atelectasis/infiltrate and CHENTE scattered infiltrates. OBJECTIVE: Vital Signs Period Temp Pulse Resp BP Sys/Oseguera Pulse Ox Last 24 Hr 97.6 F-99.0 F 62-103 15-24 76-156/56-96 89-100 Intake & Output 09/18/19 09/19/19 09/20/19 09/21/19 23:59 23:59 23:59 23:59 Weight 56.699 kg Gen: NAD at rest HEENT: mild thrush Heart: RRR Lung: bronchial breath sounds left base Abd: soft, nontender Ext: no edema CBC, BMP 09/21/19 05:38 09/20/19 14:00 Active Medications Acetaminophen (Tylenol -) 650 mg PO Q4H PRN PRN Reason: PAIN LEVEL 1-5 Brimonidine Tartrate (Alphagan 0.2% -) 1 drop OU TID ALEKSANDAR Docusate Sodium (Colace -) 100 mg PO HS ALEKSANDAR Potassium Chloride (Potassium Chloride 10 Meq Premix Ivpb -) 10 meq in 100 mls @ 100 mls/hr IVPB Q60M ALEKSANDAR Stop: 09/21/19 15:29 Pantoprazole Sodium (Protonix -) 40 mg PO DAILY ALEKSANDAR Last Admin: 09/21/19 09:06 Dose: 40 mg Documented by: Polyethylene Glycol (Miralax (For Daily Use) -) 17 gm PO AM ALEKSANDAR ASSESSMENT AND PLAN: Acute Hypoxic Respiratory Failure improving Pneumonia r/o Aspiration Sepsis LV Systolic/Diastolic Dysfunction s/p PPM Hyponatremia HTN Parkinsons Alzheimers - IV antibiotics - f/u cultures, serologies - O2 to keep SpO2 >90% - IVF - monitor lytes - consider renal imaging for questionable hydronephrosis seen on CT chest - aspiration precautions - DVT prophylaxis - does not require ICU monitoring at this time, will follow
[2019-09-21] MEDS ORDERED: PIPERACILLIN/TAZOB 4.5 GM 4.5 GM in DEXTROSE 5%-WATER 100 ML IVPB SCH (12:45)
[2019-09-21] MEDS ORDERED: PIPERACILLIN/TAZOBACTAM 4.5 GM VIAL IVPB ONE (13:01)
[2019-09-21] MEDS ORDERED: DEXTROSE 5%-WATER 100 ML IVPB ONE (13:01)
[2019-09-21] MEDS: KCL 10 MEQ IVPB 10 MEQ/100 ML INFUS.BAG IVPB SCH ×2 (13:20→17:13)
--- NOTE | 2019-09-21 14:41 | PN ---
Progress Note (short form) - Note Progress Note: ID consult dictated 89 yo female admitted from [place] with severe hypoxia- she reports passing out? required bipap, now on nasal oxygen comfortable reports cough when she drinks no chest pain, no sob at present imaging- No PE on CTA, CHENTE infiltrates- patchy, LLL atelectasis, ?hydronephrosis treated with steroids and antibiotics possible aspiration pneumonia suspect leukocytosis partially due to steroids CHF vs COPD hydronephrosis continue zosyn for possible aspiration renal sono- ?hydro, check ua as well blood cultures, urinary antigens Problem List - Problems (1) Hypoxia Code(s): R09.02 - HYPOXEMIA (2) Pneumonia Code(s): J18.9 - PNEUMONIA, UNSPECIFIED ORGANISM (3) Hydronephrosis Code(s): N13.30 - UNSPECIFIED HYDRONEPHROSIS (4) Leukocytosis Code(s): D72.829 - ELEVATED WHITE BLOOD CELL COUNT, UNSPECIFIED
--- NOTE | 2019-09-21 15:59 | CON.NEP ---
Consult Consult Specialty:: Nephrology Referred by:: Medicine Reason for Consultation:: Hyponatremia/Hypokalemia - History of Present Illness Chief Complaint: Hypoxia History of Present Illness: This is a 89 year old woman with history of atrial fibrillation, hyperlipidemia, heart failure, hypertension, DVT, dementia, recent [facility] and found to have PNA and hyponatremia. Seen and examined in the ICU. Awake and alert. She offers no acute complaints. She is not able to provide any history. She denies any sob, cough, chest pain, fever or chills. Making urine. Appetite is preserved. 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: Alzheimer's Cardio/Vascular: Yes: AFIB, HTN Gastrointestinal: Yes: GI Bleed - Alcohol/Substance Use Hx Alcohol Use: No - Smoking History Smoking history: Unknown if ever smoked Have you smoked in the past 12 months: No Home Medications - Allergies Allergies/Adverse Reactions: Allergies Allergy/AdvReac Type Severity Reaction Status Date / Time No Known Allergies Allergy Verified 09/20/19 14:46 - Home Medications Home Medications: Ambulatory Orders Brimonidine Tartrate [Alphagan 0.2% -] 1 drop OD TID 05/28/19 Acetaminophen [Tylenol -] 650 mg PO Q4H PRN 09/21/19 Docusate Sodium [Colace] 100 mg PO TID 09/21/19 Hydrochlorothiazide 12.5 mg PO DAILY 09/21/19 Family Medical History Family History: Unremarkable Review of Systems - Review of Systems Constitutional: reports: No Symptoms Eyes: reports: No Symptoms HENT: reports: No Symptoms Neck: reports: No Symptoms Cardiovascular: reports: No Symptoms Respiratory: reports: No Symptoms Gastrointestinal: reports: No Symptoms Genitourinary: reports: No Symptoms Musculoskeletal: reports: No Symptoms Integumentary: reports: No Symptoms Neurological: reports: No Symptoms Endocrine: reports: No Symptoms Hematology/Lymphatic: reports: No Symptoms Psychiatric: reports: No Symptoms Nephrology Consult - Height Height: 5 ft 2 in - Weight Weight: 56.699 kg - BMI Body Mass Index (BMI): 22.8 - Lab Results CBC,BMP: CBC, BMP 09/21/19 05:38 09/20/19 14:00 Anion Gap: Anion Gap Anion Gap 9 MMOL/L (8-16) 09/20/19 14:00 - Imaging Chest X-ray: Report Reviewed Cat Scan: Report Reviewed - Physical Examination Vital Signs: Vital Signs Temperature 99.2 F 09/21/19 13:45 Pulse Rate 85 09/21/19 13:45 Respiratory Rate 18 09/21/19 13:45 Blood Pressure 122/68 09/21/19 10:50 O2 Sat by Pulse Oximetry (%) 98 09/21/19 10:50 Constitutional: Yes: No Distress, Calm, Thin Eyes: Yes: Conjunctiva Clear HENT: Yes: Atraumatic Neck: Yes: Supple Cardiovascular: Yes: Regular Rate and Rhythm Respiratory: Yes: Regular, Diminished. No: Rales, Rhonchi, SOB Gastrointestinal: Yes: Soft. No: Tenderness Renal/: No: Bladder Distention Extremities: No: Cold, Cool, Cyanosis Edema: No Neurological: Yes: Alert, Oriented (x2) Assessment/Plan 89 year old woman with history of atrial fibrillation, hyperlipidemia, heart failure, hypertension, DVT, dementia, recent right arm fracture [facility] and found to have PNA and hyponatremia. 1. Euvolemic vs. Hyovolemic hyponatremia 2. Suspected PNA 3. Hypoxia 4. Hx of systolic HF with diastolic dysfunction No new BMP reported for today. Check BMP this evening. Check urine/serum OSM and urine Na Check Uric acid/TSH/Cortisol in AM Possibility that she may have SIADH given PNA but more likely she has hypovolemic hyponatremia from HCTZ continue oral intake as tolerated fluid restriction of 1L for now continue antibiotics as per primary team continue supplamental O2 as needed ICU monitoring Thank you Kavon Mahan DO
--- NOTE | 2019-09-21 16:09 | CON.CARD ---
Consult Consult Specialty:: Cardiology - History of Present Illness History of Present Illness: 89 year old female with known history of GIB, Afib sp pacemaker placement, hypercholesterolemia, CHF, hypertension, DVT, right femur fracture sp repair, right arm fracture currently on a sling, dementia, nonambulatory for at least two months (since recent right leg surgery) who was sent to the ED by retirement staff after she was found to be in acute respiratory distress. At the ED she was found to be hypoxic needing bipap support. 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 Cardio/Vascular: Yes: AFIB, HTN Gastrointestinal: Yes: GI Bleed - Alcohol/Substance Use Hx Alcohol Use: No - Smoking History Smoking history: Unknown if ever smoked Have you smoked in the past 12 months: No Home Medications - Allergies Allergies/Adverse Reactions: Allergies Allergy/AdvReac Type Severity Reaction Status Date / Time No Known Allergies Allergy Verified 09/20/19 14:46 - Home Medications Home Medications: Ambulatory Orders Brimonidine Tartrate [Alphagan 0.2% -] 1 drop OD TID 05/28/19 Acetaminophen [Tylenol -] 650 mg PO Q4H PRN 09/21/19 Docusate Sodium [Colace] 100 mg PO TID 09/21/19 Hydrochlorothiazide 12.5 mg PO DAILY 09/21/19 Review of Systems - Review of Systems Constitutional: reports: No Symptoms Eyes: reports: No Symptoms HENT: reports: No Symptoms Neck: reports: No Symptoms Cardiovascular: reports: No Symptoms Respiratory: reports: SOB Gastrointestinal: reports: No Symptoms Genitourinary: reports: No Symptoms Breasts: reports: No Symptoms Reported Musculoskeletal: reports: No Symptoms Integumentary: reports: No Symptoms Neurological: reports: No Symptoms Endocrine: reports: No Symptoms Hematology/Lymphatic: reports: No Symptoms Psychiatric: reports: No Symptoms Vital Signs: Vital Signs Temperature 99.2 F 09/21/19 13:45 Pulse Rate 85 09/21/19 13:45 Respiratory Rate 18 09/21/19 13:45 Blood Pressure 122/68 09/21/19 10:50 O2 Sat by Pulse Oximetry (%) 98 09/21/19 10:50 Constitutional: Yes: Well Nourished, No Distress, Calm Eyes: Yes: WNL, Conjunctiva Clear, EOM Intact HENT: Yes: WNL, Atraumatic, Normocephalic Neck: Yes: WNL, Supple, Trachea Midline Respiratory: Yes: Diminished Gastrointestinal: Yes: WNL, Normal Bowel Sounds Renal/: Yes: WNL Cardiovascular: Yes: WNL, Regular Rate and Rhythm Musculoskeletal: Yes: WNL Extremities: Yes: WNL Integumentary: Yes: WNL Neurological: Yes: WNL, Alert, Oriented ...Motor Strength: WNL Psychiatric: Yes: WNL, Alert, Oriented - Other Data Labs, Other Data: CBC, BMP 09/21/19 05:38 09/20/19 14:00 INR, PTT INR 0.97 (0.83-1.09) 09/20/19 14:00 Troponin, BNP 09/20/19 16:45 Troponin I < 0.02 Troponin, BNP 09/20/19 16:45 Troponin I < 0.02 Imaging - Results Chest X-ray: Image Reviewed (no i/e) EKG: Image Reviewed (av sequential pacing) Problem List - Problems (1) Acute pulmonary edema Code(s): J81.0 - ACUTE PULMONARY EDEMA (2) Hyponatremia Code(s): E87.1 - HYPO-OSMOLALITY AND HYPONATREMIA (3) Hypoxia Code(s): R09.02 - HYPOXEMIA (4) Acute on chronic systolic heart failure Code(s): I50.23 - ACUTE ON CHRONIC SYSTOLIC (CONGESTIVE) HEART FAILURE (5) Acute thrombosis of left basilic vein Code(s): I82.612 - ACUTE EMBOLISM AND THOMBOS OF SUPERFIC VEINS OF L UP EXTREM (6) Afib Code(s): I48.91 - UNSPECIFIED ATRIAL FIBRILLATION Qualifiers: Atrial fibrillation type: longstanding persistent Qualified Code(s): I48.11 - Longstanding persistent atrial fibrillation (7) Anemia Code(s): D64.9 - ANEMIA, UNSPECIFIED (8) CHF (congestive heart failure) Code(s): I50.9 - HEART FAILURE, UNSPECIFIED (9) Cachexia Code(s): R64 - CACHEXIA (10) Cellulitis Code(s): L03.90 - CELLULITIS, UNSPECIFIED Qualifiers: Site of cellulitis: extremity Site of cellulitis of extremity: lower extremity Laterality: unspecified laterality Qualified Code(s): L03.119 - Cellulitis of unspecified part of limb (11) Closed comminuted intertrochanteric fracture of left femur Code(s): S72.142A - DISPLACED INTERTROCHANTERIC FRACTURE OF LEFT FEMUR, INIT (12) Closed right humeral fracture Code(s): S42.301A - UNSP FRACTURE OF SHAFT OF HUMERUS, RIGHT ARM, INIT Qualifiers: Encounter type: initial encounter Humerus Location: proximal Fracture morphology: unspecified fracture morphology Qualified Code(s): S42.201A - Unspecified fracture of upper end of right humerus, initial encounter for closed fracture (13) DVT (deep venous thrombosis) Code(s): I82.409 - ACUTE EMBOLISM AND THOMBOS UNSP DEEP VN UNSP LOWER EXTREMITY (14) DVT of upper extremity (deep vein thrombosis) Code(s): I82.629 - ACUTE EMBOLISM AND THROMBOSIS OF DEEP VN UNSP UP EXTREM Qualifiers: Affected thrombotic vein of extremity: brachial Chronicity: chronic Laterality: left Qualified Code(s): I82.722 - 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 (15) Dementia Code(s): F03.90 - UNSPECIFIED DEMENTIA WITHOUT BEHAVIORAL DISTURBANCE (16) Eye abrasion Code(s): S05.8X9A - OTHER INJURIES OF UNSPECIFIED EYE AND ORBIT, INIT ENCNTR Qualifiers: Encounter type: initial encounter Laterality: left Qualified Code(s): S05.8X2A - Other injuries of left eye and orbit, initial encounter (17) Fracture of femoral neck, right, closed Code(s): S72.001A - FRACTURE OF UNSP PART OF NECK OF RIGHT FEMUR, INIT Qualifiers: Encounter type: initial encounter Qualified Code(s): S72.001A - Fracture of unspecified part of neck of right femur, initial encounter for closed fracture (18) GI bleed Code(s): K92.2 - GASTROINTESTINAL HEMORRHAGE, UNSPECIFIED Qualifiers: GI bleed type/associated pathology: melena Qualified Code(s): K92.1 - Melena (19) HLD (hyperlipidemia) Code(s): E78.5 - HYPERLIPIDEMIA, UNSPECIFIED Qualifiers: Hyperlipidemia type: pure hypercholesterolemia Qualified Code(s): E78.00 - Pure hypercholesterolemia, unspecified; E78.0 - Pure hypercholesterolemia (20) HTN (hypertension) Code(s): I10 - ESSENTIAL (PRIMARY) HYPERTENSION Qualifiers: Hypertension type: essential hypertension Qualified Code(s): I10 - Essential (primary) hypertension (21) Hypokalemia Code(s): E87.6 - HYPOKALEMIA (22) Labile hypertension Code(s): R09.89 - OTH SYMPTOMS AND SIGNS INVOLVING THE CIRC AND RESP SYSTEMS (23) Pacemaker Code(s): Z95.0 - PRESENCE OF CARDIAC PACEMAKER (24) Sacral ulcer Code(s): L98.429 - NON-PRESSURE CHRONIC ULCER OF BACK WITH UNSPECIFIED SEVERITY (25) Sepsis affecting skin Code(s): A41.9 - SEPSIS, UNSPECIFIED ORGANISM (26) Severe malnutrition Code(s): E43 - UNSPECIFIED SEVERE PROTEIN-CALORIE MALNUTRITION (27) Status post placement of cardiac pacemaker Code(s): Z95.0 - PRESENCE OF CARDIAC PACEMAKER (28) Syncope Code(s): R55 - SYNCOPE AND COLLAPSE Qualifiers: Syncope type: vasovagal syncope Qualified Code(s): R55 - Syncope and collapse (29) Systolic CHF Code(s): I50.20 - UNSPECIFIED SYSTOLIC (CONGESTIVE) HEART FAILURE (30) Systolic dysfunction without heart failure Code(s): I51.89 - OTHER ILL-DEFINED HEART DISEASES Assessment/Plan PNA Hypoxia Alzheimer dementia CTA No PE CHENTE infiltrates- patchy, LLL atelectasis, ?hydronephrosis Parkinsons hyponatremia elevated BNP but clinicaly euvolemic CHF EF 40% Plan; cont abx renal and pulmonary input appreciated DVT PLX CC time spent 70 min
[2019-09-21] MEDS: ALBUTEROL SO4 0.083% IH SOL 2.5 MG/3 ML VIAL.NEB. NEB SCH ×2 (16:45→21:00)
[2019-09-21 18:28] LABS: ALBUMIN 2.8 g/dl (3.4-5.0); BILIRUBIN,TOTAL 0.8 mg/dL (0.2-1); BLOOD UREA NITROGEN 27.9 mg/dL (7-18); CALCIUM 8.4 mg/dL (8.5-10.1); CREATININE 0.9 mg/dL (0.55-1.3); TOT PROT 6.3 g/dl (6.4-8.2); URIC ACID 4.6 mg/dL (2.6-7.2)
[2019-09-21] MEDS ORDERED: POTASSIUM CHLORIDE ORAL LIQUID 20 MEQ/15 ML PO ONE (18:58)
[2019-09-21] MEDS ORDERED: PIPERACILLIN/TAZOBACTAM 3.375 GM VIAL IVPB ONE (20:52)
[2019-09-21] MEDS ORDERED: DEXTROSE 5%-WATER - 50 ML IVPB ONE (20:53)
[2019-09-21] MEDS: DOCUSATE SODIUM 100 MG CAPSULE (FP) PO SCH (21:42)
[2019-09-21] MEDS: BRIMONIDINE TARTRATE 0.2% OPHTHALMIC 5 ML BOTTLE OU SCH ×2 (21:42→22:00)
[2019-09-21] MEDS: PIPERACILLIN/TAZOB 3.375 GM 3.375 GM in DEXTROSE 5%-WATER - 50 ML IVPB SCH (21:42)
[2019-09-22] MEDS: PIPERACILLIN/TAZOB 3.375 GM 3.375 GM in DEXTROSE 5%-WATER - 50 ML IVPB SCH ×3 (01:13→18:23)
[2019-09-22] MEDS ORDERED: DEXTROSE 5%-WATER - 50 ML IVPB ONE ×4 (01:15→21:23)
[2019-09-22] MEDS ORDERED: PIPERACILLIN/TAZOBACTAM 3.375 GM VIAL IVPB ONE ×4 (01:15→21:23)
[2019-09-22] MEDS: POLYETHYLENE GLYCOL 3350 119 GM BTL PO SCH (06:14)
[2019-09-22] MEDS: BRIMONIDINE TARTRATE 0.2% OPHTHALMIC 5 ML BOTTLE OU SCH ×3 (06:14→21:27)
--- NOTE | 2019-09-22 07:07 | ECHO ---
Name: ALEXIA MOHR Exam:Adult Echocardiogram Study Date: 09/21/2019 09:24 AM Age: 89 yrs Reason For Study: SOB Height: 62 in Weight: 125 lb BSA: 1.6 m2 MMode/2D Measurements & Calculations IVSd: 1.2 cm Ao root diam: 3.7 cm LVIDd: 4.1 cm LA dimension: 2.7 cm LVIDs: 3.0 cm ACS: 1.8 cm LVPWd: 1.1 cm IVSs: 1.4 cm EDV(Teich): 75.4 ml LVOT diam: 2.2 cm ESV(Teich): 34.5 ml LVLd ap4: 6.4 cm SV(MOD-sp4): 40.0 ml EDV(MOD-sp4): 87.0 ml LVLs ap4: 6.1 cm ESV(MOD-sp4): 47.0 ml LAV (MOD-bp): 47.0 ml TAPSE: 2.3 cm RV S Otto: 11.1 cm/sec Doppler Measurements & Calculations Ao V2 max: 108.6 cm/sec LV V1 max P.3 mmHg Ao max P.7 mmHg LV V1 mean P.70 mmHg Ao V2 mean: 72.1 cm/sec LV V1 max: 56.3 cm/sec Ao mean P.4 mmHg LV V1 mean: 39.5 cm/sec Ao V2 VTI: 21.3 cm LV V1 VTI: 16.4 cm XAVIER(I,D): 2.9 cm2 XAVIER(V,D): 1.9 cm2 MR max otto: 389.5 cm/sec SV(LVOT): 61.4 ml MR max P.7 mmHg TR max otto: 240.7 cm/sec PA V2 max: 78.7 cm/sec TR max P.2 mmHg PA max P.5 mmHg PA acc slope: 399.3 cm/sec2 PA acc time: 0.12 sec PI end-d otto: 104.5 cm/sec Med Peak E' Otto: 2.6 cm/sec Lat Peak E' Otto: 4.7 cm/sec PA pr(Accel): 26.7 mmHg Pulm Sys Otto: 66.6 cm/sec Pulm Oseguera Otto: 36.0 cm/sec Pulm S/D: 1.8 Tech Comments TDS. Very thin. Broken arm, sitting up. Apical 4 not obtained due to prominence of aorta. Procedure The study was technically difficult with many images being suboptimal in quality. Left Ventricle The left ventricle is normal in size. Left ventricular systolic function is mildly reduced. Ejection Fraction = 45%. There is mild global hypokinesis of the left ventricle. Right Ventricle The right ventricle is normal in size and function. There is a pacemaker lead in the right ventricle. Atria Normal left and right atrial size and function. Mitral Valve There is mild mitral annular calcification. There is mild mitral regurgitation. Tricuspid Valve The tricuspid valve is not well visualized, but is grossly normal. There is mild tricuspid regurgitat ion. Right ventricular systolic pressure is normal. Aortic Valve The aortic valve is trileaflet. There is mild to moderate aortic sclerosis.;. No hemodynamically sign ificant valvular aortic stenosis. Pulmonic Valve The pulmonic valve is not well visualized. Mild pulmonic valvular regurgitation. Great Vessels The aortic root is normal size. Pericardium/Pleura Trivial pericardial effusion not hemodynamically significant. Interpretation Summary The left ventricle is normal in size. Left ventricular systolic function is mildly reduced. Ejection Fraction = 45%. There is mild global hypokinesis of the left ventricle. Normal left and right atrial size and function. There is mild mitral annular calcification. There is mild mitral regurgitation. There is mild tricuspid regurgitation. Right ventricular systolic pressure is normal. There is mild to moderate aortic sclerosis.; No hemodynamically significant valvular aortic stenosis. Trivial pericardial effusion not hemodynamically significant MD Lance Brown 09/21/2019 01:01 PM
[2019-09-22 07:14] LABS: BASO % 0.1 % (0-2.0); HEMATOCRIT 36.9 % (32.4-45.2); HEMOGLOBIN 12.2 GM/dL (10.7-15.3); LYMPH % 3.9 % (8-40); MCH 30.5 pg (25.7-33.7); MCHC 33.1 g/dl (32.0-36.0); MEAN CELL VOLUME 91.9 fl (80-96); MONO % 6.9 % (3.8-10.2); NEUT % 89.1 % (42.8-82.8); PLATELET COUNT 184 K/MM3 (134-434); RBC 4.02 M/mm3 (3.60-5.2); RDW 15.5 % (11.6-15.6); WHITE BLOOD COUNT 15.3 K/mm3 (4.0-10.0)
[2019-09-22 07:40] LABS: ALBUMIN 2.6 g/dl (3.4-5.0); BILIRUBIN,TOTAL 0.7 mg/dL (0.2-1); BLOOD UREA NITROGEN 25.3 mg/dL (7-18); CALCIUM 8.7 mg/dL (8.5-10.1); CREATININE 0.6 mg/dL (0.55-1.3); POTASSIUM 3.7 mmol/L (3.5-5.1)
[2019-09-22] MEDS: ALBUTEROL SO4 0.083% IH SOL 2.5 MG/3 ML VIAL.NEB. NEB SCH ×3 (07:40→20:53)
--- NOTE | 2019-09-22 08:32 | PN ---
Progress Note, Physician Chief Complaint: Pt alert; denies chest pain, dyspnea, palpitations. History of Present Illness: 89-year-old female with a past medical history significant for Afib, systolic CHF-->AICD, HTN, hx of DVTs, anemia, right shoulder fracture (wearing a sling), right hip and sacral wound and Alzheimer's, who presents to the emergency department via EMS from [facility] for respiratory distress. Per EMS, the patient was found unresponsive by MA staff and regained consciousness after suctioning and oxygenation. EMS reports the patient was saturating at 60% on nonrebreather, with a blood pressure of 180/80. The patient was given .4 mg of nitroglycerin with blood pressure improvement to 150/70. The patient was placed on a CPAP by EMS, with arrival oxygen saturation at 60-70%. - Current Medication List Current Medications: Active Medications Acetaminophen (Tylenol -) 650 mg PO Q4H PRN PRN Reason: PAIN LEVEL 1-5 Albuterol Sulfate (Ventolin 0.083% Nebulizer Soln -) 1 amp NEB RTID [facility] Last Admin: 09/21/19 21:00 Dose: 1 amp Documented by: Brimonidine Tartrate (Alphagan 0.2% -) 1 drop OU TID [facility] Last Admin: 09/22/19 06:14 Dose: 1 drop Documented by: Docusate Sodium (Colace -) 100 mg PO HS [facility] Last Admin: 09/21/19 21:42 Dose: 100 mg Documented by: Piperacillin Sod/Tazobactam (Sod 3.375 gm/ Dextrose) 50 mls @ 100 mls/hr IVPB Q8H-IV ALEKSANDAR; Protocol Last Admin: 09/22/19 01:13 Dose: 100 mls/hr Documented by: Pantoprazole Sodium (Protonix -) 40 mg PO DAILY [facility] Last Admin: 09/21/19 09:06 Dose: 40 mg Documented by: Polyethylene Glycol (Miralax (For Daily Use) -) 17 gm PO AM [facility] Last Admin: 09/22/19 06:14 Dose: Not Given Documented by: - Objective Vital Signs: Vital Signs Temperature 99.1 F 09/21/19 20:05 Pulse Rate 64 09/22/19 04:00 Respiratory Rate 12 09/22/19 04:00 Blood Pressure 135/75 09/22/19 04:00 O2 Sat by Pulse Oximetry (%) 98 09/22/19 05:00 Constitutional: Yes: Thin Eyes: Yes: WNL HENT: Yes: WNL Neck: Yes: Decreased ROM Cardiovascular: Yes: Regular Rate and Rhythm, Murmur, S1 (varies in intensity), S2 (split) Respiratory: Yes: Diminished Gastrointestinal: Yes: Soft ...Rectal Exam: Yes: Deferred Genitourinary: No: Anuria Breast(s): Yes: WNL Musculoskeletal: Yes: Muscle Weakness Extremities: Yes: Cool Edema: No Peripheral Pulses WNL: Yes Integumentary: Yes: WNL Neurological: Yes: Alert, Weakness Labs: CBC, BMP 09/22/19 06:10 09/22/19 06:10 INR, PTT INR 0.97 (0.83-1.09) 09/20/19 14:00 Abnormal Lab Results 09/23/19 09/24/19 09/24/19 17:15 05:50 05:50 RDW 15.9 H Sodium 134 L Chloride 93 L Carbon Dioxide 33 H Anion Gap 7 L BUN 23.2 H Creatinine 0.5 L Random Glucose 108 H Calcium 8.3 L Total Bilirubin 1.2 H ALT 10 L Total Protein 6.2 L Albumin 2.4 L Ur Random Sodium 38 L - ....Imaging Chest X-ray: Image Reviewed EKG: Image Reviewed Assessment/Plan PNA Hypoxia Alzheimer dementia CTA No PE; CHENTE infiltrates- patchy, LLL atelectasis, ?hydronephrosis Parkinsons hyponatremia ROCAEL elevated BNP but clinicaly euvolemic Plan: COVID not detected. ECHO: mildly reduced LVEF TNI < 0.02; f/u serially Plan to start beta blockers, followed by ACEI (if BUN/Cr and electrolytes allow). EKG: AV pacing. continue antibiotics, O2 per hydroblaster. DVT Prophylaxsis.
[2019-09-22] MEDS: metoPROLOL SUCCINATE 25 MG TAB.SR.24H (FP) PO SCH (10:42)
[2019-09-22] MEDS: PANTOPRAZOLE 40 MG TABLET PO SCH (10:43)
--- NOTE | 2019-09-22 11:36 | CONS ---
DATE OF CONSULTATION: 09/21/2019 CHIEF COMPLAINT/HISTORY OF PRESENT ILLNESS: This is a very pleasant 89-year-old woman who I saw in the ICU. I saw her on September 20. She was admitted on September 19. She was brought there from [facility] for unresponsiveness and hypoxia. She was found to be diaphoretic but responsive, with severe hypoxia of O2 saturation of 60% on a nonrebreather. She was placed on CPAP and admitted to the ICU. It was not clear at that time if this was exacerbation of heart failure or COPD or pneumonia. She had a chest x-ray that showed no acute infiltrates. She subsequently had a CAT scan and a chest CTA that showed no evidence of pulmonary embolus but did show patchy left upper lobe infiltrates. She is currently awake and alert on nasal cannula in the ICU. She is conversant and extremely pleasant. She notes when she drinks water she occasionally coughs, otherwise she has no real complaints. PAST MEDICAL HISTORY: Notable for CHF, Parkinson's disease, Alzheimer's disease, hypertension. She has had a right humerus fracture in the past. She has a history of atrial fibrillation. She has a pacemaker. She has had a GI bleed in the past, hypertension, hypercholesterolemia, and she has had hip fracture requiring a Gamma Nail of her left femur. SOCIAL HISTORY: She has no children, and [facility]. ALLERGIES: She has no known drug allergies. MEDICATIONS: Her medications from [facility] include Colace, Tylenol, hydrochlorothiazide, and Alphagan eye drops. REVIEW OF SYSTEMS: Currently, she is resting comfortably and really has no complaints whatsoever. She never had any fever since admission. PHYSICAL EXAMINATION: Vital Signs: Temp of 99.2, which is her T-max. Blood pressure of 97/59, pulse 72. Respiratory rate is 15. She is saturating 98% now on 2 L. General: She is a thin elderly woman in no acute distress. HEENT: She is normocephalic. Her eyes are anicteric. Neck: Supple. Lungs: Have diminished breath sounds at the bases. Heart: Regular rate and rhythm. Abdomen: Soft, nontender. Extremities: Without edema. LABORATORY: Her white count is 20,000. It was 7.1 on admission. Hemoglobin 13.7, platelets of 232. Her BUN is 27, creatinine 0.9. LFTs are normal. Albumin is 2.8. COVID serology is negative. No cultures were sent. SUMMARY: This is a very pleasant 89-year-old woman with evidence of pneumonia, I suspect aspiration on CAT scan. Suspect leukocytosis is partially due to steroids that she got in the ER, and there may be a component of heart failure versus chronic obstructive pulmonary disease. Would continue Zosyn for possible aspiration. Renal sonogram as the CAT scan says there is a question of hydronephrosis. Will check a UA as well. Would obtain blood cultures and urinary antigens. Further recommendations to follow. Norah [id number]
--- NOTE | 2019-09-22 12:01 | PN ---
Progress Note (short form) - Note Progress Note: PULMONARY SUBJECTIVE: Pt seen and examined. Currently denies shortness of breath, saturating well on nasal cannula. No fevers recorded. Wants wings so "she can fly home." OBJECTIVE: Vital Signs Period Temp Pulse Resp BP Sys/Oseguera Pulse Ox Last 24 Hr 99.1 F-99.3 F 60-85 12-18 91-135/47-75 98-100 Gen: NAD at rest HEENT: mild thrush Heart: RRR Lung: bronchial breath sounds left base Abd: soft, nontender Ext: no edema CBC, BMP 09/22/19 06:10 09/22/19 06:10 Active Medications Acetaminophen (Tylenol -) 650 mg PO Q4H PRN PRN Reason: PAIN LEVEL 1-5 Albuterol Sulfate (Ventolin 0.083% Nebulizer Soln -) 1 amp NEB RTID [facility] Last Admin: 09/22/19 07:40 Dose: 1 amp Documented by: Brimonidine Tartrate (Alphagan 0.2% -) 1 drop OU TID [facility] Last Admin: 09/22/19 06:14 Dose: 1 drop Documented by: Docusate Sodium (Colace -) 100 mg PO HS [facility] Last Admin: 09/21/19 21:42 Dose: 100 mg Documented by: Piperacillin Sod/Tazobactam (Sod 3.375 gm/ Dextrose) 50 mls @ 100 mls/hr IVPB Q8H-IV ALEKSANDAR; Protocol Last Admin: 09/22/19 10:43 Dose: 100 mls/hr Documented by: Metoprolol Succinate (Toprol Xl -) 12.5 mg PO DAILY [facility] Last Admin: 09/22/19 10:42 Dose: 12.5 mg Documented by: Pantoprazole Sodium (Protonix -) 40 mg PO DAILY [facility] Last Admin: 09/22/19 10:43 Dose: 40 mg Documented by: Polyethylene Glycol (Miralax (For Daily Use) -) 17 gm PO AM [facility] Last Admin: 09/22/19 06:14 Dose: Not Given Documented by: ASSESSMENT AND PLAN: Acute Hypoxic Respiratory Failure improving Pneumonia r/o Aspiration Sepsis LV Systolic/Diastolic Dysfunction s/p PPM Hyponatremia HTN Parkinsons Alzheimers - continue antibiotics - f/u cultures - O2 to keep SpO2 >90% - monitor lytes - aspiration precautions - DVT prophylaxis
--- NOTE | 2019-09-22 13:31 | PN ---
Progress Note, Physician Chief Complaint: Shortness of breath History of Present Illness: Seen and examined at the bedside awake and alert offers no acute complaints no chest pain, sob, fever, chills making urine tolerating diet - Current Medication List Current Medications: Active Medications Acetaminophen (Tylenol -) 650 mg PO Q4H PRN PRN Reason: PAIN LEVEL 1-5 Albuterol Sulfate (Ventolin 0.083% Nebulizer Soln -) 1 amp NEB RTID [facility] Last Admin: 09/22/19 07:40 Dose: 1 amp Documented by: Brimonidine Tartrate (Alphagan 0.2% -) 1 drop OU TID [facility] Last Admin: 09/22/19 06:14 Dose: 1 drop Documented by: Docusate Sodium (Colace -) 100 mg PO HS [facility] Last Admin: 09/21/19 21:42 Dose: 100 mg Documented by: Piperacillin Sod/Tazobactam (Sod 3.375 gm/ Dextrose) 50 mls @ 100 mls/hr IVPB Q8H-IV [facility]; Protocol Last Admin: 09/22/19 10:43 Dose: 100 mls/hr Documented by: Metoprolol Succinate (Toprol Xl -) 12.5 mg PO DAILY [facility] Last Admin: 09/22/19 10:42 Dose: 12.5 mg Documented by: Pantoprazole Sodium (Protonix -) 40 mg PO DAILY [facility] Last Admin: 09/22/19 10:43 Dose: 40 mg Documented by: Polyethylene Glycol (Miralax (For Daily Use) -) 17 gm PO AM [facility] Last Admin: 09/22/19 06:14 Dose: Not Given Documented by: - Objective Vital Signs: Vital Signs Temperature 98.9 F 09/22/19 10:00 Pulse Rate 65 09/22/19 10:00 Respiratory Rate 16 09/22/19 10:00 Blood Pressure 116/88 09/22/19 10:00 O2 Sat by Pulse Oximetry (%) 100 09/22/19 12:05 Constitutional: Yes: No Distress Neck: Yes: Supple Cardiovascular: Yes: Regular Rate and Rhythm Respiratory: Yes: Regular Gastrointestinal: Yes: Soft Extremities: No: Cyanosis Edema: No Neurological: Yes: Alert Labs: CBC, BMP 09/22/19 06:10 09/22/19 06:10 INR, PTT INR 0.97 (0.83-1.09) 09/20/19 14:00 Assessment/Plan 89 year old woman with history of atrial fibrillation, hyperlipidemia, heart failure, hypertension, DVT, dementia, recent right arm fracture who presented from the [place] with respiratory distress and found to have PNA and hyponatremia. 1. Euvolemic vs. Hyovolemic hyponatremia 2. Suspected PNA 3. Hypoxia 4. Hx of systolic HF with diastolic dysfunction Serum sodium is stable. Urine studies are still pending Would start salt tabs 1g daily for now Uric acid is WNL which supports more euvolemic hyponatremia continue oral intake as tolerated fluid restriction of 1L for now continue antibiotics as per primary team continue supplemental O2 as needed ICU monitoring Thank you Kavon Mahan DO
--- NOTE | 2019-09-22 14:05 | CONSULT ---
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 Cardiovascular: Yes: AFIB, HTN Gastrointestinal: Yes: GI Bleed Heme/Onc: Yes: Anemia - Smoking History Smoking history: Unknown if ever smoked Have you smoked in the past 12 months: No - Alcohol/Substance Use Hx Alcohol Use: No History - Admission Reason For Visit: ACUTE PULMONARY EDEMA - Hearing Hearing: Impaired Hearing Aide: No Speech Evaluation - Communication Primary Language: FINNISH Communication: Yes: Within Normal Limits Oral Expression Ability: Yes: Mild Impairment - Speech Production Dysarthria: Yes: Mixed Able to Make Needs Known: Yes: WNL Intelligibility: Yes: WNL - Speech Characteristics Voice Loudness: Mildly Soft/Quiet Voice Pitch: Yes: Mildly Low Voice Phonatory-based Quality: Yes: Quivering, Tremor Speech Pattern: Normal Articulation: Yes: Precise Rate of Speech: Intact Voice Comment: Vocal quality is impaired characterized by tremors or quivering - Language/Auditory Comprehension Follows: Yes: 1 Stage Simple Commands (WFL), 2 Stage Simple Commands (WFL) Observation: Able to respond to yes/no queries: Yes, Yes/No Confusion: No, Comprehends Conversational Speech: Yes, Benefits from Slow Speech: No, Benefits from Repetiton: No, Benefits from Increased Volume of Speech: Yes - Language/Verbal Expression Able to Respond to Simple Queries: Yes: WNL Able to Communicate Wants and Needs: Yes: WNL Functional Communication Status: Yes: WNL Aware of Errors: Yes Attempts to Correct Errors: Yes Use of Gestures: No Written Expression: not examined Oral Expression: WFL Reading Comprehension: not examined Calculations: not examined Attention: Yes: Intact - Memory/Perception jail Memory: Yes: Mildly Impaired Short Term Memory: Yes: Mildly Impaired - Swallow Evaluation/Bedside Assessment Current Nutritional Intake: Dysphagia Minced, [place] Textured Liquids Oral Secretions: Yes: WFL Tracheostomy Present: No Dentition: Yes: Edentulous (top and bottom) Facial Symmetry at Rest: Symmetrical Facial Movement: Controlled Sensation: Normal Facial Comment: Oral and facial features are WFL for speech and swallow Jaw Position: Open at Rest Against Resistance Opening: Normal Against Resistance Closing: Normal Smile: Droops Left Lips, Comment: WF fpr speech and swallowing purposes. Lingual Movement: Normal Lingual Speed of Movement: Normal Lingual Movement Strgth Against Opposition: Normal Lingual Movement Characteristics: Normal Lingual Comment: WFL fpr speech and swallowing purposes. Soft Palate Description: Normal Color Hard Palate Description: Normal Color Velopharyngeal Movement: Normal Laryngeal Elevation: WFL Laryngeal Movement: Able to Palpate Needs Assistance: Yes Rate of Intake: WFL Bolus Size: WFL Labial Seal: WFL A-P Transit: WFL Timing of Swallow: Delayed Odynophagia: Oral Coughing/Throat Clear: No Change in Voice: No Other Findings/Remarks: 89 yo female seen at bedside for swallow eval to r/o dysphagia. Pt is verbal, A&Ox2 cooperative. PMHX includes, A-Fib, hyperlipidemia, heart failure, HTN DVT dementia and right arm Fx. CC: SOB found at [facility] in respiratory distress. Admitted for possible PNA although CXR does not show pathology. Vocal quality is impaired characterized with quivering. Volitional airway protection (without bolus) and swallow is WNL. Pt is edentulous but all other oral and facial fea tures are within functional limits for speech and swallowing purposes. Current diet: dyphagia chopped with thicken liquids. Pt given po trials of puree and soft mechanical with total assistance revealed reduced acceptance, increased mastication and difficulty of cohesive transport of mech soft. Pharyngeal swallows are delayed 2-4 seconds average. No change in voicing or respiration after the swallow. Pt reports that she does not enjoy cold foods and it makes her "throat sore." Limited study with solids secondary to temperature. Pt given po trials of thin, and thicken liquids via cup with minimal assistance revealed reduced acceptance, reduced labial containment with thin liquids and bolus control. Pharyngeal swallows are mildly delayed. No change in voicing or respiration after the swallow. Recommendations - Speech Evaluation, Impression/Plan Impression: 89 yo female presents with mild oral and pharyngeal phase dysphagia with mech soft solids and nectar thicken liquids. Pt does mech better with pureed solids. Speech and language are WFL and appropriate at this time. Outreach Manager Goals: Tolerate the least restrictive solid and liquid consistencies without s/s of penetration / aspiration. Short Term Goals: Tolerate pureed solid and nectar thicken liquid consistencies without s/s of penetration / aspiration. - Dysphagia Impressions/Plan Swallowing Skills: Impaired (mild for solids and liquids) Dysphagia Impressions: Mild Impairment, Moderate Impairment (for mech soft solids) *Silent aspiration: cannot be R/O at bedside Dysphagia Treatment Plan: Small Bites, Safe Rate, 1/2 tsp. at a time, Elevate HOB during feed Dysphagia Evaluation Summary: Recommendation: Continue po intake of pureed solids and nectar thicken liquids via as tolerated. Observe standard aspiration precautions. Crush meds in applesauce for ease of swallowing. Results given verbally to co founder & ceo and PCP via chart. [employer] PIPE MANUFACTURING SUPERVISOR to follow up for diet tolerance. steam pressure chamber operator to follow up for diet tolerance. - Recommendations Diet Consistency: Dysphagia Pureed Medication Administration: Crushed with applesauce Liquids: [place] Thick
[2019-09-22] MEDS: SODIUM CHLORIDE 1 GM TABLET PO SCH (14:38)
--- NOTE | 2019-09-22 14:53 | PN ---
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
--- NOTE | 2019-09-22 17:26 | PN ---
Progress Note, Physician Chief Complaint: Shortness of breath Hypoxia Pleural effusion Hyponatremia Hypokalemia Leukocytosis Abnormal liver enzymes History of Present Illness: NAD SOB improved On Nasal O2 - Current Medication List Current Medications: Active Medications Acetaminophen (Tylenol -) 650 mg PO Q4H PRN PRN Reason: PAIN LEVEL 1-5 Albuterol Sulfate (Ventolin 0.083% Nebulizer Soln -) 1 amp NEB RTID [facility] Last Admin: 09/22/19 14:30 Dose: 1 amp Documented by: Amino Acids (Prosource No Carb Liquid Pkt) 30 ml PO BID@0800,1730 [facility] Brimonidine Tartrate (Alphagan 0.2% -) 1 drop OU TID [facility] Last Admin: 09/22/19 14:38 Dose: 1 drop Documented by: Docusate Sodium (Colace -) 100 mg PO HS [facility] Last Admin: 09/21/19 21:42 Dose: 100 mg Documented by: Piperacillin Sod/Tazobactam (Sod 3.375 gm/ Dextrose) 50 mls @ 100 mls/hr IVPB Q8H-IV [facility]; Protocol Last Admin: 09/22/19 10:43 Dose: 100 mls/hr Documented by: Metoprolol Succinate (Toprol Xl -) 12.5 mg PO DAILY [facility] Last Admin: 09/22/19 10:42 Dose: 12.5 mg Documented by: Pantoprazole Sodium (Protonix -) 40 mg PO DAILY [facility] Last Admin: 09/22/19 10:43 Dose: 40 mg Documented by: Polyethylene Glycol (Miralax (For Daily Use) -) 17 gm PO AM [facility] Last Admin: 09/22/19 06:14 Dose: Not Given Documented by: Sodium Chloride (Sodium Chloride Tablet -) 1 gm PO DAILY [facility] Last Admin: 09/22/19 14:38 Dose: 1 gm Documented by: - Objective Vital Signs: Vital Signs Temperature 97.8 F 09/22/19 15:11 Pulse Rate 60 09/22/19 15:11 Respiratory Rate 16 09/22/19 15:11 Blood Pressure 112/68 09/22/19 15:11 O2 Sat by Pulse Oximetry (%) 99 09/22/19 14:38 Constitutional: Yes: No Distress, Calm, Thin Cardiovascular: Yes: Regular Rate and Rhythm Respiratory: Yes: Regular, CTA Bilaterally Gastrointestinal: Yes: Normal Bowel Sounds, Soft Genitourinary: Yes: Incontinence Musculoskeletal: Yes: WNL Extremities: Yes: WNL Edema: No Peripheral Pulses WNL: Yes Wound/Incision: Yes: [place] Removed (right hip) Neurological: Yes: Alert, Oriented Psychiatric: Yes: Alert, Oriented Labs: CBC, BMP 09/22/19 06:10 09/22/19 06:10 INR, PTT INR 0.97 (0.83-1.09) 09/20/19 14:00 Problem List - Problems (1) Hyponatremia Assessment/Plan: -improving -monitor daily labs -Nephrology consult Problems reviewed: Yes Code(s): E87.1 - HYPO-OSMOLALITY AND HYPONATREMIA (2) Hypoxia Assessment/Plan: -Left LL infiltration -ID consulted -IV Zosyn -CTA results reviewed -O2 to keep SpO2>90% -Pulmonary consult -COVID 19 Negative -Bronchodilators Problems reviewed: Yes Code(s): R09.02 - HYPOXEMIA (3) Acute on chronic systolic heart failure Assessment/Plan: -Cardiology consult -Received IV furosemide in ER -D/C IVF -Last Echo 03/2019-moderate concentric LVH, LVEF-40-45%, mod mitral annular calcification,mild mitral + tricuspid regurgitation, Right ventricular systolic pressure elevated, mild aortic sclerosis -Repeat Echo upon cardiology discretion -IV furosemide as per cardiology -BB if BP allows Problems reviewed: Yes Code(s): I50.23 - ACUTE ON CHRONIC SYSTOLIC (CONGESTIVE) HEART FAILURE (4) Hypokalemia Assessment/Plan: -resolved -Monitor daily labs Problems reviewed: Yes Code(s): E87.6 - HYPOKALEMIA (5) Severe malnutrition Assessment/Plan: -multivitamin -Prosource BID -MBS Problems reviewed: Yes Code(s): E43 - UNSPECIFIED SEVERE PROTEIN-CALORIE MALNUTRITION (6) Pneumonia Assessment/Plan: -Likely aspiration -ID on board -IV Zosyn -MBS to r/o aspiration -Afebrile -leukocytosis improved Problems reviewed: Yes Code(s): J18.9 - PNEUMONIA, UNSPECIFIED ORGANISM Assessment/Plan See problem list
[2019-09-22] MEDS: AMINO ACIDS/PROTEIN HYDROLYS 30 ML LIQUID.PKT PO SCH (18:23)
[2019-09-22] MEDS: DOCUSATE SODIUM 100 MG CAPSULE (FP) PO SCH (21:27)
[2019-09-23] MEDS: PIPERACILLIN/TAZOB 3.375 GM 3.375 GM in DEXTROSE 5%-WATER - 50 ML IVPB SCH ×2 (01:11→09:27)
[2019-09-23] MEDS: BRIMONIDINE TARTRATE 0.2% OPHTHALMIC 5 ML BOTTLE OU SCH ×3 (05:59→22:36)
[2019-09-23] MEDS: POLYETHYLENE GLYCOL 3350 119 GM BTL PO SCH (06:14)
[2019-09-23 06:34] LABS: BASO % 0.1 % (0-2.0); HEMATOCRIT 40.6 % (32.4-45.2); HEMOGLOBIN 13.1 GM/dL (10.7-15.3); LYMPH % 3.6 % (8-40); MCH 30.5 pg (25.7-33.7); MCHC 32.4 g/dl (32.0-36.0); MEAN CELL VOLUME 94.2 fl (80-96); MONO % 4.5 % (3.8-10.2); NEUT % 91.8 % (42.8-82.8); PLATELET COUNT 215 K/MM3 (134-434); RBC 4.31 M/mm3 (3.60-5.2); RDW 16.1 % (11.6-15.6); WHITE BLOOD COUNT 11.3 K/mm3 (4.0-10.0)
[2019-09-23 07:06] LABS: ALBUMIN 2.7 g/dl (3.4-5.0); BILIRUBIN,TOTAL 0.8 mg/dL (0.2-1); BLOOD UREA NITROGEN 21.8 mg/dL (7-18); CALCIUM 9.1 mg/dL (8.5-10.1); CREATININE 0.6 mg/dL (0.55-1.3); PHOSPHOROUS 2.6 mg/dL (2.5-4.9); POTASSIUM 3.7 mmol/L (3.5-5.1); TOT PROT 6.3 g/dl (6.4-8.2)
[2019-09-23] MEDS: ALBUTEROL SO4 0.083% IH SOL 2.5 MG/3 ML VIAL.NEB. NEB SCH ×3 (07:40→21:36)
[2019-09-23] MEDS ORDERED: PIPERACILLIN/TAZOBACTAM 3.375 GM VIAL IVPB ONE ×2 (08:25→18:22)
[2019-09-23] MEDS ORDERED: DEXTROSE 5%-WATER - 50 ML IVPB ONE (08:25)
[2019-09-23] MEDS: MULTIVIT-MINERALS ORAL LIQUID PO SCH (09:25)
[2019-09-23] MEDS: AMINO ACIDS/PROTEIN HYDROLYS 30 ML LIQUID.PKT PO SCH ×2 (09:25→18:21)
[2019-09-23] MEDS: SODIUM CHLORIDE 1 GM TABLET PO SCH (09:26)
[2019-09-23] MEDS: PANTOPRAZOLE 40 MG TABLET PO SCH (09:26)
[2019-09-23] MEDS: metoPROLOL SUCCINATE 25 MG TAB.SR.24H (FP) PO SCH (09:26)
[2019-09-23 10:03] LABS: ANISOCYTOSIS 1+; MACROCYTOSIS 0; OVALOCYTE 1+; PLATELET ESTIMATE NORMAL
--- NOTE | 2019-09-23 10:39 | PN ---
Progress Note, MASTER OCEAN YACHT - Note Progress Note: 89 Y/O female admitted from [place]. acute hypoxic respiratory failure -now improving. PNA r/o aspiration, sepsis, HTN. COVID19(-) Diet downgraded to pureed solids and nectar thicken liquids from chopped for improved tolerance. Observe standard aspiration precautions. Crush meds in applesauce for ease of swallowing.\ 2 alvin, ensure pudding, prosource,MV CT chest noted ID note-89 yo female [place] with severe [place]- she reports passing out? required bipap, now on nasal oxygen comfortable reports cough when she drinks no chest pain, no sob at present imaging- No PE on CTA, CHENTE infiltrates- patchy, LLL atelectasis, ?hydronephrosis treated with steroids and antibiotics possible aspiration pneumonia suspect leukocytosis partially due to steroids CHF vs COPD hydronephrosis Selected Entries 09/21/19 09/22/19 09/22/19 19:47 00:00 04:00 Diet Tolerated Fair Supper 25% Temperature Blood Pressure 91/60 135/75 09/22/19 09/22/19 09/22/19 10:00 15:11 19:00 Diet Tolerated Supper Temperature 98.9 F 97.8 F 97.9 F Blood Pressure 116/88 112/68 119/71 09/22/19 09/22/19 09/23/19 22:00 23:00 03:00 Diet Tolerated Fair Supper 25% Temperature 97.7 F Blood Pressure 102/62 100/61 09/23/19 07:00 Diet Tolerated Supper Temperature 97.7 F Blood Pressure 117/76 Laboratory Tests 09/20/19 09/21/19 09/22/19 14:00 05:38 06:10 WBC 7.1 20.5 H 15.3 H 09/23/19 05:30 WBC 11.3 H Last seen by me in March,- MBS- 03/2019 Deep silent penetration/SILENT aspiration on thin and nectar thick liquids. Nasopharyngeal regurgitationfrom pharynx,Chronic cough. Puree/honey thick liquid. Pt has been on puree/nectar at [place] and has gained 24 lbs, per EMR, since March. Overtly tolerating Puree/nectar presently Suggest MBS to r/o silent aspiration
[2019-09-23] MEDS ORDERED: PT OWN MED DRAWER 7, Y5N ONE (11:58)
--- NOTE | 2019-09-23 12:30 | PN ---
Progress Note, Physician Chief Complaint: Shortness of breath Hypoxia Pleural effusion Hyponatremia Hypokalemia Leukocytosis Abnormal liver enzymes History of Present Illness: NAD Denies any SOB On Nasal O2 - Current Medication List Current Medications: Active Medications Acetaminophen (Tylenol -) 650 mg PO Q4H PRN PRN Reason: PAIN LEVEL 1-5 Albuterol Sulfate (Ventolin 0.083% Nebulizer Soln -) 1 amp NEB RTID [facility] Last Admin: 09/23/19 07:40 Dose: 1 amp Documented by: Amino Acids (Prosource No Carb Liquid Pkt) 30 ml PO BID@0800,1730 [facility] Last Admin: 09/23/19 09:25 Dose: 30 ml Documented by: Brimonidine Tartrate (Alphagan 0.2% -) 1 drop OU TID [facility] Last Admin: 09/23/19 05:59 Dose: 1 drop Documented by: Docusate Sodium (Colace -) 100 mg PO HS [facility] Last Admin: 09/22/19 21:27 Dose: 100 mg Documented by: Piperacillin Sod/Tazobactam (Sod 3.375 gm/ Sodium Chloride) 50 mls @ 100 mls/hr IVPB Q8H-IV [facility]; Protocol Metoprolol Succinate (Toprol Xl -) 12.5 mg PO DAILY [facility] Last Admin: 09/23/19 09:26 Dose: 12.5 mg Documented by: Multivitamins/Minerals (Certavite-Antioxidant Liquid) 15 ml PO DAILY [facility] Last Admin: 09/23/19 09:25 Dose: 15 ml Documented by: Pantoprazole Sodium (Protonix -) 40 mg PO DAILY [facility] Last Admin: 09/23/19 09:26 Dose: 40 mg Documented by: Polyethylene Glycol (Miralax (For Daily Use) -) 17 gm PO AM [facility] Last Admin: 09/23/19 06:14 Dose: Not Given Documented by: Sodium Chloride (Sodium Chloride Tablet -) 1 gm PO DAILY [facility] Last Admin: 09/23/19 09:26 Dose: 1 gm Documented by: - Objective Vital Signs: Vital Signs Temperature 97.7 F 09/23/19 07:00 Pulse Rate 60 09/23/19 11:00 Respiratory Rate 13 09/23/19 11:00 Blood Pressure 109/79 09/23/19 11:00 O2 Sat by Pulse Oximetry (%) 96 09/23/19 09:00 Constitutional: Yes: No Distress, Calm, Cachectic Cardiovascular: Yes: Regular Rate and Rhythm Respiratory: Yes: Regular, CTA Bilaterally Gastrointestinal: Yes: Normal Bowel Sounds, Soft Genitourinary: Yes: Incontinence Musculoskeletal: Yes: Muscle Weakness Extremities: Yes: Other (generalizeda trophy) Edema: No Peripheral Pulses WNL: Yes Wound/Incision: Yes: [place] Removed (13 ezekiel removed from Right hip) Neurological: Yes: Alert, Oriented Psychiatric: Yes: Alert, Oriented Labs: CBC, BMP 09/23/19 05:30 09/23/19 05:30 INR, PTT INR 0.97 (0.83-1.09) 09/20/19 14:00 Problem List - Problems (1) Hyponatremia Assessment/Plan: -improving -monitor daily labs -Nephrology consult Problems reviewed: Yes Code(s): E87.1 - HYPO-OSMOLALITY AND HYPONATREMIA (2) Hypoxia Assessment/Plan: -Left LL infiltration -ID consulted -IV Zosyn -CTA results reviewed -O2 to keep SpO2>90% -Pulmonary consult -COVID 19 Negative -Bronchodilators Problems reviewed: Yes Code(s): R09.02 - HYPOXEMIA (3) Acute on chronic systolic heart failure Assessment/Plan: -Cardiology consult -Received IV furosemide in ER -D/C IVF -Last Echo 03/2019-moderate concentric LVH, LVEF-40-45%, mod mitral annular calcification,mild mitral + tricuspid regurgitation, Right ventricular systolic pressure elevated, mild aortic sclerosis -Repeat Echo upon cardiology discretion -IV furosemide as per cardiology -BB if BP allows Problems reviewed: Yes Code(s): I50.23 - ACUTE ON CHRONIC SYSTOLIC (CONGESTIVE) HEART FAILURE (4) Hypokalemia Assessment/Plan: -resolved -Monitor daily labs Problems reviewed: Yes Code(s): E87.6 - HYPOKALEMIA (5) Severe malnutrition Assessment/Plan: -multivitamin -Prosource BID -MBS Problems reviewed: Yes Code(s): E43 - UNSPECIFIED SEVERE PROTEIN-CALORIE MALNUTRITION (6) Pneumonia Assessment/Plan: -Likely aspiration -ID on board -IV Zosyn -MBS to r/o aspiration -Afebrile -leukocytosis improved -Bronchodilators Problems reviewed: Yes Code(s): J18.9 - PNEUMONIA, UNSPECIFIED ORGANISM Assessment/Plan See problem list
--- NOTE | 2019-09-23 13:21 | PN ---
Progress Note, Physician Chief Complaint: Shortness of breath History of Present Illness: Seen and examined at the bedside awake and alert offers no acute complaints no chest pain, sob, fever, chills no N/V/D tolerating oral means - Current Medication List Current Medications: Active Medications Acetaminophen (Tylenol -) 650 mg PO Q4H PRN PRN Reason: PAIN LEVEL 1-5 Albuterol Sulfate (Ventolin 0.083% Nebulizer Soln -) 1 amp NEB RTID [facility] Last Admin: 09/23/19 07:40 Dose: 1 amp Documented by: Amino Acids (Prosource No Carb Liquid Pkt) 30 ml PO BID@0800,1730 [facility] Last Admin: 09/23/19 09:25 Dose: 30 ml Documented by: Brimonidine Tartrate (Alphagan 0.2% -) 1 drop OU TID [facility] Last Admin: 09/23/19 05:59 Dose: 1 drop Documented by: Docusate Sodium (Colace -) 100 mg PO HS [facility] Last Admin: 09/22/19 21:27 Dose: 100 mg Documented by: Piperacillin Sod/Tazobactam (Sod 3.375 gm/ Sodium Chloride) 50 mls @ 100 mls/hr IVPB Q8H-IV [facility]; Protocol Metoprolol Succinate (Toprol Xl -) 12.5 mg PO DAILY [facility] Last Admin: 09/23/19 09:26 Dose: 12.5 mg Documented by: Multivitamins/Minerals (Certavite-Antioxidant Liquid) 15 ml PO DAILY [facility] Last Admin: 09/23/19 09:25 Dose: 15 ml Documented by: Pantoprazole Sodium (Protonix -) 40 mg PO DAILY [facility] Last Admin: 09/23/19 09:26 Dose: 40 mg Documented by: Polyethylene Glycol (Miralax (For Daily Use) -) 17 gm PO AM [facility] Last Admin: 09/23/19 06:14 Dose: Not Given Documented by: Sodium Chloride (Sodium Chloride Tablet -) 1 gm PO DAILY [facility] Last Admin: 09/23/19 09:26 Dose: 1 gm Documented by: - Objective Vital Signs: Vital Signs Temperature 97.7 F 09/23/19 07:00 Pulse Rate 60 09/23/19 11:00 Respiratory Rate 13 09/23/19 11:00 Blood Pressure 109/79 09/23/19 11:00 O2 Sat by Pulse Oximetry (%) 96 09/23/19 09:00 Constitutional: Yes: No Distress Neck: Yes: Supple Cardiovascular: Yes: Regular Rate and Rhythm Respiratory: Yes: Regular Gastrointestinal: Yes: Soft Extremities: No: Cyanosis Edema: No Labs: CBC, BMP 09/23/19 05:30 09/23/19 05:30 INR, PTT INR 0.97 (0.83-1.09) 09/20/19 14:00 Assessment/Plan 89 year old woman with history of atrial fibrillation, hyperlipidemia, heart failure, hypertension, DVT, dementia, recent right arm fracture who presented from the [place] with respiratory distress and found to have PNA and hyponatremia. 1. Euvolemic hyponatremia 2. Suspected PNA 3. Hypoxia 4. Hx of systolic HF with diastolic dysfunction Serum sodium is stable/slightly improved Continue start salt tabs 1g daily Uric acid is WNL which supports more euvolemic hyponatremia continue oral intake as tolerated fluid restriction of 1L continue antibiotics as per primary team continue supplemental O2 as needed ICU monitoring Thank you Kavon Mahan DO
--- NOTE | 2019-09-23 14:31 | PN ---
Progress Note (short form) - Note Progress Note: NAD on 4 L NC O2. No acute events overnight. Denies CP or SOB. Intake & Output 09/20/19 09/21/19 09/22/19 09/23/19 23:59 23:59 23:59 23:59 Intake Total 300 260 150 Balance 300 260 150 Weight 99 lb 125 lb 125 lb 124 lb Last Vital Signs Temp Pulse Resp BP Pulse Ox 97.7 F 60 13 109/79 96 09/23/19 07:00 09/23/19 11:00 09/23/19 11:00 09/23/19 11:00 09/23/19 09:00 Active Medications Acetaminophen (Tylenol -) 650 mg PO Q4H PRN PRN Reason: PAIN LEVEL 1-5 Albuterol Sulfate (Ventolin 0.083% Nebulizer Soln -) 1 amp NEB RTID [facility] Last Admin: 09/23/19 07:40 Dose: 1 amp Documented by: Amino Acids (Prosource No Carb Liquid Pkt) 30 ml PO BID@0800,1730 [facility] Last Admin: 09/23/19 09:25 Dose: 30 ml Documented by: Brimonidine Tartrate (Alphagan 0.2% -) 1 drop OU TID [facility] Last Admin: 09/23/19 05:59 Dose: 1 drop Documented by: Docusate Sodium (Colace -) 100 mg PO HS [facility] Last Admin: 09/22/19 21:27 Dose: 100 mg Documented by: Piperacillin Sod/Tazobactam (Sod 3.375 gm/ Sodium Chloride) 50 mls @ 100 mls/hr IVPB Q8H-IV [facility]; Protocol Metoprolol Succinate (Toprol Xl -) 12.5 mg PO DAILY [facility] Last Admin: 09/23/19 09:26 Dose: 12.5 mg Documented by: Multivitamins/Minerals (Certavite-Antioxidant Liquid) 15 ml PO DAILY [facility] Last Admin: 09/23/19 09:25 Dose: 15 ml Documented by: Pantoprazole Sodium (Protonix -) 40 mg PO DAILY [facility] Last Admin: 09/23/19 09:26 Dose: 40 mg Documented by: Polyethylene Glycol (Miralax (For Daily Use) -) 17 gm PO AM [facility] Last Admin: 09/23/19 06:14 Dose: Not Given Documented by: Sodium Chloride (Sodium Chloride Tablet -) 1 gm PO DAILY [facility] Last Admin: 09/23/19 09:26 Dose: 1 gm Documented by: Gen: NAD at rest HEENT: mild thrush Heart: RRR Lung: Few scattered rhonchi, bronchial breath sounds left base Abd: soft, nontender Ext: no edema Laboratory Results - last 24 hr 09/23/19 09/23/19 05:30 05:30 WBC 11.3 H RBC 4.31 Hgb 13.1 Hct 40.6 MCV 94.2 MCH 30.5 MCHC 32.4 RDW 16.1 H Plt Count 215 MPV 8.0 D Absolute Neuts (auto) 10.4 H Neutrophils % 91.8 H Neutrophils % (Manual) 76.6 Band Neutrophils % 11.2 Lymphocytes % 3.6 L Lymphocytes % (Manual) 6.1 L D Monocytes % 4.5 Monocytes % (Manual) 6 D Eosinophils % 0.0 Eosinophils % (Manual) 0.0 Basophils % 0.1 Basophils % (Manual) 0.0 Myelocytes % (Man) 0 D Promyelocytes % (Man) 0 Blast Cells % (Manual) 0 Nucleated RBC % 0 Metamyelocytes 0 D Hypochromia 0 Platelet Estimate Normal Polychromasia 0 Poikilocytosis 1+ Anisocytosis 1+ Microcytosis 1+ Macrocytosis 0 Spherocytes 1+ Ovalocytes 1+ Sodium 131 L Potassium 3.7 Chloride 93 L Carbon Dioxide 35 H Anion Gap 3 L BUN 21.8 H Creatinine 0.6 Est GFR (CKD-EPI)AfAm 94.32 Est GFR (CKD-EPI)NonAf 81.38 Random Glucose 101 Calcium 9.1 Phosphorus 2.6 Magnesium 2.0 Total Bilirubin 0.8 AST 17 ALT 12 L Alkaline Phosphatase 103 Total Protein 6.3 L Albumin 2.7 L ASSESSMENT AND PLAN: Acute Hypoxic Respiratory Failure improving Pneumonia r/o Aspiration Sepsis LV Systolic/Diastolic Dysfunction s/p PPM Hyponatremia HTN Parkinsons Alzheimers - continue antibiotics - O2 to keep SpO2 >90% - monitor lytes - aspiration precautions - DVT prophylaxis Dr Denney
--- NOTE | 2019-09-23 14:46 | PN ---
Progress Note, Physician History of Present Illness: 89 year old female with known history of GIB, Afib sp pacemaker placement, hypercholesterolemia, CHF, hypertension, DVT, right femur fracture sp repair, right arm fracture currently on a sling, dementia, nonambulatory for at least two months (since recent right leg surgery) who was sent to the ED by retirement staff after she was found to be in acute respiratory distress. At the ED she was found to be hypoxic needing bipap support. - Current Medication List Current Medications: Active Medications Acetaminophen (Tylenol -) 650 mg PO Q4H PRN PRN Reason: PAIN LEVEL 1-5 Albuterol Sulfate (Ventolin 0.083% Nebulizer Soln -) 1 amp NEB RTID [facility] Last Admin: 09/23/19 07:40 Dose: 1 amp Documented by: Amino Acids (Prosource No Carb Liquid Pkt) 30 ml PO BID@0800,1730 [facility] Last Admin: 09/23/19 09:25 Dose: 30 ml Documented by: Brimonidine Tartrate (Alphagan 0.2% -) 1 drop OU TID [facility] Last Admin: 09/23/19 05:59 Dose: 1 drop Documented by: Docusate Sodium (Colace -) 100 mg PO HS [facility] Last Admin: 09/22/19 21:27 Dose: 100 mg Documented by: Piperacillin Sod/Tazobactam (Sod 3.375 gm/ Sodium Chloride) 50 mls @ 100 mls/hr IVPB Q8H-IV [facility]; Protocol Metoprolol Succinate (Toprol Xl -) 12.5 mg PO DAILY [facility] Last Admin: 09/23/19 09:26 Dose: 12.5 mg Documented by: Multivitamins/Minerals (Certavite-Antioxidant Liquid) 15 ml PO DAILY [facility] Last Admin: 09/23/19 09:25 Dose: 15 ml Documented by: Pantoprazole Sodium (Protonix -) 40 mg PO DAILY [facility] Last Admin: 09/23/19 09:26 Dose: 40 mg Documented by: Polyethylene Glycol (Miralax (For Daily Use) -) 17 gm PO AM [facility] Last Admin: 09/23/19 06:14 Dose: Not Given Documented by: Sodium Chloride (Sodium Chloride Tablet -) 1 gm PO DAILY [facility] Last Admin: 09/23/19 09:26 Dose: 1 gm Documented by: - Objective Vital Signs: Vital Signs Temperature 97.7 F 09/23/19 07:00 Pulse Rate 60 09/23/19 11:00 Respiratory Rate 13 09/23/19 11:00 Blood Pressure 109/79 09/23/19 11:00 O2 Sat by Pulse Oximetry (%) 96 09/23/19 09:00 Eyes: Yes: WNL, Conjunctiva Clear, EOM Intact HENT: Yes: WNL, Atraumatic, Normocephalic Neck: Yes: WNL, Supple, Trachea Midline Cardiovascular: Yes: WNL, Regular Rate and Rhythm Respiratory: Yes: WNL, Regular, CTA Bilaterally Gastrointestinal: Yes: WNL, Normal Bowel Sounds Genitourinary: Yes: WNL Musculoskeletal: Yes: WNL Extremities: Yes: WNL Edema: No Integumentary: Yes: WNL Neurological: Yes: WNL, Alert, Oriented ...Motor Strength: WNL Psychiatric: Yes: WNL Labs: CBC, BMP 09/23/19 05:30 09/23/19 05:30 INR, PTT INR 0.97 (0.83-1.09) 09/20/19 14:00 Problem List - Problems (1) Acute pulmonary edema Code(s): J81.0 - ACUTE PULMONARY EDEMA (2) Hyponatremia Code(s): E87.1 - HYPO-OSMOLALITY AND HYPONATREMIA (3) Hypoxia Code(s): R09.02 - HYPOXEMIA (4) Acute on chronic systolic heart failure Code(s): I50.23 - ACUTE ON CHRONIC SYSTOLIC (CONGESTIVE) HEART FAILURE (5) Acute thrombosis of left basilic vein Code(s): I82.612 - ACUTE EMBOLISM AND THOMBOS OF SUPERFIC VEINS OF L UP EXTREM (6) Afib Code(s): I48.91 - UNSPECIFIED ATRIAL FIBRILLATION Qualifiers: Atrial fibrillation type: longstanding persistent Qualified Code(s): I48.11 - Longstanding persistent atrial fibrillation (7) Anemia Code(s): D64.9 - ANEMIA, UNSPECIFIED (8) CHF (congestive heart failure) Code(s): I50.9 - HEART FAILURE, UNSPECIFIED (9) Cachexia Code(s): R64 - CACHEXIA (10) Cellulitis Code(s): L03.90 - CELLULITIS, UNSPECIFIED Qualifiers: Site of cellulitis: extremity Site of cellulitis of extremity: lower extremity Laterality: unspecified laterality Qualified Code(s): L03.119 - Cellulitis of unspecified part of limb (11) Closed comminuted intertrochanteric fracture of left femur Code(s): S72.142A - DISPLACED INTERTROCHANTERIC FRACTURE OF LEFT FEMUR, INIT (12) Closed right humeral fracture Code(s): S42.301A - UNSP FRACTURE OF SHAFT OF HUMERUS, RIGHT ARM, INIT Qualifiers: Encounter type: initial encounter Humerus Location: proximal Fracture morphology: unspecified fracture morphology Qualified Code(s): S42.201A - Unspecified fracture of upper end of right humerus, initial encounter for closed fracture (13) DVT (deep venous thrombosis) Code(s): I82.409 - ACUTE EMBOLISM AND THOMBOS UNSP DEEP VN UNSP LOWER EXTREMITY (14) DVT of upper extremity (deep vein thrombosis) Code(s): I82.629 - ACUTE EMBOLISM AND THROMBOSIS OF DEEP VN UNSP UP EXTREM Qualifiers: Affected thrombotic vein of extremity: brachial Chronicity: chronic Laterality: left Qualified Code(s): I82.722 - 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 (15) Dementia Code(s): F03.90 - UNSPECIFIED DEMENTIA WITHOUT BEHAVIORAL DISTURBANCE (16) Eye abrasion Code(s): S05.8X9A - OTHER INJURIES OF UNSPECIFIED EYE AND ORBIT, INIT ENCNTR Qualifiers: Encounter type: initial encounter Laterality: left Qualified Code(s): S05.8X2A - Other injuries of left eye and orbit, initial encounter (17) Fracture of femoral neck, right, closed Code(s): S72.001A - FRACTURE OF UNSP PART OF NECK OF RIGHT FEMUR, INIT Qualifiers: Encounter type: initial encounter Qualified Code(s): S72.001A - Fracture of unspecified part of neck of right femur, initial encounter for closed fracture (18) GI bleed Code(s): K92.2 - GASTROINTESTINAL HEMORRHAGE, UNSPECIFIED Qualifiers: GI bleed type/associated pathology: melena Qualified Code(s): K92.1 - Melena (19) HLD (hyperlipidemia) Code(s): E78.5 - HYPERLIPIDEMIA, UNSPECIFIED Qualifiers: Hyperlipidemia type: pure hypercholesterolemia Qualified Code(s): E78.00 - Pure hypercholesterolemia, unspecified; E78.0 - Pure hypercholesterolemia (20) HTN (hypertension) Code(s): I10 - ESSENTIAL (PRIMARY) HYPERTENSION Qualifiers: Hypertension type: essential hypertension Qualified Code(s): I10 - Essential (primary) hypertension (21) Hypokalemia Code(s): E87.6 - HYPOKALEMIA (22) Labile hypertension Code(s): R09.89 - OTH SYMPTOMS AND SIGNS INVOLVING THE CIRC AND RESP SYSTEMS (23) Pacemaker Code(s): Z95.0 - PRESENCE OF CARDIAC PACEMAKER (24) Sacral ulcer Code(s): L98.429 - NON-PRESSURE CHRONIC ULCER OF BACK WITH UNSPECIFIED SEVERITY (25) Sepsis affecting skin Code(s): A41.9 - SEPSIS, UNSPECIFIED ORGANISM (26) Severe malnutrition Code(s): E43 - UNSPECIFIED SEVERE PROTEIN-CALORIE MALNUTRITION (27) Status post placement of cardiac pacemaker Code(s): Z95.0 - PRESENCE OF CARDIAC PACEMAKER (28) Syncope Code(s): R55 - SYNCOPE AND COLLAPSE Qualifiers: Syncope type: vasovagal syncope Qualified Code(s): R55 - Syncope and collapse (29) Systolic CHF Code(s): I50.20 - UNSPECIFIED SYSTOLIC (CONGESTIVE) HEART FAILURE (30) Systolic dysfunction without heart failure Code(s): I51.89 - OTHER ILL-DEFINED HEART DISEASES Assessment/Plan PNA Hypoxia Alzheimer dementia CTA No PE; CHENTE infiltrates- patchy, LLL atelectasis, ?hydronephrosis Parkinsons hyponatremia ROCAEL elevated BNP but clinicaly euvolemic Plan: COVID negative. ECHO: mildly reduced LVEF TNI < 0.02; f/u serially Plan to start beta blockers, followed by ACEI (if BUN/Cr and electrolytes allow). EKG: AV pacing. continue antibiotics, O2 per taxonomist. DVT Prophylaxsis. cc time 36 min
--- NOTE | 2019-09-23 15:08 | PN ---
Progress Note (short form) - Note Progress Note: doing well resting comfortably seen before she went for her MBS Vital Signs Period Temp Pulse Resp BP Sys/Oseguera Pulse Ox Last 24 Hr 97.7 F-97.9 F 60-64 13-16 100-119/61-79 96-99 cor-rrr lungs clear abd soft,nt ext no edema CBC, BMP 09/23/19 05:30 09/23/19 05:30 Microbiology 09/21/19 17:10 Blood - Peripheral Venous Blood Culture - Preliminary NO GROWTH OBTAINED AFTER 24 HOURS, INCUBATION TO CONTINUE FOR 4 DAYS. 09/21/19 16:50 Blood - Peripheral Venous Blood Culture - Preliminary NO GROWTH OBTAINED AFTER 24 HOURS, INCUBATION TO CONTINUE FOR 4 DAYS. a/p possible aspiration pneumonia suspect leukocytosis partially due to steroids resolving abnl MBS with aspiration day #3 zosyn can switch to augmentin suspension in am and complete total 7 days Problem List - Problems (1) Hypoxia Code(s): R09.02 - HYPOXEMIA (2) Pneumonia Code(s): J18.9 - PNEUMONIA, UNSPECIFIED ORGANISM (3) Hydronephrosis Code(s): N13.30 - UNSPECIFIED HYDRONEPHROSIS (4) Leukocytosis Code(s): D72.829 - ELEVATED WHITE BLOOD CELL COUNT, UNSPECIFIED
[2019-09-23] MEDS: PIPERACILLIN/TAZOB 3.375 GM 3.375 GM in SODIUM CHLORIDE 50 ML IVPB SCH (18:21)
[2019-09-23] MEDS ORDERED: SODIUM CHLORIDE 50 ML IVPB ONE (18:22)
[2019-09-23 19:19] LABS: URINE APPEARANCE CLEAR; URINE BILIRUBIN NEGATIVE (NEGATIVE); URINE COLOR YELLOW; URINE GLUCOSE (UA) NEGATIVE (NEGATIVE); URINE KETONE NEGATIVE (NEGATIVE); URINE LEUK ESTERASE NEGATIVE (NEGATIVE); URINE NITRITE NEGATIVE (NEGATIVE); URINE PROTEIN TRACE (NEGATIVE)
[2019-09-23] MEDS: DOCUSATE SODIUM 100 MG CAPSULE (FP) PO SCH (22:35)
[2019-09-24] MEDS ORDERED: SODIUM CHLORIDE 50 ML IVPB ONE ×3 (01:46→17:30)
[2019-09-24] MEDS ORDERED: PIPERACILLIN/TAZOBACTAM 3.375 GM VIAL IVPB ONE ×3 (01:46→17:30)
[2019-09-24] MEDS: PIPERACILLIN/TAZOB 3.375 GM 3.375 GM in SODIUM CHLORIDE 50 ML IVPB SCH ×3 (02:13→17:40)
[2019-09-24] MEDS: BRIMONIDINE TARTRATE 0.2% OPHTHALMIC 5 ML BOTTLE OU SCH ×3 (05:48→21:15)
[2019-09-24] MEDS: POLYETHYLENE GLYCOL 3350 119 GM BTL PO SCH (06:31)
[2019-09-24 07:10] LABS: BASO % 0.1 % (0-2.0); EOS % 0.2 % (0-4.5); HEMATOCRIT 41.3 % (32.4-45.2); HEMOGLOBIN 13.6 GM/dL (10.7-15.3); LYMPH % 8.1 % (8-40); MCH 31.1 pg (25.7-33.7); MEAN PLT VOLUME 7.5 fl (7.5-11.1); MONO % 10.1 % (3.8-10.2); NEUT % 81.5 % (42.8-82.8); PLATELET COUNT 209 K/MM3 (134-434); RBC 4.39 M/mm3 (3.60-5.2); RDW 15.9 % (11.6-15.6)
[2019-09-24 07:15] LABS: ALBUMIN 2.4 g/dl (3.4-5.0); BILIRUBIN,TOTAL 1.2 mg/dL (0.2-1); BLOOD UREA NITROGEN 23.2 mg/dL (7-18); CALCIUM 8.3 mg/dL (8.5-10.1); CREATININE 0.5 mg/dL (0.55-1.3); TOT PROT 6.2 g/dl (6.4-8.2)
[2019-09-24] MEDS: ALBUTEROL SO4 0.083% IH SOL 2.5 MG/3 ML VIAL.NEB. NEB SCH ×3 (08:30→20:25)
[2019-09-24] MEDS ORDERED: PT OWN MED DRAWER 7, Y5N ONE (09:50)
[2019-09-24] MEDS: PANTOPRAZOLE 40 MG TABLET PO SCH (10:08)
[2019-09-24] MEDS: MULTIVIT-MINERALS ORAL LIQUID PO SCH (10:08)
[2019-09-24] MEDS: SODIUM CHLORIDE 1 GM TABLET PO SCH (10:08)
[2019-09-24] MEDS: AMINO ACIDS/PROTEIN HYDROLYS 30 ML LIQUID.PKT PO SCH ×2 (10:08→16:51)
[2019-09-24] MEDS: metoPROLOL SUCCINATE 25 MG TAB.SR.24H (FP) PO SCH (10:09)
--- NOTE | 2019-09-24 10:23 | PN ---
Progress Note, Physician Chief Complaint: Pt alert; denies chest pain, dyspnea, palpitations. History of Present Illness: 89-year-old female with a past medical history significant for Afib, systolic CHF-->AICD, HTN, hx of DVTs, anemia, right shoulder fracture (wearing a sling), right hip and sacral wound and Alzheimer's, who presents to the emergency department via EMS from [facility] for respiratory distress. Per EMS, the patient was found unresponsive by [facility] staff and regained consciousness after suctioning and oxygenation. EMS reports the patient was saturating at 60% on nonrebreather, with a blood pressure of 180/80. The patient was given .4 mg of nitroglycerin with blood pressure improvement to 150/70. The patient was placed on a CPAP by EMS, with arrival oxygen saturation at 60-70%. - Current Medication List Current Medications: Active Medications Acetaminophen (Tylenol -) 650 mg PO Q4H PRN PRN Reason: PAIN LEVEL 1-5 Albuterol Sulfate (Ventolin 0.083% Nebulizer Soln -) 1 amp NEB RTID [facility] Last Admin: 09/24/19 08:30 Dose: 1 amp Documented by: Amino Acids (Prosource No Carb Liquid Pkt) 30 ml PO BID@0800,1730 [facility] Last Admin: 09/24/19 10:08 Dose: 30 ml Documented by: Brimonidine Tartrate (Alphagan 0.2% -) 1 drop OU TID [facility] Last Admin: 09/24/19 05:48 Dose: 1 drop Documented by: Docusate Sodium (Colace -) 100 mg PO HS [facility] Last Admin: 09/23/19 22:35 Dose: 100 mg Documented by: Piperacillin Sod/Tazobactam (Sod 3.375 gm/ Sodium Chloride) 50 mls @ 100 mls/hr IVPB Q8H-IV [facility]; Protocol Last Admin: 09/24/19 10:08 Dose: 100 mls/hr Documented by: Metoprolol Succinate (Toprol Xl -) 12.5 mg PO DAILY [facility] Last Admin: 09/24/19 10:09 Dose: 12.5 mg Documented by: Multivitamins/Minerals (Certavite-Antioxidant Liquid) 15 ml PO DAILY [facility] Last Admin: 09/24/19 10:08 Dose: 15 ml Documented by: Pantoprazole Sodium (Protonix -) 40 mg PO DAILY [facility] Last Admin: 09/24/19 10:08 Dose: 40 mg Documented by: Polyethylene Glycol (Miralax (For Daily Use) -) 17 gm PO AM [facility] Last Admin: 09/24/19 06:31 Dose: Not Given Documented by: Sodium Chloride (Sodium Chloride Tablet -) 1 gm PO DAILY [facility] Last Admin: 09/24/19 10:08 Dose: 1 gm Documented by: - Objective Vital Signs: Vital Signs Temperature 97.9 F 09/24/19 05:51 Pulse Rate 60 09/24/19 05:51 Respiratory Rate 12 09/24/19 05:51 Blood Pressure 158/89 09/24/19 05:51 O2 Sat by Pulse Oximetry (%) 100 09/24/19 08:30 Constitutional: Yes: Calm Eyes: Yes: WNL HENT: Yes: WNL Neck: Yes: WNL Cardiovascular: Yes: Regular Rate and Rhythm Respiratory: Yes: Diminished Gastrointestinal: Yes: Soft ...Rectal Exam: Yes: Deferred Genitourinary: No: Anuria Breast(s): Yes: WNL Musculoskeletal: Yes: Muscle Weakness Extremities: Yes: Cool Edema: No Peripheral Pulses WNL: Yes Integumentary: Yes: WNL Neurological: Yes: Alert, Oriented, Weakness Psychiatric: Yes: Alert, Oriented Labs: CBC, BMP 09/24/19 05:50 09/24/19 05:50 INR, PTT INR 0.97 (0.83-1.09) 09/20/19 14:00 Abnormal Lab Results 09/25/19 09/25/19 05:55 05:55 RDW 16.0 H MPV 7.0 L Chloride 94 L Carbon Dioxide 38 H Anion Gap 4 L BUN 18.2 H Total Bilirubin 1.1 H AST 12 L ALT 9 L Total Protein 5.9 L Albumin 2.4 L - ....Imaging Chest X-ray: Image Reviewed EKG: Image Reviewed Assessment/Plan PNA (?aspiration) Hypoxia Acute/chronic systolic CHF (mildly reduced LVEF) Alzheimer dementia CTA No PE; CHENTE infiltrates- patchy, LLL atelectasis, ?hydronephrosis Parkinsons hyponatremia: largely resolved ROCAEL elevated BNP but clinicaly euvolemic Plan: COVID not detected. ECHO: mildly reduced LVEF TNI < 0.02 x 3 (3 hrs apart) On metoprolol ER. Start lisinopril 2.5 mg daily. Avoid dehydration; f/u BUn/Cr, electrolytes, daily wt, Is and Os. EKG: AV pacing. continue antibiotics per ID (noted now able to change to PO), O2 per biological sciences professor. DVT Prophylaxsis.
[2019-09-24] MEDS ORDERED: LISINOPRIL 5 MG TABLET (FP) PO ONE (10:26)
--- NOTE | 2019-09-24 11:18 | PN ---
Progress Note, Physician Chief Complaint: ASLEEP COMFORTABLE SEEN IN ICU NOTES AND EVENTS REVIEWED - Current Medication List Current Medications: Active Medications Acetaminophen (Tylenol -) 650 mg PO Q4H PRN PRN Reason: PAIN LEVEL 1-5 Albuterol Sulfate (Ventolin 0.083% Nebulizer Soln -) 1 amp NEB RTID [facility] Last Admin: 09/24/19 08:30 Dose: 1 amp Documented by: Amino Acids (Prosource No Carb Liquid Pkt) 30 ml PO BID@0800,1730 [facility] Last Admin: 09/24/19 10:08 Dose: 30 ml Documented by: Brimonidine Tartrate (Alphagan 0.2% -) 1 drop OU TID [facility] Last Admin: 09/24/19 05:48 Dose: 1 drop Documented by: Docusate Sodium (Colace -) 100 mg PO HS [facility] Last Admin: 09/23/19 22:35 Dose: 100 mg Documented by: Piperacillin Sod/Tazobactam (Sod 3.375 gm/ Sodium Chloride) 50 mls @ 100 mls/hr IVPB Q8H-IV [facility]; Protocol Last Admin: 09/24/19 10:08 Dose: 100 mls/hr Documented by: Lisinopril (Prinivil) 2.5 mg PO DAILY [facility] Metoprolol Succinate (Toprol Xl -) 12.5 mg PO DAILY [facility] Last Admin: 09/24/19 10:09 Dose: 12.5 mg Documented by: Multivitamins/Minerals (Certavite-Antioxidant Liquid) 15 ml PO DAILY [facility] Last Admin: 09/24/19 10:08 Dose: 15 ml Documented by: Pantoprazole Sodium (Protonix -) 40 mg PO DAILY [facility] Last Admin: 09/24/19 10:08 Dose: 40 mg Documented by: Polyethylene Glycol (Miralax (For Daily Use) -) 17 gm PO AM [facility] Last Admin: 09/24/19 06:31 Dose: Not Given Documented by: Sodium Chloride (Sodium Chloride Tablet -) 1 gm PO DAILY [facility] Last Admin: 09/24/19 10:08 Dose: 1 gm Documented by: - Objective Vital Signs: Vital Signs Temperature 97.9 F 09/24/19 05:51 Pulse Rate 60 09/24/19 05:51 Respiratory Rate 12 09/24/19 05:51 Blood Pressure 158/89 09/24/19 05:51 O2 Sat by Pulse Oximetry (%) 100 09/24/19 08:30 Constitutional: Yes: Mild Distress Cardiovascular: Yes: Pulse Irregular Respiratory: Yes: Diminished, On Nasal O2 Gastrointestinal: Yes: Soft Genitourinary: Yes: Incontinence Musculoskeletal: Yes: Muscle Weakness Neurological: Yes: Pre-Existing Deficit Labs: CBC, BMP 09/24/19 05:50 09/24/19 05:50 INR, PTT INR 0.97 (0.83-1.09) 09/20/19 14:00 Problem List - Problems (1) Acute pulmonary edema Code(s): J81.0 - ACUTE PULMONARY EDEMA (2) Hydronephrosis Code(s): N13.30 - UNSPECIFIED HYDRONEPHROSIS (3) Hyponatremia Code(s): E87.1 - HYPO-OSMOLALITY AND HYPONATREMIA (4) Hypoxia Code(s): R09.02 - HYPOXEMIA (5) Leukocytosis Code(s): D72.829 - ELEVATED WHITE BLOOD CELL COUNT, UNSPECIFIED (6) Pneumonia Code(s): J18.9 - PNEUMONIA, UNSPECIFIED ORGANISM (7) Acute on chronic systolic heart failure Code(s): I50.23 - ACUTE ON CHRONIC SYSTOLIC (CONGESTIVE) HEART FAILURE (8) Afib Code(s): I48.91 - UNSPECIFIED ATRIAL FIBRILLATION Qualifiers: Atrial fibrillation type: longstanding persistent Qualified Code(s): I48.11 - Longstanding persistent atrial fibrillation (9) Anemia Code(s): D64.9 - ANEMIA, UNSPECIFIED Assessment/Plan BP SUPPORT MONTOR IN ICU LABS RVIEWED CARDIO AND RENAL F/U APPRECIATED GENTLE IV HYDRATION CARDIAC MONITORING DVT PROPHYLAXIS
--- NOTE | 2019-09-24 15:19 | PN ---
Progress Note, Physician History of Present Illness: Pt seen and examined at bedside. She is awake and appears comfortable. She denies shortness of breath. - Current Medication List Current Medications: Active Medications Acetaminophen (Tylenol -) 650 mg PO Q4H PRN PRN Reason: PAIN LEVEL 1-5 Albuterol Sulfate (Ventolin 0.083% Nebulizer Soln -) 1 amp NEB RTID [facility] Last Admin: 09/24/19 08:30 Dose: 1 amp Documented by: Amino Acids (Prosource No Carb Liquid Pkt) 30 ml PO BID@0800,1730 [facility] Last Admin: 09/24/19 10:08 Dose: 30 ml Documented by: Brimonidine Tartrate (Alphagan 0.2% -) 1 drop OU TID [facility] Last Admin: 09/24/19 05:48 Dose: 1 drop Documented by: Docusate Sodium (Colace -) 100 mg PO HS [facility] Last Admin: 09/23/19 22:35 Dose: 100 mg Documented by: Piperacillin Sod/Tazobactam (Sod 3.375 gm/ Sodium Chloride) 50 mls @ 100 mls/hr IVPB Q8H-IV [facility]; Protocol Last Admin: 09/24/19 10:08 Dose: 100 mls/hr Documented by: Lisinopril (Prinivil) 2.5 mg PO DAILY [facility] Metoprolol Succinate (Toprol Xl -) 12.5 mg PO DAILY [facility] Last Admin: 09/24/19 10:09 Dose: 12.5 mg Documented by: Multivitamins/Minerals (Certavite-Antioxidant Liquid) 15 ml PO DAILY [facility] Last Admin: 09/24/19 10:08 Dose: 15 ml Documented by: Pantoprazole Sodium (Protonix -) 40 mg PO DAILY [facility] Last Admin: 09/24/19 10:08 Dose: 40 mg Documented by: Polyethylene Glycol (Miralax (For Daily Use) -) 17 gm PO AM [facility] Last Admin: 09/24/19 06:31 Dose: Not Given Documented by: Sodium Chloride (Sodium Chloride Tablet -) 1 gm PO DAILY [facility] Last Admin: 09/24/19 10:08 Dose: 1 gm Documented by: - Objective Vital Signs: Vital Signs Temperature 97.9 F 09/24/19 05:51 Pulse Rate 60 09/24/19 05:51 Respiratory Rate 12 09/24/19 09:00 Blood Pressure 158/89 09/24/19 05:51 O2 Sat by Pulse Oximetry (%) 100 09/24/19 09:00 Constitutional: Yes: Calm Eyes: Yes: Conjunctiva Clear HENT: Yes: Atraumatic Cardiovascular: Yes: S1, S2 Respiratory: Yes: On Nasal O2 Gastrointestinal: Yes: Soft Genitourinary: Yes: Incontinence Musculoskeletal: Yes: Muscle Weakness Edema: No Neurological: Yes: Oriented Labs: CBC, BMP 09/24/19 05:50 09/24/19 05:50 INR, PTT INR 0.97 (0.83-1.09) 09/20/19 14:00 Assessment/Plan Current Medications Generic Name Dose Route Start Last Admin Trade Name Freq PRN Reason Stop Dose Admin Acetaminophen 650 mg 09/20/19 16:46 Tylenol - PO Q4H PRN PAIN LEVEL 1-5 Albuterol Sulfate 1 amp 09/21/19 14:00 09/24/19 08:30 Ventolin 0.083% Nebulizer Soln - NEB 1 amp RTID [facility] Administration Amino Acids 30 ml 09/22/19 17:30 09/24/19 10:08 Prosource No Carb Liquid Pkt PO 30 ml BID@0800,1730 [facility] Administration Brimonidine Tartrate 1 drop 09/21/19 14:00 09/24/19 05:48 Alphagan 0.2% - OU 1 drop TID [facility] Administration Docusate Sodium 100 mg 09/21/19 22:00 09/23/19 22:35 Colace - PO 100 mg HS [facility] Administration Piperacillin Sod/Tazobactam 50 mls @ 100 mls/hr 09/23/19 18:00 09/24/19 10:08 Sod 3.375 gm/ Sodium Chloride IVPB 100 mls/hr Q8H-IV [facility] Administration Protocol Lisinopril 2.5 mg 09/25/19 10:00 Prinivil PO DAILY [facility] Metoprolol Succinate 12.5 mg 09/22/19 10:00 09/24/19 10:09 Toprol Xl - PO 12.5 mg DAILY [facility] Administration Multivitamins/Minerals 15 ml 09/23/19 10:00 09/24/19 10:08 Certavite-Antioxidant Liquid PO 15 ml DAILY [facility] Administration Pantoprazole Sodium 40 mg 09/21/19 10:00 09/24/19 10:08 Protonix - PO 40 mg DAILY [facility] Administration Polyethylene Glycol 17 gm 09/22/19 07:00 09/24/19 06:31 Miralax (For Daily Use) - PO Not Given AM [facility] Sodium Chloride 1 gm 09/22/19 13:45 09/24/19 10:08 Sodium Chloride Tablet - PO 1 gm DAILY [facility] Administration Impression 1. Euvolemic hyponatremia 2. Suspected PNA 3. Hypoxia 4. Hx of systolic HF with diastolic dysfunction 5. a-fib 6. htn Plan - sodium stable - cont salt tabs - cont to monitor sodium level - encourage po intake - fluid restriction of 1L
[2019-09-24] MEDS: DOCUSATE SODIUM 100 MG CAPSULE (FP) PO SCH ×2 (21:14→21:27)
[2019-09-25] MEDS ORDERED: SODIUM CHLORIDE 50 ML IVPB ONE ×3 (01:02→16:28)
[2019-09-25] MEDS ORDERED: PIPERACILLIN/TAZOBACTAM 3.375 GM VIAL IVPB ONE ×3 (01:02→16:28)
[2019-09-25] MEDS: PIPERACILLIN/TAZOB 3.375 GM 3.375 GM in SODIUM CHLORIDE 50 ML IVPB SCH ×3 (01:24→16:59)
[2019-09-25] MEDS: POLYETHYLENE GLYCOL 3350 119 GM BTL PO SCH (06:12)
[2019-09-25] MEDS: BRIMONIDINE TARTRATE 0.2% OPHTHALMIC 5 ML BOTTLE OU SCH ×3 (06:51→21:32)
[2019-09-25 06:53] LABS: ALBUMIN 2.4 g/dl (3.4-5.0); BILIRUBIN,TOTAL 1.1 mg/dL (0.2-1); BLOOD UREA NITROGEN 18.2 mg/dL (7-18); CALCIUM 8.7 mg/dL (8.5-10.1); CREATININE 0.6 mg/dL (0.55-1.3); POTASSIUM 3.7 mmol/L (3.5-5.1); TOT PROT 5.9 g/dl (6.4-8.2)
[2019-09-25 07:01] LABS: BASO % 0.1 % (0-2.0); EOS % 0.8 % (0-4.5); HEMATOCRIT 39.8 % (32.4-45.2); HEMOGLOBIN 12.9 GM/dL (10.7-15.3); LYMPH % 13.4 % (8-40); MCH 30.4 pg (25.7-33.7); MCHC 32.4 g/dl (32.0-36.0); MEAN CELL VOLUME 93.7 fl (80-96); MONO % 8.7 % (3.8-10.2); PLATELET COUNT 219 K/MM3 (134-434); RBC 4.25 M/mm3 (3.60-5.2); WHITE BLOOD COUNT 5.2 K/mm3 (4.0-10.0)
[2019-09-25] MEDS: ALBUTEROL SO4 0.083% IH SOL 2.5 MG/3 ML VIAL.NEB. NEB SCH ×3 (07:59→20:12)
--- NOTE | 2019-09-25 08:39 | PN ---
Progress Note, Physician Chief Complaint: Pt alert; weak; denies chest pain, dyspnea, palpitations. History of Present Illness: 89-year-old white female with a past medical history significant for Afib, systolic CHF-->AICD, HTN, hx of DVTs, anemia, right shoulder fracture (wearing a sling), right hip and sacral wound and Alzheimer's, who presents to the emergency department via EMS from [facility] for respiratory distress. Per EMS, the patient was found unresponsive by [place] staff and regained consciousness after suctioning and oxygenation. EMS reports the patient was saturating at 60% on nonrebreather, with a blood pressure of 180/80. The patient was given .4 mg of nitroglycerin with blood pressure improvement to 150/70. The patient was placed on a CPAP by EMS, with arrival oxygen saturation at 60-70%. - Current Medication List Current Medications: Active Medications Acetaminophen (Tylenol -) 650 mg PO Q4H PRN PRN Reason: PAIN LEVEL 1-5 Albuterol Sulfate (Ventolin 0.083% Nebulizer Soln -) 1 amp NEB RTID [facility] Last Admin: 09/25/19 07:59 Dose: 1 amp Documented by: Amino Acids (Prosource No Carb Liquid Pkt) 30 ml PO BID@0800,1730 [facility] Last Admin: 09/24/19 16:51 Dose: 30 ml Documented by: Brimonidine Tartrate (Alphagan 0.2% -) 1 drop OU TID [facility] Last Admin: 09/25/19 06:51 Dose: 1 drop Documented by: Docusate Sodium (Colace -) 100 mg PO HS [facility] Last Admin: 09/24/19 21:27 Dose: Not Given Documented by: Piperacillin Sod/Tazobactam (Sod 3.375 gm/ Sodium Chloride) 50 mls @ 100 mls/hr IVPB Q8H-IV [facility]; Protocol Last Admin: 09/25/19 01:24 Dose: 100 mls/hr Documented by: Lisinopril (Prinivil) 5 mg PO DAILY [facility] Metoprolol Succinate (Toprol Xl -) 12.5 mg PO DAILY [facility] Last Admin: 09/24/19 10:09 Dose: 12.5 mg Documented by: Multivitamins/Minerals (Certavite-Antioxidant Liquid) 15 ml PO DAILY [facility] Last Admin: 09/24/19 10:08 Dose: 15 ml Documented by: Pantoprazole Sodium (Protonix -) 40 mg PO DAILY [facility] Last Admin: 09/24/19 10:08 Dose: 40 mg Documented by: Polyethylene Glycol (Miralax (For Daily Use) -) 17 gm PO AM [facility] Last Admin: 09/25/19 06:12 Dose: 17 gm Documented by: Sodium Chloride (Sodium Chloride Tablet -) 1 gm PO DAILY [facility] Last Admin: 09/24/19 10:08 Dose: 1 gm Documented by: - Objective Vital Signs: Vital Signs Temperature 98 F 09/25/19 05:48 Pulse Rate 64 09/25/19 05:48 Respiratory Rate 18 09/25/19 05:48 Blood Pressure 159/83 09/25/19 05:48 O2 Sat by Pulse Oximetry (%) 100 09/24/19 21:48 Constitutional: Yes: Calm Eyes: Yes: WNL HENT: Yes: WNL Neck: Yes: WNL Cardiovascular: Yes: Murmur, S1, S2 (split) Respiratory: Yes: Diminished Gastrointestinal: Yes: Soft ...Rectal Exam: Yes: Deferred Genitourinary: No: Anuria Breast(s): Yes: WNL Musculoskeletal: Yes: Muscle Weakness Extremities: Yes: Cool Edema: No Peripheral Pulses WNL: Yes Integumentary: Yes: WNL Psychiatric: Yes: Alert, Oriented Labs: CBC, BMP 09/25/19 05:55 09/25/19 05:55 INR, PTT INR 0.97 (0.83-1.09) 09/20/19 14:00 Abnormal Lab Results 09/25/19 09/25/19 05:55 05:55 RDW 16.0 H MPV 7.0 L Chloride 94 L Carbon Dioxide 38 H Anion Gap 4 L BUN 18.2 H Total Bilirubin 1.1 H AST 12 L ALT 9 L Total Protein 5.9 L Albumin 2.4 L - ....Imaging Chest X-ray: Image Reviewed EKG: Image Reviewed Assessment/Plan PNA (?aspiration) Hypoxia Acute/chronic systolic CHF (mildly reduced LVEF) PPM Alzheimer dementia CTA No PE; CHENTE infiltrates- patchy, LLL atelectasis, ?hydronephrosis Parkinsons hyponatremia ROCAEL elevated BNP but clinicaly euvolemic Plan: COVID not detected. ECHO: mildly reduced LVEF TNI < 0.02 x 3 (3 hrs apart) periods of AV pacing On metoprolol ER 12.5 mg daily ; HR 60s. Started lisinopril 2.5 mg daily; will increase to 5 mg daily for elevated BP, systolic CHF. F/u BP, BUN/Cr, electrolytes. On fluid restriction for hyponatremia per transit man; f/u BUn/Cr, jose ctrolytes, daily wt, Is and Os. continue antibiotics per ID, O2 per category analyst. DVT Prophylaxsis.
[2019-09-25] MEDS ORDERED: PT OWN MED DRAWER 7, Y5N ONE (09:15)
[2019-09-25] MEDS: AMINO ACIDS/PROTEIN HYDROLYS 30 ML LIQUID.PKT PO SCH ×2 (09:21→16:59)
[2019-09-25] MEDS: MULTIVIT-MINERALS ORAL LIQUID PO SCH (09:21)
[2019-09-25] MEDS: SODIUM CHLORIDE 1 GM TABLET PO SCH (09:22)
[2019-09-25] MEDS: metoPROLOL SUCCINATE 25 MG TAB.SR.24H (FP) PO SCH (09:22)
[2019-09-25] MEDS: PANTOPRAZOLE 40 MG TABLET PO SCH (09:22)
[2019-09-25] MEDS: LISINOPRIL 5 MG TABLET (FP) PO SCH (09:23)
[2019-09-25] MEDS ORDERED: LISINOPRIL 5 MG TABLET (FP) PO SCH (10:00)
--- NOTE | 2019-09-25 10:02 | PN ---
Progress Note (short form) - Note Progress Note: doing well resting comfortably Vital Signs Period Temp Pulse Resp BP Sys/Oseguera Pulse Ox Last 24 Hr 97.9 F-98.6 F 60-71 16-18 132-165/80-96 98-100 cor-rrr llungs decreased bs at bases abd soft,nt ext no edema CBC, BMP 09/25/19 05:55 09/25/19 05:55 Microbiology 09/21/19 17:10 Blood - Peripheral Venous Blood Culture - Preliminary NO GROWTH OBTAINED AFTER 72 HOURS, INCUBATION TO CONTINUE FOR 2 DAYS. 09/21/19 16:50 Blood - Peripheral Venous Blood Culture - Preliminary NO GROWTH OBTAINED AFTER 72 HOURS, INCUBATION TO CONTINUE FOR 2 DAYS. a/p possible aspiration pneumonia suspect leukocytosis partially due to steroids resolving abnl MBS with aspiration day #5 zosyn can d/c antibiotics in am Problem List - Problems (1) Hypoxia Code(s): R09.02 - HYPOXEMIA (2) Pneumonia Code(s): J18.9 - PNEUMONIA, UNSPECIFIED ORGANISM (3) Hydronephrosis Code(s): N13.30 - UNSPECIFIED HYDRONEPHROSIS (4) Leukocytosis Code(s): D72.829 - ELEVATED WHITE BLOOD CELL COUNT, UNSPECIFIED
--- NOTE | 2019-09-25 11:03 | PN ---
Progress Note, Physician Chief Complaint: AWAKE IN ICU DENIES CHEST PAIN, +COUGH DRY - Current Medication List Current Medications: Active Medications Acetaminophen (Tylenol -) 650 mg PO Q4H PRN PRN Reason: PAIN LEVEL 1-5 Albuterol Sulfate (Ventolin 0.083% Nebulizer Soln -) 1 amp NEB RTID [facility] Last Admin: 09/25/19 07:59 Dose: 1 amp Documented by: Amino Acids (Prosource No Carb Liquid Pkt) 30 ml PO BID@0800,1730 [facility] Last Admin: 09/25/19 09:21 Dose: 30 ml Documented by: Brimonidine Tartrate (Alphagan 0.2% -) 1 drop OU TID [facility] Last Admin: 09/25/19 06:51 Dose: 1 drop Documented by: Docusate Sodium (Colace -) 100 mg PO HS [facility] Last Admin: 09/24/19 21:27 Dose: Not Given Documented by: Piperacillin Sod/Tazobactam (Sod 3.375 gm/ Sodium Chloride) 50 mls @ 100 mls/hr IVPB Q8H-IV [facility]; Protocol Stop: 09/26/19 10:00 Last Admin: 09/25/19 09:22 Dose: 100 mls/hr Documented by: Lisinopril (Prinivil) 5 mg PO DAILY [facility] Last Admin: 09/25/19 09:23 Dose: 5 mg Documented by: Metoprolol Succinate (Toprol Xl -) 12.5 mg PO DAILY [facility] Last Admin: 09/25/19 09:22 Dose: 12.5 mg Documented by: Multivitamins/Minerals (Certavite-Antioxidant Liquid) 15 ml PO DAILY [facility] Last Admin: 09/25/19 09:21 Dose: 15 ml Documented by: Pantoprazole Sodium (Protonix -) 40 mg PO DAILY [facility] Last Admin: 09/25/19 09:22 Dose: 40 mg Documented by: Polyethylene Glycol (Miralax (For Daily Use) -) 17 gm PO AM [facility] Last Admin: 09/25/19 06:12 Dose: 17 gm Documented by: Sodium Chloride (Sodium Chloride Tablet -) 1 gm PO DAILY [facility] Last Admin: 09/25/19 09:22 Dose: 1 gm Documented by: - Objective Vital Signs: Vital Signs Temperature 97.7 F 09/25/19 10:00 Pulse Rate 62 09/25/19 10:00 Respiratory Rate 18 09/25/19 10:00 Blood Pressure 106/74 09/25/19 10:00 O2 Sat by Pulse Oximetry (%) 100 09/24/19 21:48 Constitutional: Yes: Mild Distress Cardiovascular: Yes: WNL, Pulse Irregular Respiratory: Yes: Cough, On Nasal O2, SOB Gastrointestinal: Yes: WNL Genitourinary: Yes: Incontinence Musculoskeletal: Yes: Muscle Weakness Labs: CBC, BMP 09/25/19 05:55 09/25/19 05:55 INR, PTT INR 0.97 (0.83-1.09) 09/20/19 14:00 Problem List - Problems (1) Acute pulmonary edema Code(s): J81.0 - ACUTE PULMONARY EDEMA (2) Hydronephrosis Code(s): N13.30 - UNSPECIFIED HYDRONEPHROSIS (3) Hyponatremia Code(s): E87.1 - HYPO-OSMOLALITY AND HYPONATREMIA (4) Hypoxia Code(s): R09.02 - HYPOXEMIA (5) Leukocytosis Code(s): D72.829 - ELEVATED WHITE BLOOD CELL COUNT, UNSPECIFIED (6) Pneumonia Code(s): J18.9 - PNEUMONIA, UNSPECIFIED ORGANISM (7) Acute on chronic systolic heart failure Code(s): I50.23 - ACUTE ON CHRONIC SYSTOLIC (CONGESTIVE) HEART FAILURE (8) Afib Code(s): I48.91 - UNSPECIFIED ATRIAL FIBRILLATION Qualifiers: Atrial fibrillation type: longstanding persistent Qualified Code(s): I48.11 - Longstanding persistent atrial fibrillation (9) Anemia Code(s): D64.9 - ANEMIA, UNSPECIFIED (10) Dysphagia Code(s): R13.10 - DYSPHAGIA, UNSPECIFIED (11) Aspiration pneumonia Code(s): J69.0 - PNEUMONITIS DUE TO INHALATION OF FOOD AND VOMIT Assessment/Plan IV ABX PER ID CXR ORDERED TODAY PER ID, TOMORROW CAN DC ABX F/U SWALLOW/SPEECH EVAL PT, AND PLACEMENT TO SNF DVT PROPHYLAXIS
--- NOTE | 2019-09-25 12:49 | PN ---
Progress Note, Physician History of Present Illness: Pt seen and examined at bedside. She is awake and appears comfortable. - Current Medication List Current Medications: Active Medications Acetaminophen (Tylenol -) 650 mg PO Q4H PRN PRN Reason: PAIN LEVEL 1-5 Albuterol Sulfate (Ventolin 0.083% Nebulizer Soln -) 1 amp NEB RTID [facility] Last Admin: 09/25/19 07:59 Dose: 1 amp Documented by: Amino Acids (Prosource No Carb Liquid Pkt) 30 ml PO BID@0800,1730 [facility] Last Admin: 09/25/19 09:21 Dose: 30 ml Documented by: Brimonidine Tartrate (Alphagan 0.2% -) 1 drop OU TID [facility] Last Admin: 09/25/19 06:51 Dose: 1 drop Documented by: Docusate Sodium (Colace -) 100 mg PO HS [facility] Last Admin: 09/24/19 21:27 Dose: Not Given Documented by: Piperacillin Sod/Tazobactam (Sod 3.375 gm/ Sodium Chloride) 50 mls @ 100 mls/hr IVPB Q8H-IV [facility]; Protocol Stop: 09/26/19 10:00 Last Admin: 09/25/19 09:22 Dose: 100 mls/hr Documented by: Lisinopril (Prinivil) 5 mg PO DAILY [facility] Last Admin: 09/25/19 09:23 Dose: 5 mg Documented by: Metoprolol Succinate (Toprol Xl -) 12.5 mg PO DAILY [facility] Last Admin: 09/25/19 09:22 Dose: 12.5 mg Documented by: Multivitamins/Minerals (Certavite-Antioxidant Liquid) 15 ml PO DAILY [facility] Last Admin: 09/25/19 09:21 Dose: 15 ml Documented by: Pantoprazole Sodium (Protonix -) 40 mg PO DAILY [facility] Last Admin: 09/25/19 09:22 Dose: 40 mg Documented by: Polyethylene Glycol (Miralax (For Daily Use) -) 17 gm PO AM [facility] Last Admin: 09/25/19 06:12 Dose: 17 gm Documented by: Sodium Chloride (Sodium Chloride Tablet -) 1 gm PO DAILY [facility] Last Admin: 09/25/19 09:22 Dose: 1 gm Documented by: - Objective Vital Signs: Vital Signs Temperature 97.7 F 09/25/19 10:00 Pulse Rate 62 09/25/19 10:00 Respiratory Rate 18 09/25/19 10:00 Blood Pressure 106/74 09/25/19 10:00 O2 Sat by Pulse Oximetry (%) 100 09/24/19 21:48 Constitutional: Yes: Calm Eyes: Yes: Conjunctiva Clear Cardiovascular: Yes: S1, S2 Respiratory: Yes: CTA Bilaterally Gastrointestinal: Yes: Soft Genitourinary: Yes: Incontinence Musculoskeletal: Yes: WNL Edema: No Neurological: Yes: Oriented Psychiatric: Yes: Oriented Labs: CBC, BMP 09/25/19 05:55 09/25/19 05:55 INR, PTT INR 0.97 (0.83-1.09) 09/20/19 14:00 Assessment/Plan Current Medications Generic Name Dose Route Start Last Admin Trade Name Freq PRN Reason Stop Dose Admin Acetaminophen 650 mg 09/20/19 16:46 Tylenol - PO Q4H PRN PAIN LEVEL 1-5 Albuterol Sulfate 1 amp 09/21/19 14:00 09/25/19 07:59 Ventolin 0.083% Nebulizer Soln - NEB 1 amp RTID [facility] Administration Amino Acids 30 ml 09/22/19 17:30 09/25/19 09:21 Prosource No Carb Liquid Pkt PO 30 ml BID@0800,1730 [facility] Administration Brimonidine Tartrate 1 drop 09/21/19 14:00 09/25/19 06:51 Alphagan 0.2% - OU 1 drop TID [facility] Administration Docusate Sodium 100 mg 09/21/19 22:00 09/24/19 21:27 Colace - PO Not Given HS [facility] Piperacillin Sod/Tazobactam 50 mls @ 100 mls/hr 09/23/19 18:00 09/25/19 09:22 Sod 3.375 gm/ Sodium Chloride IVPB 09/26/19 10:00 100 mls/hr Q8H-IV [facility] Administration Protocol Lisinopril 5 mg 09/25/19 10:00 09/25/19 09:23 Prinivil PO 5 mg DAILY [facility] Administration Metoprolol Succinate 12.5 mg 09/22/19 10:00 09/25/19 09:22 Toprol Xl - PO 12.5 mg DAILY [facility] Administration Multivitamins/Minerals 15 ml 09/23/19 10:00 09/25/19 09:21 Certavite-Antioxidant Liquid PO 15 ml DAILY [facility] Administration Pantoprazole Sodium 40 mg 09/21/19 10:00 09/25/19 09:22 Protonix - PO 40 mg DAILY [facility] Administration Polyethylene Glycol 17 gm 09/22/19 07:00 09/25/19 06:12 Miralax (For Daily Use) - PO 17 gm AM [facility] Administration Sodium Chloride 1 gm 09/22/19 13:45 09/25/19 09:22 Sodium Chloride Tablet - PO 1 gm DAILY [facility] Administration Impression 1. Euvolemic hyponatremia 2. Suspected PNA 3. Hypoxia 4. Hx of systolic HF with diastolic dysfunction 5. a-fib 6. htn Plan - sodium is improving - cont salt tabs - repeat labs in am - pt tolerating diet - encourage po intake - fluid restriction of 1L
[2019-09-25] MEDS: DOCUSATE SODIUM 100 MG CAPSULE (FP) PO SCH (21:31)
[2019-09-26] MEDS ORDERED: PIPERACILLIN/TAZOBACTAM 3.375 GM VIAL IVPB ONE ×2 (00:48→09:11)
[2019-09-26] MEDS ORDERED: SODIUM CHLORIDE 50 ML IVPB ONE ×2 (00:49→09:12)
[2019-09-26] MEDS: PIPERACILLIN/TAZOB 3.375 GM 3.375 GM in SODIUM CHLORIDE 50 ML IVPB SCH ×2 (01:26→09:32)
[2019-09-26 06:50] LABS: BASO % 0.4 % (0-2.0); EOS % 1.1 % (0-4.5); HEMOGLOBIN 14.2 GM/dL (10.7-15.3); LYMPH % 16.3 % (8-40); MCH 30.4 pg (25.7-33.7); MCHC 32.3 g/dl (32.0-36.0); MEAN PLT VOLUME 7.1 fl (7.5-11.1); NEUT % 75.2 % (42.8-82.8); PLATELET COUNT 259 K/MM3 (134-434); RBC 4.68 M/mm3 (3.60-5.2); RDW 15.8 % (11.6-15.6); WHITE BLOOD COUNT 4.5 K/mm3 (4.0-10.0)
[2019-09-26] MEDS: BRIMONIDINE TARTRATE 0.2% OPHTHALMIC 5 ML BOTTLE OU SCH ×3 (06:57→21:18)
[2019-09-26] MEDS: POLYETHYLENE GLYCOL 3350 119 GM BTL PO SCH (06:58)
[2019-09-26 07:27] LABS: ALBUMIN 2.6 g/dl (3.4-5.0); BILIRUBIN,TOTAL 0.6 mg/dL (0.2-1); BLOOD UREA NITROGEN 16.4 mg/dL (7-18); CALCIUM 8.9 mg/dL (8.5-10.1); CREATININE 0.5 mg/dL (0.55-1.3); POTASSIUM 3.9 mmol/L (3.5-5.1); TOT PROT 6.4 g/dl (6.4-8.2)
[2019-09-26] MEDS: ALBUTEROL SO4 0.083% IH SOL 2.5 MG/3 ML VIAL.NEB. NEB SCH (08:35)
[2019-09-26] MEDS ORDERED: PT OWN MED DRAWER 7, Y5N ONE (09:11)
[2019-09-26] MEDS: MULTIVIT-MINERALS ORAL LIQUID PO SCH (09:31)
[2019-09-26] MEDS: AMINO ACIDS/PROTEIN HYDROLYS 30 ML LIQUID.PKT PO SCH ×2 (09:31→16:46)
[2019-09-26] MEDS: LISINOPRIL 5 MG TABLET (FP) PO SCH (09:31)
[2019-09-26] MEDS: PANTOPRAZOLE 40 MG TABLET PO SCH (09:31)
[2019-09-26] MEDS: metoPROLOL SUCCINATE 25 MG TAB.SR.24H (FP) PO SCH (09:31)
[2019-09-26] MEDS: SODIUM CHLORIDE 1 GM TABLET PO SCH (09:31)
--- NOTE | 2019-09-26 09:32 | PN ---
Progress Note, Physician History of Present Illness: 89 year old female with known history of GIB, Afib sp pacemaker placement, hypercholesterolemia, CHF, hypertension, DVT, right femur fracture sp repair, right arm fracture currently on a sling, dementia, nonambulatory for at least two months (since recent right leg surgery) who was sent to the ED by long-term staff after she was found to be in acute respiratory distress. At the ED she was found to be hypoxic needing bipap support. - Current Medication List Current Medications: Active Medications Acetaminophen (Tylenol -) 650 mg PO Q4H PRN PRN Reason: PAIN LEVEL 1-5 Albuterol Sulfate (Ventolin 0.083% Nebulizer Soln -) 1 amp NEB RTID [facility] Last Admin: 09/26/19 08:35 Dose: Not Given Documented by: Amino Acids (Prosource No Carb Liquid Pkt) 30 ml PO BID@0800,1730 [facility] Last Admin: 09/25/19 16:59 Dose: 30 ml Documented by: Brimonidine Tartrate (Alphagan 0.2% -) 1 drop OU TID [facility] Last Admin: 09/26/19 06:57 Dose: 1 drop Documented by: Docusate Sodium (Colace -) 100 mg PO HS [facility] Last Admin: 09/25/19 21:31 Dose: 100 mg Documented by: Piperacillin Sod/Tazobactam (Sod 3.375 gm/ Sodium Chloride) 50 mls @ 100 mls/hr IVPB Q8H-IV [facility]; Protocol Stop: 09/26/19 10:00 Last Admin: 09/26/19 01:26 Dose: 100 mls/hr Documented by: Lisinopril (Prinivil) 5 mg PO DAILY [facility] Last Admin: 09/25/19 09:23 Dose: 5 mg Documented by: Metoprolol Succinate (Toprol Xl -) 12.5 mg PO DAILY [facility] Last Admin: 09/25/19 09:22 Dose: 12.5 mg Documented by: Multivitamins/Minerals (Certavite-Antioxidant Liquid) 15 ml PO DAILY [facility] Last Admin: 09/25/19 09:21 Dose: 15 ml Documented by: Pantoprazole Sodium (Protonix -) 40 mg PO DAILY [facility] Last Admin: 09/25/19 09:22 Dose: 40 mg Documented by: Polyethylene Glycol (Miralax (For Daily Use) -) 17 gm PO AM [facility] Last Admin: 09/26/19 06:58 Dose: 17 gm Documented by: Sodium Chloride (Sodium Chloride Tablet -) 1 gm PO DAILY [facility] Last Admin: 09/25/19 09:22 Dose: 1 gm Documented by: - Objective Vital Signs: Vital Signs Temperature 97.6 F 09/26/19 06:00 Pulse Rate 60 09/26/19 08:20 Respiratory Rate 16 09/26/19 08:20 Blood Pressure 178/98 H 09/26/19 08:20 O2 Sat by Pulse Oximetry (%) 100 09/26/19 08:20 Eyes: Yes: WNL, Conjunctiva Clear, EOM Intact HENT: Yes: WNL, Atraumatic, Normocephalic Neck: Yes: WNL, Supple, Trachea Midline Cardiovascular: Yes: WNL, Regular Rate and Rhythm Respiratory: Yes: WNL, Regular, CTA Bilaterally Gastrointestinal: Yes: WNL, Normal Bowel Sounds Genitourinary: Yes: WNL Musculoskeletal: Yes: WNL Extremities: Yes: WNL Edema: No Integumentary: Yes: WNL Neurological: Yes: WNL, Alert, Oriented ...Motor Strength: WNL Psychiatric: Yes: WNL Labs: CBC, BMP 09/26/19 06:10 09/26/19 06:10 INR, PTT INR 0.97 (0.83-1.09) 09/20/19 14:00 Problem List - Problems (1) Acute pulmonary edema Code(s): J81.0 - ACUTE PULMONARY EDEMA (2) Hyponatremia Code(s): E87.1 - HYPO-OSMOLALITY AND HYPONATREMIA (3) Hypoxia Code(s): R09.02 - HYPOXEMIA (4) Acute on chronic systolic heart failure Code(s): I50.23 - ACUTE ON CHRONIC SYSTOLIC (CONGESTIVE) HEART FAILURE (5) Acute thrombosis of left basilic vein Code(s): I82.612 - ACUTE EMBOLISM AND THOMBOS OF SUPERFIC VEINS OF L UP EXTREM (6) Afib Code(s): I48.91 - UNSPECIFIED ATRIAL FIBRILLATION Qualifiers: Atrial fibrillation type: longstanding persistent Qualified Code(s): I48.11 - Longstanding persistent atrial fibrillation (7) Anemia Code(s): D64.9 - ANEMIA, UNSPECIFIED (8) CHF (congestive heart failure) Code(s): I50.9 - HEART FAILURE, UNSPECIFIED (9) Cachexia Code(s): R64 - CACHEXIA (10) Cellulitis Code(s): L03.90 - CELLULITIS, UNSPECIFIED Qualifiers: Site of cellulitis: extremity Site of cellulitis of extremity: lower extremity Laterality: unspecified laterality Qualified Code(s): L03.119 - Cellulitis of unspecified part of limb (11) Closed comminuted intertrochanteric fracture of left femur Code(s): S72.142A - DISPLACED INTERTROCHANTERIC FRACTURE OF LEFT FEMUR, INIT (12) Closed right humeral fracture Code(s): S42.301A - UNSP FRACTURE OF SHAFT OF HUMERUS, RIGHT ARM, INIT Qualifiers: Encounter type: initial encounter Humerus Location: proximal Fracture morphology: unspecified fracture morphology Qualified Code(s): S42.201A - Unspecified fracture of upper end of right humerus, initial encounter for closed fracture (13) DVT (deep venous thrombosis) Code(s): I82.409 - ACUTE EMBOLISM AND THOMBOS UNSP DEEP VN UNSP LOWER EXTREMITY (14) DVT of upper extremity (deep vein thrombosis) Code(s): I82.629 - ACUTE EMBOLISM AND THROMBOSIS OF DEEP VN UNSP UP EXTREM Qualifiers: Affected thrombotic vein of extremity: brachial Chronicity: chronic Laterality: left Qualified Code(s): I82.722 - 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 (15) Dementia Code(s): F03.90 - UNSPECIFIED DEMENTIA WITHOUT BEHAVIORAL DISTURBANCE (16) Eye abrasion Code(s): S05.8X9A - OTHER INJURIES OF UNSPECIFIED EYE AND ORBIT, INIT ENCNTR Qualifiers: Encounter type: initial encounter Laterality: left Qualified Code(s): S05.8X2A - Other injuries of left eye and orbit, initial encounter (17) Fracture of femoral neck, right, closed Code(s): S72.001A - FRACTURE OF UNSP PART OF NECK OF RIGHT FEMUR, INIT Qualifiers: Encounter type: initial encounter Qualified Code(s): S72.001A - Fracture of unspecified part of neck of right femur, initial encounter for closed fracture (18) GI bleed Code(s): K92.2 - GASTROINTESTINAL HEMORRHAGE, UNSPECIFIED Qualifiers: GI bleed type/associated pathology: melena Qualified Code(s): K92.1 - Melena (19) HLD (hyperlipidemia) Code(s): E78.5 - HYPERLIPIDEMIA, UNSPECIFIED Qualifiers: Hyperlipidemia type: pure hypercholesterolemia Qualified Code(s): E78.00 - Pure hypercholesterolemia, unspecified; E78.0 - Pure hypercholesterolemia (20) HTN (hypertension) Code(s): I10 - ESSENTIAL (PRIMARY) HYPERTENSION Qualifiers: Hypertension type: essential hypertension Qualified Code(s): I10 - Essential (primary) hypertension (21) Hypokalemia Code(s): E87.6 - HYPOKALEMIA (22) Labile hypertension Code(s): R09.89 - OTH SYMPTOMS AND SIGNS INVOLVING THE CIRC AND RESP SYSTEMS (23) Pacemaker Code(s): Z95.0 - PRESENCE OF CARDIAC PACEMAKER (24) Sacral ulcer Code(s): L98.429 - NON-PRESSURE CHRONIC ULCER OF BACK WITH UNSPECIFIED SEVERITY (25) Sepsis affecting skin Code(s): A41.9 - SEPSIS, UNSPECIFIED ORGANISM (26) Severe malnutrition Code(s): E43 - UNSPECIFIED SEVERE PROTEIN-CALORIE MALNUTRITION (27) Status post placement of cardiac pacemaker Code(s): Z95.0 - PRESENCE OF CARDIAC PACEMAKER (28) Syncope Code(s): R55 - SYNCOPE AND COLLAPSE Qualifiers: Syncope type: vasovagal syncope Qualified Code(s): R55 - Syncope and collapse (29) Systolic CHF Code(s): I50.20 - UNSPECIFIED SYSTOLIC (CONGESTIVE) HEART FAILURE (30) Systolic dysfunction without heart failure Code(s): I51.89 - OTHER ILL-DEFINED HEART DISEASES Assessment/Plan PNA (?aspiration) Hypoxia Acute/chronic systolic CHF (mildly reduced LVEF) PPM Alzheimer dementia CTA No PE; CHENTE infiltrates- patchy, LLL atelectasis, ?hydronephrosis Parkinsons hyponatremia ROCAEL elevated BNP but clinicaly euvolemic Plan: COVID not detected. ECHO: mildly reduced LVEF TNI < 0.02 x 3 (3 hrs apart) periods of AV pacing On metoprolol ER 12.5 mg daily ; HR 60s. Started lisinopril 2.5 mg daily; will increase to 5 mg daily for elevated BP, systolic CHF. On fluid restriction for hyponatremia per records clerk; f/u BUn/Cr, electrolytes, daily wt, Is and Os. continue antibiotics per ID, O2 per wick tender. DVT Prophylaxsis.
--- NOTE | 2019-09-26 11:01 | PN ---
Progress Note, FITNESS SUPERVISOR - Note Progress Note: Selected Entries 09/25/19 09/25/19 09/25/19 01:58 05:48 10:00 Breakfast Diet Tolerated Lunch Skin Risk Level Supper Total Score - Skin Risk Assessment Temperature 98.2 F 98 F 97.7 F Pulse Rate 60 64 62 Respiratory Rate Respiratory Depth Respiratory Effort Blood Pressure 156/96 159/83 106/74 O2 Sat by Pulse Oximetry (%) Oxygen Delivery Method Oxygen Flow Rate Weight Weight Measurement Method 09/25/19 09/25/19 09/25/19 10:53 13:30 14:00 Breakfast 75% Diet Tolerated Fair Lunch 75% Skin Risk Level Supper Total Score - Skin Risk Assessment Temperature 98.7 F Pulse Rate 73 Respiratory Rate Respiratory Depth Respiratory Effort Blood Pressure 93/59 L O2 Sat by Pulse Oximetry (%) Oxygen Delivery Method Oxygen Flow Rate Weight Weight Measurement Method 09/25/19 09/25/19 09/25/19 18:00 20:00 22:00 Breakfast Diet Tolerated Fair Lunch Skin Risk Level Supper 75% Total Score - Skin Risk Assessment Temperature 98.6 F 97.5 F L Pulse Rate 60 60 62 Respiratory Rate Respiratory Depth Respiratory Effort Blood Pressure 124/78 118/67 125/65 O2 Sat by Pulse Oximetry (%) Oxygen Delivery Method Oxygen Flow Rate Weight Weight Measurement Method 09/26/19 09/26/19 09/26/19 00:00 02:00 04:00 Breakfast Diet Tolerated Lunch Skin Risk Level Supper Total Score - Skin Risk Assessment Temperature Pulse Rate 63 62 62 Respiratory 12 11 10 Rate Respiratory Depth Respiratory Effort Blood Pressure 90/61 135/77 173/90 H O2 Sat by Pulse Oximetry (%) Oxygen Delivery Method Oxygen Flow Rate Weight Weight Measurement Method 09/26/19 09/26/19 09/26/19 06:00 08:20 10:00 Breakfast 75% Diet Tolerated Lunch Skin Risk Level Supper Total Score - Skin Risk Assessment Temperature 97.6 F Pulse Rate 66 60 Respiratory 16 16 Rate Respiratory Normal Depth Respiratory Non-Labored Effort Blood Pressure 146/91 178/98 H O2 Sat by Pulse 100 Oximetry (%) Oxygen Delivery Nasal Cannula Method Oxygen Flow 2 Rate Weight 93 lb Weight Built in Measurement Bedscale Method 09/26/19 09/26/19 09/26/19 10:10 10:28 10:30 Breakfast Diet Tolerated Lunch Skin Risk Level Moderate Risk Supper Total Score - 13 Skin Risk Assessment Temperature Pulse Rate Respiratory Rate Respiratory Depth Respiratory Effort Blood Pressure 74/58 L 71/49 L O2 Sat by Pulse Oximetry (%) Oxygen Delivery Method Oxygen Flow Rate Weight Weight Measurement Method 09/26/19 10:51 Breakfast Diet Tolerated Lunch Skin Risk Level Supper Total Score - Skin Risk Assessment Temperature Pulse Rate Respiratory Rate Respiratory Depth Respiratory Effort Blood Pressure 77/55 L O2 Sat by Pulse Oximetry (%) Oxygen Delivery Method Oxygen Flow Rate Weight Weight Measurement Method Laboratory Tests 09/22/19 09/23/19 09/24/19 06:10 05:30 05:50 WBC 15.3 H 11.3 H 9.0 09/25/19 09/26/19 05:55 06:10 WBC 5.2 4.5 09/22 MBS completed, revealing nasopharyngeal regurgitation and silent aspiration on puree and liquids intermittently. Good possibility that hypoxia on admission could have been related to aspiration. Pt has been fortunate that pt has not had recurreent PNA, as Dysphagia is not acute but noted in past. Initially weight in EMR demonstrated 254 lb gain, however new weight of 93 lbs seems more likely. Dysphagia puree diet with nectar thick liquids Prosource 30ml BID-suggest mix in applesauce TwoCal daily, Ensure pudding BID MV Swallowing techniques of small bites, chin tuck, 2 swallows per bite, alternate puree with nectar, complete with nectar, Tell pt to cough hard every few bites (to clear possible aspirate) should assist in safer swallowing function.Pt is dependent on real estate acquisition analyst to remind her of compensatory strategies during meals and with medication, due to memory deficits and likely poor follow through without cues. Reviewed with nursing.
--- NOTE | 2019-09-26 14:02 | PN ---
Progress Note (short form) - Note Progress Note: Awake and alert. NAD. No acute events overnight. Denies CP or SOB. Hemodynamics are borderline. Intake & Output 09/23/19 09/24/19 09/25/19 09/26/19 23:59 23:59 23:59 23:59 Intake Total 210 310 610 50 Balance 210 310 610 50 Weight 124 lb 124 lb 93 lb Last Vital Signs Temp Pulse Resp BP Pulse Ox 97.6 F 62 16 126/81 100 09/26/19 06:00 09/26/19 13:34 09/26/19 13:34 09/26/19 13:34 09/26/19 08:20 Active Medications Acetaminophen (Tylenol -) 650 mg PO Q4H PRN PRN Reason: PAIN LEVEL 1-5 Amino Acids (Prosource No Carb Liquid Pkt) 30 ml PO BID@0800,1730 [facility] Last Admin: 09/26/19 09:31 Dose: 30 ml Documented by: Brimonidine Tartrate (Alphagan 0.2% -) 1 drop OU TID [facility] Last Admin: 09/26/19 13:45 Dose: 1 drop Documented by: Docusate Sodium (Colace -) 100 mg PO HS [facility] Last Admin: 09/25/19 21:31 Dose: 100 mg Documented by: Lisinopril (Prinivil) 5 mg PO DAILY [facility] Last Admin: 09/26/19 09:31 Dose: 5 mg Documented by: Metoprolol Succinate (Toprol Xl -) 12.5 mg PO DAILY [facility] Last Admin: 09/26/19 09:31 Dose: 12.5 mg Documented by: Multivitamins/Minerals (Certavite-Antioxidant Liquid) 15 ml PO DAILY [facility] Last Admin: 09/26/19 09:31 Dose: 15 ml Documented by: Pantoprazole Sodium (Protonix -) 40 mg PO DAILY [facility] Last Admin: 09/26/19 09:31 Dose: 40 mg Documented by: Polyethylene Glycol (Miralax (For Daily Use) -) 17 gm PO AM [facility] Last Admin: 09/26/19 06:58 Dose: 17 gm Documented by: Sodium Chloride (Sodium Chloride Tablet -) 1 gm PO DAILY [facility] Last Admin: 09/26/19 09:31 Dose: 1 gm Documented by: Gen: NAD at rest HEENT: mild thrush Heart: RRR Lung: Few scattered rhonchi Abd: soft, nontender Ext: no edema Laboratory Results - last 24 hr 09/26/19 09/26/19 06:10 06:10 WBC 4.5 RBC 4.68 Hgb 14.2 Hct 44.0 MCV 94.0 MCH 30.4 MCHC 32.3 RDW 15.8 H Plt Count 259 MPV 7.1 L Absolute Neuts (auto) 3.4 Neutrophils % 75.2 Lymphocytes % 16.3 D Monocytes % 7.0 Eosinophils % 1.1 Basophils % 0.4 D Nucleated RBC % 0 Sodium 137 Potassium 3.9 Chloride 94 L Carbon Dioxide 39 H Anion Gap 4 L BUN 16.4 Creatinine 0.5 L Est GFR (CKD-EPI)AfAm 100.15 Est GFR (CKD-EPI)NonAf 86.41 Random Glucose 93 Calcium 8.9 Total Bilirubin 0.6 AST 9 L ALT 9 L Alkaline Phosphatase 102 Total Protein 6.4 Albumin 2.6 L ASSESSMENT AND PLAN: Acute Hypoxic Respiratory Failure improving Pneumonia r/o Aspiration Sepsis LV Systolic/Diastolic Dysfunction s/p PPM Hyponatremia HTN Parkinsons Alzheimers - Off antibiotics per ID - O2 to keep SpO2 >90% - monitor lytes - aspiration precautions - DVT prophylaxis Dr Denney
[2019-09-26 15:01] VITALS: BMI 16.9
--- NOTE | 2019-09-26 17:45 | PN ---
Progress Note, Physician Chief Complaint: Shortness of breath Hypoxia Pleural effusion Hyponatremia Hypokalemia Leukocytosis Abnormal liver enzymes History of Present Illness: NAD eating lunch - Current Medication List Current Medications: Active Medications Acetaminophen (Tylenol -) 650 mg PO Q4H PRN PRN Reason: PAIN LEVEL 1-5 Amino Acids (Prosource No Carb Liquid Pkt) 30 ml PO BID@0800,1730 [facility] Last Admin: 09/26/19 16:46 Dose: 30 ml Documented by: Brimonidine Tartrate (Alphagan 0.2% -) 1 drop OU TID [facility] Last Admin: 09/26/19 13:45 Dose: 1 drop Documented by: Docusate Sodium (Colace -) 100 mg PO HS [facility] Last Admin: 09/25/19 21:31 Dose: 100 mg Documented by: Lisinopril (Prinivil) 5 mg PO DAILY [facility] Last Admin: 09/26/19 09:31 Dose: 5 mg Documented by: Metoprolol Succinate (Toprol Xl -) 12.5 mg PO DAILY [facility] Last Admin: 09/26/19 09:31 Dose: 12.5 mg Documented by: Multivitamins/Minerals (Certavite-Antioxidant Liquid) 15 ml PO DAILY [facility] Last Admin: 09/26/19 09:31 Dose: 15 ml Documented by: Pantoprazole Sodium (Protonix -) 40 mg PO DAILY [facility] Last Admin: 09/26/19 09:31 Dose: 40 mg Documented by: Polyethylene Glycol (Miralax (For Daily Use) -) 17 gm PO AM [facility] Last Admin: 09/26/19 06:58 Dose: 17 gm Documented by: Sodium Chloride (Sodium Chloride Tablet -) 1 gm PO DAILY [facility] Last Admin: 09/26/19 09:31 Dose: 1 gm Documented by: - Objective Vital Signs: Vital Signs Temperature 98.8 F 09/26/19 16:37 Pulse Rate 72 09/26/19 16:37 Respiratory Rate 16 09/26/19 16:37 Blood Pressure 106/62 09/26/19 16:37 O2 Sat by Pulse Oximetry (%) 100 09/26/19 08:20 Constitutional: Yes: No Distress, Calm, Cachectic Cardiovascular: Yes: Regular Rate and Rhythm Respiratory: Yes: Regular, CTA Bilaterally Gastrointestinal: Yes: Normal Bowel Sounds, Soft Genitourinary: Yes: Incontinence Musculoskeletal: Yes: WNL Extremities: Yes: WNL Edema: No Peripheral Pulses WNL: Yes Neurological: Yes: Alert, Oriented Psychiatric: Yes: Alert, Oriented Labs: CBC, BMP 09/26/19 06:10 09/26/19 06:10 INR, PTT INR 0.97 (0.83-1.09) 09/20/19 14:00 Problem List - Problems (1) Hyponatremia Assessment/Plan: -improving -monitor daily labs -Nephrology consult Problems reviewed: Yes Code(s): E87.1 - HYPO-OSMOLALITY AND HYPONATREMIA (2) Hypoxia Assessment/Plan: -Left LL infiltration -ID consulted -Completed IV Zosyn -CTA results reviewed -O2 to keep SpO2>90% -Pulmonary consult -COVID 19 Negative -Bronchodilators Problems reviewed: Yes Code(s): R09.02 - HYPOXEMIA (3) Acute on chronic systolic heart failure Assessment/Plan: -Cardiology consult -Received IV furosemide in ER -D/C IVF -Last Echo 03/2019-moderate concentric LVH, LVEF-40-45%, mod mitral annular calcification,mild mitral + tricuspid regurgitation, Right ventricular systolic pressure elevated, mild aortic sclerosis -Repeat Echo upon cardiology discretion -IV furosemide as per cardiology -BB if BP allows Problems reviewed: Yes Code(s): I50.23 - ACUTE ON CHRONIC SYSTOLIC (CONGESTIVE) HEART FAILURE (4) Hypokalemia Assessment/Plan: -resolved -Monitor daily labs Problems reviewed: Yes Code(s): E87.6 - HYPOKALEMIA (5) Severe malnutrition Assessment/Plan: -multivitamin -Prosource BID -MBS Problems reviewed: Yes Code(s): E43 - UNSPECIFIED SEVERE PROTEIN-CALORIE MALNUTRITION (6) Pneumonia Assessment/Plan: -Likely aspiration -ID on board -Competed IV Zosyn -MBS to r/o aspiration -Afebrile -leukocytosis improved Problems reviewed: Yes Code(s): J18.9 - PNEUMONIA, UNSPECIFIED ORGANISM Assessment/Plan See problem list COVID 19 PCR pending for discharge
[2019-09-26] MEDS: DOCUSATE SODIUM 100 MG CAPSULE (FP) PO SCH (21:18)
[2019-09-27] MEDS: POLYETHYLENE GLYCOL 3350 119 GM BTL PO SCH (06:41)
[2019-09-27] MEDS: BRIMONIDINE TARTRATE 0.2% OPHTHALMIC 5 ML BOTTLE OU SCH ×3 (06:41→21:20)
[2019-09-27] MEDS: AMINO ACIDS/PROTEIN HYDROLYS 30 ML LIQUID.PKT PO SCH ×2 (08:54→17:20)
[2019-09-27] MEDS: SODIUM CHLORIDE 1 GM TABLET PO SCH (10:31)
[2019-09-27] MEDS: MULTIVIT-MINERALS ORAL LIQUID PO SCH (10:31)
[2019-09-27] MEDS: PANTOPRAZOLE 40 MG TABLET PO SCH (10:31)
[2019-09-27] MEDS: LISINOPRIL 5 MG TABLET (FP) PO SCH (10:44)
[2019-09-27] MEDS: metoPROLOL SUCCINATE 25 MG TAB.SR.24H (FP) PO SCH (10:44)
--- NOTE | 2019-09-27 11:11 | PN ---
Progress Note, MANAGER BUSINESS INTELLIGENCE - Note Progress Note: Dysphagia puree diet with nectar thick liquids Prosource 30ml BID-suggest mix in applesauce TwoCal daily, Ensure pudding BID MV Swallowing techniques of small bites, chin tuck, 2 swallows per bite, alternate puree with nectar, complete with nectar, Tell pt to cough hard every few bites (to clear possible aspirate) should assist in safer swallowing function.Pt is dependent on slasher hand to remind her of compensatory strategies during meals and with medication, due to memory deficits and likely poor follow through without cues. Selected Entries 09/26/19 09/26/19 09/26/19 00:00 02:00 04:00 Breakfast Diet Tolerated Supper Temperature Pulse Rate 63 62 62 Blood Pressure 90/61 135/77 173/90 H 09/26/19 09/26/19 09/26/19 06:00 08:20 10:00 Breakfast 75% Diet Tolerated Supper Temperature 97.6 F Pulse Rate 66 60 Blood Pressure 146/91 178/98 H 09/26/19 09/26/19 09/26/19 10:10 10:30 10:51 Breakfast Diet Tolerated Supper Temperature Pulse Rate Blood Pressure 74/58 L 71/49 L 77/55 L 09/26/19 09/26/19 09/26/19 11:05 11:36 12:01 Breakfast Diet Tolerated Supper Temperature Pulse Rate 60 83 Blood Pressure 72/59 L 74/52 L 89/63 L 09/26/19 09/26/19 09/26/19 13:34 16:37 22:00 Breakfast Diet Tolerated Well Supper 75% Temperature 98.8 F 98.6 F Pulse Rate 62 72 63 Blood Pressure 126/81 106/62 123/72 09/27/19 09/27/19 09/27/19 02:00 06:00 10:00 Breakfast Diet Tolerated Supper Temperature 97.6 F 97.3 F L Pulse Rate 62 60 60 Blood Pressure 121/69 155/85 91/57 L Laboratory Tests 09/26/19 06:10 WBC 4.5
--- NOTE | 2019-09-27 12:18 | PN ---
Progress Note (short form) - Note Progress Note: Awake and alert. NAD. No acute events overnight. Denies CP or SOB. Hemodynamics are better. Intake & Output 09/24/19 09/25/19 09/26/19 09/27/19 23:59 23:59 23:59 23:59 Intake Total 310 610 400 120 Balance 310 610 400 120 Weight 124 lb 93 lb 93 lb Last Vital Signs Temp Pulse Resp BP Pulse Ox 97.3 F L 60 17 91/57 L 100 09/27/19 10:00 09/27/19 10:00 09/27/19 10:00 09/27/19 10:00 09/27/19 09:00 Active Medications Acetaminophen (Tylenol -) 650 mg PO Q4H PRN PRN Reason: PAIN LEVEL 1-5 Amino Acids (Prosource No Carb Liquid Pkt) 30 ml PO BID@0800,1730 [facility] Last Admin: 09/27/19 08:54 Dose: 30 ml Documented by: Brimonidine Tartrate (Alphagan 0.2% -) 1 drop OU TID [facility] Last Admin: 09/27/19 06:41 Dose: 1 drop Documented by: Docusate Sodium (Colace -) 100 mg PO HS [facility] Last Admin: 09/26/19 21:18 Dose: 100 mg Documented by: Lisinopril (Prinivil) 5 mg PO DAILY [facility] Last Admin: 09/27/19 10:44 Dose: Not Given Documented by: Metoprolol Succinate (Toprol Xl -) 12.5 mg PO DAILY [facility] Last Admin: 09/27/19 10:44 Dose: Not Given Documented by: Multivitamins/Minerals (Certavite-Antioxidant Liquid) 15 ml PO DAILY [facility] Last Admin: 09/27/19 10:31 Dose: 15 ml Documented by: Pantoprazole Sodium (Protonix -) 40 mg PO DAILY [facility] Last Admin: 09/27/19 10:31 Dose: 40 mg Documented by: Polyethylene Glycol (Miralax (For Daily Use) -) 17 gm PO AM [facility] Last Admin: 09/27/19 06:41 Dose: 17 gm Documented by: Sodium Chloride (Sodium Chloride Tablet -) 1 gm PO DAILY [facility] Last Admin: 09/27/19 10:31 Dose: 1 gm Documented by: Gen: NAD at rest HEENT: mild thrush Heart: RRR Lung: Few scattered rhonchi Abd: soft, nontender Ext: no edema ASSESSMENT AND PLAN: Acute Hypoxic Respiratory Failure improving Pneumonia r/o Aspiration Sepsis LV Systolic/Diastolic Dysfunction s/p PPM Hyponatremia HTN Parkinsons Alzheimers - Off antibiotics per ID - O2 to keep SpO2 >90% - monitor lytes - aspiration precautions - DVT prophylaxis Dr Denney
[2019-09-27] MEDS ORDERED: LISINOPRIL 5 MG TABLET (FP) PO SCH (13:20)
--- NOTE | 2019-09-27 13:21 | PN ---
Progress Note, Physician Chief Complaint: Pt alert; eating lunch; asymptomatic. Denies feeling dizzy earlier. History of Present Illness: 89-year-old white female with a past medical history significant for Afib, systo lic CHF-->AICD, HTN, hx of DVTs, anemia, right shoulder fracture (wearing a sling), right hip and sacral wound and Alzheimer's, who presents to the emergency department via EMS from [facility] for respiratory distress. Per EMS, the patient was found unresponsive by [place] staff and regained consciousness after suctioning and oxygenation. EMS reports the patient was saturating at 60% on nonrebreather, with a blood pressure of 180/80. The patient was given .4 mg of nitroglycerin with blood pressure improvement to 150/70. The patient was placed on a CPAP by EMS, with arrival oxygen saturation at 60-70%. - Current Medication List Current Medications: Active Medications Acetaminophen (Tylenol -) 650 mg PO Q4H PRN PRN Reason: PAIN LEVEL 1-5 Amino Acids (Prosource No Carb Liquid Pkt) 30 ml PO BID@0800,1730 [facility] Last Admin: 09/27/19 08:54 Dose: 30 ml Documented by: Brimonidine Tartrate (Alphagan 0.2% -) 1 drop OU TID [facility] Last Admin: 09/27/19 06:41 Dose: 1 drop Documented by: Docusate Sodium (Colace -) 100 mg PO HS [facility] Last Admin: 09/26/19 21:18 Dose: 100 mg Documented by: Lisinopril (Prinivil) 5 mg PO DAILY [facility] Last Admin: 09/27/19 10:44 Dose: Not Given Documented by: Metoprolol Succinate (Toprol Xl -) 12.5 mg PO DAILY [facility] Last Admin: 09/27/19 10:44 Dose: Not Given Documented by: Multivitamins/Minerals (Certavite-Antioxidant Liquid) 15 ml PO DAILY [facility] Last Admin: 09/27/19 10:31 Dose: 15 ml Documented by: Pantoprazole Sodium (Protonix -) 40 mg PO DAILY [facility] Last Admin: 09/27/19 10:31 Dose: 40 mg Documented by: Polyethylene Glycol (Miralax (For Daily Use) -) 17 gm PO AM [facility] Last Admin: 09/27/19 06:41 Dose: 17 gm Documented by: Sodium Chloride (Sodium Chloride Tablet -) 1 gm PO DAILY [facility] Last Admin: 09/27/19 10:31 Dose: 1 gm Documented by: - Objective Vital Signs: Vital Signs Temperature 97.3 F L 09/27/19 10:00 Pulse Rate 60 09/27/19 12:27 Respiratory Rate 16 09/27/19 12:27 Blood Pressure 110/67 09/27/19 12:27 O2 Sat by Pulse Oximetry (%) 100 09/27/19 09:00 Constitutional: Yes: No Distress Eyes: Yes: WNL HENT: Yes: WNL Neck: Yes: WNL Cardiovascular: Yes: S1 Respiratory: Yes: Regular ...Rectal Exam: Yes: Deferred Genitourinary: No: Anuria Breast(s): Yes: WNL Musculoskeletal: Yes: Muscle Weakness Extremities: Yes: Cool Edema: No Peripheral Pulses WNL: Yes Integumentary: Yes: WNL Neurological: Yes: Alert, Oriented, Paresthesia Psychiatric: Yes: WNL Labs: CBC, BMP 09/26/19 06:10 09/26/19 06:10 INR, PTT INR 0.97 (0.83-1.09) 09/20/19 14:00 - ....Imaging Chest X-ray: Image Reviewed EKG: Image Reviewed Assessment/Plan PNA (?aspiration) Hypoxia Acute/chronic systolic CHF (mildly reduced LVEF) PPM Alzheimer dementia CTA No PE; CHENTE infiltrates- patchy, LLL atelectasis, ?hydronephrosis Parkinsons hyponatremia ROCAEL elevated BNP but clinicaly euvolemic Plan: COVID not detected; repeat study pending. ECHO: mildly reduced LVEF TNI < 0.02 x 3 (3 hrs apart) periods of AV pacing On metoprolol ER 12.5 mg daily ; HR 60s. Reduced lisinopril to 2.5 mg F/u BP, BUN/Cr, electrolytes. Hold these meds for systolic BP < 100 mmHg. On fluid restriction for hyponatremia per coal equipment operator; f/u BUn/Cr, electrolytes, daily wt, Is and Os. continue antibiotics per ID, O2 per senior oracle database administrator. DVT Prophylaxsis.
--- NOTE | 2019-09-27 17:17 | PN ---
Progress Note, Physician Chief Complaint: Shortness of breath Hypoxia Pleural effusion Hyponatremia Hypokalemia Leukocytosis Abnormal liver enzymes History of Present Illness: NAD eating lunch COVID 19 PCR pending for discharge - Current Medication List Current Medications: Active Medications Acetaminophen (Tylenol -) 650 mg PO Q4H PRN PRN Reason: PAIN LEVEL 1-5 Amino Acids (Prosource No Carb Liquid Pkt) 30 ml PO BID@0800,1730 [facility] Last Admin: 09/27/19 08:54 Dose: 30 ml Documented by: Brimonidine Tartrate (Alphagan 0.2% -) 1 drop OU TID [facility] Last Admin: 09/27/19 13:27 Dose: 1 drop Documented by: Docusate Sodium (Colace -) 100 mg PO HS [facility] Last Admin: 09/26/19 21:18 Dose: 100 mg Documented by: Lisinopril (Prinivil) 2.5 mg PO DAILY [facility] Metoprolol Succinate (Toprol Xl -) 12.5 mg PO DAILY [facility] Multivitamins/Minerals (Certavite-Antioxidant Liquid) 15 ml PO DAILY [facility] Last Admin: 09/27/19 10:31 Dose: 15 ml Documented by: Pantoprazole Sodium (Protonix -) 40 mg PO DAILY [facility] Last Admin: 09/27/19 10:31 Dose: 40 mg Documented by: Polyethylene Glycol (Miralax (For Daily Use) -) 17 gm PO AM [facility] Last Admin: 09/27/19 06:41 Dose: 17 gm Documented by: Sodium Chloride (Sodium Chloride Tablet -) 1 gm PO DAILY [facility] Last Admin: 09/27/19 10:31 Dose: 1 gm Documented by: - Objective Vital Signs: Vital Signs Temperature 98.0 F 09/27/19 14:00 Pulse Rate 62 09/27/19 14:00 Respiratory Rate 23 H 09/27/19 14:00 Blood Pressure 96/63 09/27/19 14:00 O2 Sat by Pulse Oximetry (%) 100 09/27/19 09:00 Constitutional: Yes: No Distress, Calm, Cachectic Cardiovascular: Yes: Regular Rate and Rhythm Respiratory: Yes: Regular, CTA Bilaterally Gastrointestinal: Yes: Normal Bowel Sounds, Soft Genitourinary: Yes: Incontinence Musculoskeletal: Yes: Muscle Weakness Extremities: Yes: Other (generalized atrophy) Edema: No Peripheral Pulses WNL: Yes Neurological: Yes: Alert, Oriented Psychiatric: Yes: Alert, Oriented Labs: CBC, BMP 09/26/19 06:10 09/26/19 06:10 INR, PTT INR 0.97 (0.83-1.09) 09/20/19 14:00 Problem List - Problems (1) Hyponatremia Assessment/Plan: -improving -monitor daily labs -Nephrology consult Problems reviewed: Yes Code(s): E87.1 - HYPO-OSMOLALITY AND HYPONATREMIA (2) Hypoxia Assessment/Plan: -Left LL infiltration -ID consulted -Completed IV Zosyn -CTA results reviewed -O2 to keep SpO2>90% -Pulmonary consult -COVID 19 Negative -Bronchodilators Problems reviewed: Yes Code(s): R09.02 - HYPOXEMIA (3) Acute on chronic systolic heart failure Assessment/Plan: -Cardiology consult -Received IV furosemide in ER -D/C IVF -Last Echo 03/2019-moderate concentric LVH, LVEF-40-45%, mod mitral annular calcification,mild mitral + tricuspid regurgitation, Right ventricular systolic pressure elevated, mild aortic sclerosis -Repeat Echo upon cardiology discretion -IV furosemide as per cardiology -BB if BP allows Problems reviewed: Yes Code(s): I50.23 - ACUTE ON CHRONIC SYSTOLIC (CONGESTIVE) HEART FAILURE (4) Hypokalemia Assessment/Plan: -resolved -Monitor daily labs Problems reviewed: Yes Code(s): E87.6 - HYPOKALEMIA (5) Severe malnutrition Assessment/Plan: -multivitamin -Prosource BID -MBS Problems reviewed: Yes Code(s): E43 - UNSPECIFIED SEVERE PROTEIN-CALORIE MALNUTRITION (6) Pneumonia Assessment/Plan: -Likely aspiration -ID on board -Competed IV Zosyn -MBS to r/o aspiration -Afebrile -leukocytosis improved Problems reviewed: Yes Code(s): J18.9 - PNEUMONIA, UNSPECIFIED ORGANISM Assessment/Plan See problem list COVID 19 PCR pending for discharge
--- NOTE | 2019-09-27 18:36 | PN ---
Progress Note, Physician Chief Complaint: Shortness of breath History of Present Illness: Seen and examined at the bedside awake and alert offers no acute complaints no chest pain, sob, fever, chills no N/V/D - Current Medication List Current Medications: Active Medications Acetaminophen (Tylenol -) 650 mg PO Q4H PRN PRN Reason: PAIN LEVEL 1-5 Amino Acids (Prosource No Carb Liquid Pkt) 30 ml PO BID@0800,1730 [facility] Last Admin: 09/27/19 17:20 Dose: 30 ml Documented by: Brimonidine Tartrate (Alphagan 0.2% -) 1 drop OU TID [facility] Last Admin: 09/27/19 13:27 Dose: 1 drop Documented by: Docusate Sodium (Colace -) 100 mg PO HS [facility] Last Admin: 09/26/19 21:18 Dose: 100 mg Documented by: Lisinopril (Prinivil) 2.5 mg PO DAILY [facility] Metoprolol Succinate (Toprol Xl -) 12.5 mg PO DAILY [facility] Multivitamins/Minerals (Certavite-Antioxidant Liquid) 15 ml PO DAILY [facility] Last Admin: 09/27/19 10:31 Dose: 15 ml Documented by: Pantoprazole Sodium (Protonix -) 40 mg PO DAILY [facility] Last Admin: 09/27/19 10:31 Dose: 40 mg Documented by: Polyethylene Glycol (Miralax (For Daily Use) -) 17 gm PO AM [facility] Last Admin: 09/27/19 06:41 Dose: 17 gm Documented by: Sodium Chloride (Sodium Chloride Tablet -) 1 gm PO DAILY [facility] Last Admin: 09/27/19 10:31 Dose: 1 gm Documented by: - Objective Vital Signs: Vital Signs Temperature 98.0 F 09/27/19 14:00 Pulse Rate 60 09/27/19 16:00 Respiratory Rate 23 H 09/27/19 14:00 Blood Pressure 100/63 09/27/19 16:00 O2 Sat by Pulse Oximetry (%) 100 09/27/19 09:00 Constitutional: Yes: No Distress HENT: Yes: Atraumatic Neck: Yes: Supple Cardiovascular: Yes: Regular Rate and Rhythm Respiratory: Yes: Regular Gastrointestinal: Yes: Soft Edema: No Labs: CBC, BMP 09/26/19 06:10 09/26/19 06:10 INR, PTT INR 0.97 (0.83-1.09) 09/20/19 14:00 Assessment/Plan 89 year old woman with history of atrial fibrillation, hyperlipidemia, heart failure, hypertension, DVT, dementia, recent right arm fracture who presented from the [place] with respiratory distress and found to have PNA and hyponatremia. 1. Euvolemic hyponatremia 2. Suspected PNA 3. Hypoxia 4. Hx of systolic HF with diastolic dysfunction Serum sodium is stable and improved Continue salt tabs Uric acid is WNL which supports more euvolemic hyponatremia continue oral intake as tolerated fluid restriction of 1L continue antibiotics as per primary team continue supplemental O2 as needed Thank you Kavon Mahan DO
[2019-09-27] MEDS: DOCUSATE SODIUM 100 MG CAPSULE (FP) PO SCH (21:20)
[2019-09-28] MEDS: POLYETHYLENE GLYCOL 3350 119 GM BTL PO SCH (06:04)
[2019-09-28] MEDS: BRIMONIDINE TARTRATE 0.2% OPHTHALMIC 5 ML BOTTLE OU SCH ×3 (06:05→22:16)
[2019-09-28] MEDS ORDERED: PT OWN MED DRAWER 7, Y5N ONE ×2 (09:42→21:43)
--- NOTE | 2019-09-28 09:56 | DS ---
Physical Examination Vital Signs: Vital Signs Temperature 98.3 F 09/27/19 21:00 Pulse Rate 60 09/28/19 08:00 Respiratory Rate 16 09/28/19 08:00 Blood Pressure 120/75 09/28/19 08:00 O2 Sat by Pulse Oximetry (%) 99 09/27/19 21:00 Cardiovascular: Yes: S1, S2 Respiratory: Yes: CTA Bilaterally Gastrointestinal: Yes: Normal Bowel Sounds, Soft Labs: CBC, BMP 09/26/19 06:10 09/26/19 06:10 Discharge Summary Problems reviewed: Yes Reason For Visit: ACUTE PULMONARY EDEMA Current Active Problems Acute pulmonary edema (Acute) Aspiration pneumonia (Acute) Dysphagia (Acute) Hydronephrosis (Acute) Hyponatremia (Acute) Hypoxia (Acute) Leukocytosis (Acute) Pneumonia (Acute) Hospital Course: - Problems (1) Hyponatremia Assessment/Plan: -improving -monitor daily labs -Nephrology consult Problems reviewed: Yes Code(s): E87.1 - HYPO-OSMOLALITY AND HYPONATREMIA (2) Hypoxia Assessment/Plan: -Left LL infiltration -ID consulted -Completed IV Zosyn -CTA results reviewed -O2 to keep SpO2>90% -Pulmonary consult -COVID 19 Negative -Bronchodilators Problems reviewed: Yes Code(s): R09.02 - HYPOXEMIA (3) Acute on chronic systolic heart failure Assessment/Plan: -Cardiology consult -Received IV furosemide in ER -D/C IVF -Last Echo 03/2019-moderate concentric LVH, LVEF-40-45%, mod mitral annular calcification,mild mitral + tricuspid regurgitation, Right ventricular systolic pressure elevated, mild aortic sclerosis -Repeat Echo upon cardiology discretion -Off IV furosemide as per cardiology -BB if BP allows Problems reviewed: Yes Code(s): I50.23 - ACUTE ON CHRONIC SYSTOLIC (CONGESTIVE) HEART FAILURE (4) Hypokalemia Assessment/Plan: -resolved -Monitor daily labs Problems reviewed: Yes Code(s): E87.6 - HYPOKALEMIA (5) Severe malnutrition Assessment/Plan: -multivitamin -Prosource BID -MBS Problems reviewed: Yes Code(s): E43 - UNSPECIFIED SEVERE PROTEIN-CALORIE MALNUTRITION (6) Pneumonia Assessment/Plan: -Likely aspiration -ID on board -Competed IV Zosyn -MBS to r/o aspiration -Afebrile -leukocytosis improved Problems reviewed: Yes Code(s): J18.9 - PNEUMONIA, UNSPECIFIED ORGANISM Assessment/Plan See problem list COVID 19 PCR Negative Condition: Stable - Instructions Referrals: Mey Caldwell MD [Primary Care Provider] - Disposition: [facility] F[facility] - Home Medications Comprehensive Discharge Medication List: Ambulatory Orders Brimonidine Tartrate [Alphagan 0.2% -] 1 drop OD TID 05/28/19 Acetaminophen [Tylenol .Regular Strength -] 650 mg PO Q4H PRN 09/21/19 Amino Acids/Protein Hydrolys [Prosource No Carb Liquid Pkt] 30 ml PO BID@0800,1730 packet 09/28/19 Docusate Sodium [Colace -] 100 mg PO HS capsule 09/28/19 Lisinopril [Prinivil] 2.5 mg PO DAILY tablet 09/28/19 Metoprolol Succinate [Toprol XL -] 12.5 mg PO DAILY tab.sr.24h 09/28/19 Multivit-Minerals [Certavite-Antioxidant Liquid] 15 ml PO DAILY cup 09/28/19 Pantoprazole Sodium [Protonix -] 40 mg PO DAILY tablet.ec 09/28/19 Polyethylene Glycol 3350 [Miralax 119 gm Btl -] 17 gm PO AM bottle 09/28/19 Sodium Chloride Tablet - 1 gm PO DAILY tablet 09/28/19
[2019-09-28] MEDS: AMINO ACIDS/PROTEIN HYDROLYS 30 ML LIQUID.PKT PO SCH ×2 (09:58→17:50)
[2019-09-28] MEDS: SODIUM CHLORIDE 1 GM TABLET PO SCH (09:58)
[2019-09-28] MEDS: MULTIVIT-MINERALS ORAL LIQUID PO SCH (09:58)
[2019-09-28] MEDS: metoPROLOL SUCCINATE 25 MG TAB.SR.24H (FP) PO SCH (09:59)
[2019-09-28] MEDS: PANTOPRAZOLE 40 MG TABLET PO SCH (09:59)
--- NOTE | 2019-09-28 16:31 | PN ---
Progress Note (short form) - Note Progress Note: Awake and alert. NAD. No acute events overnight. Denies CP or SOB. Hemodynamics are stable. Intake & Output 09/25/19 09/26/19 09/27/19 09/28/19 23:59 23:59 23:59 23:59 Intake Total 610 400 655 180 Balance 610 400 655 180 Weight 124 lb 93 lb 93 lb Last Vital Signs Temp Pulse Resp BP Pulse Ox 98 F 60 16 121/60 99 09/28/19 14:17 09/28/19 14:17 09/28/19 14:17 09/28/19 14:17 09/27/19 21:00 Active Medications Acetaminophen (Tylenol -) 650 mg PO Q4H PRN PRN Reason: PAIN LEVEL 1-5 Amino Acids (Prosource No Carb Liquid Pkt) 30 ml PO BID@0800,1730 [facility] Last Admin: 09/28/19 09:58 Dose: 30 ml Documented by: Brimonidine Tartrate (Alphagan 0.2% -) 1 drop OU TID [facility] Last Admin: 09/28/19 13:46 Dose: 1 drop Documented by: Docusate Sodium (Colace -) 100 mg PO HS [facility] Last Admin: 09/27/19 21:20 Dose: 100 mg Documented by: Lisinopril (Prinivil) 2.5 mg PO DAILY [facility] Last Admin: 09/28/19 10:00 Dose: 2.5 mg Documented by: Metoprolol Succinate (Toprol Xl -) 12.5 mg PO DAILY [facility] Last Admin: 09/28/19 09:59 Dose: 12.5 mg Documented by: Multivitamins/Minerals (Certavite-Antioxidant Liquid) 15 ml PO DAILY [facility] Last Admin: 09/28/19 09:58 Dose: 15 ml Documented by: Pantoprazole Sodium (Protonix -) 40 mg PO DAILY [facility] Last Admin: 09/28/19 09:59 Dose: 40 mg Documented by: Polyethylene Glycol (Miralax (For Daily Use) -) 17 gm PO AM [facility] Last Admin: 09/28/19 06:04 Dose: 17 gm Documented by: Sodium Chloride (Sodium Chloride Tablet -) 1 gm PO DAILY [facility] Last Admin: 09/28/19 09:58 Dose: 1 gm Documented by: Gen: NAD at rest HEENT: NC Heart: RRR Lung: Few scattered rhonchi Abd: soft, nontender Ext: no edema ASSESSMENT AND PLAN: Acute Hypoxic Respiratory Failure improving Pneumonia r/o Aspiration Sepsis LV Systolic/Diastolic Dysfunction s/p PPM Hyponatremia HTN Parkinsons Alzheimers - Off antibiotics per ID - O2 to keep SpO2 >90% - monitor lytes - aspiration precautions - DVT prophylaxis - DC planning Dr Denney
--- NOTE | 2019-09-28 16:42 | PN ---
Progress Note, Physician History of Present Illness: 89 year old female with known history of GIB, Afib sp pacemaker placement, hypercholesterolemia, CHF, hypertension, DVT, right femur fracture sp repair, right arm fracture currently on a sling, dementia, nonambulatory for at least two months (since recent right leg surgery) who was sent to the ED by group home staff after she was found to be in acute respiratory distress. At the ED she was found to be hypoxic needing bipap support. - Current Medication List Current Medications: Active Medications Acetaminophen (Tylenol -) 650 mg PO Q4H PRN PRN Reason: PAIN LEVEL 1-5 Amino Acids (Prosource No Carb Liquid Pkt) 30 ml PO BID@0800,1730 [facility] Last Admin: 09/28/19 09:58 Dose: 30 ml Documented by: Brimonidine Tartrate (Alphagan 0.2% -) 1 drop OU TID [facility] Last Admin: 09/28/19 13:46 Dose: 1 drop Documented by: Docusate Sodium (Colace -) 100 mg PO HS [facility] Last Admin: 09/27/19 21:20 Dose: 100 mg Documented by: Lisinopril (Prinivil) 2.5 mg PO DAILY [facility] Last Admin: 09/28/19 10:00 Dose: 2.5 mg Documented by: Metoprolol Succinate (Toprol Xl -) 12.5 mg PO DAILY [facility] Last Admin: 09/28/19 09:59 Dose: 12.5 mg Documented by: Multivitamins/Minerals (Certavite-Antioxidant Liquid) 15 ml PO DAILY [facility] Last Admin: 09/28/19 09:58 Dose: 15 ml Documented by: Pantoprazole Sodium (Protonix -) 40 mg PO DAILY [facility] Last Admin: 09/28/19 09:59 Dose: 40 mg Documented by: Polyethylene Glycol (Miralax (For Daily Use) -) 17 gm PO AM [facility] Last Admin: 09/28/19 06:04 Dose: 17 gm Documented by: Sodium Chloride (Sodium Chloride Tablet -) 1 gm PO DAILY [facility] Last Admin: 09/28/19 09:58 Dose: 1 gm Documented by: - Objective Vital Signs: Vital Signs Temperature 98 F 09/28/19 14:17 Pulse Rate 60 09/28/19 14:17 Respiratory Rate 16 09/28/19 14:17 Blood Pressure 121/60 09/28/19 14:17 O2 Sat by Pulse Oximetry (%) 99 09/27/19 21:00 Eyes: Yes: WNL, Conjunctiva Clear, EOM Intact HENT: Yes: WNL, Atraumatic, Normocephalic Neck: Yes: WNL, Supple, Trachea Midline Cardiovascular: Yes: WNL, Regular Rate and Rhythm Respiratory: Yes: WNL, Regular, CTA Bilaterally Gastrointestinal: Yes: WNL, Normal Bowel Sounds Genitourinary: Yes: WNL Musculoskeletal: Yes: WNL Extremities: Yes: WNL Edema: No Integumentary: Yes: WNL Neurological: Yes: WNL, Alert, Oriented ...Motor Strength: WNL Psychiatric: Yes: WNL Labs: CBC, BMP 09/26/19 06:10 09/26/19 06:10 INR, PTT INR 0.97 (0.83-1.09) 09/20/19 14:00 Problem List - Problems (1) Acute pulmonary edema Code(s): J81.0 - ACUTE PULMONARY EDEMA (2) Hyponatremia Code(s): E87.1 - HYPO-OSMOLALITY AND HYPONATREMIA (3) Hypoxia Code(s): R09.02 - HYPOXEMIA (4) Acute on chronic systolic heart failure Code(s): I50.23 - ACUTE ON CHRONIC SYSTOLIC (CONGESTIVE) HEART FAILURE (5) Acute thrombosis of left basilic vein Code(s): I82.612 - ACUTE EMBOLISM AND THOMBOS OF SUPERFIC VEINS OF L UP EXTREM (6) Afib Code(s): I48.91 - UNSPECIFIED ATRIAL FIBRILLATION Qualifiers: Atrial fibrillation type: longstanding persistent Qualified Code(s): I48.11 - Longstanding persistent atrial fibrillation (7) Anemia Code(s): D64.9 - ANEMIA, UNSPECIFIED (8) CHF (congestive heart failure) Code(s): I50.9 - HEART FAILURE, UNSPECIFIED (9) Cachexia Code(s): R64 - CACHEXIA (10) Cellulitis Code(s): L03.90 - CELLULITIS, UNSPECIFIED Qualifiers: Site of cellulitis: extremity Site of cellulitis of extremity: lower extremity Laterality: unspecified laterality Qualified Code(s): L03.119 - Cellulitis of unspecified part of limb (11) Closed comminuted intertrochanteric fracture of left femur Code(s): S72.142A - DISPLACED INTERTROCHANTERIC FRACTURE OF LEFT FEMUR, INIT (12) Closed right humeral fracture Code(s): S42.301A - UNSP FRACTURE OF SHAFT OF HUMERUS, RIGHT ARM, INIT Qualifiers: Encounter type: initial encounter Humerus Location: proximal Fracture morphology: unspecified fracture morphology Qualified Code(s): S42.201A - Unspecified fracture of upper end of right humerus, initial encounter for closed fracture (13) DVT (deep venous thrombosis) Code(s): I82.409 - ACUTE EMBOLISM AND THOMBOS UNSP DEEP VN UNSP LOWER EXTREMITY (14) DVT of upper extremity (deep vein thrombosis) Code(s): I82.629 - ACUTE EMBOLISM AND THROMBOSIS OF DEEP VN UNSP UP EXTREM Qualifiers: Affected thrombotic vein of extremity: brachial Chronicity: chronic Laterality: left Qualified Code(s): I82.722 - 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 (15) Dementia Code(s): F03.90 - UNSPECIFIED DEMENTIA WITHOUT BEHAVIORAL DISTURBANCE (16) Eye abrasion Code(s): S05.8X9A - OTHER INJURIES OF UNSPECIFIED EYE AND ORBIT, INIT ENCNTR Qualifiers: Encounter type: initial encounter Laterality: left Qualified Code(s): S05.8X2A - Other injuries of left eye and orbit, initial encounter (17) Fracture of femoral neck, right, closed Code(s): S72.001A - FRACTURE OF UNSP PART OF NECK OF RIGHT FEMUR, INIT Qualifiers: Encounter type: initial encounter Qualified Code(s): S72.001A - Fracture of unspecified part of neck of right femur, initial encounter for closed fracture (18) GI bleed Code(s): K92.2 - GASTROINTESTINAL HEMORRHAGE, UNSPECIFIED Qualifiers: GI bleed type/associated pathology: melena Qualified Code(s): K92.1 - Melena (19) HLD (hyperlipidemia) Code(s): E78.5 - HYPERLIPIDEMIA, UNSPECIFIED Qualifiers: Hyperlipidemia type: pure hypercholesterolemia Qualified Code(s): E78.00 - Pure hypercholesterolemia, unspecified; E78.0 - Pure hypercholesterolemia (20) HTN (hypertension) Code(s): I10 - ESSENTIAL (PRIMARY) HYPERTENSION Qualifiers: Hypertension type: essential hypertension Qualified Code(s): I10 - Essential (primary) hypertension (21) Hypokalemia Code(s): E87.6 - HYPOKALEMIA (22) Labile hypertension Code(s): R09.89 - OTH SYMPTOMS AND SIGNS INVOLVING THE CIRC AND RESP SYSTEMS (23) Pacemaker Code(s): Z95.0 - PRESENCE OF CARDIAC PACEMAKER (24) Sacral ulcer Code(s): L98.429 - NON-PRESSURE CHRONIC ULCER OF BACK WITH UNSPECIFIED SEVERITY (25) Sepsis affecting skin Code(s): A41.9 - SEPSIS, UNSPECIFIED ORGANISM (26) Severe malnutrition Code(s): E43 - UNSPECIFIED SEVERE PROTEIN-CALORIE MALNUTRITION (27) Status post placement of cardiac pacemaker Code(s): Z95.0 - PRESENCE OF CARDIAC PACEMAKER (28) Syncope Code(s): R55 - SYNCOPE AND COLLAPSE Qualifiers: Syncope type: vasovagal syncope Qualified Code(s): R55 - Syncope and collapse (29) Systolic CHF Code(s): I50.20 - UNSPECIFIED SYSTOLIC (CONGESTIVE) HEART FAILURE (30) Systolic dysfunction without heart failure Code(s): I51.89 - OTHER ILL-DEFINED HEART DISEASES Assessment/Plan PNA (?aspiration) Hypoxia Acute/chronic systolic CHF (mildly reduced LVEF) PPM Alzheimer dementia CTA No PE; CHENTE infiltrates- patchy, LLL atelectasis, ?hydronephrosis Parkinsons hyponatremia ROCAEL elevated BNP but clinicaly euvolemic Plan: COVID not detected; repeat study pending. ECHO: mildly reduced LVEF TNI < 0.02 x 3 (3 hrs apart) periods of AV pacing On metoprolol ER 12.5 mg daily ; HR 60s. Reduced lisinopril to 2.5 mg F/u BP, BUN/Cr, electrolytes. Hold these meds for systolic BP < 100 mmHg. 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 continue antibiotics per ID, O2 per dumper. DVT Prophylaxsis.
--- NOTE | 2019-09-28 17:45 | PN ---
Progress Note, Physician Chief Complaint: Shortness of breath History of Present Illness: Seen and examined at the bedside sleeping no overnight events - Current Medication List Current Medications: Active Medications Acetaminophen (Tylenol -) 650 mg PO Q4H PRN PRN Reason: PAIN LEVEL 1-5 Amino Acids (Prosource No Carb Liquid Pkt) 30 ml PO BID@0800,1730 [facility] Last Admin: 09/28/19 09:58 Dose: 30 ml Documented by: Brimonidine Tartrate (Alphagan 0.2% -) 1 drop OU TID [facility] Last Admin: 09/28/19 13:46 Dose: 1 drop Documented by: Docusate Sodium (Colace -) 100 mg PO HS [facility] Last Admin: 09/27/19 21:20 Dose: 100 mg Documented by: Lisinopril (Prinivil) 2.5 mg PO DAILY [facility] Last Admin: 09/28/19 10:00 Dose: 2.5 mg Documented by: Metoprolol Succinate (Toprol Xl -) 12.5 mg PO DAILY [facility] Last Admin: 09/28/19 09:59 Dose: 12.5 mg Documented by: Multivitamins/Minerals (Certavite-Antioxidant Liquid) 15 ml PO DAILY [facility] Last Admin: 09/28/19 09:58 Dose: 15 ml Documented by: Pantoprazole Sodium (Protonix -) 40 mg PO DAILY [facility] Last Admin: 09/28/19 09:59 Dose: 40 mg Documented by: Polyethylene Glycol (Miralax (For Daily Use) -) 17 gm PO AM [facility] Last Admin: 09/28/19 06:04 Dose: 17 gm Documented by: Sodium Chloride (Sodium Chloride Tablet -) 1 gm PO DAILY [facility] Last Admin: 09/28/19 09:58 Dose: 1 gm Documented by: - Objective Vital Signs: Vital Signs Temperature 98 F 09/28/19 14:17 Pulse Rate 60 09/28/19 14:17 Respiratory Rate 16 09/28/19 14:17 Blood Pressure 121/60 09/28/19 14:17 O2 Sat by Pulse Oximetry (%) 99 09/27/19 21:00 Constitutional: Yes: No Distress Edema: No Labs: CBC, BMP 09/26/19 06:10 09/26/19 06:10 INR, PTT INR 0.97 (0.83-1.09) 06/23/20 14:00 Assessment/Plan 89 year old woman with history of atrial fibrillation, hyperlipidemia, heart failure, hypertension, DVT, dementia, recent right arm fracture who presented from the [place] with respiratory distress and found to have PNA and hyponatremia. 1. Euvolemic hyponatremia 2. Suspected PNA 3. Hypoxia 4. Hx of systolic HF with diastolic dysfunction Serum sodium is stable Continue salt tabs daily Uric acid is WNL which supports more euvolemic hyponatremia continue oral intake as tolerated fluid restriction of 1L on discharge continue antibiotics as per primary team continue supplemental O2 as needed will need weekly BMP once discharged Thank you Kavon Mahan DO
[2019-09-28] MEDS: DOCUSATE SODIUM 100 MG CAPSULE (FP) PO SCH (22:15)
[2019-09-28 23:27] LABS: BASO % 0.5 % (0-2.0); EOS % 1.9 % (0-4.5); HEMATOCRIT 35.4 % (32.4-45.2); HEMOGLOBIN 11.4 GM/dL (10.7-15.3); LYMPH % 18.4 % (8-40); MCH 30.6 pg (25.7-33.7); MCHC 32.4 g/dl (32.0-36.0); MEAN CELL VOLUME 94.5 fl (80-96); MEAN PLT VOLUME 7.2 fl (7.5-11.1); MONO % 10.1 % (3.8-10.2); NEUT % 69.1 % (42.8-82.8); PLATELET COUNT 300 K/MM3 (134-434); RBC 3.74 M/mm3 (3.60-5.2); RDW 16.3 % (11.6-15.6); WHITE BLOOD COUNT 4.9 K/mm3 (4.0-10.0)
[2019-09-29 00:01] LABS: ALBUMIN 2.4 g/dl (3.4-5.0); BILIRUBIN,TOTAL 0.2 mg/dL (0.2-1); CALCIUM 8.1 mg/dL (8.5-10.1); CREATININE 0.8 mg/dL (0.55-1.3); POTASSIUM 4.6 mmol/L (3.5-5.1); TOT PROT 5.7 g/dl (6.4-8.2)
[2019-09-29] MEDS: POLYETHYLENE GLYCOL 3350 119 GM BTL PO SCH (06:43)
[2019-09-29] MEDS: BRIMONIDINE TARTRATE 0.2% OPHTHALMIC 5 ML BOTTLE OU SCH (06:43)
[2019-09-29 08:49] VITALS: TEMP 98
--- NOTE | 2019-09-29 09:20 | DS ---
Physical Examination Vital Signs: Vital Signs Temperature 98 F 09/29/19 08:00 Pulse Rate 60 09/29/19 08:00 Respiratory Rate 18 09/29/19 08:00 Blood Pressure 118/66 09/29/19 08:00 O2 Sat by Pulse Oximetry (%) 100 09/28/19 21:00 Cardiovascular: Yes: Regular Rate and Rhythm Respiratory: Yes: Regular, CTA Bilaterally Gastrointestinal: Yes: Normal Bowel Sounds, Soft Labs: CBC, BMP 09/28/19 22:00 09/28/19 22:00 Discharge Summary Problems reviewed: Yes Reason For Visit: ACUTE PULMONARY EDEMA Current Active Problems Acute pulmonary edema (Acute) Aspiration pneumonia (Acute) Dysphagia (Acute) Hydronephrosis (Acute) Hyponatremia (Acute) Hypoxia (Acute) Leukocytosis (Acute) Pneumonia (Acute) Hospital Course: - Problems (1) Hyponatremia Assessment/Plan: -improving -monitor daily labs -Nephrology consult Problems reviewed: Yes Code(s): E87.1 - HYPO-OSMOLALITY AND HYPONATREMIA (2) Hypoxia Assessment/Plan: -Left LL infiltration -ID consulted -Completed IV Zosyn -CTA results reviewed -O2 to keep SpO2>90% -Pulmonary consult -COVID 19 Negative -Bronchodilators Problems reviewed: Yes Code(s): R09.02 - HYPOXEMIA (3) Acute on chronic systolic heart failure Assessment/Plan: -Cardiology consult -Received IV furosemide in ER -D/C IVF -Last Echo 03/2019-moderate concentric LVH, LVEF-40-45%, mod mitral annular calcification,mild mitral + tricuspid regurgitation, Right ventricular systolic pressure elevated, mild aortic sclerosis -Repeat Echo upon cardiology discretion -Off IV furosemide as per cardiology -BB if BP allows Problems reviewed: Yes Code(s): I50.23 - ACUTE ON CHRONIC SYSTOLIC (CONGESTIVE) HEART FAILURE (4) Hypokalemia Assessment/Plan: -resolved -Monitor daily labs Problems reviewed: Yes Code(s): E87.6 - HYPOKALEMIA (5) Severe malnutrition Assessment/Plan: -multivitamin -Prosource BID -MBS Problems reviewed: Yes Code(s): E43 - UNSPECIFIED SEVERE PROTEIN-CALORIE MALNUTRITION (6) Pneumonia Assessment/Plan: -Likely aspiration -ID on board -Competed IV Zosyn -MBS to r/o aspiration -Afebrile -leukocytosis improved Problems reviewed: Yes Code(s): J18.9 - PNEUMONIA, UNSPECIFIED ORGANISM Assessment/Plan See problem list COVID 19 PCR Negative Condition: Stable - Instructions Referrals: Mey Caldwell MD [Primary Care Provider] - Disposition: INTERMEDIATE FACILITY - Home Medications Comprehensive Discharge Medication List: Ambulatory Orders Brimonidine Tartrate [Alphagan 0.2% -] 1 drop OD TID 05/28/19 Acetaminophen [Tylenol .Regular Strength -] 650 mg PO Q4H PRN 09/21/19 Amino Acids/Protein Hydrolys [Prosource No Carb Liquid Pkt] 30 ml PO BID@0800,1730 packet 09/28/19 Docusate Sodium [Colace -] 100 mg PO HS capsule 09/28/19 Lisinopril [Prinivil] 2.5 mg PO DAILY tablet 09/28/19 Metoprolol Succinate [Toprol XL -] 12.5 mg PO DAILY tab.sr.24h 09/28/19 Multivit-Minerals [Certavite-Antioxidant Liquid] 15 ml PO DAILY cup 09/28/19 Pantoprazole Sodium [Protonix -] 40 mg PO DAILY tablet.ec 09/28/19 Polyethylene Glycol 3350 [Miralax 119 gm Btl -] 17 gm PO AM bottle 09/28/19 Sodium Chloride Tablet - 1 gm PO DAILY tablet 09/28/19
[2019-09-29] MEDS: PANTOPRAZOLE 40 MG TABLET PO SCH (09:38)
[2019-09-29] MEDS: SODIUM CHLORIDE 1 GM TABLET PO SCH (09:38)
[2019-09-29] MEDS: MULTIVIT-MINERALS ORAL LIQUID PO SCH (09:38)
[2019-09-29] MEDS: AMINO ACIDS/PROTEIN HYDROLYS 30 ML LIQUID.PKT PO SCH (09:38)
[2019-09-29 12:40] VITALS: BP 119/67; PULSE 64
[2019-09-29] MEDS: metoPROLOL SUCCINATE 25 MG TAB.SR.24H (FP) PO SCH (12:46)
--- NOTE | 2019-09-29 13:24 | PN ---
Progress Note (short form) - Note Progress Note: Awake and alert. NAD. No acute events overnight. Denies CP or SOB. Intake & Output 09/26/19 09/27/19 09/28/19 09/29/19 23:59 23:59 23:59 23:59 Intake Total 400 655 420 Balance 400 655 420 Weight 93 lb 93 lb Last Vital Signs Temp Pulse Resp BP Pulse Ox 98 F 64 16 119/67 100 09/29/19 08:00 09/29/19 12:39 09/29/19 12:39 09/29/19 12:39 09/29/19 09:00 Active Medications Acetaminophen (Tylenol -) 650 mg PO Q4H PRN PRN Reason: PAIN LEVEL 1-5 Amino Acids (Prosource No Carb Liquid Pkt) 30 ml PO BID@0800,1730 [facility] Last Admin: 09/29/19 09:38 Dose: 30 ml Documented by: Brimonidine Tartrate (Alphagan 0.2% -) 1 drop OU TID [facility] Last Admin: 09/29/19 06:43 Dose: 1 drop Documented by: Docusate Sodium (Colace -) 100 mg PO HS [facility] Last Admin: 09/28/19 22:15 Dose: 100 mg Documented by: Metoprolol Succinate (Toprol Xl -) 12.5 mg PO DAILY [facility] Last Admin: 09/29/19 12:46 Dose: Not Given Documented by: Multivitamins/Minerals (Certavite-Antioxidant Liquid) 15 ml PO DAILY [facility] Last Admin: 09/29/19 09:38 Dose: 15 ml Documented by: Pantoprazole Sodium (Protonix -) 40 mg PO DAILY [facility] Last Admin: 09/29/19 09:38 Dose: 40 mg Documented by: Polyethylene Glycol (Miralax (For Daily Use) -) 17 gm PO AM [facility] Last Admin: 09/29/19 06:43 Dose: 17 gm Documented by: Sodium Chloride (Sodium Chloride Tablet -) 1 gm PO DAILY [facility] Last Admin: 09/29/19 09:38 Dose: 1 gm Documented by: Gen: NAD at rest HEENT: NC Heart: RRR Lung: Few scattered rhonchi Abd: soft, nontender Ext: no edema Laboratory Results - last 24 hr 09/28/19 09/28/19 22:00 22:00 WBC 4.9 RBC 3.74 Hgb 11.4 Hct 35.4 D MCV 94.5 MCH 30.6 MCHC 32.4 RDW 16.3 H Plt Count 300 MPV 7.2 L Absolute Neuts (auto) 3.4 Neutrophils % 69.1 Lymphocytes % 18.4 Monocytes % 10.1 Eosinophils % 1.9 Basophils % 0.5 Nucleated RBC % 0 Sodium 137 Potassium 4.6 Chloride 97 L Carbon Dioxide 35 H Anion Gap 4 L BUN 37.0 H Creatinine 0.8 Est GFR (CKD-EPI)AfAm 76.29 Est GFR (CKD-EPI)NonAf 65.82 Random Glucose 123 H Calcium 8.1 L Total Bilirubin 0.2 AST 13 L ALT 11 L Alkaline Phosphatase 107 Total Protein 5.7 L Albumin 2.4 L ASSESSMENT AND PLAN: Acute Hypoxic Respiratory Failure improving Pneumonia r/o Aspiration Sepsis LV Systolic/Diastolic Dysfunction s/p PPM Hyponatremia HTN Parkinsons Alzheimers - O2 to keep SpO2 >90% - monitor lytes - aspiration precautions - DVT prophylaxis - DC planning Dr Denney
--- NOTE | 2019-09-29 13:37 | PN ---
Progress Note, Physician Chief Complaint: Shortness of breath History of Present Illness: Seen and examined at the bedside awake and alert no overnight events no sob, cp, fever, chills - Current Medication List Current Medications: Active Medications Acetaminophen (Tylenol -) 650 mg PO Q4H PRN PRN Reason: PAIN LEVEL 1-5 Amino Acids (Prosource No Carb Liquid Pkt) 30 ml PO BID@0800,1730 [facility] Last Admin: 09/29/19 09:38 Dose: 30 ml Documented by: Brimonidine Tartrate (Alphagan 0.2% -) 1 drop OU TID [facility] Last Admin: 09/29/19 06:43 Dose: 1 drop Documented by: Docusate Sodium (Colace -) 100 mg PO HS [facility] Last Admin: 09/28/19 22:15 Dose: 100 mg Documented by: Metoprolol Succinate (Toprol Xl -) 12.5 mg PO DAILY [facility] Last Admin: 09/29/19 12:46 Dose: Not Given Documented by: Multivitamins/Minerals (Certavite-Antioxidant Liquid) 15 ml PO DAILY [facility] Last Admin: 09/29/19 09:38 Dose: 15 ml Documented by: Pantoprazole Sodium (Protonix -) 40 mg PO DAILY [facility] Last Admin: 09/29/19 09:38 Dose: 40 mg Documented by: Polyethylene Glycol (Miralax (For Daily Use) -) 17 gm PO AM [facility] Last Admin: 09/29/19 06:43 Dose: 17 gm Documented by: Sodium Chloride (Sodium Chloride Tablet -) 1 gm PO DAILY [facility] Last Admin: 09/29/19 09:38 Dose: 1 gm Documented by: - Objective Vital Signs: Vital Signs Temperature 98 F 09/29/19 08:00 Pulse Rate 64 09/29/19 13:25 Respiratory Rate 16 09/29/19 13:25 Blood Pressure 119/67 09/29/19 13:25 O2 Sat by Pulse Oximetry (%) 100 09/29/19 09:00 Constitutional: Yes: No Distress HENT: Yes: Atraumatic Neck: Yes: Supple Cardiovascular: Yes: Regular Rate and Rhythm Respiratory: Yes: Regular Gastrointestinal: Yes: Normal Bowel Sounds Extremities: No: Cyanosis Edema: No Labs: CBC, BMP 09/28/19 22:00 09/28/19 22:00 INR, PTT INR 0.97 (0.83-1.09) 06/23/20 14:00 Assessment/Plan 89 year old woman with history of atrial fibrillation, hyperlipidemia, heart failure, hypertension, DVT, dementia, recent right arm fracture who presented from the [place] with respiratory distress and found to have PNA and h yponatremia. 1. Euvolemic hyponatremia 2. Suspected PNA 3. Hypoxia 4. Hx of systolic HF with diastolic dysfunction Serum sodium is stable Continue salt tabs daily continue oral intake as tolerated fluid restriction of 1L on discharge would continue sodium chloride tabs 1g daily on discharge will need BMP checked every week if Na > 140 can discontinue salt tabs Thank you Kavon Mahan DO
== END 2019-09-29 14:43 | DRG 871 ==
LOC: JER 13:14 → JERBED 15:21 → JICU 09-21 12:33
PROVIDERS: ADMIT Internal Medicine; ATTEND Family Medicine
DX: A41.9 Sepsis, unspecified organism (principal); J69.0 Pneumonitis due to inhalation of food and vomit; J96.01 Acute respiratory failure with hypoxia; E43 Unspecified severe protein-calorie malnutrition; I50.23 Acute on chronic systolic (congestive) heart failure; J44.1 Chronic obstructive pulmonary disease with (acute) exacerbation; E87.1 Hypo-osmolality and hyponatremia; J98.11 Atelectasis; I48.11 Longstanding persistent atrial fibrillation; N17.9 Acute kidney failure, unspecified; N13.30 Unspecified hydronephrosis; Z68.1 Body mass index [BMI] 19.9 or less, adult; R64 Cachexia; I11.0 Hypertensive heart disease with heart failure; E87.6 Hypokalemia; G20 Parkinson's disease; D72.829 Elevated white blood cell count, unspecified; G30.9 Alzheimer's disease, unspecified; F02.80 Dementia in other diseases classified elsewhere, unspecified severity, without behavioral disturbance, psychotic disturbance, mood disturbance, and anxiety; E78.5 Hyperlipidemia, unspecified
CPT/HCPCS: 36415; 36600; 71045-TC-FY; 71250-TC; 71275-TC; 74230-TC-FY; 76775-TC; 80048; 80053; 81003; 82533; 82550; 82728; 82803; 82962; 83615; 83735; 83880; 83930; 83935; 84100; 84300; 84443; 84484; 84550; 85025; 85379; 85610; 85730; 86140; 87040; 87086; 92611-GN; 93005; 93010; 93306-TC; 94640; 94660; 97116-GP; 97162-GP; 99291; U0003